=== PATIENT | male | born 1945 | race Caucasian/White ===

== ENCOUNTER → 2016-12-15 | Outpatient (CLI) | payer MEDICARE ==
[2016-12-15 07:20] LABS: Basophils # (A) 0.1 k/uL (0-0.2); Basophils % (A) 1 %; CH 31.3; CHCM 33.6; Eosinophils # (A) 0.2 k/uL (0-0.7); Eosinophils % (A) 5 %; HDW 3.05; HGB 14.1 gm/dL (13.0-17.5); Luc # (Auto) 0.13; Luc % (Auto) 3; Lymphocytes # (A) 1.5 k/uL (1.0-4.8); Lymphocytes % (A) 34 %; MCH 30.8 pg (25.0-35.0); MCHC 32.9 g/dL (31.0-37.0); MCV 93.6 fL (80.0-100.0); Mean Platelet Volume 6.9; Monocytes # (A) 0.3 k/uL (0-1.0); Monocytes % (A) 7 %; Neutrophils # (A) 2.3 k/uL (1.3-7.7); Neutrophils % (A) 50 %; RBC 4.59 m/uL (4.30-5.90); RDW 14.1 % (11.5-15.5); WBC 4.5 k/uL (3.8-10.6); WBC (Perox) 4.61
[2016-12-15 07:46] LABS: Appearance,Urine Clear (Clear); Bilirubin,Urine Negative (Negative); Glucose,Urine (UA) Negative (Negative); Ketones,Urine Negative (Negative); Leukocyte Esterase,Urine Negative (Negative); Mucus,Urine Rare /hpf; Nitrite,Urine Negative (Negative); PH, Urine 5.5 (5.0-8.0); Particle Count 1963; Protein,Urine 2+ (Negative); Specific Gravity,Urine 1.014 (1.001-1.035); UA Billing (MACRO vs. MICRO) MICRO; Urobilinogen,Urine <2.0 mg/dL (<2.0); WBC,Urine 3 /hpf (0-5)
[2016-12-15 13:16] LABS: Calcium 9.3 mg/dL (8.4-10.2); Magnesium 2.1 mg/dL (1.6-2.3); Phosphorous 3.9 mg/dL (2.5-4.5); Potassium 4.9 mmol/L (3.5-5.1); Total Bilirubin 2.2 mg/dL (0.2-1.3); Uric Acid 7.1 mg/dL (3.5-8.5)
[2016-12-15 15:36] LABS: % Iron Saturation 24.5 % (20-50)
[2016-12-15 16:01] LABS: Prostate Specific Antigen 1.76 ng/mL (0.00-4.00)
[2016-12-19 19:08] LABS: Hemoglobin A1C 6.8 % (4.2-6.1)
== END | disposition home or self-care (01) ==
LOC: LABWHC1 06:50
PROVIDERS: ATTEND Internal Medicine Nephrology
DX: Z00.00 Encounter for general adult medical examination without abnormal findings (principal); N18.3 Chronic kidney disease, stage 3 (moderate); D64.9 Anemia, unspecified; N39.0 Urinary tract infection, site not specified; E55.9 Vitamin D deficiency, unspecified; M10.9 Gout, unspecified; E21.3 Hyperparathyroidism, unspecified; Z12.5 Encounter for screening for malignant neoplasm of prostate; Z13.220 Encounter for screening for lipoid disorders; Z13.21 Encounter for screening for nutritional disorder
CPT/HCPCS: 36415; 80053; 80061; 81001; 82306; 82728; 83036; 83540; 83550; 83735; 83970; 84100; 84153; 84443; 84550; 85025

== ENCOUNTER → 2017-04-24 | Outpatient (CLI) | payer MEDICARE ==
[2017-04-24 07:53] LABS: Basophils % (A) 1 %; CH 31.8; CHCM 33.9; Eosinophils # (A) 0.2 k/uL (0-0.7); Eosinophils % (A) 4 %; HCT 43.4 % (39.0-53.0); HDW 2.99; HGB 14.2 gm/dL (13.0-17.5); Luc # (Auto) 0.14; Luc % (Auto) 3; Lymphocytes # (A) 1.5 k/uL (1.0-4.8); Lymphocytes % (A) 31 %; MCH 30.8 pg (25.0-35.0); MCHC 32.7 g/dL (31.0-37.0); MCV 94.3 fL (80.0-100.0); Mean Platelet Volume 7.3; Monocytes # (A) 0.3 k/uL (0-1.0); Monocytes % (A) 6 %; Neutrophils # (A) 2.7 k/uL (1.3-7.7); Neutrophils % (A) 55 %; RDW 14.1 % (11.5-15.5); WBC 4.8 k/uL (3.8-10.6); WBC (Perox) 5.09
[2017-04-24 09:25] LABS: Appearance,Urine Clear (Clear); Bacteria,Urine Rare /hpf; Bilirubin,Urine Negative (Negative); Glucose,Urine (UA) Negative (Negative); Ketones,Urine Negative (Negative); Leukocyte Esterase,Urine Negative (Negative); Nitrite,Urine Negative (Negative); PH, Urine 5.5 (5.0-8.0); Particle Count 641; Protein,Urine 1+ (Negative); Specific Gravity,Urine 1.015 (1.001-1.035); Squamous Epithelial Cell,Urine <1 /hpf (0-4); UA Billing (MACRO vs. MICRO) MICRO; Urobilinogen,Urine <2.0 mg/dL (<2.0); WBC,Urine 3 /hpf (0-5)
[2017-04-24 10:53] LABS: Calcium 9.8 mg/dL (8.4-10.2); Phosphorous 3.6 mg/dL (2.5-4.5); Uric Acid 7.9 mg/dL (3.5-8.5)
[2017-04-24 11:04] LABS: % Iron Saturation 30.7 % (20-50)
== END | disposition home or self-care (01) ==
LOC: LABWHC1 07:05
PROVIDERS: ATTEND Nurse Practitioner Family
DX: N18.3 Chronic kidney disease, stage 3 (moderate) (principal); D64.9 Anemia, unspecified; R80.9 Proteinuria, unspecified; E55.9 Vitamin D deficiency, unspecified; E21.3 Hyperparathyroidism, unspecified; M10.9 Gout, unspecified; N39.0 Urinary tract infection, site not specified
CPT/HCPCS: 36415; 80048; 81001; 81050; 82306; 82728; 83540; 83550; 83735; 83970; 84100; 84156; 84550; 85025

== ENCOUNTER → 2017-08-22 | Outpatient (CLI) | payer MEDICARE ==
[2017-08-22 06:56] LABS: Basophils % (A) 1 %; CH 31.7; CHCM 33.1; Eosinophils # (A) 0.2 k/uL (0-0.7); Eosinophils % (A) 4 %; HCT 41.5 % (39.0-53.0); HDW 3.08; HGB 13.8 gm/dL (13.0-17.5); Luc # (Auto) 0.18; Luc % (Auto) 3; Lymphocytes # (A) 1.5 k/uL (1.0-4.8); Lymphocytes % (A) 28 %; MCHC 33.2 g/dL (31.0-37.0); MCV 96.4 fL (80.0-100.0); Mean Platelet Volume 7.4; Monocytes # (A) 0.4 k/uL (0-1.0); Monocytes % (A) 7 %; Neutrophils % (A) 57 %; RBC 4.31 m/uL (4.30-5.90); RDW 14.1 % (11.5-15.5); WBC 5.4 k/uL (3.8-10.6); WBC (Perox) 5.29
[2017-08-22 07:06] LABS: Calcium 9.7 mg/dL (8.4-10.2); Potassium 4.8 mmol/L (3.5-5.1); Uric Acid 8.5 mg/dL (3.5-8.5)
[2017-08-22 07:12] LABS: Appearance,Urine Clear (Clear); Bilirubin,Urine Negative (Negative); Glucose,Urine (UA) Negative (Negative); Ketones,Urine Negative (Negative); Leukocyte Esterase,Urine Negative (Negative); Mucus,Urine Rare /hpf; Nitrite,Urine Negative (Negative); Particle Count 972; Protein,Urine 1+ (Negative); RBC,Urine <1 /hpf (0-5); Specific Gravity,Urine 1.014 (1.001-1.035); UA Billing (MACRO vs. MICRO) MICRO; Urobilinogen,Urine <2.0 mg/dL (<2.0); WBC,Urine 3 /hpf (0-5)
[2017-08-22 10:39] LABS: Hemoglobin A1C 6.6 % (4.2-6.1)
[2017-08-22 12:26] LABS: Iron Saturation 22.12 (15.00-50.00)
== END | disposition home or self-care (01) ==
LOC: LABWHC1 06:33
PROVIDERS: ATTEND Nurse Practitioner Family
DX: N39.0 Urinary tract infection, site not specified (principal); D64.9 Anemia, unspecified; E55.9 Vitamin D deficiency, unspecified; E21.3 Hyperparathyroidism, unspecified; M10.9 Gout, unspecified; N18.3 Chronic kidney disease, stage 3 (moderate); E11.9 Type 2 diabetes mellitus without complications
CPT/HCPCS: 36415; 80048; 81001; 82306; 82728; 83036; 83540; 83550; 83735; 83970; 84100; 84550; 85025

== ENCOUNTER → 2018-02-07 | Outpatient (CLI) | payer MEDICARE ==
[2018-02-07 08:10] LABS: Basophils # (A) 0.1 k/uL (0-0.2); Basophils % (A) 1 %; Eosinophils # (A) 0.3 k/uL (0-0.7); Eosinophils % (A) 5 %; HCT 41.8 % (39.0-53.0); HGB 14.2 gm/dL (13.0-17.5); Lymphocytes # (A) 1.3 k/uL (1.0-4.8); Lymphocytes % (A) 26 %; MCHC 33.9 g/dL (31.0-37.0); MCV 91.5 fL (80.0-100.0); Mean Platelet Volume 7.6; Monocytes # (A) 0.4 k/uL (0-1.0); Monocytes % (A) 7 %; Neutrophils % (A) 59 %; Platelet Count 201 k/uL (150-450); RBC 4.57 m/uL (4.30-5.90); WBC 5.1 k/uL (3.8-10.6)
[2018-02-07 08:14] LABS: Appearance,Urine Clear (Clear); Bilirubin,Urine Negative (Negative); Blood,Urine Negative (Negative); Color,Urine Yellow; Glucose,Urine (UA) Negative (Negative); Granular Casts,Urine 1 /lpf (0); Hyaline Casts,Urine 12 /lpf (0-2); Ketones,Urine Negative (Negative); Leukocyte Esterase,Urine Negative (Negative); Mucus,Urine Rare /hpf; Nitrite,Urine Negative (Negative); PH, Urine 5.5 (5.0-8.0); Protein,Urine 2+ (Negative); Specific Gravity,Urine 1.017 (1.001-1.035); Squamous Epithelial Cell,Urine <1 /hpf (0-4); Urobilinogen,Urine <2.0 mg/dL (<2.0); WBC,Urine 6 /hpf (0-5)
[2018-02-07 08:31] LABS: Magnesium 1.8 mg/dL (1.6-2.3); Phosphorus 3.6 mg/dL (2.5-4.5); Potassium 5.1 mmol/L (3.5-5.1); Uric Acid 6.8 mg/dL (3.5-8.5)
[2018-02-07 17:12] LABS: Iron Saturation 24.62 (15.00-50.00)
[2018-02-07 18:03] LABS: Parathyroid Hormone Intact 45.3 pg/mL (14.0-72.0)
== END | disposition home or self-care (01) ==
LOC: LABWHC1 06:41
PROVIDERS: ATTEND Nurse Practitioner Family
DX: E11.22 Type 2 diabetes mellitus with diabetic chronic kidney disease (principal); N18.3 Chronic kidney disease, stage 3 (moderate); D50.9 Iron deficiency anemia, unspecified; E55.9 Vitamin D deficiency, unspecified; N25.81 Secondary hyperparathyroidism of renal origin; M10.9 Gout, unspecified; N39.0 Urinary tract infection, site not specified
CPT/HCPCS: 36415; 80048; 81001; 82306; 82728; 83036; 83540; 83550; 83735; 83970; 84100; 84550; 85025

== ENCOUNTER → 2018-04-25 | Outpatient (CLI) | payer MEDICARE ==
--- NOTE | 2018-04-25 11:09 | XR ---
EXAMINATION TYPE: XR Hip Bilateral and AP pelvis DATE OF EXAM: 04/25/2018 COMPARISON: Prior pelvis and hips 01/02/2014 HISTORY: Groin pain, trauma 3 weeks prior TECHNIQUE: A single AP view of the pelvis is obtained. Two views of the bilateral hips are obtained. FINDINGS: There is no acute fracture/dislocation evident in the pelvis. The hip and sacroiliac join ts appear symmetric and unremarkable. The overlying soft tissue appears unremarkable. Degenerative d isc changes noted incidentally within the lumbar spine. Probable phleboliths present in the pelvis. Two views of bilateral hips show no acute fracture or dislocation. No focal lytic or sclerotic lesio n seen in the proximal bilateral femurs. The overlying soft tissue is unremarkable. Patient is stat us post bilateral hip arthroplasties, heterotopic new bone formation is present bilaterally. IMPRESSION: There is no acute fracture or dislocation in the pelvis or bilateral hips.
--- NOTE | 2018-04-25 11:11 | XR ---
Lumbar spine HISTORY: Back pain 3 views of the lumbar spine correlated to prior lumbar spine 04/17/2012 There is multilevel spondylosis, gentle spinal curvature again noted. Bone mineralization is mildly r educed. There is multilevel spondylosis. Loss of disc height is present at the intervertebral levels. Sclerosis present in the posterior elements of the lumbar spine. Vertebral body height is stable and maintained. IMPRESSION: No acute fracture or subluxation. Degenerative disc disease and facet arthropathy, osteop enia. MRI likely would be of benefit.
== END | disposition home or self-care (01) ==
LOC: RADXRMAIN 08:25
PROVIDERS: ATTEND Family Medicine
DX: M51.36 Other intervertebral disc degeneration, lumbar region (principal); M46.96 Unspecified inflammatory spondylopathy, lumbar region; R10.32 Left lower quadrant pain; Z98.890 Other specified postprocedural states
CPT/HCPCS: 72100; 73521

== ENCOUNTER → 2018-06-07 | Outpatient (CLI) | payer MEDICARE ==
--- NOTE | 2018-06-07 14:27 | BD ---
EXAMINATION TYPE: Axial Bone Density DATE OF EXAM: 06/07/2018 COMPARISON: NONE CLINICAL HISTORY: 72 YR OLD MALE....ICD-10 CODE: M85.88 OSTEOPENIA LUMBAR SPINE Height: 69.5 Weight: 231 FRAX RISK QUESTIONS: Secondary Osteoporosis: YES 1. Type 1 Diabetes: YES Current Tobacco Use: YES RISK FACTORS HISTORY OF: Surgery to BOTH HIPS REPLACED When: 2002 AND 2006 Active: [employer] Diet low in dairy products/other sources of calcium: YES A BIT Lost more than 2 inches in height since high school: YES MEDICATIONS: Additional Medications: BP MEDS, INSULIN AND ORAL DIABETIC MEDS, VIT D, LIPITOR Additional History: BILAT HIP REPLACEMENTS, OSTEOARTHRITIS, EXAM MEASUREMENTS: Bone mineral densitometry was performed using the [employer] System. Bone mineral density as measured about the Lumbar spine is: ----- L1-L4(G/cm2): 1.655 T Score Values are as follows: ----- L1: 3.9 ----- L2: 3.0 ----- L3: 4.3 ----- L4: 4.3 ----- L1-L4: 4.0 Bone mineral density FIRST BONE DENSITY.....BASELINE STUDY HIPS NOT SCANNED....BILAT HIP REPLACEMENTS Bone mineral density about the R Wrist (g/cm2): 0.696 T Score values are as follows: -----Dist. R+U: 0.5 -----Prox. R+U: -0.7 -----Radius total: -0.8 Bone mineral density BASELINE STUDY IMPRESSION: Normal (Values between +1 and -1 indicate normal bone mass). Consider repeating this study in 5 year s or sooner if there is some new clinical indication. NOTE: T-SCORE=SD OF THE YOUNG ADULT MEAN.
== END | disposition home or self-care (01) ==
LOC: RADBDWWP 13:01
PROVIDERS: ATTEND Family Medicine
DX: M85.88 Other specified disorders of bone density and structure, other site (principal)
CPT/HCPCS: 77080

== ENCOUNTER → 2018-07-16 | Outpatient (CLI) | payer MEDICARE ==
[2018-07-16 07:38] LABS: Basophils % (A) 1 %; Eosinophils # (A) 0.2 k/uL (0-0.7); Eosinophils % (A) 4 %; HGB 13.3 gm/dL (13.0-17.5); Lymphocytes # (A) 1.2 k/uL (1.0-4.8); Lymphocytes % (A) 26 %; MCH 31.1 pg (25.0-35.0); MCHC 33.4 g/dL (31.0-37.0); MCV 93.2 fL (80.0-100.0); Mean Platelet Volume 7.3; Monocytes # (A) 0.4 k/uL (0-1.0); Monocytes % (A) 9 %; Neutrophils # (A) 2.5 k/uL (1.3-7.7); Neutrophils % (A) 57 %; Platelet Count 200 k/uL (150-450); RBC 4.29 m/uL (4.30-5.90); RDW 14.1 % (11.5-15.5); WBC 4.4 k/uL (3.8-10.6)
[2018-07-16 07:55] LABS: Calcium 9.3 mg/dL (8.4-10.2); Phosphorus 2.7 mg/dL (2.5-4.5); Potassium 4.7 mmol/L (3.5-5.1); Uric Acid 8.6 mg/dL (3.5-8.5)
[2018-07-16 08:16] LABS: Appearance,Urine Clear (Clear); Bilirubin,Urine Negative (Negative); Blood,Urine Trace (Negative); Color,Urine Yellow; Glucose,Urine (UA) Negative (Negative); Ketones,Urine Negative (Negative); Leukocyte Esterase,Urine Negative (Negative); Mucus,Urine Rare /hpf; Nitrite,Urine Negative (Negative); PH, Urine 5.5 (5.0-8.0); Protein,Urine 2+ (Negative); RBC,Urine <1 /hpf (0-5); Specific Gravity,Urine 1.015 (1.001-1.035); Squamous Epithelial Cell,Urine <1 /hpf (0-4); Urobilinogen,Urine <2.0 mg/dL (<2.0); WBC,Urine 1 /hpf (0-5)
[2018-07-16 11:18] LABS: Iron Saturation 29.02 (15.00-50.00); Parathyroid Hormone Intact 52.2 pg/mL (14.0-72.0)
[2018-07-16 11:24] LABS: Vitamin D 25 Hydroxy 36.6 ng/mL (30.0-100.0)
== END | disposition home or self-care (01) ==
LOC: LABWHC1 06:50
PROVIDERS: ATTEND Internal Medicine Nephrology
DX: N18.3 Chronic kidney disease, stage 3 (moderate) (principal); D64.9 Anemia, unspecified; E55.9 Vitamin D deficiency, unspecified; E21.3 Hyperparathyroidism, unspecified; M10.9 Gout, unspecified; N39.0 Urinary tract infection, site not specified
CPT/HCPCS: 36415; 80048; 81001; 82306; 82728; 83540; 83550; 83735; 83970; 84100; 84550; 85025

== ENCOUNTER → 2018-10-14 | Outpatient (CLI) | payer MEDICARE ==
[2018-10-14 08:21] LABS: Basophils # (A) 0.1 k/uL (0-0.2); Basophils % (A) 1 %; Eosinophils # (A) 0.2 k/uL (0-0.7); Eosinophils % (A) 4 %; HCT 43.5 % (39.0-53.0); HGB 14.3 gm/dL (13.0-17.5); Lymphocytes # (A) 1.1 k/uL (1.0-4.8); Lymphocytes % (A) 21 %; MCH 31.2 pg (25.0-35.0); MCHC 32.8 g/dL (31.0-37.0); MCV 95.1 fL (80.0-100.0); Monocytes # (A) 0.3 k/uL (0-1.0); Monocytes % (A) 6 %; Neutrophils # (A) 3.3 k/uL (1.3-7.7); Neutrophils % (A) 65 %; Platelet Count 200 k/uL (150-450); RBC 4.58 m/uL (4.30-5.90); RDW 14.3 % (11.5-15.5)
[2018-10-14 08:51] LABS: Appearance,Urine Clear (Clear); Bilirubin,Urine Negative (Negative); Blood,Urine Negative (Negative); Color,Urine Yellow; Glucose,Urine (UA) Negative (Negative); Ketones,Urine Negative (Negative); Leukocyte Esterase,Urine Negative (Negative); Mucus,Urine Rare /hpf; Nitrite,Urine Negative (Negative); PH, Urine 5.5 (5.0-8.0); Protein,Urine 2+ (Negative); RBC,Urine 3 /hpf (0-5); Specific Gravity,Urine 1.017 (1.001-1.035); Urobilinogen,Urine <2.0 mg/dL (<2.0); WBC,Urine 3 /hpf (0-5)
[2018-10-14 16:22] LABS: Iron Saturation 25.86 (15.00-50.00)
[2018-10-14 16:29] LABS: Albumin 4.3 g/dL (3.80-4.90); Albumin/Globulin Ratio 2.05 (1.20-2.10); Anion Gap 6.2 mmol/L (4.00-12.00); Calcium 9.7 mg/dL (8.7-10.3); Carbon Dioxide 29.8 mmol/L (21.6-31.8); Globulin 2.1 g/dL (2.1-3.7); LDL Cholesterol,Calculated 52.4 mg/dL (0.0-131.0); Magnesium 2.1 mg/dL (1.5-2.4); Phosphorus 3.1 mg/dL (2.4-5.1); Potassium 4.8 mmol/L (3.5-5.5); Total Bilirubin 2.2 mg/dL (0.3-1.2); Total Protein 6.4 g/dL (6.2-8.2); Uric Acid 6.5 mg/dL (3.7-8.7); VLDL Calculation 46.6 mg/dL (5.00-40.00)
[2018-10-14 16:34] LABS: Vitamin D 25 Hydroxy 37.6 ng/mL (30.0-100.0)
[2018-10-14 17:17] LABS: Total Volume 24 Hour,Urine 2500 mL
== END | disposition home or self-care (01) ==
LOC: LABWHC1 06:55
PROVIDERS: ATTEND Nurse Practitioner Family
DX: E11.3292 Type 2 diabetes mellitus with mild nonproliferative diabetic retinopathy without macular edema, left eye (principal); M85.88 Other specified disorders of bone density and structure, other site; E78.5 Hyperlipidemia, unspecified; E21.3 Hyperparathyroidism, unspecified; N18.3 Chronic kidney disease, stage 3 (moderate); E79.0 Hyperuricemia without signs of inflammatory arthritis and tophaceous disease; E55.9 Vitamin D deficiency, unspecified; E11.22 Type 2 diabetes mellitus with diabetic chronic kidney disease; R80.9 Proteinuria, unspecified; D63.1 Anemia in chronic kidney disease; I12.9 Hypertensive chronic kidney disease with stage 1 through stage 4 chronic kidney disease, or unspecified chronic kidney disease
CPT/HCPCS: 36415; 80053; 80061; 81001; 81050; 82306; 82728; 83036; 83540; 83550; 83735; 83970; 84100; 84156; 84443; 84550; 85025

== ENCOUNTER → 2019-02-03 | Outpatient (CLI) | payer MEDICARE ==
[2019-02-03 06:52] LABS: Basophils # (A) 0.1 k/uL (0-0.2); Basophils % (A) 1 %; Eosinophils # (A) 0.3 k/uL (0-0.7); Eosinophils % (A) 5 %; HCT 42.9 % (39.0-53.0); Lymphocytes # (A) 1.5 k/uL (1.0-4.8); Lymphocytes % (A) 27 %; MCH 31.1 pg (25.0-35.0); MCHC 32.5 g/dL (31.0-37.0); MCV 95.7 fL (80.0-100.0); Mean Platelet Volume 6.9; Monocytes # (A) 0.4 k/uL (0-1.0); Monocytes % (A) 6 %; Neutrophils # (A) 3.4 k/uL (1.3-7.7); Neutrophils % (A) 59 %; Platelet Count 205 k/uL (150-450); RBC 4.48 m/uL (4.30-5.90); RDW 15.4 % (11.5-15.5); WBC 5.7 k/uL (3.8-10.6)
[2019-02-03 06:59] LABS: Appearance,Urine Clear (Clear); Bilirubin,Urine Negative (Negative); Blood,Urine Negative (Negative); Color,Urine Yellow; Glucose,Urine (UA) Negative (Negative); Ketones,Urine Negative (Negative); Leukocyte Esterase,Urine Negative (Negative); Mucus,Urine Rare /hpf; Nitrite,Urine Negative (Negative); PH, Urine 5.5 (5.0-8.0); Protein,Urine 1+ (Negative); Specific Gravity,Urine 1.012 (1.001-1.035); Urobilinogen,Urine <2.0 mg/dL (<2.0); WBC,Urine 1 /hpf (0-5)
[2019-02-03 16:35] LABS: Parathyroid Hormone Intact 32.2 pg/mL (14.0-72.0)
[2019-02-03 17:06] LABS: Iron Saturation 30.37 (15.00-50.00)
[2019-02-03 17:46] LABS: Anion Gap 6.1 mmol/L (4.00-12.00); Carbon Dioxide 25.9 mmol/L (21.6-31.8); Magnesium 2.1 mg/dL (1.5-2.4); Phosphorus 3.8 mg/dL (2.4-5.1); Potassium 4.9 mmol/L (3.5-5.5); Uric Acid 6.6 mg/dL (3.7-8.7)
== END | disposition home or self-care (01) ==
LOC: LABWHC1 06:35
PROVIDERS: ATTEND Nurse Practitioner Family
DX: N39.0 Urinary tract infection, site not specified (principal); D63.1 Anemia in chronic kidney disease; N18.3 Chronic kidney disease, stage 3 (moderate); E11.22 Type 2 diabetes mellitus with diabetic chronic kidney disease; E55.9 Vitamin D deficiency, unspecified; E79.0 Hyperuricemia without signs of inflammatory arthritis and tophaceous disease
CPT/HCPCS: 36415; 80048; 81001; 82306; 82728; 83036; 83540; 83550; 83735; 83970; 84100; 84550; 85025

== ENCOUNTER → 2019-04-15 | Outpatient (CLI) | payer MEDICARE ==
[2019-04-15 14:12] LABS: Hemoglobin A1C 7.4 % (4.0-6.0)
== END ==
LOC: LABWHC1 06:42
PROVIDERS: ATTEND Family Medicine
DX: E11.9 Type 2 diabetes mellitus without complications (principal)
CPT/HCPCS: 36415; 83036

== ENCOUNTER → 2019-06-02 | Outpatient (CLI) | payer MEDICARE ==
[2019-06-02 07:39] LABS: Basophils % (A) 1 %; Eosinophils # (A) 0.2 k/uL (0-0.7); Eosinophils % (A) 5 %; HCT 38.5 % (39.0-53.0); HGB 12.4 gm/dL (13.0-17.5); Lymphocytes # (A) 0.9 k/uL (1.0-4.8); Lymphocytes % (A) 23 %; MCH 30.7 pg (25.0-35.0); MCHC 32.3 g/dL (31.0-37.0); MCV 94.9 fL (80.0-100.0); Mean Platelet Volume 7.7; Monocytes # (A) 0.3 k/uL (0-1.0); Monocytes % (A) 7 %; Neutrophils # (A) 2.3 k/uL (1.3-7.7); Neutrophils % (A) 61 %; Platelet Count 173 k/uL (150-450); RBC 4.05 m/uL (4.30-5.90); RDW 15.7 % (11.5-15.5); WBC 3.8 k/uL (3.8-10.6)
[2019-06-02 10:36] LABS: Iron Saturation 24.92 (15.00-50.00)
[2019-06-02 10:40] LABS: African American GFR (CKD) 49.2 (60.0-200.0); Anion Gap 6.4 mmol/L (4.00-12.00); BUN/Creat Ratio 17.5 Ratio (12.00-20.00); Calcium 9.5 mg/dL (8.7-10.3); Carbon Dioxide 29.6 mmol/L (21.6-31.8); Magnesium 1.9 mg/dL (1.5-2.4); Phosphorus 3.2 mg/dL (2.4-5.1); Potassium 4.7 mmol/L (3.5-5.5); Uric Acid 5.9 mg/dL (3.7-8.7)
[2019-06-02 10:46] LABS: Parathyroid Hormone Intact 38.3 pg/mL (14.0-72.0)
[2019-06-02 14:03] LABS: Total Volume 24 Hour,Urine 3000 mL
[2019-06-02 14:25] LABS: Appearance,Urine Cloudy (Clear); Bilirubin,Urine Negative (Negative); Blood,Urine Negative (Negative); Color,Urine Yellow; Glucose,Urine (UA) Negative (Negative); Ketones,Urine Negative (Negative); Leukocyte Esterase,Urine Negative (Negative); Mucus,Urine Rare /hpf; Nitrite,Urine Negative (Negative); PH, Urine 5.5 (5.0-8.0); Protein,Urine 2+ (Negative); Specific Gravity,Urine 1.016 (1.001-1.035); Urobilinogen,Urine <2.0 mg/dL (<2.0); WBC,Urine 3 /hpf (0-5)
== END | disposition home or self-care (01) ==
LOC: LABWHC1 06:35
PROVIDERS: ATTEND Nurse Practitioner Family
DX: E11.22 Type 2 diabetes mellitus with diabetic chronic kidney disease (principal); N18.3 Chronic kidney disease, stage 3 (moderate); D63.1 Anemia in chronic kidney disease; E55.9 Vitamin D deficiency, unspecified; E79.0 Hyperuricemia without signs of inflammatory arthritis and tophaceous disease; R80.9 Proteinuria, unspecified; N39.0 Urinary tract infection, site not specified
CPT/HCPCS: 36415; 80048; 81001; 81050; 82728; 83540; 83550; 83735; 83970; 84100; 84156; 84550; 85025

== ENCOUNTER → 2019-10-20 | Outpatient (CLI) | payer MEDICARE ==
[2019-10-20 08:08] LABS: Basophils % (A) 1 %; Eosinophils # (A) 0.2 k/uL (0-0.7); Eosinophils % (A) 4 %; HCT 40.3 % (39.0-53.0); HGB 13.7 gm/dL (13.0-17.5); Lymphocytes # (A) 1.2 k/uL (1.0-4.8); Lymphocytes % (A) 23 %; MCH 32.4 pg (25.0-35.0); MCV 95.2 fL (80.0-100.0); Mean Platelet Volume 6.7; Monocytes # (A) 0.4 k/uL (0-1.0); Monocytes % (A) 7 %; Neutrophils # (A) 3.4 k/uL (1.3-7.7); Neutrophils % (A) 63 %; Platelet Count 193 k/uL (150-450); RBC 4.24 m/uL (4.30-5.90); WBC 5.3 k/uL (3.8-10.6)
[2019-10-20 08:15] LABS: Appearance,Urine Clear (Clear); Bilirubin,Urine Negative (Negative); Blood,Urine Negative (Negative); Color,Urine Yellow; Glucose,Urine (UA) Negative (Negative); Ketones,Urine Negative (Negative); Leukocyte Esterase,Urine Negative (Negative); Mucus,Urine Rare /hpf; Nitrite,Urine Negative (Negative); PH, Urine 5.5 (5.0-8.0); Protein,Urine 1+ (Negative); RBC,Urine 1 /hpf (0-5); Specific Gravity,Urine 1.018 (1.001-1.035); Squamous Epithelial Cell,Urine <1 /hpf (0-4); Urobilinogen,Urine <2.0 mg/dL (<2.0); WBC,Urine 5 /hpf (0-5)
[2019-10-20 08:23] LABS: Protein/Creatinine Ratio,Urine 0.6
[2019-10-20 11:54] LABS: % Iron Saturation 28.48 (15.00-50.00); African American GFR (CKD) 42.3 (60.0-200.0); Anion Gap 6.6 mmol/L (4.00-12.00); Calcium 9.8 mg/dL (8.7-10.3); Carbon Dioxide 28.4 mmol/L (21.6-31.8); Non-African American GFR(CKD) 36.5 (60.0-200.0); Phosphorus 3.9 mg/dL (2.4-5.1); Potassium 4.9 mmol/L (3.5-5.5); Uric Acid 6.8 mg/dL (3.7-8.7)
[2019-10-20 11:55] LABS: Ferritin 308.8 ng/mL (22.0-322.0)
== END | disposition home or self-care (01) ==
LOC: LABWHC1 06:55
PROVIDERS: ATTEND Internal Medicine Nephrology
DX: E55.9 Vitamin D deficiency, unspecified (principal); N25.81 Secondary hyperparathyroidism of renal origin; M10.9 Gout, unspecified; D64.9 Anemia, unspecified; N18.3 Chronic kidney disease, stage 3 (moderate); R80.9 Proteinuria, unspecified; E11.22 Type 2 diabetes mellitus with diabetic chronic kidney disease
CPT/HCPCS: 36415; 80048; 81001; 82040; 82306; 82570; 82728; 83036; 83540; 83550; 83735; 83970; 84100; 84156; 84550; 85025

== ENCOUNTER → 2020-01-30 | Outpatient (CLI) | payer MEDICARE ==
[2020-01-30 13:43] LABS: Hemoglobin A1C 7.5 % (4.0-6.0)
== END | disposition home or self-care (01) ==
LOC: LABWHC1 06:34
PROVIDERS: ATTEND Family Medicine
DX: E11.3292 Type 2 diabetes mellitus with mild nonproliferative diabetic retinopathy without macular edema, left eye (principal)
CPT/HCPCS: 36415; 83036

== ENCOUNTER → 2020-05-06 | Outpatient (CLI) | payer MEDICARE ==
[2020-05-06 10:13] LABS: Basophils % (A) 1 %; Eosinophils # (A) 0.2 k/uL (0-0.7); Eosinophils % (A) 3 %; HGB 13.9 gm/dL (13.0-17.5); Lymphocytes # (A) 1.1 k/uL (1.0-4.8); Lymphocytes % (A) 25 %; Monocytes # (A) 0.3 k/uL (0-1.0); Monocytes % (A) 6 %; Neutrophils # (A) 2.8 k/uL (1.3-7.7); Neutrophils % (A) 62 %; Platelet Count 165 k/uL (150-450); RBC 4.33 m/uL (4.30-5.90); RDW 14.4 % (11.5-15.5); WBC 4.5 k/uL (3.8-10.6)
[2020-05-06 10:51] LABS: Appearance,Urine Clear (Clear); Bilirubin,Urine Negative (Negative); Blood,Urine Negative (Negative); Color,Urine Light Yellow; Glucose,Urine (UA) 1+ (Negative); Hyaline Casts,Urine 1 /lpf (0-2); Ketones,Urine Negative (Negative); Leukocyte Esterase,Urine Negative (Negative); Mucus,Urine Rare /hpf; Nitrite,Urine Negative (Negative); PH, Urine 5.5 (5.0-8.0); Protein,Urine 1+ (Negative); RBC,Urine 1 /hpf (0-5); Specific Gravity,Urine 1.012 (1.001-1.035); Urobilinogen,Urine <2.0 mg/dL (<2.0); WBC,Urine 4 /hpf (0-5)
[2020-05-06 12:15] LABS: Protein/Creatinine Ratio,Urine 1.155
[2020-05-06 16:50] LABS: % Iron Saturation 27.94 (15.00-50.00); African American GFR (CKD) 37.3 (60.0-200.0); Albumin 4.2 g/dL (3.80-4.90); Albumin/Globulin Ratio 1.83 (1.60-3.17); Anion Gap 7.7 mmol/L (4.00-12.00); Calcium 9.6 mg/dL (8.7-10.3); Carbon Dioxide 25.3 mmol/L (21.6-31.8); Globulin 2.3 g/dL (1.6-3.3); Non-African American GFR(CKD) 32.2 (60.0-200.0); Phosphorus 3.2 mg/dL (2.4-5.1); Potassium 5.2 mmol/L (3.5-5.5); Total Bilirubin 2.6 mg/dL (0.3-1.2); Total Protein 6.5 g/dL (6.2-8.2); Uric Acid 6.3 mg/dL (3.7-8.7)
[2020-05-06 17:36] LABS: Hemoglobin A1C 7.1 % (4.0-6.0)
== END | disposition home or self-care (01) ==
LOC: LABWHC1 08:25
PROVIDERS: ATTEND Family Medicine
DX: N18.3 Chronic kidney disease, stage 3 (moderate) (principal); D63.1 Anemia in chronic kidney disease; E11.22 Type 2 diabetes mellitus with diabetic chronic kidney disease; R80.9 Proteinuria, unspecified; M10.9 Gout, unspecified; N25.81 Secondary hyperparathyroidism of renal origin; N39.0 Urinary tract infection, site not specified; E55.9 Vitamin D deficiency, unspecified; E11.3292 Type 2 diabetes mellitus with mild nonproliferative diabetic retinopathy without macular edema, left eye
CPT/HCPCS: 36415; 80053; 81001; 82306; 82570; 82728; 83036; 83540; 83550; 83735; 83970; 84100; 84156; 84550; 85025

== ENCOUNTER → 2020-08-13 | Outpatient (CLI) | payer MEDICARE ==
[2020-08-13 16:56] LABS: Hemoglobin A1C 6.5 % (4.0-6.0)
== END | disposition home or self-care (01) ==
LOC: LABWHC1 07:07
PROVIDERS: ATTEND Family Medicine
DX: E11.3292 Type 2 diabetes mellitus with mild nonproliferative diabetic retinopathy without macular edema, left eye (principal)
CPT/HCPCS: 36415; 83036

== ENCOUNTER → 2020-11-02 | Outpatient (CLI) | payer MEDICARE ==
[2020-11-02 08:05] LABS: Basophils # (A) 0.1 k/uL (0-0.2); Basophils % (A) 1 %; Eosinophils # (A) 0.2 k/uL (0-0.7); Eosinophils % (A) 4 %; HCT 41.7 % (39.0-53.0); HGB 13.6 gm/dL (13.0-17.5); Lymphocytes # (A) 1.3 k/uL (1.0-4.8); Lymphocytes % (A) 24 %; MCH 30.9 pg (25.0-35.0); MCHC 32.7 g/dL (31.0-37.0); MCV 94.6 fL (80.0-100.0); Mean Platelet Volume 7.6; Monocytes # (A) 0.4 k/uL (0-1.0); Monocytes % (A) 7 %; Neutrophils # (A) 3.3 k/uL (1.3-7.7); Neutrophils % (A) 61 %; Platelet Count 180 k/uL (150-450); RBC 4.41 m/uL (4.30-5.90); RDW 14.1 % (11.5-15.5); WBC 5.3 k/uL (3.8-10.6)
[2020-11-02 08:30] LABS: Appearance,Urine Clear (Clear); Bilirubin,Urine Negative (Negative); Blood,Urine Negative (Negative); Color,Urine Light Yellow; Glucose,Urine (UA) Negative (Negative); Ketones,Urine Negative (Negative); Leukocyte Esterase,Urine Negative (Negative); Nitrite,Urine Negative (Negative); Protein,Urine 1+ (Negative); RBC,Urine 1 /hpf (0-5); Specific Gravity,Urine 1.008 (1.001-1.035); Squamous Epithelial Cell,Urine <1 /hpf (0-4); Urobilinogen,Urine <2.0 mg/dL (<2.0); WBC,Urine 1 /hpf (0-5)
[2020-11-02 11:19] LABS: % Iron Saturation 28.38 (15.00-50.00); African American GFR (CKD) 48.5 (60.0-200.0); Albumin 3.9 g/dL (3.80-4.90); Albumin/Globulin Ratio 1.86 (1.60-3.17); Anion Gap 4.7 mmol/L (4.00-12.00); BUN/Creat Ratio 21.88 Ratio (12.00-20.00); Calcium 9.3 mg/dL (8.7-10.3); Carbon Dioxide 30.3 mmol/L (21.6-31.8); Globulin 2.1 g/dL (1.6-3.3); Non-African American GFR(CKD) 41.8 (60.0-200.0); Phosphorus 2.9 mg/dL (2.4-5.1); Total Bilirubin 2.1 mg/dL (0.2-1.2); Uric Acid 6.1 mg/dL (3.7-8.7)
[2020-11-02 11:27] LABS: Ferritin 277.1 ng/mL (22.0-322.0)
[2020-11-02 15:04] LABS: Creatinine,Urine Random 49.1 mg/dL; Protein/Creatinine Ratio,Urine 1.772
== END | disposition home or self-care (01) ==
LOC: LABWHC1 07:21
PROVIDERS: ATTEND Nurse Practitioner Family
DX: N18.30 Chronic kidney disease, stage 3 unspecified (principal); E55.9 Vitamin D deficiency, unspecified; N39.0 Urinary tract infection, site not specified; N25.81 Secondary hyperparathyroidism of renal origin; R80.9 Proteinuria, unspecified; M10.9 Gout, unspecified; D63.1 Anemia in chronic kidney disease
CPT/HCPCS: 36415; 80053; 81001; 82306; 82570; 82728; 83540; 83550; 83735; 83970; 84100; 84156; 84550; 85025

== ENCOUNTER → 2021-03-30 | Outpatient (CLI) | payer MEDICARE ==
[2021-03-30 08:07] LABS: Appearance,Urine Clear (Clear); Bilirubin,Urine Negative (Negative); Blood,Urine Trace (Negative); Color,Urine Yellow; Glucose,Urine (UA) Negative (Negative); Hyaline Casts,Urine 1 /lpf (0-2); Ketones,Urine Negative (Negative); Leukocyte Esterase,Urine Trace (Negative); Mucus,Urine Rare /hpf; Nitrite,Urine Negative (Negative); PH, Urine 5.5 (5.0-8.0); Protein,Urine 2+ (Negative); RBC,Urine <1 /hpf (0-5); Specific Gravity,Urine 1.015 (1.001-1.035); Urobilinogen,Urine <2.0 mg/dL (<2.0); WBC,Urine 5 /hpf (0-5)
[2021-03-30 09:43] LABS: Creatinine,Urine Random 125.9 mg/dL
[2021-03-30 09:58] LABS: Protein/Creatinine Ratio,Urine 1.811
[2021-03-30 15:00] LABS: Basophils # (A) 0.05 X 10*3/uL (0.00-0.10); HCT 41.3 % (39.6-50.0); HGB 13.2 g/dL (13.0-17.0); Lymphocytes # (A) 1.12 X 10*3/uL (0.90-5.00); Lymphocytes % (A) 22.5 %; MCV 96.9 fL (80.0-97.0); Mean Platelet Volume 11.1 fL (9.5-12.2); Monocytes # (A) 0.58 X 10*3/uL (0.20-1.00); Monocytes % (A) 11.7 %; Neutrophils % (A) 60.4 %; Platelet Count 187 X 10*3/uL (140-440); RBC 4.26 X 10*6/uL (4.40-5.60); RDW 14.1 % (11.5-14.5); WBC 4.97 X 10*3/uL (4.50-10.00)
[2021-03-30 19:08] LABS: Hemoglobin A1C 7.2 % (4.0-6.0)
[2021-03-31 00:37] LABS: % Iron Saturation 30.37 (15.00-50.00); African American GFR (CKD) 34.9 (60.0-200.0); Albumin 4.2 g/dL (3.80-4.90); Albumin/Globulin Ratio 1.83 (1.60-3.17); Anion Gap 11.9 mmol/L (4.00-12.00); BUN/Creat Ratio 20.48 Ratio (12.00-20.00); Calcium 9.6 mg/dL (8.7-10.3); Carbon Dioxide 24.1 mmol/L (21.6-31.8); Chol/HDL Ratio 4.13; Globulin 2.3 g/dL (1.6-3.3); LDL Cholesterol,Calculated 60.2 mg/dL (0.0-131.0); Magnesium 2.1 mg/dL (1.5-2.4); Non-African American GFR(CKD) 30.1 (60.0-200.0); Phosphorus 3.5 mg/dL (2.4-5.1); Potassium 4.9 mmol/L (3.5-5.5); Total Bilirubin 2.2 mg/dL (0.2-1.2); Total Protein 6.5 g/dL (6.2-8.2); Uric Acid 6.3 mg/dL (3.7-8.7); VLDL Calculation 36.8 mg/dL (5.00-40.00)
[2021-03-31 00:43] LABS: Prostate Specific Antigen 2.6 ng/mL (0.0-6.5)
[2021-03-31 02:04] LABS: Ferritin 392.1 ng/mL (22.0-322.0)
== END | disposition home or self-care (01) ==
LOC: LABWHC1 07:03
PROVIDERS: ATTEND Internal Medicine Nephrology
DX: Z12.5 Encounter for screening for malignant neoplasm of prostate (principal); I12.9 Hypertensive chronic kidney disease with stage 1 through stage 4 chronic kidney disease, or unspecified chronic kidney disease; E11.22 Type 2 diabetes mellitus with diabetic chronic kidney disease; E21.3 Hyperparathyroidism, unspecified; E11.3292 Type 2 diabetes mellitus with mild nonproliferative diabetic retinopathy without macular edema, left eye; E78.00 Pure hypercholesterolemia, unspecified; E55.9 Vitamin D deficiency, unspecified; N25.81 Secondary hyperparathyroidism of renal origin; M10.9 Gout, unspecified; N18.30 Chronic kidney disease, stage 3 unspecified; N39.0 Urinary tract infection, site not specified; D64.9 Anemia, unspecified
CPT/HCPCS: 36415; 80053; 80061; 81001; 82306; 82570; 82728; 83036; 83540; 83550; 83735; 83970; 84100; 84153; 84156; 84443; 84550; 85025

== ENCOUNTER → 2021-05-10 | Outpatient (CLI) | payer MEDICARE ==
[2021-05-10 09:42] LABS: Mucus,Urine Rare /hpf; RBC,Urine <1 /hpf (0-5); WBC,Urine 1 /hpf (0-5)
[2021-05-10 09:46] LABS: Appearance,Urine Clear (Clear); Color,Urine Colorless; Protein,Urine 2+ (Negative); Specific Gravity,Urine 1.025 (1.001-1.035)
[2021-05-10 09:47] LABS: Blood,Urine Small (Negative); Leukocyte Esterase,Urine Negative (Negative); Nitrite,Urine Negative (Negative); Urobilinogen,Urine <2.0 mg/dL (<2.0)
[2021-05-10 10:00] LABS: Bilirubin,Urine Negative (Negative); Glucose,Urine (UA) Negative (Negative); Ketones,Urine Negative (Negative)
[2021-05-10 11:26] LABS: Basophils # (A) 0.05 X 10*3/uL (0.00-0.10); Basophils % (A) 1.1 %; Eosinophils # (A) 0.23 X 10*3/uL (0.04-0.35); HCT 41.7 % (39.6-50.0); HGB 13.2 g/dL (13.0-17.0); Lymphocytes # (A) 1.22 X 10*3/uL (0.90-5.00); Lymphocytes % (A) 26.6 %; MCH 31.6 pg (27.0-32.0); MCHC 31.7 g/dL (32.0-37.0); MCV 99.8 fL (80.0-97.0); Mean Platelet Volume 10.9 fL (9.5-12.2); Monocytes % (A) 10.9 %; Neutrophils # (A) 2.57 X 10*3/uL (1.80-7.70); Neutrophils % (A) 56.2 %; Platelet Count 171 X 10*3/uL (140-440); RBC 4.18 X 10*6/uL (4.40-5.60); RDW 14.6 % (11.5-14.5); WBC 4.58 X 10*3/uL (4.50-10.00)
[2021-05-10 12:15] LABS: Creatinine,Urine Random 88.6 mg/dL
[2021-05-10 12:25] LABS: Protein/Creatinine Ratio,Urine 3.375
[2021-05-10 16:17] LABS: % Iron Saturation 21.38 (15.00-50.00); African American GFR (CKD) 48.5 (60.0-200.0); Albumin 4.1 g/dL (3.80-4.90); BUN/Creat Ratio 18.13 Ratio (12.00-20.00); Calcium 9.3 mg/dL (8.7-10.3); Non-African American GFR(CKD) 41.8 (60.0-200.0); Phosphorus 3.6 mg/dL (2.4-5.1); Uric Acid 5.7 mg/dL (3.7-8.7)
[2021-05-10 16:24] LABS: Ferritin 280.7 ng/mL (22.0-322.0)
== END | disposition home or self-care (01) ==
LOC: LABWHC1 07:05
PROVIDERS: ATTEND Nurse Practitioner Family
DX: N18.32 Chronic kidney disease, stage 3b (principal); E55.9 Vitamin D deficiency, unspecified; N25.81 Secondary hyperparathyroidism of renal origin; M10.9 Gout, unspecified; N39.0 Urinary tract infection, site not specified; R80.9 Proteinuria, unspecified; F64.9 Gender identity disorder, unspecified
CPT/HCPCS: 36415; 80048; 81001; 82040; 82306; 82570; 82728; 83540; 83550; 83735; 83970; 84100; 84156; 84550; 85025

== ENCOUNTER → 2021-09-02 | Outpatient (CLI) | payer MEDICARE ==
[2021-09-02 10:11] LABS: Creatinine,Urine Random 69.8 mg/dL
[2021-09-02 10:19] LABS: Protein/Creatinine Ratio,Urine 3.997
[2021-09-02 15:53] LABS: Basophils # (A) 0.05 X 10*3/uL (0.00-0.10); Eosinophils # (A) 0.18 X 10*3/uL (0.04-0.35); Eosinophils % (A) 3.7 %; HCT 40.3 % (39.6-50.0); Lymphocytes # (A) 1.06 X 10*3/uL (0.90-5.00); Lymphocytes % (A) 21.9 %; MCH 31.6 pg (27.0-32.0); MCHC 32.3 g/dL (32.0-37.0); MCV 98.1 fL (80.0-97.0); Mean Platelet Volume 11.2 fL (9.5-12.2); Monocytes # (A) 0.56 X 10*3/uL (0.20-1.00); Monocytes % (A) 11.5 %; Neutrophils # (A) 2.99 X 10*3/uL (1.80-7.70); Neutrophils % (A) 61.7 %; Platelet Count 187 X 10*3/uL (140-440); RBC 4.11 X 10*6/uL (4.40-5.60); RDW 14.2 % (11.5-14.5); WBC 4.85 X 10*3/uL (4.50-10.00)
[2021-09-02 23:29] LABS: % Iron Saturation 32.41 (15.00-50.00); African American GFR (CKD) 46.7 (60.0-200.0); Albumin 3.8 g/dL (3.8-4.9); Anion Gap 9.9 mmol/L (4.00-12.00); BUN/Creat Ratio 17.8 Ratio (12.00-20.00); Blood Urea Nitrogen 29.2 mg/dL (9.0-27.0); Calcium 9.6 mg/dL (8.7-10.3); Carbon Dioxide 25.6 mmol/L (21.6-31.8); Magnesium 2.2 mg/dL (1.5-2.4); Non-African American GFR(CKD) 40.3 (60.0-200.0); Phosphorus 3.3 mg/dL (2.4-5.1); Potassium 5.2 mmol/L (3.5-5.5); Uric Acid 5.3 mg/dL (3.7-8.7)
== END | disposition home or self-care (01) ==
LOC: LABWHC1 08:34
PROVIDERS: ATTEND Nurse Practitioner Family
DX: E55.9 Vitamin D deficiency, unspecified (principal); N25.81 Secondary hyperparathyroidism of renal origin; M10.9 Gout, unspecified; N39.0 Urinary tract infection, site not specified; D63.1 Anemia in chronic kidney disease; N18.32 Chronic kidney disease, stage 3b; R80.9 Proteinuria, unspecified
CPT/HCPCS: 36415; 80048; 81001; 82040; 82306; 82570; 82728; 83540; 83550; 83735; 83970; 84100; 84156; 84550; 85025

== ENCOUNTER → 2021-10-24 | Outpatient (CLI) | payer MEDICARE | END | disposition home or self-care (01) | LOC: LABWHC1 07:09 | PROVIDERS: ATTEND Family Medicine | DX: E11.3292 Type 2 diabetes mellitus with mild nonproliferative diabetic retinopathy without macular edema, left eye (principal) | CPT/HCPCS: 36415; 83036 ==

== ENCOUNTER → 2021-11-01 | Outpatient (CLI) | payer MEDICARE ==
--- NOTE | 2021-11-01 09:28 | MR ---
EXAMINATION TYPE: MR lumbar spine wo con DATE OF EXAM: 11/01/2021 COMPARISON: HISTORY: Left leg pain, benny leg swelling TECHNIQUE: Multiplanar, multisequence images of the lumbar spine were acquired without IV contrast. L1-L2: Posterior broad-based disc bulge causes anterior aspect of the thecal sac. No significant spin al stenosis or foraminal encroachment. L2-L3: Posterior broad-based disc bulge, endplate disc complex causes anterior aspect of the thecal s ac. There is facet arthropathy with hypertrophy of the ligamentum flavum causing posterolateral aspec t of the thecal sac. Circumferential extension and pectus complex results in foraminal encroachment g reater on the right than on the left, there is moderate to severe spinal stenosis. L3-L4: No evident disc herniation, circumferential extension) complex encroaches minimally on the inf erior aspect of the foramina. There is facet arthropathy change. Hypertrophy of the ligamentum flavum causes some posterolateral aspect of the thecal sac, no significant spinal stenosis. L4-L5: There is spinal stenosis present. Hypertrophic changes of the facets causes posterior lateral aspect of the thecal sac, there may be a synovial cyst present slightly to the left of midline, sagit incola image #9 extending into the spinal canal and causing some posterior lateral aspect of the thecal sac, axial image #7. Minimal posterior disc bulge causes anterior aspect of the thecal sac, there is moderate to severe spinal stenosis. Circumferential extension) complex causes minimal encroachment on inferior aspect of the foramina. L5-S1: There are facet arthropathy changes present. No significant spinal stenosis. No disc herniatio n or foraminal encroachment. Lumbar segments are intact. No paraspinal masses are identified. Conus medullaris has a normal appe arance. Lumbar vertebral bodies show preserved height and alignment. There is multilevel spondylosis with endplate discogenic marrow signal change. Loss of disc height signals present within the vertebr al levels especially at L1-2 lesser extent L2-3, L3-4 shows mixed disc signal consistent with calcifi cation. Redundant nerve roots are present between the L2-3 disc space and the L4-5 disc space suggest ing significant spinal stenosis. Left kidney not seen. IMPRESSION: Degenerative disc disease, facet arthropathy, spinal stenosis as described. Status post left nephrect diane.
== END | disposition home or self-care (01) ==
LOC: RADMRIMAIN 08:07
PROVIDERS: ATTEND Orthopaedic Surgery
DX: M51.36 Other intervertebral disc degeneration, lumbar region (principal); M47.816 Spondylosis without myelopathy or radiculopathy, lumbar region; M48.061 Spinal stenosis, lumbar region without neurogenic claudication
CPT/HCPCS: 72148

== ENCOUNTER → 2022-01-03 | Outpatient (CLI) | payer MEDICARE | END | disposition home or self-care (01) | LOC: LABPAT 08:43 | PROVIDERS: ATTEND Orthopaedic Surgery | DX: Z01.812 Encounter for preprocedural laboratory examination (principal); M48.061 Spinal stenosis, lumbar region without neurogenic claudication | CPT/HCPCS: 87070 ==

== ENCOUNTER → 2022-01-04 | Outpatient (CLI) | payer MEDICARE | END | disposition home or self-care (01) | LOC: LABWHC1 09:55 | PROVIDERS: ATTEND Orthopaedic Surgery | DX: Z01.812 Encounter for preprocedural laboratory examination (principal); M48.061 Spinal stenosis, lumbar region without neurogenic claudication | CPT/HCPCS: 36415; 93005 ==

== ENCOUNTER 2022-01-11 14:07 | Inpatient (IN) | payer MEDICARE ==
[2022-01-05 14:38] VITALS: BMI 33.9
--- NOTE | 2022-01-11 10:39 | P.HPOR ---
History of Present Illness H&P Date: 01/04/22 Chief Complaint: Low back pain, neurogenic claudication Date of :[birth year] Age: 76 year Height: 6' Weight: 240 lbs BP:127/78 BMI: 32.55 kg/m2 Occupation: Retired VAS: 2 CHIEF COMPLAINT: Low back pain with left lower extremity radiculopathy HISTORY: Xrays No new xrays taken in office Trauma or injury No Work-Related No Pain description aching, sharp with ambulation. Location posterior diffuse Activity Modification yes , standing and ambulating for extended periods of time bring significant discomfort. He does ambulate with a cane. Hand Dominance Right DOI: Acute on chronic degeneration, no trauma or injury DOS: None. TREATMENTS COMPLETED: 6 weeks of PT completed? Yes How many visits? 12 Did it help? No Physician directed home exercise completed? Yes, with no improvements. Medications yes List: Tylenol, Tramadol with no influence on his symptoms. Gabapentin 300mg without any improvements. Alternative interventions Chiropractic?: No Brace: No Injections No RFA: No SUBJECTIVE: Patient presents to the office for a pre-operative appointment for the planned L2-L5 Laminectomy with decompression. Since the time of the last appointment the patient reports that his symptoms have not changed. He notes continued dis ability and cannot complete most os his daily functions due to the severity of his symptoms. He has failed to improve with all conservative modalities trialed thus far and is ready to proceed with the planned procedure. HPI: Patient last presented to the office on 12/01/2021 to review the results of his lumbar spine obtained on 11/01/2021. Since the time of the last appointment the patient notes that his symptoms have not improved. Overall he notes that his symptoms are the same as they were described at the time of the last appointment. Patient notes that his symptoms have continued to impede his daily functionality and has failed to improve with all conservative treatments tried thus far. Patient otherwise denies any bladder or bowel issues, no perineal numbness/tingling, and presents with the use of a cane for ambulation. Of note, he reports that he has been using the cane since 04/2021 and has been using it regularly since this time. Patient last presented to the office on 10/12/2021 for a follow up evaluation of his low back and left lower extremity. Since the time of the last appointment the patient notes that he has completed 6 weeks of PT with no change to his symptoms. Otherwise he has continued to take Tylenol, Tramadol, and Gabapentin all without relief of the low back pain or LLE radiculopathy. Overall he notes that he has not changed notably with conservative treatments tried thus far. Patient otherwise denies any bladder or bowel issues, no perineal numbness/tingling, and presents with the use of a cane for ambulation. Mr. Perez previously presented to the office on 08/26/2021 for an evaluation of his low back and left lower extremity. He notes that this pain started three months ago with no known injury or trauma. Aside from this recent increase in pain he notes consistent "soreness" about the low back for several years now. Regarding his symptoms the patient states that it is mostly an ach that increase s to a sharp pain when ambulating or standing for extended periods of time. Due to his pain he notes that he has been unable to sleep in a bed for "years", stating that he sleeps in a recliner to avoid exacerbation of his symptoms. In addition to the low back pain the patient does report pain radiating down into the left lower extremity. This radiculopathic symptomology increases in severity with ambulation and is his primary concern at this time. He notes that due to his symptoms his daily functionality is moderately limited. Regarding treatments Mor states that he does take Tramadol and Tylenol every day but this does not help his symptoms. He is unable to take most anti-inflammatories due to his history of renal cancer, noting that he only has one functioning kidney. With t his he states that he is currently in remission. Otherwise the patient denies any bladder or bowel issues. Additionally he does present to the office with the use of a cane for ambulation. Of note, Dr. Venancio Hopper M.D did his bilateral total hip arthroplasties. The patients' past social, medical, family, surgical history, as well as review of systems, have been reviewed. Please refer to the Neurosurgery History and Physical form that has been scanned in to our electronic medical record system. 14 points review of systems completed and as stated in HPI, all other systems reviewed are negative. Review of Systems 14 points review of systems completed and as stated in HPI, all other systems reviewed are negative. All systems: negative Constitutional: Reports as per HPI Past Medical History Past Medical History: Cancer, Diabetes Mellitus, GERD/Reflux, Hyperlipidemia, Hypertension Additional Past Medical History / Comment(s): irregular heartbeat, superficial blood clot in rt leg, hx kindney and skin cancer History of Any Multi-Drug Resistant Organisms: None Reported Past Surgical History: Joint Replacement, Tonsillectomy Additional Past Surgical History / Comment(s): left nephrectomy 2009, removal of skin cancer, benny hip replacement, Past Anesthesia/Blood Transfusion Reactions: Motion Sickness Smoking Status: Former smoker - Past Family History Sister(s) Family Medical History: Cancer Additional Family Medical History / Comment(s): pancreatic cancer Medications and Allergies Home Medications Medication Instructions Recorded Confirmed Type Allopurinol [Zyloprim] 200 mg PO QAM 01/05/22 01/05/22 History Atorvastatin [Lipitor] 20 mg PO DAILY 01/05/22 01/05/22 History Cholecalciferol [Vitamin D3 (25 50 mcg PO DAILY 01/05/22 01/05/22 History Mcg = 1000 Iu)] Fish Oil/Dha/Epa [Fish Oil 1,200 1 each PO DAILY 01/05/22 01/05/22 History mg Fish Oil] Furosemide [Lasix] 20 mg PO DAILY 01/05/22 01/05/22 History HYDROcodone/APAP 5-325MG [[place] 1 tab PO TID 01/05/22 01/05/22 History 5-325] Insulin Glargine,Hum.rec.anlog 50 unit SQ HS 01/05/22 01/05/22 History [Lantus Solostar Pen] Magnesium Oxide [Mag-Ox] 250 mg PO DAILY 01/05/22 01/05/22 History Pioglitazone [Actos] 30 mg PO DAILY 01/05/22 01/05/22 History Tureric Tab 400 mg PO DAILY 01/05/22 01/05/22 History Zinc 50 mg PO DAILY 01/05/22 01/05/22 History amLODIPine [Norvasc] 2.5 mg PO DAILY 01/05/22 01/05/22 History glipiZIDE [Glucotrol] 10 mg PO AC-BRKFST 01/05/22 01/05/22 History lisinopriL [Zestril] 5 mg PO QAM 01/05/22 01/05/22 History Allergies Allergy/AdvReac Type Severity Reaction Status Date / Time No Known Allergies Allergy Verified 01/05/22 14:19 Physical Examination Osteopathic Statement: *. No significant issues noted on an osteopathic structural exam other than those noted in the History and Physical/Consult. PHYSICAL EXAMINATION: General: Awake, alert, appropriate for age, in no acute distress. HEENT: No unusual neck masses around region of lateral neck triangle, thyroid, supraclavicular groove Heart: Regular rate and rhythm, normal S1, S2 and no murmur/gallop. Lungs: Clear to auscultation bilaterally with no use of accessory muscles. Extremities: Skin warm and dry without acute lesions, coloration, temperature, skin intact, no tenderness or erythema Integument: Hairy patches: Absent Dorsal skin dimples: Absent Cafe au lait spots: Absent Surgical incisions: No Palpation: Please see Pain drawing on Intake sheet for further detail. Midline spinal tenderness: No E6 Paralumbar tenderness: mild E6 Parathoracic tenderness: No E6 Buttocks tenderness: No E6 Special findings: None POSTURAL and MUSCULO-SKELETAL EVALUATION: Coronal Balance: NEUTRAL Recumbent testing: Patient is able to lay flat on back Sagittal Balance: NEUTRAL Shoulder Profile: LEVEL Pelvic Girdle: LEVEL Neck ROM: UNRESTRICTED Lumbar ROM: RESTRICTED with pain Shoulder ROM: Symmetrical Hip ROM: Symmetrical Knee ROM: Symmetrical Hands: Normal appearance, symmetrical Feet: Normal appearance, Symmetrical VASCULAR STATUS : LEFT RIGHT Wrist Pulses INTACT INTACT Pedal Pulses (Dors. pedis & post.tibialis) INTACT INTACT Color NORMAL NORMAL Edema Absent Absent NEUROLOGIC EXAMINATION: Mental Status:Awake and alert, fully oriented, with normal attention, concentration and memory, and fluent, appropriate speech. Cranial Nerves: I: Olfactory not tested. II: Visual acuity normal, no visual field deficit noted with confrontation. III,IV: Normal pupillary reflexes & intact extraocular movements without nystagmus. V,: Intact symmetrical facial sensation. VII: Intact symmetrical facial motor movement VIII: Hearing intact. IX,X: Intact gag, swallow, & normal voice. XI: Sternocleidomastoid, trapezius function intact. XII: Tongue midline with normal movements. L'hermitte's Sign: Negative / absent Spurling'Sign: Absent bilaterally. Cubital percussion test: Absent bilaterally. Kadie-Tinel sign - Carpal region: Absent bilaterally. Straight Leg Raising: Absent bilaterally. Crossed straight leg raise: negative O8 MOTOR EXAM (0-5/5, N/T) STRENGTH RIGHT LEFT Shoulder Abd (not part of the JUAN CARLOS score) 5 5 Elbow Flexors 5 5 Elbow Extensor 5 5 Wrist Dorsiflexors 5 5 Finger Abductor 5 5 Dog Or Animal Sitter 5 5 Hip Flexor (Not part of JUAN CARLOS Motor score) 5 5 Knee Flexor 4 4 Knee Extensor 4 4 Ankle dorsiflexor 4 4+ Ankle plantarflexion 4 4+ Extensor hallucis 5 5 REFLEXES(0-4/2, NT) RIGHT LEFT Upper Extremities 2 2 Lower Extremities 2 2 Pathological Reflexes RIGHT LEFT Ldeesma's Present Absent Clonus Absent Absent Babinski Absent Absent # Indicates mechanical impairment Muscle appearance: Symmetrical, without signs of atrophy or dystrophy. Rectal Tone:Deferred Normal, strong with volition control Sensory system (0-4, N/T) Test type RU JEANCARLOS RL LL Joint-Position 2 2 2 2 Vibration 2 2 2 2 Pain & LT sense 2 2 2 2 Dermatomal Deficit: None None L4-L5 L2-3 L3-4 Gait and Functional Evaluation: Ambulatory aids: Cane Romberg's test: Intact bilaterally Toe heel walk / heel-toe walk intact while maintaining satisfactory balance? no Squatting/straightening w/o assistance to a min of 60 degree knee flexion? no Single leg stance: not-intact Trendelenburg sign negative bilaterally Hand and finger dexterity intact bilaterally? yes Disdiadochokinesis examination negative bilaterally? yes Muscle wasting in left quadriceps present Results RADIOGRAPHIC STUDIES: Xrays from 08/26/2021 of the lumbar spine and pelvis demonstrates: - is reviewed and demonstrate anterior osteophytic changes throughout the lumbar spine as well as facet arthrosis and facet hypertrophy throughout the lumbar spine. There is a very subtle grade 1 anterolisthesis L4 and L5 with flexion which reduces on extension. There is severe spondylosis L3-L4 as well as T12- L1. There is some motion at L5-S1 which is noted on flexion-extension and angulation however no listhesis. No fracture dislocations noted. Lumbar lordosis is maintained coronal balance is maintained. AP pelvis demonstrates bilateral total hip replacements which are in good position with no evidence of fracture failure or loosening MRI L spine 11/01/21: This is reviewed and demonstrates multilevel spondylosis with facet arthropathy, disc dessication and ligamental and facet hypertrophy. There is severe central stenosis noted at L2-3 and L4-5 with moderate stenosis at L3-4. There is moderate foraminal stenosis at all of these levels as well. There is overall well maintained alignment in the sagittal and coronal planes. There are no fractures or lesions noted. When compared to F/E plain films, there is questionable Grade I listhesis at L4-5 however this appears stable at this time. There is turbulent CSF flow noted at the severely stenotic levels. Assessment and Plan Assessment: 1. L3-L5 severe stenosis 2.Left lower extremity radiculopathy 3. Left lower extremity weakness with muscle wasting about the left quadriceps 4.Mechanical low back pain 5. Neurogenic claudication Plan: Based on my findings I suggest the following course of action: 1. The nature of the disorder and treatment options were discussed with the patient. Patient has had continued symptomology and failed to improve with any treatments tried thus far.I discussed treatment options with the patient, including operative and non-operative options, and they have elected to proceed with the following surgical procedure: L2-L5 Laminectomy with decompression The indications, risks, benefits, and alternatives to surgery were discussed with the patient and family at length. Specifically (but not limited to) the risks of infection, stiffness, recurrence of symptoms, need for revision surgery, local numbness, neurovascular injury, and blood clots were discussed. The patient's questions were answered. The decision to proceed was made. Consent will be obtained for the procedure. 2. Given a script for an LSO brace that he will wear post-operatively. Spine Surgery Risk Review Mor Perez is presenting for evaluation of lumbar pain with bilateral lower extremity radiculopathy. It was my pleasure to have seen and examined Mor Perez. In our visit today we have had a chance to go over subjective complaints, physical examination findings and treatments including the natural course history without intervention and various interventional options. The patients imaging demonstrates Xrays: reviewed and demonstrate anterior osteophytic changes throughout the lumbar spine as well as facet arthrosis and facet hypertrophy throughout the lumbar spine. There is a very subtle grade 1 anterolisthesis L4 and L5 with flexion which reduces on extension. There is severe spondylosis L3-L4 as well as T12-L1. There is some motion at L5-S1 which is noted on flexion-extension and angulation however no listhesis. No fracture dislocations noted. Lumbar lordosis is maintained coronal balance is maintained. AP pelvis demonstrates bilateral total hip replacements which are in good position with no evidence of fracture failure or loosening. MRI: reviewed and demonstrates multilevel spondylosis with facet arthropathy, disc dessication and ligamental and facet hypertrophy. There is severe central stenosis noted at L2-3 and L4-5 with moderate stenosis at L3-4. There is moderate foraminal stenosis at all of these levels as well. There is overall well maintained alignment in the sagittal and coronal planes. There are no fractures or lesions noted. When compared to F/E plain films, there is questionable Grade I listhesis at L4-5 however this appears stable at this time. There is turbulent CSF flow noted at the severely stenotic levels. On physical exam, Mor Perez demonstrates bilateral lower extremity weakness with significant pain upon testing. Patient does have unsteady gait and has to ambulate with the use of a cane. There is also muscle wasting present about the left quadriceps. Additionally there is dermatomal deficits present about both lower extremities. I have explained to the patient that as their condition progresses it will cause further neurological deficits and eventual paralysis. Based on the patients imaging, physical exam, and the rapid progression and disabling nature of their symptoms, at this time I recommend surgery in the form or a: L2-L5 Laminectomy with decompression . I discussed the risk and benefits of this procedure at length with Mor Perez. The patient agreed to considered pursuing the procedure abovementioned. Prior to surgery, she should follow up with her PCP (Cardio, ID, IM etc) for clearance. Questions were invited and answered, and the patient wishes to proceed as outlined below. Currently, I am recommendin.L2-L5 Laminectomy with decompression 2.Follow up with PCP for surgical clearance 3.Review of surgical risks and benefits as well as an educational packet on the proposed surgical procedure Risks: All surgical procedures come with inherent risks, including those related to positioning, anesthesia, intraoperative findings, and postoperative complications. It is important to understand that surgery does not come with any guarantee of a successful outcome as complications and adverse events are always possible. The patient was given a handout in office today discussing the surgical procedure and risks associated with the intervention, both of which were discussed with the patient. These risks include but are not limited to the following: * Experiencing same, different or even worse symptoms in back, neck, arms, or legs compared to before surgery. Requiring further surgery or other forms of treatment presently or at some time in the future at same or other levels of the intended spine surgery. On an extreme but fortunately relatively rare basis severe complication such as blindness, stroke, heart attack, temporary and/or permanent nerve injury, paralysis, coma, or may occur, sometimes without known explana tion. Surgical complications may include but are not limited to risk of infection, fluid accumulation in the surgical dissection site, including a seroma or hematoma, that requires additional surgery, wound drainage, bleeding, new numbness or weakness, vision changes/loss, spinal fluid leakage, non-healing and/or infected incision, headaches, difficulty or inability to swallow, hoarseness, hemopneumothorax, pneumothorax, impotence, retrograde ejaculation, vaginal dryness; injury to nerves, spinal cord, blood vessels, lymphatics or other vital organs (i.e., bowel injury, injury to the great vessels); heterotopic bone formation; complications related to the hardware such as screws, rods, cages including misplaced hardware, device failure, instrumentation at the wrong spine level, hardware fracture/breakage, or hardware loosening; vertebral failure of the spinal column above or below the newly placed hardware; retained surgical instrumentations or devices and the need for further surgery. * Medical risks of the planned spine surgery include but are not limited to generalized Infections to the whole body or local areas outside of the surgical site (sepsis), heart attack, bleeding, anaphylaxis, meningitis, seizure, epilepsy, hearing loss, burn garcia, laceration of the head or other areas of the body, bruising, hypersensitivity of the skin, bladder over distension; allergic reaction; shoulder injury related to positioning; fat, blood and air clots to other areas of the body like heart, lungs, brain; failure of internal organs such as lungs, kidneys, liver and excessive bleeding. If blood transfusions are necessary, note that transfusions may cause intolerance reactions such as anaphylaxis or other complex reactions. Despite best efforts, the results of spine surgery might not heal in terms of bone, soft tissues such as skin, fascia, ligaments, and joints. Additionally, in order to achieve best possible results, spine surgery may be carried out beyond the initially planned levels and involve decompression, fusion including insertion of hardware at levels other than the original intended area of surgical interest change some portions of the procedure in order to ensure the best possible outcomes. With spine surgery and spinal fusion, there are different off label uses of instrumentation (devices, implants and hardware) as well as biological substan javon (bone morphogenic proteins, demineralized bone matrix) as well as using extra bone from allograft sources (i.e. cadaver bone) or autograft (iliac crest bone, ribs, or the spine itself). The patient has been given information about these practices and their inherent risks and benefits. [facility] is an educational center that serves as a training facility for nurses and [employer] students. Physician assistants are medically trained surgical providers who function in the outpatient, inpatient, and operating room setting under the direct supervision of the attending surgeon. [facility] has multiple operating rooms with single and overlapping rooms running daily. They currently function under the required guidelines as produced by the [facility] Finance Committee with regards to the overlapping rooms and will continue to comply with changes to this policy as they occur. The requirements include and are complied with as follows: (1) the critical portions of the overlapping rooms will not occur at the same time, (2) the attending physician will be physically present during the critical portions of the procedure and immediately available during the entire case, and (3) a back-up attending is designated should the primary attending not be immediately available. The patient has had a chance to review all the listed information, has been given print outs detailing this information, and has had all his/her questions answered to their satisfaction. It was my pleasure to have seen and examined Mor Perez. In our visit today we have had a chance to go over my understanding of our patient's current condition, the natural course history without intervention and various interventional options. Questions were invited and answered, and the patient wishes to proceed as outlined above. I have seen and examined the patient for 25 minutes and we have spent more than 50% of the time in repeat and detailed counseling about the patient's condition, its natural course history with out and as much as can be predicted with surgery and re-review of various surgical treatment options. In conclusion, Mor Perez requested we proceed with the above suggested surgery and are willing to accept risks and limitations of the suggested surgery as nature of the disease process and our best attempts at treatment for the condition. Thank you again for allowing us to be part of your patient's care. Please don't hesitate to contact me if you have any further questions. Signed and authenticated by: [employer] P:\\\\ppart\\\\[id number]\\\\[id number]\\[id number].PNG \\d Yakov Simon [facility] [address] [place] [address]
[~2022-01-11 14:07] MED LIST: ACETAMINOPHEN TAB 500 MG TAB PO PRN; GABAPENTIN 300 MG CAP PO PRN; ONDANSETRON 4 MG/2 ML VIAL IVP PRN; TRANEXAMIC ACID 1,000 MG in SODIUM CHLORIDE 0.9% 100 ML IVPB PRN
[2022-01-11] MEDS ORDERED: LACTATED RINGERS 1,000 ML IV ONE ×3 (14:27→17:28)
[2022-01-11 15:15] LABS: Glucose,Whole Blood 107 mg/dL (75-99)
[2022-01-11] MEDS ORDERED: PROPOFOL 10 MG/ML 20 ML VIAL IV ONE (16:15)
[2022-01-11] MEDS ORDERED: fentaNYL (PF) 50 MCG/ML 2 ML AMP ONE (16:15)
[2022-01-11] MEDS ORDERED: NEOSTIGMINE 1 MG/ML 10 ML VIAL ONE (16:15)
[2022-01-11] MEDS ORDERED: ROCURONIUM 10 MG/ML (5 ML VIAL) IV ONE (16:15)
[2022-01-11] MEDS ORDERED: GLYCOPYRROLATE 0.2 MG/ML 2 ML VIAL ONE (16:15)
[2022-01-11] MEDS ORDERED: LIDOCAINE 1% INJ 10MG/ML (20 ML MDV) ONE (16:15)
[2022-01-11] MEDS ORDERED: ePHEDrine 50 MG/ML 1 ML VIAL ONE (16:15)
[2022-01-11] MEDS ORDERED: SUCCINYLCHOLINE CHLORIDE 100 MG/5 ML SYR IV ONE (16:15)
[2022-01-11] MEDS ORDERED: HYDROmorphone (PF) 1 MG/ML ONE (16:15)
[2022-01-11] MEDS ORDERED: SODIUM CHLORIDE 0.9% 100 ML BAG ONE (16:15)
[2022-01-11] MEDS ORDERED: MIDAZOLAM 2 MG/2 ML VIAL ONE (16:15)
[2022-01-11] MEDS ORDERED: TRANEXAMIC ACID 1,000 MG/10 ML VIAL ONE (16:15)
[2022-01-11] MEDS ORDERED: BUPIVACAINE (PF) 0.5% 30 ML VIAL SQ ONE ×2 (16:32)
[2022-01-11 17:42] LABS: Glucose,Whole Blood 88 mg/dL (75-99)
[2022-01-11] MEDS ORDERED: TRANEXAMIC ACID 1,000 MG in SODIUM CHLORIDE 0.9% 100 ML IVPB ONE (18:15)
[2022-01-11] MEDS ORDERED: GELATIN SPONGE,ABSORB (LARGE) 1 EACH SPONGE TOPICAL ONE ×2 (18:16→18:32)
[2022-01-11] MEDS ORDERED: THROMBIN (BOVINE) 5,000 UNIT VIAL TOPICAL ONE ×2 (18:16→18:32)
[2022-01-11] MEDS ORDERED: ceFAZolin 3,000 MG in SODIUM CHLORIDE 0.9% IRRIGATIO 3,000 ML IRRIGATION ONE (18:30)
[2022-01-11 18:35] LABS: Glucose,Whole Blood 94 mg/dL (75-99)
[2022-01-11] MEDS ORDERED: VANCOMYCIN 1,000 MG VIAL MISCELLANE ONE (19:43)
[2022-01-11] MEDS ORDERED: ONDANSETRON 4 MG/2 ML VIAL IVP PRN (20:19)
[2022-01-11] MEDS ORDERED: MAGNESIUM HYDROXIDE 2,400 MG/10 ML CUP PO PRN (20:19)
[2022-01-11] MEDS ORDERED: NA PHOS,M-B/NA PHOS,DI-BA 133 ML ENEMA RECTAL PRN (20:19)
[2022-01-11] MEDS ORDERED: HYDROmorphone 1 MG/ML 1 ML SYRINGE IVP PRN ×2 (20:19)
[2022-01-11] MEDS ORDERED: MAG HYDROX/AL HYDROX/SIMETH 30 ML CUP PO PRN (20:19)
[2022-01-11] MEDS ORDERED: bisacodyL 10 MG SUPP RECTAL PRN (20:19)
--- NOTE | 2022-01-11 20:28 | XR ---
EXAMINATION TYPE: XR lumbar spine 2 or 3V DATE OF EXAM: 01/11/2022 COMPARISON: NONE HISTORY: Lumbar spine surgery TECHNIQUE: 13 seconds of fluoroscopy time was recorded. There are 5 fluoroscopic images obtained in t he operating room. FINDINGS: There are probes with the tips over the posterior L5 vertebral body and also the L1 to post erior disc. IMPRESSION: Spinal surgery. No postoperative images obtained.
[2022-01-11] MEDS ORDERED: HYDROmorphone 0.5 MG/0.5 ML SYRINGE IVP ONE ×3 (20:33→21:04)
--- NOTE | 2022-01-11 20:45 | P.PN ---
Progress Note - Text Progress Note Date: 01/11/22 Brief Post Op: Surgeon: Umm Pre op dx; L2 L5 stenosis severe Post op dx: Same Procedure: L2 to L5 decompressive laminectomy Anesthesia: General EBL: 100 Fluids: 1800 UO: To 50 Dispo: Stable to PACU Post op Plan: Moving all 4 extremities appropriately and the PACU Encourage ambulation IS 10x/hr Teds/SCDs Pain control LSO for ambulation Record Drain output
[2022-01-11 21:12] LABS: Glucose,Whole Blood 106 mg/dL (75-99)
[2022-01-11] MEDS: SODIUM CHLORIDE 0.9% 1,000 ML IV SCH (23:57)
[2022-01-12 05:10] LABS: Basophils % (A) 0 %; Eosinophils # (A) 0.1 k/uL (0-0.7); Eosinophils % (A) 1 %; HCT 37.4 % (39.0-53.0); HGB 12.7 gm/dL (13.0-17.5); Lymphocytes # (A) 0.9 k/uL (1.0-4.8); Lymphocytes % (A) 12 %; MCH 33.9 pg (25.0-35.0); MCHC 33.9 g/dL (31.0-37.0); Macrocytosis Slight; Mean Platelet Volume 7.8; Monocytes # (A) 0.4 k/uL (0-1.0); Monocytes % (A) 5 %; Neutrophils # (A) 5.7 k/uL (1.3-7.7); Neutrophils % (A) 80 %; Platelet Count 166 k/uL (150-450); RBC 3.74 m/uL (4.30-5.90); RDW 14.7 % (11.5-15.5); WBC 7.1 k/uL (3.8-10.6)
[2022-01-12] MEDS: CYCLOBENZAPRINE 5 MG TAB PO PRN (05:11)
[2022-01-12] MEDS: HYDROcodone/APAP 7.5-325MG 1 EACH TAB PO PRN ×4 (05:12→17:22)
[2022-01-12 05:25] LABS: Calcium 8.4 mg/dL (8.4-10.2); Potassium 4.8 mmol/L (3.5-5.1)
[2022-01-12 06:54] LABS: Glucose,Whole Blood 186 mg/dL (75-99)
--- NOTE | 2022-01-12 07:33 | P.PN ---
Subjective Progress Note Date: 01/12/22 Principal diagnosis: Lumbar stenosis Patient seen and examined this morning is doing fairly well. He states his legs feel much better. He does have some pain in his back which is understandable. He has a fevers chills shortness of breath or chest pain overnight. He still has a Alamo in place. He did sit up at bedside last night he will likely stand today. He denies any other symptoms currently. Objective - Vital Signs Vital signs: Vital Signs Temp 98.2 F 01/12/22 07:25 Pulse 82 01/12/22 07:25 Resp 14 01/12/22 07:25 BP 130/62 01/12/22 07:25 Pulse Ox 92 L 01/12/22 07:25 Intake & Output 01/11/22 01/12/22 01/12/22 18:59 06:59 18:59 Intake Total 1851 150 Output Total 1380 Balance 1851 -1230 Weight 111.4 kg 111.4 kg Intake: IV 1851 150 Output: Drainage 130 Left Back 80 Right Back 50 Urine 950 Estimated Blood Loss 300 Other: Voiding Method Indwelling Catheter - Exam Patient is alert and oriented 3 appears well-nourished well-hydrated is in no acute distress. They do not appear septic. On exam the patient has no tenderness to palpation of her thoracic or lumbar spine. There is no edema or ballottement sign. Lower extremities with 4+/5 strength in all major muscle groups simply due to deconditioning in the surgery there is no focal deficits and he will likely regain this Upper extremities show [5]/5 strength in all major muscle groups. [] [2]/4DTR all UE and LE b/l Patient shows a negative Homans, Ledesma's, negative Babinski's negative clonus bilaterally. negative straight leg raise bilaterally. No tensioning signs. Cranial nerves II through XII are grossly intact. There is FROM that is painless of the b/l UE and LE in all major joints [w/o pain]. They are intact to light touch sensation in L2 to S1 nerve distribution. Patient has palpable dorsalis pedis was posterior tibial pulses. Compartments are soft and compressible. Dressings are clean and dry with mild spotting superiorly. Drains are in place 170 mL over the deep drain. 50 mL a superficial drain. - Labs CBC & Chem 7: 01/12/22 03:55 01/12/22 03:55 Labs: Abnormal Lab Results - Last 24 Hours (Table) 01/11/22 01/11/22 01/12/22 Range/Units 15:13 21:10 03:55 RBC 3.74 L (4.30-5.90) m/uL Hgb 12.7 L (13.0-17.5) gm/dL Hct 37.4 L (39.0-53.0) % Lymphocytes # 0.9 L (1.0-4.8) k/uL BUN (9-20) mg/dL Creatinine (0.66-1.25) mg/dL Glucose (74-99) mg/dL POC Glucose (mg/dL) 107 H 106 H (75-99) mg/dL 01/12/22 01/12/22 Range/Units 03:55 06:52 RBC (4.30-5.90) m/uL Hgb (13.0-17.5) gm/dL Hct (39.0-53.0) % Lymphocytes # (1.0-4.8) k/uL BUN 31 H (9-20) mg/dL Creatinine 1.82 H (0.66-1.25) mg/dL Glucose 137 H (74-99) mg/dL POC Glucose (mg/dL) 186 H (75-99) mg/dL Assessment and Plan Assessment: 76-year-old male postoperative day 1 L2 to 5 decompression laminectomy 1. L3-L5 severe stenosis 2.Left lower extremity radiculopathy 3. Left lower extremity weakness with muscle wasting about the left quadriceps 4.Mechanical low back pain 5. Neurogenic claudication Plan: -Appreciate human resource consultant and team management. -Activity: Ambulate QID, OOB all meals, up and about, limit lifting bending twisting to less than 5 lbs. Use walker or cane if needed for stability. -Daily PT/OT, increase ambulation strength and balance. -Brace when up and about, not needed in bed or chair -Pain control: Adequate at this time -Meds: reviewed -GI ppx: senna, Miralax -DC alamo when up and about, bedside commode if needed -DVT PPX: OK to restart Heparin tonight -Hygiene: Shower today. Maintain dressing clean and dry. Meticulous cleaning after BMs away from incision site -Drains: Maintain for now. Record output -Encourage IS 10x/hr -Dispo: Pending
--- NOTE | 2022-01-12 08:54 | FL ---
EXAMINATION TYPE: FL guidance operating room DATE OF EXAM: 01/11/2022 HISTORY: Fluoroscopy time 13 seconds of fluoroscopy provided. IMPRESSION: 1. Fluoroscopy time.
[2022-01-12 11:07] LABS: Glucose,Whole Blood 300 mg/dL (75-99)
[2022-01-12] MEDS ORDERED: amLODIPine 2.5 MG TAB PO SCH (12:15)
[2022-01-12] MEDS ORDERED: METOPROLOL SUCCINATE (ER) 25 MG TAB.ER.24H PO STA (12:39)
[2022-01-12] MEDS: glipiZIDE 10 MG TAB PO SCH (13:07)
[2022-01-12] MEDS: MAGNESIUM OXIDE 400 MG TAB PO SCH (13:07)
[2022-01-12] MEDS: INSULIN ASPART (NovoLOG) 100 UNIT/ML VIAL SQ SCH ×3 (13:07→20:51)
--- NOTE | 2022-01-12 14:05 | P.CONS ---
History of Present Illness - Reason for Consult Consult date: 01/12/22 - History of Present Illness HISTORY OF PRESENT ILLNESS This is a 76-year-old male patient of Dr. Henry with past medical history of diabetes mellitus type 2, hypertension, hyperlipidemia, chronic gout. Patient has been brought in the hospital under the care of Dr. Salomon status post L2-L5 decompressive laminectomy. Patient is postop day #1. He has no postop complications. Home medications will be resumed and these have been reviewed with his as his sales agent pest control service recently made some changes. Blood sugar is high at lunch and patient did not receiveLevemir last evening. Repeat blood work reveals WBC 7.1, hemoglobin 12.7. BUN 31 and creatinine 1.82. Baseline creatinine is about 1.6-2.0. REVIEW OF SYSTEMS Constitutional: No fever, no chills, no night sweats. No weight change. No weakness, fatigue or lethargy. No daytime sleepiness. EENT: No headache. No blurred vision or double vision, no loss of vision. No loss of Hearing, no ringing in the ears, no dizziness. No nasal drainage or congestion. No epistaxis. No sore throat. Lungs: No shortness of breath, cough, no sputum production. No wheezing. Cardiovascular: No chest pain, right lower extremity edema. No palpitations. No paroxysmal nocturnal dyspnea. No orthopnea. No lightheadedness or dizziness. No syncopal episodes. Abdominal: No abdominal pain. No nausea, vomiting. No diarrhea. No constipation. No bloody or tarry stools. No loss of appetite. Genitourinary: No dysuria, increased frequency, urgency. No urinary retention. Musculoskeletal: No myalgias. No muscle weakness, no gait dysfunction, no frequent falls. No back pain. No neck pain. Integumentary: No wounds, no lesions. No rash or pruritus. No unusual bruising. No change in hair or nails.MIGUEL drain and Hemovac in place lumbar wound. Neurologic: No aphasia. No facial droop. No change in mentation. No head injury. No headache. No paralysis. No paresthesia. Psychiatric: No depression. No anxiety. No mood swings. Endocrine: Noted abnormal blood sugars. No weight change. No excessive sweating or thirst. No cold intolerance. SOCIAL HISTORY Patient is a nonsmoker, rare alcohol use. He lives at home with his . FAMILY HISTORY mother at age 79 of unclear cause. Father at age 83 with history of Parkinson's. Patient does not have any brothers. Patient has one sister that at age 50 from pancreatic cancer. He has 2 sisters that are living and one has history of diabetes. Patient has 5 children with no major medical problems. PHYSICAL EXAMINATION Gen: This is 76-year-old male. He is resting in bed appears to be comfortable and in no acute distress. HEENT: Head is atraumatic, normocephalic. Pupils equal, round. Sclerae is anicteric. NECK: Supple. No JVD. No lymphadenopathy. No thyromegaly. LUNGS: Clear to auscultation. No wheezes or rhonchi. No intercostal retractions. HEART: Regular rate and rhythm. No murmur. ABDOMEN: Soft. Bowel sounds are present. No masses. No tenderness. EXTREMITIES: No pedal edema. No calf tenderness. NEUROLOGICAL: Patient is awake, alert and oriented x3. Cranial nerves 2 through 12 are grossly intact. ASSESSMENT AND PLAN 1. L2- L5 stenosis s/p L2 to L5 decompressive laminectomy, 01/11. Continue current pain management. Anticipate alamo removal today. Continue therapies. IS to reduce incidence of atelectasis and hosp aquired pneumonia. 2. Diabetes mellitus type 2. Continue glipizide 10 mg daily, Levemir 50 units at bedtime,, NovoLog scale before meals and at bedtime. 3. Hypertension. Continue Lasix 20 mg daily, lisinopril 10 mg daily, Toprol-XL 25 mg daily. 4. Hyperlipidemia. Continue atorvastatin 20 mg daily. 5. Chronic gout. Continue allopurinol 200 mg daily. 6. DVT prophylaxis. 7. GI prophylaxis. Protonix DISCHARGE PLAN most likely home tomorrow. Impression and plan of care have been directed as dictated by the signing physician. Vicky Coffey nurse practitioner acting as scribe for signing physician. Past Medical History Past Medical History: Cancer, Diabetes Mellitus, GERD/Reflux, Hyperlipidemia, Hypertension Additional Past Medical History / Comment(s): irregular heartbeat, superficial blood clot in rt leg, hx kindney and skin cancer History of Any Multi-Drug Resistant Organisms: None Reported Past Surgical History: Joint Replacement, Tonsillectomy Additional Past Surgical History / Comment(s): left nephrectomy 2009, removal of skin cancer, benny hip replacement, hernia repair Past Anesthesia/Blood Transfusion Reactions: Motion Sickness Past Psychological History: No Psychological Hx Reported Smoking Status: Former smoker Past Alcohol Use History: Occasional Additional Past Alcohol Use History / Comment(s): quit smoking 3 yrs ago approx, smoked since teen, < 1 PPD Past Drug Use History: None Reported - Past Family History Sister(s) Family Medical History: Cancer Additional Family Medical History / Comment(s): pancreatic cancer Medications and Allergies Home Medications Medication Instructions Recorded Confirmed Type Allopurinol [Zyloprim] 200 mg PO QAM 01/05/22 01/11/22 History Atorvastatin [Lipitor] 20 mg PO DAILY 01/05/22 01/11/22 History Cholecalciferol [Vitamin D3 (25 50 mcg PO DAILY 01/05/22 01/11/22 History Mcg = 1000 Iu)] Fish Oil/Dha/Epa [Fish Oil 1,200 1 each PO DAILY 01/05/22 01/11/22 History mg Fish Oil] Furosemide [Lasix] 20 mg PO DAILY 01/05/22 01/11/22 History HYDROcodone/APAP 5-325MG [Mccammon 1 tab PO TID 01/05/22 01/11/22 History 5-325] Insulin Glargine,Hum.rec.anlog 50 unit SQ HS 01/05/22 01/11/22 History [Lantus Solostar Pen] Magnesium Oxide [Mag-Ox] 250 mg PO DAILY 01/05/22 01/11/22 History Pioglitazone [Actos] 30 mg PO DAILY 01/05/22 01/11/22 History Tureric Tab 400 mg PO DAILY 01/05/22 01/11/22 History Zinc 50 mg PO DAILY 01/05/22 01/11/22 History amLODIPine [Norvasc] 2.5 mg PO DAILY 01/05/22 01/11/22 History glipiZIDE [Glucotrol] 10 mg PO AC-BRKFST 01/05/22 01/11/22 History lisinopriL [Zestril] 5 mg PO QAM 01/05/22 01/11/22 History Allergies Allergy/AdvReac Type Severity Reaction Status Date / Time codeine Allergy Rash/Hives Verified 01/11/22 15:09 Physical Exam Vitals: Vital Signs Temp Pulse Pulse Resp BP Pulse Ox 01/12/22 07:25 98.2 F 82 14 130/62 92 L 01/12/22 03:51 91 18 01/12/22 02:00 98.1 F 91 18 119/71 98 01/12/22 00:15 89 156/89 99 01/12/22 00:00 85 136/76 98 01/11/22 23:45 85 130/70 98 01/11/22 23:30 66 123/71 98 01/11/22 23:15 84 134/64 97 01/11/22 23:00 62 116/58 97 01/11/22 22:45 83 130/68 98 01/11/22 22:30 98.4 F 81 143/69 97 01/11/22 21:18 81 16 160/77 99 01/11/22 21:03 75 16 162/75 99 01/11/22 20:48 74 16 153/69 92 L 01/11/22 20:33 73 16 156/71 94 L 01/11/22 20:18 96.8 F L 76 16 163/73 100 01/11/22 14:44 98.0 F 62 18 193/86 97 Intake and Output 01/11/22 01/12/22 01/12/22 22:59 06:59 14:59 Intake Total 1901 Output Total 840 540 150 Balance 1061 -540 -150 Intake: IV 1901 Output: Drainage 40 90 Left Back 40 40 Right Back 50 Urine 500 450 150 Estimated Blood Loss 300 Other: Voiding Method Indwelling Catheter Indwelling Catheter Weight 111.4 kg Results CBC & Chem 7: 01/12/22 03:55 01/12/22 03:55 Labs: Abnormal Lab Results - Last 24 Hours (Table) 01/11/22 01/11/22 01/12/22 Range/Units 15:13 21:10 03:55 RBC 3.74 L (4.30-5.90) m/uL Hgb 12.7 L (13.0-17.5) gm/dL Hct 37.4 L (39.0-53.0) % Lymphocytes # 0.9 L (1.0-4.8) k/uL BUN (9-20) mg/dL Creatinine (0.66-1.25) mg/dL Glucose (74-99) mg/dL POC Glucose (mg/dL) 107 H 106 H (75-99) mg/dL 01/12/22 01/12/22 01/12/22 Range/Units 03:55 06:52 11:05 RBC (4.30-5.90) m/uL Hgb (13.0-17.5) gm/dL Hct (39.0-53.0) % Lymphocytes # (1.0-4.8) k/uL BUN 31 H (9-20) mg/dL Creatinine 1.82 H (0.66-1.25) mg/dL Glucose 137 H (74-99) mg/dL POC Glucose (mg/dL) 186 H 300 H (75-99) mg/dL
[2022-01-12 15:58] LABS: Glucose,Whole Blood 233 mg/dL (75-99)
[2022-01-12] MEDS: HYDROcodone/APAP 5-325MG 1 EACH TAB PO SCH ×2 (17:23→20:51)
[2022-01-12 20:21] LABS: Glucose,Whole Blood 196 mg/dL (75-99)
[2022-01-12] MEDS: INSULIN DETEMIR (LEVEMIR) 100 UNIT/ML SYR SQ SCH (20:52)
[2022-01-12] MEDS: SODIUM CHLORIDE 0.9% 1,000 ML IV SCH (20:53)
[2022-01-13] MEDS: SODIUM CHLORIDE 0.9% 1,000 ML IV SCH (00:35)
[2022-01-13] MEDS: HYDROcodone/APAP 7.5-325MG 1 EACH TAB PO PRN ×4 (00:38→21:47)
[2022-01-13 07:07] LABS: Glucose,Whole Blood 153 mg/dL (75-99)
[2022-01-13] MEDS: HYDROcodone/APAP 5-325MG 1 EACH TAB PO SCH ×3 (08:00→23:09)
[2022-01-13] MEDS: INSULIN ASPART (NovoLOG) 100 UNIT/ML VIAL SQ SCH ×4 (08:00→21:40)
[2022-01-13] MEDS: allopurinoL 100 MG TAB PO SCH (08:00)
[2022-01-13] MEDS: PANTOPRAZOLE 40 MG TABLET PO SCH (08:01)
[2022-01-13] MEDS: MAGNESIUM OXIDE 400 MG TAB PO SCH (08:01)
[2022-01-13] MEDS: FUROSEMIDE 20 MG TAB PO SCH (08:01)
[2022-01-13] MEDS: ATORVASTATIN 20 MG TAB PO SCH (08:01)
[2022-01-13] MEDS: METOPROLOL SUCCINATE (ER) 25 MG TAB.ER.24H PO SCH (08:01)
[2022-01-13] MEDS: glipiZIDE 10 MG TAB PO SCH (08:02)
[2022-01-13] MEDS: lisinopriL 10 MG TAB PO SCH (08:02)
--- NOTE | 2022-01-13 08:16 | P.PN ---
Subjective Progress Note Date: 01/13/22 Principal diagnosis: Lumbar stenosis Patient seen and examined this morning. He is in a little bit of pain this morning he was up and about yesterday and feels like he might have overdone it a little bit. States that his legs still continue to feel really well however his back is very sore today. He somewhat diaphoretic on exam this is likely due to the pain that he is having. He denies any fevers or chills overnight denies any shortness of breath or chest pain. Nursing is at bedside and they have his medications for him. He has had flattest but no bowel movements she still has a Alamo in place Objective - Vital Signs Vital signs: Vital Signs Temp 98.5 F 01/13/22 02:00 Pulse 92 01/13/22 02:00 Resp 17 01/12/22 15:17 BP 136/64 01/13/22 02:00 Pulse Ox 92 L 01/13/22 02:00 Intake & Output 01/12/22 01/13/22 01/13/22 18:59 06:59 18:59 Intake Total 180 Output Total 680 640 Balance -500 -640 Intake: Oral 180 Output: Drainage 130 140 Left Back 60 100 Right Back 70 40 Urine 550 500 Other: Voiding Method Indwelling Catheter Indwelling Catheter - Exam Exam is repeated today changes noted below, no significant detrimental changes Patient is alert and oriented 3 appears well-nourished well-hydrated is in no acute distress. They do not appear septic. On exam the patient has no tenderness to palpation of her thoracic or lumbar spine. There is no edema or ballottement sign. Lower extremities with 4+/5 strength in all major muscle groups simply due to deconditioning in the surgery there is no focal deficits and he will likely regain this Upper extremities show [5]/5 strength in all major muscle groups. [2]/4DTR all UE and LE b/l Patient shows a negative Homans, Ledesma's, negative Babinski's negative clonus bilaterally. negative straight leg raise bilaterally. No tensioning signs. Cranial nerves II through XII are grossly intact. There is FROM that is painless of the b/l UE and LE in all major joints [w/o pain]. They are intact to light touch sensation in L2 to S1 nerve distribution. Patient has palpable dorsalis pedis was posterior tibial pulses. Compartments are soft and compressible. Dressings are clean and dry with mild spotting superiorly around the drain sponge. Drains are in place. No hematoma no large fluid collections 150 mL over the deep drain. 25 mL a superficial drain. - Labs CBC & Chem 7: 01/12/22 03:55 01/12/22 03:55 Labs: Abnormal Lab Results - Last 24 Hours (Table) 01/12/22 01/12/22 01/12/22 Range/Units 11:05 15:56 20:20 POC Glucose (mg/dL) 300 H 233 H 196 H (75-99) mg/dL 01/13/22 Range/Units 07:05 POC Glucose (mg/dL) 153 H (75-99) mg/dL Assessment and Plan Assessment: 76-year-old male postoperative day 2 L2 to 5 decompression laminectomy 1. L3-L5 severe stenosis 2.Left lower extremity radiculopathy 3. Left lower extremity weakness with muscle wasting about the left quadriceps 4.Mechanical low back pain 5. Neurogenic claudication Plan: -Appreciate account consultant and team management. -Activity: Ambulate QID, OOB all meals, up and about, limit lifting bending twisting to less than 5 lbs. Use walker or cane if needed for stability. -Daily PT/OT, increase ambulation strength and balance. -Brace when up and about, not needed in bed or chair -Pain control: Adequate at this time -Meds: reviewed -GI ppx: senna, Miralax -DC alamo when up and about, bedside commode if needed -DVT PPX: Heparin, TEDs knee high, SCDs, Early ambulation, inbed exercises -Hygiene: Shower when able Maintain dressing clean and dry. Meticulous cleaning after BMs away from incision site -Drains: Maintain for now. Record output -Encourage IS 10x/hr goals set for 1999 TV -Dispo: Pending
[2022-01-13] MEDS ORDERED: lisinopriL 5 MG TAB PO SCH (09:00)
[2022-01-13 09:17] LABS: Basophils % (A) 0 %; Eosinophils # (A) 0.2 k/uL (0-0.7); Eosinophils % (A) 2 %; HCT 36.2 % (39.0-53.0); HGB 12.2 gm/dL (13.0-17.5); Lymphocytes # (A) 1.2 k/uL (1.0-4.8); Lymphocytes % (A) 15 %; MCH 33.8 pg (25.0-35.0); MCHC 33.8 g/dL (31.0-37.0); Macrocytosis Slight; Mean Platelet Volume 7.7; Monocytes # (A) 0.5 k/uL (0-1.0); Monocytes % (A) 6 %; Neutrophils % (A) 75 %; Platelet Count 171 k/uL (150-450); RBC 3.62 m/uL (4.30-5.90); RDW 14.7 % (11.5-15.5); WBC 8.1 k/uL (3.8-10.6)
[2022-01-13 09:33] LABS: African American GFR (CKD) 36 (>60 ml/min/1.73 sqM); Anion Gap 8 mmol/L; Blood Urea Nitrogen 38 mg/dL (9-20); Calcium 8.5 mg/dL (8.4-10.2); Carbon Dioxide 23 mmol/L (22-30); Chloride 106 mmol/L (98-107); Glucose 178 mg/dL (74-99); Non-African American GFR(CKD) 31 (>60 ml/min/1.73 sqM); Potassium 4.4 mmol/L (3.5-5.1); Sodium 137 mmol/L (137-145)
[2022-01-13] MEDS: HEPARIN SODIUM,PORCINE/PF 5,000 UNIT/0.5 ML SYRINGE SQ SCH ×2 (10:18→21:40)
[2022-01-13 11:07] LABS: Glucose,Whole Blood 187 mg/dL (75-99)
--- NOTE | 2022-01-13 12:22 | P.PN ---
Subjective Progress Note Date: 01/13/22 HISTORY OF PRESENT ILLNESS This is a 76-year-old male patient of Dr. Henry with past medical history of diabetes mellitus type 2, hypertension, hyperlipidemia, chronic gout. Patient has been brought in the hospital under the care of Dr. Salomon status post L2-L5 decompressive laminectomy. Patient is postop day #1. He has no postop complications. Home medications will be resumed and these have been reviewed with his as his commercial photographer recently made some changes. Blood sugar is high at lunch and patient did not receiveLevemir last evening. Repeat blood work reveals WBC 7.1, hemoglobin 12.7. BUN 31 and creatinine 1.82. Baseline creatinine is about 1.6-2.0. 01/13: Patient has ambulated with physical therapy and did the stairs. He has a Brace in place. Garcia cath remains in place which will be discontinued today. Patient complains of his back feeling sore today. He denies any fever or chills. No lightheadedness or dizziness. Patient has been afebrile, heart rate 56, blood pressure 158/54, pulse ox 92%. He did have one documented at 88% on room air. Repeat blood work reveals WBC 8.1, hemoglobin 12.2, platelet count 171. Electrolytes are normal. BUN 38 and creatinine 2.06. Capillary blood glucose running between [id number]. Anticipate possible discharge home tomorrow. REVIEW OF SYSTEMS Constitutional: No fever, no chills, no night sweats. No weight change. No weakness, fatigue or lethargy. No daytime sleepiness. EENT: No headache. No blurred vision or double vision, no loss of vision. No loss of Hearing, no ringing in the ears, no dizziness. No nasal drainage or congestion. No epistaxis. No sore throat. Lungs: No shortness of breath, cough, no sputum production. No wheezing. Cardiovascular: No chest pain, right lower extremity edema. No palpitations. No paroxysmal nocturnal dyspnea. No orthopnea. No lightheadedness or dizziness. No syncopal episodes. Abdominal: No abdominal pain. No nausea, vomiting. No diarrhea. No constipation. No bloody or tarry stools. No loss of appetite. Genitourinary: No dysuria, increased frequency, urgency. No urinary retention. Musculoskeletal: No myalgias. No muscle weakness, no gait dysfunction, no frequent falls. Reports mild back pain. No neck pain. Integumentary: No wounds, no lesions. No rash or pruritus. No unusual bruising. No change in hair or nails.MIGUEL drain and Hemovac in place lumbar wound. Neurologic: No aphasia. No facial droop. No change in mentation. No head injury. No headache. No paralysis. No paresthesia. Psychiatric: No depression. No anxiety. No mood swings. Endocrine: Noted abnormal blood sugars. No weight change. No excessive sweating or thirst. No cold intolerance. PHYSICAL EXAMINATION Gen: This is 76-year-old male. He is resting in bed appears to be comfortable and in no acute distress. HEENT: Head is atraumatic, normocephalic. Pupils equal, round. Sclerae is anicteric. NECK: Supple. No JVD. No lymphadenopathy. No thyromegaly. LUNGS: Clear to auscultation. No wheezes or rhonchi. No intercostal retractions. HEART: Regular rate and rhythm. No murmur. ABDOMEN: Soft. Bowel sounds are present. No masses. No tenderness. BACK: Hemovac and MIGUEL drain in place. Brace in place. EXTREMITIES: No pedal edema. No calf tenderness. NEUROLOGICAL: Patient is awake, alert and oriented x3. Cranial nerves 2 through 12 are grossly intact. ASSESSMENT AND PLAN 1. L2- L5 stenosis s/p L2 to L5 decompressive laminectomy, 01/11. Continue current pain management. Garcia will be removed today. Continue therapies. IS to reduce incidence of atelectasis and hosp aquired pneumonia. 2. Diabetes mellitus type 2. Continue glipizide 10 mg daily, Levemir 50 units at bedtime, NovoLog scale before meals and at bedtime. 3. Hypertension. Continue Lasix 20 mg daily, lisinopril 10 mg daily, Toprol-XL 25 mg daily. 4. Hyperlipidemia. Continue atorvastatin 20 mg daily. 5. Chronic gout. Continue allopurinol 200 mg daily. 6. DVT prophylaxis. RITU jose g and SCDs, early ambulation. 7. GI prophylaxis. Protonix DISCHARGE PLAN Home with [facility]. Impression and plan of care have been directed as dictated by the signing physician. Vicky Coffey nurse practitioner acting as scribe for signing physician. Objective - Vital Signs Vital signs: Vital Signs Temp 99.7 F H 01/13/22 09:33 Pulse 56 L 01/13/22 09:33 Resp 18 01/13/22 09:33 BP 158/54 01/13/22 09:33 Pulse Ox 88 L 01/13/22 09:33 Intake & Output 01/12/22 01/13/22 01/13/22 18:59 06:59 18:59 Intake Total 180 180 Output Total 680 640 800 Balance -085 -739 -233 Intake: Oral 180 180 Output: Drainage 130 140 Left Back 60 100 Right Back 70 40 Urine 550 500 800 Other: Voiding Method Indwelling Catheter Indwelling Catheter - Labs CBC & Chem 7: 01/13/22 08:56 01/13/22 08:56 Labs: Abnormal Lab Results - Last 24 Hours (Table) 01/12/22 01/12/22 01/12/22 Range/Units 11:05 15:56 20:20 RBC (4.30-5.90) m/uL Hgb (13.0-17.5) gm/dL Hct (39.0-53.0) % BUN (9-20) mg/dL Creatinine (0.66-1.25) mg/dL Glucose (74-99) mg/dL POC Glucose (mg/dL) 300 H 233 H 196 H (75-99) mg/dL 01/13/22 01/13/22 01/13/22 Range/Units 07:05 08:56 08:56 RBC 3.62 L (4.30-5.90) m/uL Hgb 12.2 L (13.0-17.5) gm/dL Hct 36.2 L (39.0-53.0) % BUN 38 H (9-20) mg/dL Creatinine 2.06 H (0.66-1.25) mg/dL Glucose 178 H (74-99) mg/dL POC Glucose (mg/dL) 153 H (75-99) mg/dL
[2022-01-13 16:39] LABS: Glucose,Whole Blood 164 mg/dL (75-99)
[2022-01-13 20:54] LABS: Glucose,Whole Blood 172 mg/dL (75-99)
[2022-01-13] MEDS: CYCLOBENZAPRINE 5 MG TAB PO PRN (21:40)
[2022-01-13] MEDS: INSULIN DETEMIR (LEVEMIR) 100 UNIT/ML SYR SQ SCH (21:40)
[2022-01-14] MEDS: HYDROcodone/APAP 7.5-325MG 1 EACH TAB PO PRN (06:48)
[2022-01-14 07:06] LABS: Glucose,Whole Blood 89 mg/dL (75-99)
[2022-01-14] MEDS: INSULIN ASPART (NovoLOG) 100 UNIT/ML VIAL SQ SCH ×4 (07:46→21:18)
[2022-01-14] MEDS: HYDROcodone/APAP 5-325MG 1 EACH TAB PO SCH ×3 (08:26→21:21)
[2022-01-14] MEDS: PANTOPRAZOLE 40 MG TABLET PO SCH (08:28)
[2022-01-14] MEDS: FUROSEMIDE 20 MG TAB PO SCH (08:28)
[2022-01-14] MEDS: HEPARIN SODIUM,PORCINE/PF 5,000 UNIT/0.5 ML SYRINGE SQ SCH ×2 (08:28→21:21)
[2022-01-14] MEDS: allopurinoL 100 MG TAB PO SCH (08:28)
[2022-01-14] MEDS: MAGNESIUM OXIDE 400 MG TAB PO SCH (08:28)
[2022-01-14] MEDS: ATORVASTATIN 20 MG TAB PO SCH (08:28)
[2022-01-14] MEDS: METOPROLOL SUCCINATE (ER) 25 MG TAB.ER.24H PO SCH (08:28)
[2022-01-14] MEDS: lisinopriL 10 MG TAB PO SCH (08:28)
[2022-01-14] MEDS: glipiZIDE 10 MG TAB PO SCH (08:28)
[2022-01-14 11:35] LABS: Glucose,Whole Blood 71 mg/dL (75-99)
--- NOTE | 2022-01-14 11:46 | P.PN ---
Subjective Progress Note Date: 01/14/22 Principal diagnosis: Status post L2-L5 laminectomy with decompression Dr. Salomon was available today also to round examine patient. Patient was sitting up at bedside, he appears comfortable. Nursing to contact us this morning with regards to discomfort surrounding the drain sites. Bandages along with drains were both removed today at bedside. Patient was able to stand up with minimal assistance. He was able to do a lot of work with therapy yesterday, this including stairs. He feels like he might a dental little bit too much yesterday. He is having no acute bowel or bladder changes. He denies any headaches, lightheadedness, chest pain or shortness of breath. Objective - Vital Signs Vital signs: Vital Signs Temp 98.8 F 01/14/22 08:00 Pulse 80 01/14/22 08:00 Resp 19 01/14/22 01:07 BP 151/53 01/14/22 08:00 Pulse Ox 97 01/14/22 08:00 Intake & Output 01/13/22 01/14/22 01/14/22 18:59 06:59 18:59 Intake Total 360 Output Total 1215 750 43 Balance -855 -750 -43 Intake: Oral 360 Output: Drainage 40 43 Left Back 40 38 Right Back 5 Urine 1175 750 Straight 500 Other: Voiding Method Indwelling Catheter - Exam Gen: AOx3, NAD VSS stable at this time Integument: Drains along with postoperative bandage was removed today at bedside. Mild serosanguineous drainage from each portal site after removal. Oswaldo are all in good position and condition. Bandages were applied Palpation: Mild tenderness with palpation about the midline paraspinal region of the lower lumbar region ROM: Full range of motion in all major muscle groups of the bilateral upper and lower extremities Sensory Exam: Senory exam to light touch is intact C5-T1 Senosry exam to light touch is intact L2-S1 Motor: 5/5 strength appreciated in the bilateral upper extremities with shoulder abd uction, forward elevation, elbow extension, elbow flexion, wrist extension, wrist flexion, service crew leader 4/5 strength appreciated in the bilateral lower extremities with hip flexion, knee extension, knee flexion, plantar flexion, dorsiflexion, EHL, FHL Reflexes: 2/4 in all UE and LE Negative Orlando's bilaterally negative Babinski bilaterally negative clonus bilaterally - Labs CBC & Chem 7: 02/18/22 08:56 01/13/22 08:56 Labs: Abnormal Lab Results - Last 24 Hours (Table) 01/13/22 01/13/22 01/14/22 Range/Units 16:38 20:53 11:33 POC Glucose (mg/dL) 164 H 172 H 71 L (75-99) mg/dL Assessment and Plan Assessment: Postoperative day #3 status post L2-L5 laminectomy decompression Plan: Pain control, continue with oral medications Dressing instructions, leave dressing in place at this time monitor and reinforce as needed GI and DVT prophylaxis, continue heparin during inpatient stay Continue work with physical therapy, recommend walker with ambulation at all times Encourage incentive spirometer Other medical practitioners and recommendations Discharge planning: Patient remains inpatient status, anticipate discharge to rehab on 01/16/2022 versus home Time with Patient: Less than 30
--- NOTE | 2022-01-14 14:08 | P.PN ---
Subjective Progress Note Date: 01/14/22 HISTORY OF PRESENT ILLNESS This is a 76-year-old male patient of Dr. Henry with past medical history of diabetes mellitus type 2, hypertension, hyperlipidemia, chronic gout. Patient has been brought in the hospital under the care of Dr. aSlomon status post L2-L5 decompressive laminectomy. Patient is postop day #1. He has no postop complications. Home medications will be resumed and these have been reviewed with his as his battery mechanic recently made some changes. Blood sugar is high at lunch and patient did not receiveLevemir last evening. Repeat blood work reveals WBC 7.1, hemoglobin 12.7. BUN 31 and creatinine 1.82. Baseline creatinine is about 1.6-2.0. 01/13: Patient has ambulated with physical therapy and did the stairs. He has a Brace in place. Garcia cath remains in place which will be discontinued today. Patient complains of his back feeling sore today. He denies any fever or chills. No lightheadedness or dizziness. Patient has been afebrile, heart rate 56, blood pressure 158/54, pulse ox 92%. He did have one documented at 88% on room air. Repeat blood work reveals WBC 8.1, hemoglobin 12.2, platelet count 171. Electrolytes are normal. BUN 38 and creatinine 2.06. Capillary blood glucose running between [id number]. Anticipate possible discharge home tomorrow. 01/14 and patient examined at bedside. He does have some visual disturbance and notices movement in stagnant objects in his room. He was also noticed to have hypoglycemia this morning with blood sugar at 72. Patient has significant pain in his back on mild touch he is participating with that therapy and requires minimum assistance and walking. Patient's creatinine is stable compared to his previous labs. We will hold glipizide today. Cutdown patient's Lantus to 30 units. Discontinue Flexeril due to side effects of mental confusion. Pain medication need to be titrated down to prevent any side effects. Labs ordered today including CBC, CMP and electrolytes. REVIEW OF SYSTEMS Constitutional: No fever, no chills, no night sweats. No weight change. No weakness, fatigue or lethargy. No daytime sleepiness. EENT: No headache. No blurred vision or double vision, no loss of vision. No loss of Hearing, no ringing in the ears, no dizziness. No nasal drainage or congestion. No epistaxis. No sore throat. Lungs: No shortness of breath, cough, no sputum production. No wheezing. Cardiovascular: No chest pain, right lower extremity edema. No palpitations. No paroxysmal nocturnal dyspnea. No orthopnea. No lightheadedness or di zziness. No syncopal episodes. Abdominal: No abdominal pain. No nausea, vomiting. No diarrhea. No constipation. No bloody or tarry stools. No loss of appetite. Genitourinary: No dysuria, increased frequency, urgency. No urinary retention. Musculoskeletal: No muscle tenderness involving lower back with gait dysfunction, no frequent falls. Reports mild back pain. No neck pain. Integumentary: No wounds, no lesions. No rash or pruritus. No unusual bruising. No change in hair or nails.MIGUEL drain and Hemovac in place lumbar wound. Neurologic: No aphasia. No facial droop. No change in mentation. No head injury. No headache. No paralysis. No paresthesia. Psychiatric: No depression. No anxiety. No mood swings. Endocrine: Noted abnormal blood sugars. No weight change. No excessive sw eating or thirst. No cold intolerance. PHYSICAL EXAMINATION Gen: This is 76-year-old male. He is resting in bed appears to be comfortable and in no acute distress. HEENT: Head is atraumatic, normocephalic. Pupils equal, round. Sclerae is anicteric. NECK: Supple. No JVD. No lymphadenopathy. No thyromegaly. LUNGS: Clear to auscultation. No wheezes or rhonchi. No intercostal retractions. HEART: Regular rate and rhythm. No murmur. ABDOMEN: Soft. Bowel sounds are present. No masses. No tenderness. BACK: Hemovac and MIGUEL drain in place. Tenderness involving the paraspinal region in the lower back EXTREMITIES: No pedal edema. No calf tenderness. NEUROLOGICAL: Patient is awake, alert and oriented x3. Cranial nerves 2 through 12 are grossly intact. ASSESSMENT AND PLAN 1. L2- L5 stenosis s/p L2 to L5 decompressive laminectomy, 01/11. Continue current pain management. Continue therapies. IS to reduce incidence of atelectasis and hosp aquired pneumonia. 2. Diabetes mellitus type 2. Hold glipizide 10 mg daily, Levemir reduced to 30 at bedtime, NovoLog scale before meals and at bedtime. 3. Hypertension. Hold Lasix 20 mg daily, continue lisinopril 10 mg daily, Toprol-XL 25 mg daily. 4. Hyperlipidemia. Continue atorvastatin 20 mg daily. 5. Chronic gout. Continue allopurinol 200 mg daily. 6. DVT prophylaxis. RITU hose and SCDs, early ambulation. 7. GI prophylaxis. Protonix 8. Acute visual disturbances ruled out hallucinations could be result of hypoglycemia. Diabetes medication adjusted Avoid side effects from Flexeril. Titrated down pain medication. Labs ordered to rule out uremia. Objective - Vital Signs Vital signs: Vital Signs Temp 98.8 F 01/14/22 08:00 Pulse 80 01/14/22 08:00 Resp 19 01/14/22 01:07 BP 151/53 01/14/22 08:00 Pulse Ox 97 01/14/22 08:00 Intake & Output 01/13/22 01/14/22 01/14/22 18:59 06:59 18:59 Intake Total 360 Output Total 1215 750 43 Balance -855 -750 -43 Intake: Oral 360 Output: Drainage 40 43 Left Back 40 38 Right Back 5 Urine 1175 750 Straight 500 Other: Voiding Method Indwelling Catheter - Labs CBC & Chem 7: 01/13/22 08:56 01/13/22 08:56 Labs: Abnormal Lab Results - Last 24 Hours (Table) 01/13/22 01/13/22 01/14/22 Range/Units 16:38 20:53 11:33 POC Glucose (mg/dL) 164 H 172 H 71 L (75-99) mg/dL
[2022-01-14 15:01] LABS: Basophils % (A) 0 %; Eosinophils # (A) 0.2 k/uL (0-0.7); Eosinophils % (A) 3 %; HCT 34.2 % (39.0-53.0); HGB 11.5 gm/dL (13.0-17.5); Lymphocytes # (A) 0.9 k/uL (1.0-4.8); Lymphocytes % (A) 14 %; MCH 33.5 pg (25.0-35.0); MCHC 33.6 g/dL (31.0-37.0); MCV 99.8 fL (80.0-100.0); Mean Platelet Volume 7.9; Monocytes # (A) 0.4 k/uL (0-1.0); Monocytes % (A) 6 %; Neutrophils % (A) 76 %; Platelet Count 154 k/uL (150-450); RBC 3.43 m/uL (4.30-5.90); WBC 6.6 k/uL (3.8-10.6)
[2022-01-14 15:14] LABS: ALT 10 U/L (4-49); AST 30 U/L (17-59); African American GFR (CKD) 36 (>60 ml/min/1.73 sqM); Albumin 2.8 g/dL (3.5-5.0); Albumin/Globulin Ratio 1.1; Alkaline Phosphatase 65 U/L (38-126); Anion Gap 6 mmol/L; Blood Urea Nitrogen 37 mg/dL (9-20); Calcium 8.2 mg/dL (8.4-10.2); Carbon Dioxide 26 mmol/L (22-30); Chloride 106 mmol/L (98-107); Globulin 2.6 g/dL; Glucose 137 mg/dL (74-99); Magnesium 2.1 mg/dL (1.6-2.3); Non-African American GFR(CKD) 31 (>60 ml/min/1.73 sqM); Potassium 4.7 mmol/L (3.5-5.1); Sodium 138 mmol/L (137-145); Total Bilirubin 2.1 mg/dL (0.2-1.3); Total Protein 5.4 g/dL (6.3-8.2)
[2022-01-14 16:39] LABS: Glucose,Whole Blood 119 mg/dL (75-99)
[2022-01-14 18:59] LABS: Glucose,Whole Blood 184 mg/dL (75-99)
[2022-01-14 20:08] LABS: Glucose,Whole Blood 152 mg/dL (75-99)
[2022-01-14] MEDS: SENNOSIDES-DOCUSATE SODIUM 1 EACH TAB PO PRN (21:21)
[2022-01-14] MEDS: INSULIN DETEMIR (LEVEMIR) 100 UNIT/ML SYR SQ SCH (21:22)
[2022-01-15 07:03] LABS: Glucose,Whole Blood 104 mg/dL (75-99)
[2022-01-15] MEDS: INSULIN ASPART (NovoLOG) 100 UNIT/ML VIAL SQ SCH ×4 (07:42→20:37)
[2022-01-15] MEDS: HEPARIN SODIUM,PORCINE/PF 5,000 UNIT/0.5 ML SYRINGE SQ SCH ×2 (07:54→20:37)
[2022-01-15] MEDS: HYDROcodone/APAP 5-325MG 1 EACH TAB PO SCH ×3 (07:54→21:25)
[2022-01-15] MEDS: allopurinoL 100 MG TAB PO SCH (07:54)
[2022-01-15] MEDS: ATORVASTATIN 20 MG TAB PO SCH (07:55)
[2022-01-15] MEDS: PANTOPRAZOLE 40 MG TABLET PO SCH (07:55)
[2022-01-15] MEDS: lisinopriL 10 MG TAB PO SCH (07:55)
[2022-01-15] MEDS: METOPROLOL SUCCINATE (ER) 25 MG TAB.ER.24H PO SCH (07:55)
[2022-01-15] MEDS: MAGNESIUM OXIDE 400 MG TAB PO SCH (07:55)
[2022-01-15] MEDS ORDERED: ACETAMINOPHEN TAB 325 MG TAB PO PRN (08:49)
--- NOTE | 2022-01-15 09:16 | P.PN ---
Subjective Progress Note Date: 01/15/22 Principal diagnosis: Lumbar stenosis Patient seen and examined is doing better this morning he was yesterday. He has somewhat overmedicated yesterday and was seeing things on the garcia. We have decrease his pain medications as well as change them so that he is doing better this morning. Still having some pain in his back however he states his legs feel great. He denies any bowel or bladder issues at this time. No perineal numbness or tingling. Objective - Vital Signs Vital signs: Vital Signs Temp 98.7 F 01/15/22 07:51 Pulse 77 01/15/22 07:56 Resp 16 01/15/22 02:00 BP 151/68 01/15/22 07:51 Pulse Ox 98 01/15/22 07:51 Intake & Output 01/14/22 01/15/22 01/15/22 18:59 06:59 18:59 Intake Total 540 Output Total 43 320 Balance 497 -320 Intake: Oral 540 Output: Drainage 43 Left Back 38 Right Back 5 Urine 320 Other: Voiding Method Urinal Urinal # Voids 2 2 - Exam Exam repeated today changes noted below. Dressing is clean dry and intact no erythema or ecchymosis or edema or incision. Patient is alert and oriented 3 appears well-nourished well-hydrated is in no acute distress. They do not appear septic. On exam the patient has no tenderness to palpation of her thoracic or lumbar spine. There is no edema or ballottement sign. Lower extremities with 4+/5 strength in all major muscle groups simply due to deconditioning in the surgery there is no focal deficits and he will likely regain this Upper extremities show [5]/5 strength in all major muscle groups. [2]/4DTR all UE and LE b/l Patient shows a negative Homans, Ledesma's, negative Babinski's negative clonus bilaterally. negative straight leg raise bilaterally. No tensioning signs. Cranial nerves II through XII are grossly intact. There is FROM that is painless of the b/l UE and LE in all major joints [w/o pain]. They are intact to light touch sensation in L2 to S1 nerve distribution. Patient has palpable dorsalis pedis was posterior tibial pulses. Compartments are soft and compressible. Dressings are clean and dry with mild spotting superiorly around the drain sponge. Drains are in place. No hematoma no large fluid collections 150 mL over the deep drain. 25 mL a superficial drain. - Labs CBC & Chem 7: 01/14/22 14:29 01/14/22 14:29 Labs: Abnormal Lab Results - Last 24 Hours (Table) 01/14/22 01/14/22 01/14/22 Range/Units 11:33 14:29 14:29 RBC 3.43 L (4.30-5.90) m/uL Hgb 11.5 L (13.0-17.5) gm/dL Hct 34.2 L (39.0-53.0) % Lymphocytes # 0.9 L (1.0-4.8) k/uL BUN 37 H (9-20) mg/dL Creatinine 2.04 H (0.66-1.25) mg/dL Glucose 137 H (74-99) mg/dL POC Glucose (mg/dL) 71 L (75-99) mg/dL Calcium 8.2 L (8.4-10.2) mg/dL Total Bilirubin 2.1 H (0.2-1.3) mg/dL Total Protein 5.4 L (6.3-8.2) g/dL Albumin 2.8 L (3.5-5.0) g/dL 01/14/22 01/14/22 01/14/22 Range/Units 16:38 18:57 20:07 RBC (4.30-5.90) m/uL Hgb (13.0-17.5) gm/dL Hct (39.0-53.0) % Lymphocytes # (1.0-4.8) k/uL BUN (9-20) mg/dL Creatinine (0.66-1.25) mg/dL Glucose (74-99) mg/dL POC Glucose (mg/dL) 119 H 184 H 152 H (75-99) mg/dL Calcium (8.4-10.2) mg/dL Total Bilirubin (0.2-1.3) mg/dL Total Protein (6.3-8.2) g/dL Albumin (3.5-5.0) g/dL 01/15/22 Range/Units 07:02 RBC (4.30-5.90) m/uL Hgb (13.0-17.5) gm/dL Hct (39.0-53.0) % Lymphocytes # (1.0-4.8) k/uL BUN (9-20) mg/dL Creatinine (0.66-1.25) mg/dL Glucose (74-99) mg/dL POC Glucose (mg/dL) 104 H (75-99) mg/dL Calcium (8.4-10.2) mg/dL Total Bilirubin (0.2-1.3) mg/dL Total Protein (6.3-8.2) g/dL Albumin (3.5-5.0) g/dL Assessment and Plan Assessment: 76-year-old male postoperative day 4 L2 to 5 decompression laminectomy 1. L3-L5 severe stenosis 2.Left lower extremity radiculopathy 3. Left lower extremity weakness with muscle wasting about the left quadriceps 4.Mechanical low back pain 5. Neurogenic claudication Plan: -Appreciate end user consultant and team management. AMBULATE! -Activity: Ambulate QID, OOB all meals, up and about, limit lifting bending twisting to less than 5 lbs. Use walker or cane if needed for stability. -Daily PT/OT, increase ambulation strength and balance. -Brace when up and about, not needed in bed or chair -Pain control: Adequate at this time -Meds: reviewed -GI ppx: senna, Miralax -DC [place]amo when up and about, bedside commode if needed -DVT PPX: Heparin, TEDs knee high, SCDs, Early ambulation, inbed exercises -Hygiene: Shower when able Maintain dressing clean and dry. Meticulous cleaning after BMs away from incision site -Encourage IS 10x/hr goals set for 1999 TV -Dispo: Rehab tomorrow
[2022-01-15] MEDS: methocarbamoL 750 MG TAB PO SCH ×3 (09:42→16:55)
[2022-01-15 11:49] LABS: Glucose,Whole Blood 141 mg/dL (75-99)
[2022-01-15] MEDS: ACETAMINOPHEN TAB 325 MG TAB PO SCH ×2 (11:53→16:55)
--- NOTE | 2022-01-15 12:36 | P.OP ---
Date of Procedure: 01/11/22 Preoperative Diagnosis: 1. L2-5 severe stenosis 2. LE radiculopathy 3. LE weakness 4. Neurogenic claudication Postoperative Diagnosis: 1. L2-5 severe stenosis 2. LE radiculopathy 3. LE weakness 4. Neurogenic claudication Procedure(s) Performed: 1. L2-5 bilateral laminectomy, partial medial facetectomy and foraminotomy 2. interpretation of intraoperative flouroscopy <1 hr Implants: none Anesthesia: GETA Surgeon: Yakov Salomon Car Usher #1: Rosalinda Agarwal (Was present as a scurubbed observer) Estimated Blood Loss (ml): 250 IV fluids (ml): 1,500 Urine output (ml): 310 Pathology: none sent Condition: stable Disposition: PACU Indications for Procedure: 76-year-old male followed by the [facility] spine [facility] for sometime has presented with bilateral lower extremity weakness bilateral lower extremity radiculopathy and neurogenic claudication U [place] to L5 severe stenosis. He underwent appropriate conservative management including medications prescription and [id number] home exercises as well as formal physical therapy and injections area and is alleviated his symptoms at this time he is elected for surgical intervention. We discussed different surgical and nonsurgical options and he has opted for laminectomy and decompression of L2 through L5. We discussed risks and benefits of the procedure which are outlined in the risk review. His willing to assume these. And when his agree and they are willing to proceed with procedure. Description of Procedure: The patient was seen and examined in the preoperative area. All preoperative protocols were followed. Informed consent was obtained risks and benefits of the procedure were discussed at length. Risks including bleeding infection damage to the surrounding tissue and risk of reoperation were discussed with the patient. Risk of anesthesia up to and including was a discussed with the patient. These are outlined in the risk review. They were willing to accept these risks and all of the risks of surgery. The patient was given a weight- based dose of antibiotics in the form of 2 g Ancef. The patient was seen and evaluated by the anesthesia team who deemed them fit for surgery. The site was marked, the patient was willing to proceed with the procedure. The patient was transferred to the operative suite by the [facility] They were then drifted off to sleep by the department anesthesia and GETA was performed. The patient tolerated this well. Garcia catheter was placed by nursing staff, atraumatically. Once confirmation of lines and ventilation the patient was transferred to a prone Julian table very carefully. All bony prominences including wrists, elbows, axilla, chest, hips, and thighs, and feet were padded very well. Special attention was paid to the genitalia and these were padded accordingly. SCDs were placed on bilateral lower extremities and were connected. Arms were well padded and placed on arm boards up and out in the 90/90 position. Once in position, again we confirmed good ventilation capabilities and that lines were running appropriately. The patient's lumbar spine was then exposed. 1010s were placed outlining the incision site. Standard alcohol was used to clean the incision site and allowed to dry. C-arm was used to biomark the patient and confirm level for incision which was marked with a skin marker. Operative briefing was performed with all teams and everyone in agreement to proceed. The patient was then prepped and draped in a normal sterile fashion. Timeout was then performed and all parties were in agreement with the procedure to be performed. Midline skin incision was made over the previous supine marked area dissection taken down to the subcu tissue into the lumbar fascia which was identified and cleaned with a Frazier. Midline fasciotomy was made in bipolar electrocautery subperiosteal dissection was taken down over the facet joints of L2 through L5 which were identified. We confirmed levels with a lateral fluoroscopic imaging plate and a [place] placed at the interspace of L2-L3. We then performed bilateral laminectomy and medial facetectomy partial and foraminotomy of L2 through L5 using high-speed bur Kerrison rongeurs and Leksell rongure. We confirmed and removed the ligamentum and the posterior lateral recess we confirmed that the foramen were clear using a Chun ball probe. We confirmed decompressed levels with fluoroscopic imaging. The dura was without injury and no CSF was noted. We copiously irrigated the wound with normal sterile saline 6 L. Surgicel was placed over the dura for meticulous hemostasis as well. Vancomycin was placed deep within the wound and a deep drain was placed and sewn into position. Then performed layered closure with #1 Vicryl in the fascial layer followed by a running dystrophic suture. Deep subcu tissues closed with 0 Vicryl superficial subcu tissue closed with 2-0 Vicryl and skin closed with skin nina the wound edges approximated very well. The wound was then cleaned and dressed sterilely with an operative foam dressing drain sponge and Tegaderm. The patient was transferred back to their hospital bed atraumatically. Drain continued to hold suction and were in good position. Patient was then awakened and extubated by the department of anesthesia having tolerated the procedure very well with no complications. They were transferred to the postoperative care unit in stable condition.
--- NOTE | 2022-01-15 13:31 | P.PN ---
Subjective Progress Note Date: 01/15/22 HISTORY OF PRESENT ILLNESS This is a 76-year-old male patient of Dr. Henry with past medical history of diabetes mellitus type 2, hypertension, hyperlipidemia, chronic gout. Patient has been brought in the hospital under the care of Dr. Salomon status post L2-L5 decompressive laminectomy. Patient is postop day #1. He has no postop complications. Home medications will be resumed and these have been reviewed with his as his chili powder mixer recently made some changes. Blood sugar is high at lunch and patient did not receiveLevemir last evening. Repeat blood work reveals WBC 7.1, hemoglobin 12.7. BUN 31 and creatinine 1.82. Baseline creatinine is about 1.6-2.0. 01/13: Patient has ambulated with physical therapy and did the stairs. He has a Brace in place. Garcia cath remains in place which will be discontinued today. Patient complains of his back feeling sore today. He denies any fever or chills. No lightheadedness or dizziness. Patient has been afebrile, heart rate 56, blood pressure 158/54, pulse ox 92%. He did have one documented at 88% on room air. Repeat blood work reveals WBC 8.1, hemoglobin 12.2, platelet count 171. Electrolytes are normal. BUN 38 and creatinine 2.06. Capillary blood glucose running between [id number]. Anticipate possible discharge home tomorrow. 01/14 and patient examined at bedside. He does have some visual disturbance and notices movement in stagnant objects in his room. He was also noticed to have hypoglycemia this morning with blood sugar at 72. Patient has significant pain in his back on mild touch he is participating with that therapy and requires minimum assistance and walking. Patient's creatinine is stable compared to his previous labs. We will hold glipizide today. Cutdown patient's Lantus to 30 units. Discontinue Flexeril due to side effects of mental confusion. Pain medication need to be titrated down to prevent any side effects. Labs ordered today including CBC, CMP and electrolytes. 01/15 patient examined at bedside and is to have low back pain. Visual disturbance has improved since yesterday. Blood sugar are well controlled I in the 100 with the current change in Lantus dose. Flexeril discontinued patient denies any muscle spasm. He does endorses insomnia not able to sleep for the past few days. The start patient on melatonin 5 mg daily. Vitals reviewed as stable REVIEW OF SYSTEMS Constitutional: No fever, no chills, no night sweats. No weight change. No weakness, fatigue or lethargy. No daytime sleepiness. EENT: No headache. No blurred vision or double vision, no loss of vision. No loss of Hearing, no ringing in the ears, no dizziness. No nasal drainage or congestion. No epistaxis. No sore throat. Lungs: No shortness of breath, cough, no sputum production. No wheezing. Cardiovascular: No chest pain, right lower extremity edema. No palpitations. No paroxysmal nocturnal dyspnea. No orthopnea. No lightheadedness or dizzi ness. No syncopal episodes. Abdominal: No abdominal pain. No nausea, vomiting. No diarrhea. No c onstipation. No bloody or tarry stools. No loss of appetite. Genitourinary: No dysuria, increased frequency, urgency. No urinary retention. Musculoskeletal: No muscle tenderness involving lower back with gait dysfunction, no frequent falls. Reports mild back pain. No neck pain. Integumentary: No wounds, no lesions. No rash or pruritus. No unusual bruising. No change in hair or nails.MIGUEL drain and Hemovac in place lumbar wound. Neurologic: No aphasia. No facial droop. No change in mentation. No head injury. No headache. No paralysis. No paresthesia. Psychiatric: No depression. No anxiety. No mood swings. Endocrine: Noted abnormal blood sugars. No weight change. No excessive sweat ing or thirst. No cold intolerance. PHYSICAL EXAMINATION Gen: This is 76-year-old male. He is resting in bed appears to be comfortable and in no acute distress. HEENT: Head is atraumatic, normocephalic. Pupils equal, round. Sclerae is anicteric. NECK: Supple. No JVD. No lymphadenopathy. No thyromegaly. LUNGS: Clear to auscultation. No wheezes or rhonchi. No intercostal retractions. HEART: Regular rate and rhythm. No murmur. ABDOMEN: Soft. Bowel sounds are present. No masses. No tenderness. BACK: Hemovac and MIGUEL drain in place. Tenderness involving the paraspinal region in the lower back EXTREMITIES: No pedal edema. No calf tenderness. NEUROLOGICAL: Patient is awake, alert and oriented x3. Cranial nerves 2 through 12 are grossly intact. ASSESSMENT AND PLAN 1. L2- L5 stenosis s/p L2 to L5 decompressive laminectomy, 01/11. Continue current pain management. Continue therapies. IS to reduce incidence of atelectasis and hosp aquired pneumonia. 2. Diabetes mellitus type 2. Hold glipizide 10 mg daily, Levemir reduced to 30 at bedtime, NovoLog scale before meals and at bedtime. 3. Hypertension. Hold Lasix 20 mg daily, continue lisinopril 10 mg daily, Toprol-XL 25 mg daily. 4. Hyperlipidemia. Continue atorvastatin 20 mg daily. 5. Chronic gout. Continue allopurinol 200 mg daily. 6. DVT prophylaxis. RITU hose and SCDs, early ambulation. 7. GI prophylaxis. Protonix 8. Acute visual disturbances ruled out hallucinations could be result of hypoglycemia. Diabetes medication adjusted Avoid side effects from Flexeril. Titrated down pain medication. Labs ordered to rule out uremia. 9 insomnia melatonin added at 5 mg daily Disposition plan to discharge to rehab tomorrow Objective - Vital Signs Vital signs: Vital Signs Temp 98.7 F 01/15/22 07:51 Pulse 77 01/15/22 07:56 Resp 16 01/15/22 02:00 BP 151/68 01/15/22 07:51 Pulse Ox 98 01/15/22 07:51 Intake & Output 01/14/22 01/15/22 01/15/22 18:59 06:59 18:59 Intake Total 540 Output Total 43 320 Balance 497 -320 Intake: Oral 540 Output: Drainage 43 Left Back 38 Right Back 5 Urine 320 Other: Voiding Method Urinal Urinal # Voids 2 2 - Labs CBC & Chem 7: 01/14/22 14:29 01/14/22 14:29 Labs: Abnormal Lab Results - Last 24 Hours (Table) 01/14/22 01/14/22 01/14/22 Range/Units 14:29 14:29 16:38 RBC 3.43 L (4.30-5.90) m/uL Hgb 11.5 L (13.0-17.5) gm/dL Hct 34.2 L (39.0-53.0) % Lymphocytes # 0.9 L (1.0-4.8) k/uL BUN 37 H (9-20) mg/dL Creatinine 2.04 H (0.66-1.25) mg/dL Glucose 137 H (74-99) mg/dL POC Glucose (mg/dL) 119 H (75-99) mg/dL Calcium 8.2 L (8.4-10.2) mg/dL Total Bilirubin 2.1 H (0.2-1.3) mg/dL Total Protein 5.4 L (6.3-8.2) g/dL Albumin 2.8 L (3.5-5.0) g/dL 01/14/22 01/14/22 01/15/22 Range/Units 18:57 20:07 07:02 RBC (4.30-5.90) m/uL Hgb (13.0-17.5) gm/dL Hct (39.0-53.0) % Lymphocytes # (1.0-4.8) k/uL BUN (9-20) mg/dL Creatinine (0.66-1.25) mg/dL Glucose (74-99) mg/dL POC Glucose (mg/dL) 184 H 152 H 104 H (75-99) mg/dL Calcium (8.4-10.2) mg/dL Total Bilirubin (0.2-1.3) mg/dL Total Protein (6.3-8.2) g/dL Albumin (3.5-5.0) g/dL 01/15/22 Range/Units 11:42 RBC (4.30-5.90) m/uL Hgb (13.0-17.5) gm/dL Hct (39.0-53.0) % Lymphocytes # (1.0-4.8) k/uL BUN (9-20) mg/dL Creatinine (0.66-1.25) mg/dL Glucose (74-99) mg/dL POC Glucose (mg/dL) 141 H (75-99) mg/dL Calcium (8.4-10.2) mg/dL Total Bilirubin (0.2-1.3) mg/dL Total Protein (6.3-8.2) g/dL Albumin (3.5-5.0) g/dL
[2022-01-15 16:41] LABS: Glucose,Whole Blood 224 mg/dL (75-99)
[2022-01-15 20:31] LABS: Glucose,Whole Blood 206 mg/dL (75-99)
[2022-01-15] MEDS: INSULIN DETEMIR (LEVEMIR) 100 UNIT/ML SYR SQ SCH (20:36)
[2022-01-15] MEDS: MELATONIN 5 MG TABLET PO SCH (20:38)
[2022-01-15] MEDS: SENNOSIDES-DOCUSATE SODIUM 1 EACH TAB PO PRN (21:28)
[2022-01-16] MEDS: methocarbamoL 750 MG TAB PO SCH ×5 (00:07→23:39)
[2022-01-16] MEDS: ACETAMINOPHEN TAB 325 MG TAB PO SCH ×5 (00:07→23:38)
[2022-01-16 07:41] LABS: Glucose,Whole Blood 151 mg/dL (75-99)
[2022-01-16 08:16] LABS: Basophils % (A) 0 %; Eosinophils # (A) 0.2 k/uL (0-0.7); Eosinophils % (A) 3 %; HCT 33.9 % (39.0-53.0); Lymphocytes # (A) 0.8 k/uL (1.0-4.8); Lymphocytes % (A) 13 %; MCH 32.5 pg (25.0-35.0); MCHC 32.5 g/dL (31.0-37.0); MCV 99.8 fL (80.0-100.0); Macrocytosis Slight; Mean Platelet Volume 7.6; Monocytes # (A) 0.4 k/uL (0-1.0); Monocytes % (A) 7 %; Neutrophils # (A) 4.3 k/uL (1.3-7.7); Neutrophils % (A) 75 %; Platelet Count 200 k/uL (150-450); RBC 3.39 m/uL (4.30-5.90); RDW 14.5 % (11.5-15.5); WBC 5.7 k/uL (3.8-10.6)
[2022-01-16 08:28] LABS: African American GFR (CKD) 48 (>60 ml/min/1.73 sqM); Anion Gap 4 mmol/L; Blood Urea Nitrogen 33 mg/dL (9-20); Calcium 8.6 mg/dL (8.4-10.2); Carbon Dioxide 26 mmol/L (22-30); Chloride 106 mmol/L (98-107); Glucose 152 mg/dL (74-99); Non-African American GFR(CKD) 42 (>60 ml/min/1.73 sqM); Potassium 4.2 mmol/L (3.5-5.1); Sodium 136 mmol/L (137-145)
--- NOTE | 2022-01-16 08:28 | P.PN ---
Subjective Progress Note Date: 01/16/22 Principal diagnosis: Lumbar stenosis Patient seen and examined is doing okay this morning. He states he feels somewhat [place] having a sore throat however he continued to get up hill stuck in his throat yesterday his pills are now being crushed and split. He states his back is sore but he is doing better. His legs are still doing well. He denies any other fevers chills shortness breath or chest pain. Patient has yet to have a bowel movement but he is passing gas. He is voiding appropriately. Objective - Vital Signs Vital signs: Vital Signs Temp 98.2 F 01/16/22 02:00 Pulse 65 01/16/22 02:00 Resp 17 01/16/22 02:00 BP 133/64 01/16/22 02:00 Pulse Ox 98 01/16/22 02:00 Intake & Output 01/15/22 01/16/22 01/16/22 18:59 06:59 18:59 Other: Voiding Method Urinal Toilet Urinal # Voids 3 - Exam Exam today shows no significant changes from below. He does have an appearance of a somewhat distended bowel however for him he states this is normal he has no bowel plate pain he has no tenderness to palpation of his abdomen O rebound tenderness Patient is alert and oriented 3 appears well-nourished well-hydrated is in no acute distress. They do not appear septic. On exam the patient has no tenderness to palpation of her thoracic or lumbar spine. There is no edema or ballottement sign. Lower extremities with 4+/5 strength in all major muscle groups simply due to deconditioning in the surgery there is no focal deficits and he will likely regain this Upper extremities show [5]/5 strength in all major muscle groups. [2]/4DTR all UE and LE b/l Patient shows a negative Homans, Ledesma's, negative Babinski's negative clonus bilaterally. negative straight leg raise bilaterally. No tensioning signs. Cranial nerves II through XII are grossly intact. There is FROM that is painless of the b/l UE and LE in all major joints [w/o pain]. They are intact to light touch sensation in L2 to S1 nerve distribution. Patient has palpable dorsalis pedis was posterior tibial pulses. Compartments are soft and compressible. Dressings are clean and dry with mild spotting superiorly around the drain sponge. Drains are in place. No hematoma no large fluid collections 150 mL over the deep drain. 25 mL a superficial drain. - Labs CBC & Chem 7: 01/16/22 07:43 01/14/22 14:29 Labs: Abnormal Lab Results - Last 24 Hours (Table) 01/15/22 01/15/22 01/15/22 Range/Units 11:42 16:39 20:29 RBC (4.30-5.90) m/uL Hgb (13.0-17.5) gm/dL Hct (39.0-53.0) % Lymphocytes # (1.0-4.8) k/uL POC Glucose (mg/dL) 141 H 224 H 206 H (75-99) mg/dL 01/16/22 01/16/22 Range/Units 07:40 07:43 RBC 3.39 L (4.30-5.90) m/uL Hgb 11.0 L (13.0-17.5) gm/dL Hct 33.9 L (39.0-53.0) % Lymphocytes # 0.8 L (1.0-4.8) k/uL POC Glucose (mg/dL) 151 H (75-99) mg/dL Assessment and Plan Assessment: 76-year-old male postoperative day 5 L2 to 5 decompression laminectomy 1. L3-L5 severe stenosis 2.Left lower extremity radiculopathy 3. Left lower extremity weakness with muscle wasting about the left quadriceps 4.Mechanical low back pain 5. Neurogenic claudication Plan: -Appreciate economics consultant and team management. AMBULATE! -Activity: Ambulate QID, OOB all meals, up and about, limit lifting bending twisting to less than 5 lbs. Use walker or cane if needed for stability. -Daily PT/OT, increase ambulation strength and balance. -Brace when up and about, not needed in bed or chair -Pain control: Adequate at this time -Meds: reviewed -GI ppx: senna, Miralax -DC alamo when up and about, bedside commode if needed -DVT PPX: Heparin, TEDs knee high, SCDs, Early ambulation, inbed exercises -Hygiene: Shower when able Maintain dressing clean and dry. Meticulous cleaning after BMs away from incision site -Encourage IS 10x/hr goals set for 2000 TV -Add to bowel regiment -Dispo: Rehab today vs tomorrow
[2022-01-16] MEDS: METOPROLOL SUCCINATE (ER) 25 MG TAB.ER.24H PO SCH (08:50)
[2022-01-16] MEDS: ATORVASTATIN 20 MG TAB PO SCH (08:50)
[2022-01-16] MEDS: MAGNESIUM OXIDE 400 MG TAB PO SCH (08:50)
[2022-01-16] MEDS: HYDROcodone/APAP 5-325MG 1 EACH TAB PO SCH ×3 (08:50→22:21)
[2022-01-16] MEDS: HEPARIN SODIUM,PORCINE/PF 5,000 UNIT/0.5 ML SYRINGE SQ SCH ×2 (08:50→22:19)
[2022-01-16] MEDS: lisinopriL 10 MG TAB PO SCH (08:50)
[2022-01-16] MEDS: allopurinoL 100 MG TAB PO SCH (08:50)
[2022-01-16] MEDS: PANTOPRAZOLE 40 MG TABLET PO SCH (08:51)
[2022-01-16] MEDS: INSULIN ASPART (NovoLOG) 100 UNIT/ML VIAL SQ SCH ×4 (08:51→22:19)
[2022-01-16] MEDS ORDERED: ERGOCALCIFEROL 1,250 MCG (50,000 IU) CAPSULE PO SCH (10:00)
--- NOTE | 2022-01-16 10:37 | P.PN ---
Subjective Progress Note Date: 01/16/22 HISTORY OF PRESENT ILLNESS This is a 76-year-old male patient of Dr. Henry with past medical history of diabetes mellitus type 2, hypertension, hyperlipidemia, chronic gout. Patient has been brought in the hospital under the care of Dr. Salomon status post L2-L5 decompressive laminectomy. Patient is postop day #1. He has no postop complications. Home medications will be resumed and these have been reviewed with his as his digital marketing analyst recently made some changes. Blood sugar is high at lunch and patient did not receiveLevemir last evening. Repeat blood work reveals WBC 7.1, hemoglobin 12.7. BUN 31 and creatinine 1.82. Baseline creatinine is about 1.6-2.0. 01/13: Patient has ambulated with physical therapy and did the stairs. He has a Brace in place. Garcia cath remains in place which will be discontinued today. Patient complains of his back feeling sore today. He denies any fever or chills. No lightheadedness or dizziness. Patient has been afebrile, heart rate 56, blood pressure 158/54, pulse ox 92%. He did have one documented at 88% on room air. Repeat blood work reveals WBC 8.1, hemoglobin 12.2, platelet count 171. Electrolytes are normal. BUN 38 and creatinine 2.06. Capillary blood glucose running between [id number]. Anticipate possible discharge home tomorrow. 01/14 and patient examined at bedside. He does have some visual disturbance and notices movement in stagnant objects in his room. He was also noticed to have hypoglycemia this morning with blood sugar at 72. Patient has significant pain in his back on mild touch he is participating with that therapy and requires minimum assistance and walking. Patient's creatinine is stable compared to his previous labs. We will hold glipizide today. Cutdown patient's Lantus to 30 units. Discontinue Flexeril due to side effects of mental confusion. Pain medication need to be titrated down to prevent any side effects. Labs ordered today including CBC, CMP and electrolytes. 01/15 patient examined at bedside and is to have low back pain. Visual disturbance has improved since yesterday. Blood sugar are well controlled I in the 100 with the current change in Lantus dose. Flexeril discontinued patient denies any muscle spasm. He does endorses insomnia not able to sleep for the past few days. The start patient on melatonin 5 mg daily. Vitals reviewed as stable 01/16: Patient is doing well with physical therapy. He denies having any lightheadedness or dizziness, no urinary pain or retention. No nausea. She denies having any fever or chills. There was concern that a pill stuck in his throat yesterday but has had no further episodes. We will recommend Dr. Henry evaluate need for outpatient esophagram. Vitamin D added. Patient has been afebrile, heart rate 52, blood pressure 162/70, pulse ox 96% on room air. Medication reconciliation has been reviewed. Discharge plan is to return home with homecare. REVIEW OF SYSTEMS Constitutional: No fever, no chills, no night sweats. No weight change. No weakness, fatigue or lethargy. No daytime sleepiness. EENT: No headache. No blurred vision or double vision, no loss of vision. No loss of Hearing, no ringing in the ears, no dizziness. No nasal drainage or congestion. No epistaxis. No sore throat. Lungs: No shortness of breath, cough, no sputum production. No wheezing. Cardiovascular: No chest pain, right lower extremity edema. No palpitations. No paroxysmal nocturnal dyspnea. No orthopnea. No lightheadedness or dizziness. No syncopal episodes. Abdominal: No abdominal pain. No nausea, vomiting. No diarrhea. No constipation. No bloody or tarry stools. No loss of appetite. Genitourinary: No dysuria, increased frequency, urgency. No urinary retention. Musculoskeletal: No muscle tenderness involving lower back with gait dysfunction, no frequent falls. Reports mild back pain. No neck pain. Integumentary: No wounds, no lesions. No rash or pruritus. No unusual bruising. No change in hair or nails.MIGUEL drain and Hemovac in place lumbar wound. Neurologic: No aphasia. No facial droop. No change in mentation. No head injury. No headache. No paralysis. No paresthesia. Psychiatric: No depression. No anxiety. No mood swings. Endocrine: Noted abnormal blood sugars. No weight change. No excessive sweating or thirst. No cold intolerance. PHYSICAL EXAMINATION Gen: This is 76-year-old male. He is resting in bed appears to be comfortable and in no acute distress. HEENT: Head is atraumatic, normocephalic. Pupils equal, round. Sclerae is anicteric. NECK: Supple. No JVD. No lymphadenopathy. No thyromegaly. LUNGS: Clear to auscultation. No wheezes or rhonchi. No intercostal retractions. HEART: Regular rate and rhythm. No murmur. ABDOMEN: Soft. Bowel sounds are present. No masses. No tenderness. EXTREMITIES: No pedal edema. No calf tenderness. NEUROLOGICAL: Patient is awake, alert and oriented x3. Cranial nerves 2 through 12 are grossly intact. ASSESSMENT AND PLAN 1. L2- L5 stenosis s/p L2 to L5 decompressive laminectomy, 01/11. Continue current pain management. Continue therapies. IS to reduce incidence of atelectasis and hosp aquired pneumonia. 2. Diabetes mellitus type 2. Resume at home glipizide 10 mg daily, Levemir reduced to 30 at bedtime, NovoLog scale before meals and at bedtime. 3. Hypertension. Resume at home Norvasc and Lasix 20 mg daily, continue lisinopril 10 mg daily, Toprol-XL 25 mg daily. 4. Hyperlipidemia. Continue atorvastatin 20 mg daily. 5. Chronic gout. Continue allopurinol 200 mg daily. 6. DVT prophylaxis. RITU hose and SCDs, early ambulation. 7. GI prophylaxis. Protonix 8. Acute visual disturbances ruled out hallucinations could be result of hypoglycemia. Diabetes medication adjusted Avoid side effects from Flexeril. Titrated down pain medication. Labs ordered to rule out uremia. 9 insomnia melatonin added at 5 mg daily DISCHARGE PLAN Home with homecare Impression and plan of care have been directed as dictated by the signing physician. Vicky Coffey nurse practitioner acting as scribe for signing physician. Objective - Vital Signs Vital signs: Vital Signs Temp 98.1 F 01/16/22 08:00 Pulse 52 L 01/16/22 08:00 Resp 16 01/16/22 08:00 BP 162/70 01/16/22 08:00 Pulse Ox 96 01/16/22 08:00 Intake & Output 01/15/22 01/16/22 01/16/22 18:59 06:59 18:59 Output Total 400 Balance -400 Output: Urine 400 Other: Voiding Method Urinal Toilet Urinal # Voids 3 - Labs CBC & Chem 7: 01/16/22 07:43 01/16/22 07:43 Labs: Abnormal Lab Results - Last 24 Hours (Table) 01/15/22 01/15/22 01/15/22 Range/Units 11:42 16:39 20:29 RBC (4.30-5.90) m/uL Hgb (13.0-17.5) gm/dL Hct (39.0-53.0) % Lymphocytes # (1.0-4.8) k/uL Sodium (137-145) mmol/L BUN (9-20) mg/dL Creatinine (0.66-1.25) mg/dL Glucose (74-99) mg/dL POC Glucose (mg/dL) 141 H 224 H 206 H (75-99) mg/dL 01/16/22 01/16/22 01/16/22 Range/Units 07:40 07:43 07:43 RBC 3.39 L (4.30-5.90) m/uL Hgb 11.0 L (13.0-17.5) gm/dL Hct 33.9 L (39.0-53.0) % Lymphocytes # 0.8 L (1.0-4.8) k/uL Sodium 136 L (137-145) mmol/L BUN 33 H (9-20) mg/dL Creatinine 1.60 H (0.66-1.25) mg/dL Glucose 152 H (74-99) mg/dL POC Glucose (mg/dL) 151 H (75-99) mg/dL
[2022-01-16 11:42] LABS: Glucose,Whole Blood 161 mg/dL (75-99)
[2022-01-16 17:02] LABS: Glucose,Whole Blood 266 mg/dL (75-99)
[2022-01-16 20:28] LABS: Glucose,Whole Blood 255 mg/dL (75-99)
[2022-01-16] MEDS ORDERED: SENNOSIDES-DOCUSATE SODIUM 1 EACH TAB PO SCH (21:00)
[2022-01-16] MEDS: MELATONIN 5 MG TABLET PO SCH (22:20)
[2022-01-16] MEDS: INSULIN DETEMIR (LEVEMIR) 100 UNIT/ML SYR SQ SCH (22:20)
[2022-01-17] MEDS: ACETAMINOPHEN TAB 325 MG TAB PO SCH ×2 (05:48→13:27)
[2022-01-17] MEDS: methocarbamoL 750 MG TAB PO SCH ×2 (05:49→13:27)
[2022-01-17 07:11] LABS: Glucose,Whole Blood 123 mg/dL (75-99)
[2022-01-17] MEDS: INSULIN ASPART (NovoLOG) 100 UNIT/ML VIAL SQ SCH ×2 (07:13→13:27)
[2022-01-17] MEDS: PANTOPRAZOLE 40 MG TABLET PO SCH (07:17)
[2022-01-17 08:24] VITALS: RESP 16
[2022-01-17] MEDS ORDERED: polyethylene glycoL 3350 17 GM POWD.PACK PO STA (08:51)
[2022-01-17] MEDS ORDERED: SENNOSIDES-DOCUSATE SODIUM 1 EACH TAB PO SCH (09:00)
[2022-01-17] MEDS: allopurinoL 100 MG TAB PO SCH (09:45)
[2022-01-17] MEDS: HEPARIN SODIUM,PORCINE/PF 5,000 UNIT/0.5 ML SYRINGE SQ SCH (09:46)
[2022-01-17] MEDS: HYDROcodone/APAP 5-325MG 1 EACH TAB PO SCH ×2 (09:46→15:36)
[2022-01-17] MEDS: ATORVASTATIN 20 MG TAB PO SCH (09:46)
[2022-01-17] MEDS: MAGNESIUM OXIDE 400 MG TAB PO SCH (09:47)
[2022-01-17] MEDS: lisinopriL 10 MG TAB PO SCH (09:47)
[2022-01-17] MEDS: METOPROLOL SUCCINATE (ER) 25 MG TAB.ER.24H PO SCH (09:48)
--- NOTE | 2022-01-17 11:29 | P.PN ---
Subjective Progress Note Date: 01/17/22 HISTORY OF PRESENT ILLNESS This is a 76-year-old male patient of Dr. Henry with past medical history of diabetes mellitus type 2, hypertension, hyperlipidemia, chronic gout. Patient has been brought in the hospital under the care of Dr. Salomon status post L2-L5 decompressive laminectomy. Patient is postop day #1. He has no postop complications. Home medications will be resumed and these have been reviewed with his as his bushler recently made some changes. Blood sugar is high at lunch and patient did not receiveLevemir last evening. Repeat blood work reveals WBC 7.1, hemoglobin 12.7. BUN 31 and creatinine 1.82. Baseline creatinine is about 1.6-2.0. 01/13: Patient has ambulated with physical therapy and did the stairs. He has a Brace in place. Garcia cath remains in place which will be discontinued today. Patient complains of his back feeling sore today. He denies any fever or chills. No lightheadedness or dizziness. Patient has been afebrile, heart rate 56, blood pressure 158/54, pulse ox 92%. He did have one documented at 88% on room air. Repeat blood work reveals WBC 8.1, hemoglobin 12.2, platelet count 171. Electrolytes are normal. BUN 38 and creatinine 2.06. Capillary blood glucose running between [id number]. Anticipate possible discharge home tomorrow. 01/14 and patient examined at bedside. He does have some visual disturbance and notices movement in stagnant objects in his room. He was also noticed to have hypoglycemia this morning with blood sugar at 72. Patient has significant pain in his back on mild touch he is participating with that therapy and requires minimum assistance and walking. Patient's creatinine is stable compared to his previous labs. We will hold glipizide today. Cutdown patient's Lantus to 30 units. Discontinue Flexeril due to side effects of mental confusion. Pain medication need to be titrated down to prevent any side effects. Labs ordered today including CBC, CMP and electrolytes. 01/15 patient examined at bedside and is to have low back pain. Visual disturbance has improved since yesterday. Blood sugar are well controlled I in the 100 with the current change in Lantus dose. Flexeril discontinued patient denies any muscle spasm. He does endorses insomnia not able to sleep for the past few days. The start patient on melatonin 5 mg daily. Vitals reviewed as stable 01/16: Patient is doing well with physical therapy. He denies having any lightheadedness or dizziness, no urinary pain or retention. No nausea. She denies having any fever or chills. There was concern that a pill stuck in his throat yesterday but has had no further episodes. We will recommend Dr. Henry evaluate need for outpatient esophagram. Vitamin D added. Patient has been afebrile, heart rate 52, blood pressure 162/70, pulse ox 96% on room air. Medication reconciliation has been reviewed. Discharge plan is to return home with homecare. 01/17: Vital signs have been stable, blood pressure 161/74. Blood sugars are running between 123 and 266. Patient was not discharged yesterday due to constipation, he receives Senokot 2 tablets last evening. We'll bump up his medications and hopefully have a bowel movement this afternoon once he gets home. Patient is agreeable to go home and work on a bowel movement issue at home. Discharge plan remains to return home with homecare. REVIEW OF SYSTEMS Constitutional: No fever, no chills, no night sweats. No weight change. No weakness, fatigue or lethargy. No daytime sleepiness. EENT: No headache. No blurred vision or double vision, no loss of vision. No loss of Hearing, no ringing in the ears, no dizziness. No nasal drainage or congestion. No epistaxis. No sore throat. Lungs: No shortness of breath, cough, no sputum production. No wheezing. Cardiovascular: No chest pain, right lower extremity edema. No palpitations. No paroxysmal nocturnal dyspnea. No orthopnea. No lightheadedness or dizziness. No syncopal episodes. Abdominal: No abdominal pain. No nausea, vomiting. No diarrhea. Reports c onstipation. No bloody or tarry stools. No loss of appetite. Genitourinary: No dysuria, increased frequency, urgency. No urinary retention. Musculoskeletal: No muscle tenderness involving lower back with gait dysfunction, no frequent falls. Reports mild back pain. No neck pain. Integumentary: No wounds, no lesions. No rash or pruritus. No unusual bruising. No change in hair or nails.MIGUEL drain and Hemovac in place lumbar wound. Neurologic: No aphasia. No facial droop. No change in mentation. No head injury. No headache. No paralysis. No paresthesia. Psychiatric: No depression. No anxiety. No mood swings. Endocrine: Noted abnormal blood sugars. No weight change. No excessive sweat ing or thirst. No cold intolerance. PHYSICAL EXAMINATION Gen: This is 76-year-old male. He is resting in bed appears to be comfortable and in no acute distress. HEENT: Head is atraumatic, normocephalic. Pupils equal, round. Sclerae is anicteric. NECK: Supple. No JVD. No lymphadenopathy. No thyromegaly. LUNGS: Clear to auscultation. No wheezes or rhonchi. No intercostal retractions. HEART: Regular rate and rhythm. No murmur. ABDOMEN: Soft. Bowel sounds are present. No masses. No tenderness. EXTREMITIES: No pedal edema. No calf tenderness. NEUROLOGICAL: Patient is awake, alert and oriented x3. Cranial nerves 2 through 12 are grossly intact. ASSESSMENT AND PLAN 1. L2- L5 stenosis s/p L2 to L5 decompressive laminectomy, 01/11. Continue current pain management. Continue therapies. IS to reduce incidence of atelectasis and hosp aquired pneumonia. 2. Diabetes mellitus type 2. Resume at home glipizide 10 mg daily, Levemir reduced to 30 at bedtime, NovoLog scale before meals and at bedtime. 3. Hypertension. Resume at home Norvasc and Lasix 20 mg daily, continue lisinopril 10 mg daily, Toprol-XL 25 mg daily. 4. Hyperlipidemia. Continue atorvastatin 20 mg daily. 5. Chronic gout. Continue allopurinol 200 mg daily. 6. DVT prophylaxis. RITU [place] and SCDs, early ambulation. 7. GI prophylaxis. Protonix 8. Acute visual disturbances ruled out hallucinations could be result of hypoglycemia. Diabetes medication adjusted Avoid side effects from Flexeril. Titrated down pain medication. Labs ordered to rule out uremia. 9 insomnia melatonin added at 5 mg daily 10. Constipation. Patient instructed to continue stool softener at home, add MiraLAX and Dulcolax suppository if needed DISCHARGE PLAN Home with homecare Impression and plan of care have been directed as dictated by the signing physician. Vicky Coffey nurse practitioner acting as scribe for signing physician. Objective - Vital Signs Vital signs: Vital Signs Temp 98 F 01/17/22 08:00 Pulse 72 01/17/22 08:00 Resp 16 01/17/22 08:00 BP 161/74 01/17/22 08:00 Pulse Ox 98 01/17/22 08:00 Intake & Output 01/16/22 01/17/22 01/17/22 18:59 06:59 18:59 Output Total 800 Balance -800 Output: Urine 800 Other: # Voids 2 # Bowel Movements 0 - Labs CBC & Chem 7: 01/16/22 07:43 01/16/22 07:43 Labs: Abnormal Lab Results - Last 24 Hours (Table) 01/16/22 01/16/22 01/16/22 Range/Units 11:41 17:00 20:25 POC Glucose (mg/dL) 161 H 266 H 255 H (75-99) mg/dL 01/17/22 Range/Units 07:09 POC Glucose (mg/dL) 123 H (75-99) mg/dL
[2022-01-17 11:54] LABS: Glucose,Whole Blood 184 mg/dL (75-99)
--- NOTE | 2022-01-17 13:52 | P.PN ---
Subjective Progress Note Date: 01/17/22 Principal diagnosis: Lumbar stenosis Patient seen and examined he is doing better today standing up in the room currently and walking around. He has just received a suppository as well as medications and help him with his bowel movements. He states he thinks he is almost ready to go. He denies any fever chills or breath or chest pain denies any other issues. He states he is ready to go home. I discussed with him that we will wait until he has a bowel movement due to his recent issues. Objective - Vital Signs Vital signs: Vital Signs Temp 98 F 01/17/22 08:00 Pulse 72 01/17/22 08:00 Resp 16 01/17/22 08:00 BP 161/74 01/17/22 08:00 Pulse Ox 98 01/17/22 08:00 Intake & Output 01/16/22 01/17/22 01/17/22 18:59 06:59 18:59 Output Total 800 Balance -800 Output: Urine 800 Other: # Voids 2 # Bowel Movements 0 - Exam No changes on exam today dressing is clean dry and intact good strength in lower extremities of tension signs and radiculopathy doing well Patient is alert and oriented 3 appears well-nourished well-hydrated is in no acute distress. They do not appear septic. On exam the patient has no tenderness to palpation of her thoracic or lumbar spine. There is no edema or ballottement sign. Lower extremities with 4+/5 strength in all major muscle groups simply due to deconditioning in the surgery there is no focal deficits and he will likely regain this Upper extremities show [5]/5 strength in all major muscle groups. [2]/4DTR all UE and LE b/l Patient shows a negative Homans, Ledesma's, negative Babinski's negative clonus bilaterally. negative straight leg raise bilaterally. No tensioning signs. Cranial nerves II through XII are grossly intact. There is FROM that is painless of the b/l UE and LE in all major joints [w/o pain]. They are intact to light touch sensation in L2 to S1 nerve distribution. Patient has palpable dorsalis pedis was posterior tibial pulses. Compartments are soft and compressible. Dressings are clean and dry with mild spotting superiorly around the drain sponge. Drains are in place. No hematoma no large fluid collections 150 mL over the deep drain. 25 mL a superficial drain. - Labs CBC & Chem 7: 01/16/22 07:43 01/16/22 07:43 Labs: Abnormal Lab Results - Last 24 Hours (Table) 01/16/22 01/16/22 01/17/22 Range/Units 17:00 20:25 07:09 POC Glucose (mg/dL) 266 H 255 H 123 H (75-99) mg/dL 01/17/22 Range/Units 11:52 POC Glucose (mg/dL) 184 H (75-99) mg/dL Assessment and Plan Assessment: 76-year-old male postoperative day 6 L2 to 5 decompression laminectomy 1. L3-L5 severe stenosis 2.Left lower extremity radiculopathy 3. Left lower extremity weakness with muscle wasting about the left quadriceps 4.Mechanical low back pain 5. Neurogenic claudication Plan: -Appreciate senior compensation consultant and team management. AMBULATE! -Activity: Ambulate QID, OOB all meals, up and about, limit lifting bending twisting to less than 5 lbs. Use walker or cane if needed for stability. -Daily PT/OT, increase ambulation strength and balance. -Brace when up and about, not needed in bed or chair -Pain control: Adequate at this time -Meds: reviewed -GI ppx: senna, Miralax, milk of magnesia, Mag citrate, suppository -DC alamo when up and about, bedside commode if needed -DVT PPX: Heparin, TEDs knee high, SCDs, Early ambulation, inbed exercises -Hygiene: Shower when able Maintain dressing clean and dry. Meticulous cleaning after BMs away from incision site -Encourage IS 10x/hr goals set for 2000 TV -Add to bowel regiment -Dispo: Home once a bowel movement obtained
--- NOTE | 2022-01-17 14:54 | P.DS ---
Providers Date of admission: 01/13/22 16:01 Expected date of discharge: 01/17/22 Attending physician: Yakov Salomon DO Consults: 01/11/22 23:15 Consult Physician Routine Consulting Provider: Brain Price Consult Reason/Comments: Medical Do you want consulting provider notified?: Already Contacted Primary care physician: Ruben [facility] Course: Date of admission: 01/11/2022 Date of discharge: 01/17/2022 Admission diagnosis: Status post L2-L5 laminectomy decompression, bilateral lower extremity weakness with radiculopathy, severe stenosis L2-L5 Discharge diagnosis: Status post L2-L5 laminectomy with decompression Attending physician: Dr. Salomon Surgical procedures: L2L5 laminectomy with decompression Brief history: Patient is a 76-year-old male who had been evaluated in the outpatient setting by Dr. Salomon with regards to low back pain and chronic lower extremity weakness. Patient had failed conservative treatments, he was scheduled for a elective L2-L5 laminectomy with decompression. Hospital course: Details of patient's surgery can be found in operative report. Patient tolerated the procedure well and was subsequently transported to orthopedic floor. Patient's orthopeidc and medical care was provided daily. Patient had daily laboratory tests performed for evaluation of overall blood counts. Patient had daily physical therapy to include strengthening range of motion as well as education with walker ambulation. Patient was treated with heparin for their postoperative DVT prophylaxis during their inpatient stay. Patient was noted to have a relatively uneventful postoperative course. Patient dealt with some constipation throughout his postoperative recovery in hospital, this did hold at discharge. Patient reported satisfactory pain control with oral pain medications by postoperative day 0. Patient showed satisfactory progress with physical therapy. Patient moved steadily through the program and had no difficulty meeting the goals by postoperative day 6. Given patient's otherwise satisfactory course and having met physical therapy goals, plan is to discharge patient home on postoperative day 6. Discharge condition/disposition: Patient will be discharged home in stable condition. Discharge medications: Instructions are given on resumption of patient's normal daily medications per primary care recommendation, in addition patient will be prescribed Wrightwood 5 mg/325 mg, Duricef 500 mg, MiraLAX 17 g, Senokot-S, metoprolol 25 mg, melatonin 5 mg, vitamin D, Zestril 10 mg. Spine Discharge and Recovery Instructions Medications: See medication list All medication refills should be obtained through your primary care doctor or your clinic spine surgeon. Please discuss prescription refills at your follow up appointment. Do not call the hospital for medication refills. Dressing: Leave your dressing in place for a total of 5 days post operatively. Then you may remove your dressing and leave open to air. Keep the area clean and if not able to keep area clean, then cover with sterile gauze and tape. Showering: You may shower 3 days after your procedure allowing soap and water to run over incision. Do not scrub. Do not soak. Blot dry. Follow up: Please confirm a follow up appointment with your surgeon 3 weeks post operatively. Please make an appointment to follow up with your PCP in 1-2 weeks after surgery for evaluation 3 phase, 3-week plan POST OP WEEKS 1-3 1. Lifting/carrying/pushing/pulling limited to less than 5 pounds. 2. Do not sit for longer than 15 minutes at one time. Get up and walk around. Prolonged sitting is NOT advised. If you lay down, see if you can tolerate laying down on you front (belly side) 3. Walk for periods of 15 minutes = 1 mile but no longer; do it multiple times times each day. 4. Ice your low back after activity. POST OP WEEKS 3-6 1. Lifting limited to less than 20 pounds. 2. Do not sit for longer than 30 minutes at a time. Frequently change positions. Use a sit-to stand workstation or take frequent breaks from sitting i f you have returned to work. 3. Walk for 30 minutes each day. If possible, do these three or more times a day POST OP WEEKS 6+ At your 6-week appointment we will give you a physical therapy referral to focus on a core stabilization and strengthening program. You should also work on leg & buttock strengthening, hamstring & quadriceps stretching, and continue a low impact aerobic activity program such as swimming, walking, or riding a stationary bicycle. During the initial 6 weeks after your surgery, you are at the highest risk of re-injuring your spine. You should generally avoid BLTs (bending, lifting and twisting combination motions) and follow the above guidelines to reduce the chance of reinjury. You can anticipate post op appointments in our office at approximately 3 weeks and 6 weeks after your surgery. INCISION CARE: If your incision is not draining you do NOT need to cover it with a dressing. Keep your incision clean, dry and intact. In most cases, we apply skin glue, nina or sutures to the incision at the time of surgery. This will be like a crust or have the appearance of a scab and will fall off in time on its own. The stitches or nina need to be removed at 3 weeks post op appointment. You may begin to shower 3 days after surgery (this allows the glue to doran well). However, please avoid scrubbing the incision site or peeling off any of the skin glue. This will ensure optimal healing of your incision. Also, during this time avoid soaking the incision area in water - this includes swimming pools, hot tubs or baths. No ointments, lotions or oils on the incision until your surgeon allows. Leave nina, sutures or glue in place. Neurological dysfunction that comes on suddenly can also be a sign of a stroke. Below some common symptoms of a stroke are listed: B - balance difficulty such as sudden onset walking or leaning to one side - NEW E - eye problem such as sudden double vision or trouble seeing on one side - NEW F - Facial weakness or numbness on one side - NEW A - Arm or leg weakness or numbness on one side - NEW S - Slurred speech or difficulty with word finding - NEW T - Time is BRAIN! Call 911 as soon as you recognize these symptoms Diet: Consume a regular diet rich in vegetables and lean protein such as chicken or fish. You should consume in a ratio of approximately 20% fats|40% carbohydrates|40%protein. Vegetables, sweet potatoes, brown rice or quinoa are examples of good carbohydrates. Chips, white bread, cookies and sweets/sugar are examples of bad carbohydrates. Limit your bad carbs, go wild with good carbs. "Life's Simple 7" Guidelines as per [place] [employer] These will help you reclaim your life after surgery and candy spreader helper in your recovery, keeping in mind your restrictions. (1) Get Active. Physical activity can help people lose weight, control high blood pressure and cholesterol, feel emotionally better, and sleep better. (2) Control Cholesterol. Avoid a diet high in saturated fat, trans fat, & cholesterol. Limit whole milk & cream, ice cream, butter, egg yolks, processed meats (like sausage and hot dogs), and fatty meats. Choose healthy foods that are low in saturated fat, trans fat and cholesterol which include: Fruits and vegetables, fiber rich grain products (like whole grain pasta and brown rice), lean meat such as chicken, fish, nuts, seeds, and legumes. (3) Eat Better. Eat small portions. Shop at the grocery with a list and do not stray from it. Tips for a healthy diet include: Limit sodium intake to less than 1500mg daily, avoid prepackaged, processed, and fast foods, choose a diet rich in fruits, vegetables, and whole grain, high fiber foods, and limit saturated & cholesterol in your diet. (4) Manage Blood Pressure. If you have high blood pressure, you should have a cuff at home so that you can check your blood pressure regularly. Be sure you have a good cuff. An arm one is generally better than a wrist one. Bring the cuff to a doctor's appointment to validate that the measurements that your cuff are taking are accurate. Take your blood pressure twice daily when you are sitting down and relaxing. Record the numbers in a log and bring this log with you to your doctors' appointments. (5) Lose Weight if your BMI is above 25. A healthy BMI is between 19-25. To calculate Your BMI, you may use a Standard BMI Calculator on the NIH BMI website: <www.nhlbi.nih.gov/guidelines/obesity/BMI/bmicalc.htm>. Weigh oneself daily. If you are overweight, set a goal to lose weight. A pound a week loss if needed is a good target. (6) Reduce Blood Sugar. Limit foods and liquids with "added sugars." (Added sugars include sucrose, fructose, glucose, maltose, dextrose, high fructose corn syrup, corn syrup, concentrated fruit juice and honey). (7) Stop Smoking. If you smoke, quitting smoking is one of the best things that you can do for your health. Smoking increases your risk of heart attack, stroke, and peripheral vascular disease, which is a build-up of plaque in your arteries. Please discard all the cigarettes and lighters in your house. Have a plan for what you will do when you have the urge to smoke. Direct and second- hand smoke shortens your life as well as the lives of your family, friends and others around you. For your health and the health of those around you, please consider quitting! Proper Bending Body Mechanics: Maintain a wide stance with one foot slightly in front of the other. Keep your back straight. Bend utilizing the strength in your hips and knees. Do not bend at the waist. Maintain the lifted object at your waist-level close to your body. Avoid lifting weight that causes immediately pain or pain anywhere in the body afterwards. Smoking/Nicotine If there was ever one thing that you could do to increase your overall health, decrease your risk of cardiovascular problems by about 39% the second you make the choice, it is to STOP SMOKING. Your body's most instant gratification is the second you stop smoking. We have all heard the studies, read the articles but it is true, smoking is extremely bad for your overall health, and moreover it is detrimental to your bone health. Nicotine, IN ANY FORM, kills bone cells, prevents your body from healing fractures, and significantly prolongs healing after surgery. In spine surgery specifically, it increases your risk of not healing your bones to create a fusion and increases your risk of having a revision surgery due to this up to 60%. I know it is hard. I know it feels impossible. But there are ways. Take control of your life. We are here to help you through it. And when you are ready, ask us and we can direct you to help if you desire. Use the START Plan to Quit Smoking (please visit the Helpguide.org website li hansel below for more information): S = Set a quit date. Choose a date within the next 2 weeks, so you have enough time to prepare without losing your motivation to quit. If you mainly smoke at work, quit on the weekend, so you have a few days to adjust to the change. T = Tell family, friends, and co-workers that you plan to quit. Let your friends and family in on your plan to quit smoking and tell them you need their support and encouragement to stop. Look for a quit evens who wants to stop smoking as well. You can help each other get through the rough times. A = Anticipate and plan for the challenges you'll face while quitting. Most people who begin smoking again do so within the first 3 months. You can help yourself make it through by preparing ahead for common challenges, such as nicotine withdrawal and cigarette cravings. R = Remove cigarettes and other tobacco products from your home, car, and work. Throw away all your cigarettes (no emergency pack!), lighters, ashtrays, and matches. Wash your clothes and freshen up anything that smells like smoke. Shampoo your car, clean your drapes and carpet, and steam your furniture. T = Talk to your doctor about getting help to quit. Your doctor can prescribe medication to help with withdrawal and suggest other alternatives. If you can't see a doctor, you can get many products over the counter at your local pharmacy or grocery store, including the nicotine patch, nicotine lozenges, and nicotine gum. Resources for Quitting Smoking: <https://www.[place].gov/documents/[facility]/Quit_Tobacco_Resourc es_for_patients_313480_7.pdf> Supplementation: Take recommended dosages of Vitamin D and Calcium to help fortify your bones and help them to heal. See your health maintenance packet for dosages and recommended levels. DVT/VTE prophylaxis: You will be given compression stockings from the hospital. Wear these daily for the first two weeks after surgery. You may take them off at night. You may be prescribed a medication to help thin your blood. Take this as directed. If you are not prescribed this medication, early and frequent ambulation has been shown to be the best prophylaxis to deep vein thrombosis and sequelae related to this event. Procedures: L2-L5 laminectomy decompression Patient Condition at Discharge: Good Plan - Discharge Summary Discharge Rx Participant: No New Discharge Prescriptions: New Sennosides-Docusate Sodium [Senokot-S] 2 each PO DAILY PRN tab PRN Reason: Constipation Ergocalciferol [Vitamin D2 (1250 Mcg = 15146 Iu)] 1,250 mcg PO Q7D #12 capsule Melatonin 5 mg PO HS tablet Metoprolol Succinate (ER) [Toprol XL] 25 mg PO DAILY lisinopriL [Zestril] 10 mg PO QAM #30 tab polyethylene glycoL 3350 [Miralax] 17 gm PO DAILY #30 packet HYDROcodone/APAP 5-325MG [Wrightwood 5-325] 1 tab PO Q6HR PRN #28 tab PRN Reason: Pain Continue Furosemide [Lasix] 20 mg PO DAILY Allopurinol [Zyloprim] 200 mg PO QAM glipiZIDE [Glucotrol] 10 mg PO AC-BRKFST Pioglitazone [Actos] 30 mg PO DAILY Magnesium Oxide [Mag-Ox] 250 mg PO DAILY Tureric Tab 400 mg PO DAILY HYDROcodone/APAP 5-325MG [Wrightwood 5-325] 1 tab PO TID amLODIPine [Norvasc] 2.5 mg PO DAILY Atorvastatin [Lipitor] 20 mg PO DAILY Zinc 50 mg PO DAILY Cholecalciferol [Vitamin D3 (25 Mcg = 1000 Iu)] 50 mcg PO DAILY Fish Oil/Dha/Epa [Fish Oil 1,200 mg Fish Oil] 1 each PO DAILY Changed Insulin Glargine,Hum.rec.anlog [Lantus Solostar Pen] 30 unit SQ HS #0 Discontinued lisinopriL [Zestril] 5 mg PO QAM Discharge Medication List Allopurinol [Zyloprim] 200 mg PO QAM 01/05/22 [History] Atorvastatin [Lipitor] 20 mg PO DAILY 01/05/22 [History] Cholecalciferol [Vitamin D3 (25 Mcg = 1000 Iu)] 50 mcg PO DAILY 01/05/22 [History] Fish Oil/Dha/Epa [Fish Oil 1,200 mg Fish Oil] 1 each PO DAILY 01/05/22 [History] Furosemide [Lasix] 20 mg PO DAILY 01/05/22 [History] HYDROcodone/APAP 5-325MG [Wrightwood 5-325] 1 tab PO TID 01/05/22 [History] Magnesium Oxide [Mag-Ox] 250 mg PO DAILY 01/05/22 [History] Pioglitazone [Actos] 30 mg PO DAILY 01/05/22 [History] Tureric Tab 400 mg PO DAILY 01/05/22 [History] Zinc 50 mg PO DAILY 01/05/22 [History] amLODIPine [Norvasc] 2.5 mg PO DAILY 01/05/22 [History] glipiZIDE [Glucotrol] 10 mg PO -BRKFST 01/05/22 [History] Ergocalciferol [Vitamin D2 (1250 Mcg = 75732 Iu)] 1,250 mcg PO Q7D #12 capsule 01/16/22 [Rx] Insulin Glargine,Hum.rec.anlog [Lantus Solostar Pen] 30 unit SQ HS #0 01/16/22 [Rx] Melatonin 5 mg PO HS tablet 01/16/22 [Rx] Metoprolol Succinate (ER) [Toprol XL] 25 mg PO DAILY 01/16/22 [Rx] Sennosides-Docusate Sodium [Senokot-S] 2 each PO DAILY PRN tab 01/16/22 [Rx] lisinopriL [Zestril] 10 mg PO QAM #30 tab 01/16/22 [Rx] HYDROcodone/APAP 5-325MG [Wrightwood 5-325] 1 tab PO Q6HR PRN #28 tab 01/17/22 [Rx] polyethylene glycoL 3350 [Miralax] 17 gm PO DAILY #30 packet 01/17/22 [Rx] Follow up Appointment(s)/Referral(s): [facility], [NON-STAFF] - ([facility] will call you to schedule your in home physical therapy and nursing visits. ) Ruben Henry MD [Primary Care Provider] - 1 Week Yakov Salomon DO [Doctor of Osteopathic Medicine] - 10 Days Activity/Diet/Wound Care/Special Instructions: Spine Discharge and Recovery Instructions All medication refills should be obtained through your primary care doctor or your clinic spine surgeon. Please discuss prescription refills at your follow up appointment. Do not call the hospital for medication refills. Dressing: Leave your dressing in place for a total of 5 days post operatively. Then you may remove your dressing and leave open to air. Keep the area clean and if not able to keep area clean, then cover with sterile gauze and tape. Showering: You may shower 3 days after your procedure allowing soap and water to run over incision. Do not scrub. Do not soak. Blot dry. Follow up: Please confirm a follow up appointment with your surgeon 3 weeks post operatively. Please make an appointment to follow up with your PCP in 1-2 weeks after surgery for evaluation 3 phase, 3-week plan POST OP WEEKS 1-3 1. Lifting/carrying/pushing/pulling limited to less than 5 pounds. 2. Do not sit for longer than 15 minutes at one time. Get up and walk around. Prolonged sitting is NOT advised. If you lay down, see if you can tolerate laying down on you front (belly side) 3. Walk for periods of 15 minutes = 1 mile but no longer; do it multiple times times each day. 4. Ice your low back after activity. POST OP WEEKS 3-6 1. Lifting limited to less than 20 pounds. 2. Do not sit for longer than 30 minutes at a time. Frequently change positions. Use a sit-to stand workstation or take frequent breaks from sitting if you have returned to work. 3. Walk for 30 minutes each day. If possible, do these three or more times a day POST OP WEEKS 6+ At your 6-week appointment we will give you a physical therapy referral to focus on a core stabilization and strengthening program. You should also work on leg & buttock strengthening, hamstring & quadriceps stretching, and continue a low impact aerobic activity program such as swimming, walking, or riding a stationary bicycle. During the initial 6 weeks after your surgery, you are at the highest risk of re-injuring your spine. You should generally avoid BLTs (bending, lifting and twisting combination motions) and follow the above guidelines to reduce the chance of reinjury. You can anticipate post op appointments in our office at approximately 3 weeks and 6 weeks after your surgery. INCISION CARE: If your incision is not draining you do NOT need to cover it with a dressing. Keep your incision clean, dry and intact. In most cases, we apply skin glue, nina or sutures to the incision at the time of surgery. This will be like a crust or have the appearance of a scab and will fall off in time on its own. The stitches or nina need to be removed at 3 weeks post op appointment. You may begin to shower 3 days after surgery (this allows the glue to doran well). However, please avoid scrubbing the incision site or peeling off any of the skin glue. This will ensure optimal healing of your incision. Also, during this time avoid soaking the incision area in water - this includes swimming pools, hot tubs or baths. No ointments, lotions or oils on the incision until your surgeon allows. Leave nina, sutures or glue in place. Neurological dysfunction that comes on suddenly can also be a sign of a stroke. Below some common symptoms of a stroke are listed: B - balance difficulty such as sudden onset walking or leaning to one side - NEW E - eye problem such as sudden double vision or trouble seeing on one side - NEW F - Facial weakness or numbness on one side - NEW A - Arm or leg weakness or numbness on one side - NEW S - Slurred speech or difficulty with word finding - NEW T - Time is BRAIN! Call 911 as soon as you recognize these symptoms Diet: Consume a regular diet rich in vegetables and lean protein such as chicken or fish. You should consume in a ratio of approximately 20% fats|40% carbohydrates|40%protein. Vegetables, sweet potatoes, brown rice or quinoa are examples of good carbohydrates. Chips, white bread, cookies and sweets/sugar are examples of bad carbohydrates. Limit your bad carbs, go wild with good carbs. "Life's Simple 7" Guidelines as per [place] [employer] These will help you reclaim your life after surgery and candy spreader helper in your recovery, keeping in mind your restrictions. (1) Get Active. Physical activity can help people lose weight, control high blood pressure and cholesterol, feel emotionally better, and sleep better. (2) Control Cholesterol. Avoid a diet high in saturated fat, trans fat, & cholesterol. Limit whole milk & cream, ice cream, butter, egg yolks, processed meats (like sausage and hot dogs), and fatty meats. Choose healthy foods that are low in saturated fat, trans fat and cholesterol which include: Fruits and vegetables, fiber rich grain products (like whole grain pasta and brown rice), lean meat such as chicken, fish, nuts, seeds, and legumes. (3) Eat Better. Eat small portions. Shop at the grocery with a list and do not stray from it. Tips for a healthy diet include: Limit sodium intake to less than 1500mg daily, avoid prepackaged, processed, and fast foods, choose a diet rich in fruits, vegetables, and whole grain, high fiber foods, and limit saturated & cholesterol in your diet. (4) Manage Blood Pressure. If you have high blood pressure, you should have a cuff at home so that you can check your blood pressure regularly. Be sure you have a good cuff. An arm one is generally better than a wrist one. Bring the cuff to a doctor's appointment to validate that the measurements that your cuff are taking are accurate. Take your blood pressure twice daily when you are sitting down and relaxing. Record the numbers in a log and bring this log with you to your doctors' appointments. (5) Lose Weight if your BMI is above 25. A healthy BMI is between 19-25. To calculate Your BMI, you may use a Standard BMI Calculator on the NIH BMI websit e: <www.nhlbi.nih.gov/guidelines/obesity/BMI/bmicalc.htm>. Weigh oneself daily. If you are overweight, set a goal to lose weight. A pound a week loss if needed is a good target. (6) Reduce Blood Sugar. Limit foods and liquids with "added sugars." (Added sugars include sucrose, fructose, glucose, maltose, dextrose, high fructose corn syrup, corn syrup, concentrated fruit juice and honey). (7) Stop Smoking. If you smoke, quitting smoking is one of the best things that you can do for your health. Smoking increases your risk of heart attack, stroke, and peripheral vascular disease, which is a build-up of plaque in your arteries. Please discard all the cigarettes and lighters in your house. Have a plan for what you will do when you have the urge to smoke. Direct and second-hand smoke shortens your life as well as the lives of your family, friends and others around you. For your health and the health of those around you, please consider quitting! Proper Bending Body Mechanics: Maintain a wide stance with one foot slightly in front of the other. Keep your back straight. Bend utilizing the strength in your hips and knees. Do not bend at the waist. Maintain the lifted object at your waist-level close to your body. Avoid lifting weight that causes immediately pain or pain anywhere in the body afterwards. Smoking/Nicotine If there was ever one thing that you could do to increase your overall health, decrease your risk of cardiovascular problems by about 39% the second you make the choice, it is to STOP SMOKING. Your body's most instant gratification is the second you stop smoking. We have all heard the studies, read the articles but it is true, smoking is extremely bad for your overall health, and moreover it is detrimental to your bone health. Nicotine, IN ANY FORM, kills bone cells, prevents your body from healing fractures, and significantly prolongs healing after surgery. In spine surgery specifically, it increases your risk of not healing your bones to create a fusion and increases your risk of having a revision surgery due to this up to 60%. I know it is hard. I know it feels impossible. But there are ways. Take control of your life. We are here to help you through it. And when you are ready, ask us and we can direct you to help if you desire. Use the START Plan to Quit Smoking (please visit the Helpguide.org website listed below for more information): S = Set a quit date. Choose a date within the next 2 weeks, so you have enough time to prepare without losing your motivation to quit. If you mainly smoke at work, quit on the weekend, so you have a few days to adjust to the change. T = Tell family, friends, and co-workers that you plan to quit. Let your friends and family in on your plan to quit smoking and tell them you need their support and encouragement to stop. Look for a quit evens who wants to stop smoking as well. You can help each other get through the rough times. A = Anticipate and plan for the challenges you'll face while quitting. Most people who begin smoking again do so within the first 3 months. You can help yourself make it through by preparing ahead for common challenges, such as nicotine withdrawal and cigarette cravings. R = Remove cigarettes and other tobacco products from your home, car, and work. Throw away all your cigarettes (no emergency pack!), lighters, ashtrays, and matches. Wash your clothes and freshen up anything that smells like smoke. Shampoo your car, clean your drapes and carpet, and steam your furniture. T = Talk to your doctor about getting help to quit. Your doctor can prescribe medication to help with withdrawal and suggest other alternatives. If you can't see a doctor, you can get many products over the counter at your local pharmacy or grocery store, including the nicotine patch, nicotine lozenges, and nicotine gum. Resources for Quitting Smoking: <https://www.[place].gov/documents/[facility]/Quit_Tobacco_Resources_for_patients_313 480_7.pdf> Supplementation: Take recommended dosages of Vitamin D and Calcium to help fortify your bones and help them to heal. See your health maintenance packet for dosages and recommended levels. DVT/VTE prophylaxis: You will be given compression stockings from the hospital. Wear these daily for the first two weeks after surgery. You may take them off at night. You may be prescribed a medication to help thin your blood. Take this as directed. If you are not prescribed this medication, early and frequent ambulation has been shown to be the best prophylaxis to deep vein thrombosis and sequelae related to this event. Discharge Disposition: HOME WITH HOME HEALTH SERVICES
[2022-01-17 15:28] VITALS: BP 178/98; PULSE 77; TEMP 98.4
== END 2022-01-17 16:10 | disposition home health service (06) | DRG 517 ==
LOC: OR 14:07 → 4SSUR 20:18 → OR 01-12 13:48 → 4SSUR 01-12 13:48 → OBSVTOIN 01-13 16:01
PROVIDERS: ADMIT Orthopaedic Surgery; ATTEND Orthopaedic Surgery
PROC: 0QB00ZZ Excision of Lumbar Vertebra, Open Approach (ICD-10-PCS; principal; 2022-01-13)
PROC: 01NB0ZZ Release Lumbar Nerve, Open Approach (ICD-10-PCS; 2022-01-13)
PROC: 8E0WXBG Computer Assisted Procedure of Trunk Region, With Computerized Tomography (ICD-10-PCS; 2022-01-13)
DX: M48.062 Spinal stenosis, lumbar region with neurogenic claudication (principal); M43.16 Spondylolisthesis, lumbar region; M47.26 Other spondylosis with radiculopathy, lumbar region; Z20.822 Contact with and (suspected) exposure to COVID-19; E11.649 Type 2 diabetes mellitus with hypoglycemia without coma; E78.5 Hyperlipidemia, unspecified; G47.00 Insomnia, unspecified; H53.9 Unspecified visual disturbance; I10 Essential (primary) hypertension; K21.9 Gastro-esophageal reflux disease without esophagitis; K59.00 Constipation, unspecified; M1A.9XX0 Chronic gout, unspecified, without tophus (tophi); Z68.32 Body mass index [BMI] 32.0-32.9, adult; Z79.4 Long term (current) use of insulin; Z79.899 Other long term (current) drug therapy; Z80.0 Family history of malignant neoplasm of digestive organs; Z82.0 Family history of epilepsy and other diseases of the nervous system; Z83.3 Family history of diabetes mellitus; Z85.528 Personal history of other malignant neoplasm of kidney; Z85.828 Personal history of other malignant neoplasm of skin; Z86.718 Personal history of other venous thrombosis and embolism; Z87.891 Personal history of nicotine dependence; Z90.5 Acquired absence of kidney; Z96.643 Presence of artificial hip joint, bilateral; Z98.1 Arthrodesis status; Z88.5 Allergy status to narcotic agent
CPT/HCPCS: 72100; 80048; 80053; 82607; 82746; 83735; 85025; 86850; 86900; 86901; 87635; 94760

== ENCOUNTER → 2022-04-26 | Outpatient (CLI) | payer MEDICARE ==
[2022-04-26 09:25] LABS: Creatinine,Urine Random 90.8 mg/dL
[2022-04-26 09:34] LABS: Protein/Creatinine Ratio,Urine 3.711
[2022-04-26 14:41] LABS: Basophils # (A) 0.04 X 10*3/uL (0.00-0.10); Basophils % (A) 0.7 %; Eosinophils # (A) 0.16 X 10*3/uL (0.04-0.35); Eosinophils % (A) 2.9 %; HCT 38.6 % (39.6-50.0); HGB 12.2 g/dL (13.0-17.0); Immature Grans, Automated 0.2 %; Lymphocytes # (A) 1.25 X 10*3/uL (0.90-5.00); Lymphocytes % (A) 22.9 %; MCH 30.6 pg (27.0-32.0); MCHC 31.6 g/dL (32.0-37.0); MCV 96.7 fL (80.0-97.0); Mean Platelet Volume 11.1 fL (9.5-12.2); Monocytes # (A) 0.59 X 10*3/uL (0.20-1.00); Monocytes % (A) 10.8 %; NRBC Per 100 WBC 0 /100 WBCS (0.0-0.0); Neutrophils # (A) 3.41 X 10*3/uL (1.80-7.70); Neutrophils % (A) 62.5 %; Platelet Count 191 X 10*3/uL (140-440); RBC 3.99 X 10*6/uL (4.40-5.60); RDW 13.7 % (11.5-14.5); WBC 5.46 X 10*3/uL (4.50-10.00)
[2022-04-26 14:46] LABS: % Iron Saturation 19.85 (15.00-50.00); Anion Gap 11.7 mmol/L (10.00-18.00); BUN/Creat Ratio 20.2 Ratio (12.00-20.00); Blood Urea Nitrogen 40.2 mg/dL (9.0-27.0); Calcium 9.4 mg/dL (8.7-10.3); Carbon Dioxide 22.5 mmol/L (20.0-27.5); Non-African American GFR(CKD) 31.9 (60.0-200.0); Potassium 4.6 mmol/L (3.5-5.5); Uric Acid 5.7 mg/dL (3.7-8.7)
[2022-04-26 15:08] LABS: Albumin 3.8 g/dL (3.8-4.9)
[2022-04-26 16:00] LABS: Magnesium 2.4 mg/dL (1.5-2.4); Phosphorus 3.2 mg/dL (2.4-5.1)
[2022-04-26 16:43] LABS: Appearance,Urine Cloudy (Clear); Bilirubin,Urine Negative (Negative); Blood,Urine Negative (Negative); Color,Urine Yellow (Yellow); Ketones,Urine Negative (Negative); Nitrite,Urine Negative (Negative); Specific Gravity,Urine 1.014 (1.001-1.030); Urobilinogen,Urine 0.2 (0.2,1.0)
[2022-04-26 17:22] LABS: Bacteria,Urine None Seen /HPF (None Seen); UA Starch Present /LPF (None Seen)
== END | disposition home or self-care (01) ==
LOC: LABWHC1 07:01
PROVIDERS: ATTEND Nurse Practitioner Family
DX: E55.9 Vitamin D deficiency, unspecified (principal); N25.81 Secondary hyperparathyroidism of renal origin; M10.9 Gout, unspecified; N39.0 Urinary tract infection, site not specified; D64.9 Anemia, unspecified; R80.9 Proteinuria, unspecified
CPT/HCPCS: 36415; 80048; 81001; 82040; 82306; 82570; 82728; 83540; 83550; 83735; 83970; 84100; 84156; 84550; 85025

== ENCOUNTER → 2022-05-23 | Outpatient (CLI) | payer MEDICARE ==
--- NOTE | 2022-05-24 04:59 | US ---
EXAMINATION TYPE: US kidneys/renal and bladder DATE OF EXAM: 05/23/2022 COMPARISON: 05/05/2016 CLINICAL HISTORY: 36-year-old male N18.32 CKD STAGE 3. History of left nephrectomy about 12 years ago . EXAM MEASUREMENTS: Right Kidney: 13.1 x 5.8 x 6.9 cm Left Kidney: Surgically absent. Right Kidney: Slightly enlarged. Exophytic cortical cyst at the lower pole measuring 2.2 x 2.0 x 1.8 cm. (Versus 1.8 cm, previously) . No hydronephrosis. Left Kidney: Surgically absent. Bladder: Appears anechoic. Bilateral Jets seen: Right jet seen, hx left nephrectomy. IMPRESSION: Some compensatory hypertrophy of the right kidney. Status post left nephrectomy. No hydronephrosis.
== END | disposition home or self-care (01) ==
LOC: RADUSWWP 13:27
PROVIDERS: ATTEND Internal Medicine Nephrology
DX: N18.32 Chronic kidney disease, stage 3b (principal)
CPT/HCPCS: 76770

== ENCOUNTER → 2022-08-02 | Outpatient (CLI) | payer MEDICARE ==
[2022-08-02 23:27] LABS: Basophils # (A) 0.04 X 10*3/uL (0.00-0.10); Basophils % (A) 0.8 %; Eosinophils # (A) 0.14 X 10*3/uL (0.04-0.35); Eosinophils % (A) 2.8 %; HCT 39.7 % (39.6-50.0); HGB 12.7 g/dL (13.0-17.0); Immature Grans, Automated 0.2 %; Lymphocytes # (A) 1.38 X 10*3/uL (0.90-5.00); Lymphocytes % (A) 27.9 %; MCH 31.8 pg (27.0-32.0); MCV 99.3 fL (80.0-97.0); Mean Platelet Volume 10.8 fL (9.5-12.2); Monocytes # (A) 0.55 X 10*3/uL (0.20-1.00); Monocytes % (A) 11.1 %; NRBC Per 100 WBC 0 /100 WBCS (0.0-0.0); Neutrophils # (A) 2.82 X 10*3/uL (1.80-7.70); Neutrophils % (A) 57.2 %; Platelet Count 187 X 10*3/uL (140-440); RDW 14.1 % (11.5-14.5); WBC 4.94 X 10*3/uL (4.50-10.00)
[2022-08-02 23:58] LABS: Albumin 4.1 g/dL (3.8-4.9)
[2022-08-03 00:08] LABS: Appearance,Urine Clear (Clear); Bilirubin,Urine Negative (Negative); Blood,Urine Negative (Negative); Color,Urine Yellow (Yellow); Ketones,Urine Negative (Negative); Nitrite,Urine Negative (Negative); PH, Urine 5.5 (5.0-8.0); Specific Gravity,Urine 1.013 (1.001-1.030); Urobilinogen,Urine 0.2 (0.2,1.0)
[2022-08-03 00:18] LABS: Bacteria,Urine None Seen /HPF (None Seen)
[2022-08-03 00:44] LABS: % Iron Saturation 30.57 (15.00-50.00); Anion Gap 11.1 mmol/L (10.00-18.00); BUN/Creat Ratio 22.21 Ratio (12.00-20.00); Blood Urea Nitrogen 44.2 mg/dL (9.0-27.0); Calcium 9.6 mg/dL (8.7-10.3); Carbon Dioxide 25.7 mmol/L (20.0-27.5); Magnesium 2.7 mg/dL (1.5-2.4); Non-African American GFR(CKD) 31.9 (60.0-200.0); Phosphorus 3.3 mg/dL (2.4-5.1)
== END | disposition home or self-care (01) ==
LOC: LABWHC1 14:36
PROVIDERS: ATTEND Nurse Practitioner Family
DX: E21.3 Hyperparathyroidism, unspecified (principal); E55.9 Vitamin D deficiency, unspecified; M10.9 Gout, unspecified; N39.0 Urinary tract infection, site not specified; D64.9 Anemia, unspecified; N18.32 Chronic kidney disease, stage 3b
CPT/HCPCS: 36415; 80048; 81001; 82040; 82043; 82306; 82570; 82728; 83540; 83550; 83735; 83970; 84100; 84550; 85025

== ENCOUNTER → 2022-09-29 | Outpatient (CLI) | payer MEDICARE ==
[2022-09-29 11:19] LABS: Chol/HDL Ratio 3.71 Ratio; LDL Cholesterol,Calculated 56.4 mg/dL (0.0-131.0)
== END | disposition home or self-care (01) ==
LOC: LABWHC1 07:02
PROVIDERS: ATTEND Family Medicine
DX: Z12.5 Encounter for screening for malignant neoplasm of prostate (principal); E11.9 Type 2 diabetes mellitus without complications; I10 Essential (primary) hypertension; E78.00 Pure hypercholesterolemia, unspecified
CPT/HCPCS: 36415; 80061; 83036; 84153; 84443

== ENCOUNTER 2022-11-26 06:13 | Inpatient (IN) | payer MEDICARE ==
[2022-11-26] MEDS ORDERED: ACETAMINOPHEN TAB 500 MG TAB PO STA (06:34)
--- NOTE | 2022-11-26 06:40 | ED ---
General Adult HPI - General Chief complaint: Upper Respiratory Infection Stated complaint: ERAN Time Seen by Provider: 11/26/22 06:21 Source: patient, RN notes reviewed Mode of arrival: ambulatory Limitations: no limitations - History of Present Illness Initial comments: This a 77-year-old male presents emergency Department chief complaint of weakness, shortness of breath. Patient states that he's been sick since with cough congestion fever or chills body aches. Patient states that his tested positive for COVID-19 earlier in the week. Patient states that he seems to be getting worse states that he has extreme shortness breath with exertion. Patient states he has some chest tightness. Patient is known diabetic has no history of asthma or COPD. Denies any current chest pain or some chest tightness. Patient denies she has symptoms including nausea vomiting diarrhea constipation. - Related Data Home Medications Medication Instructions Recorded Confirmed Atorvastatin [Lipitor] 20 mg PO DAILY 01/05/22 01/11/22 Cholecalciferol [Vitamin D3 (25 50 mcg PO DAILY 01/05/22 01/11/22 Mcg = 1000 Iu)] Fish Oil/Dha/Epa [Fish Oil 1,200 1 each PO DAILY 01/05/22 01/11/22 mg Fish Oil] Furosemide [Lasix] 20 mg PO DAILY 01/05/22 01/11/22 HYDROcodone/APAP 5-325MG [[place] 1 tab PO TID 01/05/22 01/11/22 5-325] Magnesium Oxide [Mag-Ox] 250 mg PO DAILY 01/05/22 01/11/22 Pioglitazone [Actos] 30 mg PO DAILY 01/05/22 01/11/22 Tureric Tab 400 mg PO DAILY 01/05/22 01/11/22 Zinc 50 mg PO DAILY 01/05/22 01/11/22 allopurinoL [Zyloprim] 200 mg PO QAM 01/05/22 01/11/22 amLODIPine [Norvasc] 2.5 mg PO DAILY 01/05/22 01/11/22 glipiZIDE [Glucotrol] 10 mg PO AC-BRKFST 01/05/22 01/11/22 Previous Rx's Medication Instructions Recorded Ergocalciferol [Vitamin D2 (1250 1,250 mcg PO Q7D #12 capsule 01/16/22 Mcg = 43352 Iu)] Insulin Glargine,Hum.rec.anlog 30 unit SQ HS #0 01/16/22 [Lantus Solostar Pen] Melatonin 5 mg PO HS tablet 01/16/22 Metoprolol Succinate (ER) [Toprol 25 mg PO DAILY 01/16/22 XL] Sennosides-Docusate Sodium 2 each PO DAILY PRN tab 01/16/22 [Senokot-S] lisinopriL [Zestril] 10 mg PO QAM #30 tab 01/16/22 HYDROcodone/APAP 5-325MG [[place] 1 tab PO Q6HR PRN #28 tab 01/17/22 5-325] polyethylene glycoL 3350 [Miralax] 17 gm PO DAILY #30 packet 01/17/22 Allergies Allergy/AdvReac Type Severity Reaction Status Date / Time codeine Allergy Rash/Hives Verified 11/26/22 06:21 Review of Systems ROS Statement: Those systems with pertinent positive or pertinent negative responses have been documented in the HPI. ROS Other: All systems not noted in ROS Statement are negative. Past Medical History Past Medical History: Cancer, Diabetes Mellitus, GERD/Reflux, Hyperlipidemia, Hypertension Additional Past Medical History / Comment(s): irregular heartbeat, superficial blood clot in rt leg, hx kindney and skin cancer History of Any Multi-Drug Resistant Organisms: None Reported Past Surgical History: Joint Replacement, Tonsillectomy Additional Past Surgical History / Comment(s): left nephrectomy 2009, removal of skin cancer, benny hip replacement, hernia repair Past Anesthesia/Blood Transfusion Reactions: Motion Sickness Past Psychological History: No Psychological Hx Reported Smoking Status: Former smoker Past Alcohol Use History: Occasional Past Drug Use History: None Reported - Past Family History Sister(s) Family Medical History: Cancer Additional Family Medical History / Comment(s): pancreatic cancer General Exam Limitations: no limitations General appearance: alert, in no apparent distress Head exam: Present: atraumatic, normocephalic, normal inspection Eye exam: Present: normal appearance, PERRL, EOMI. Absent: scleral icterus, conjunctival injection, periorbital swelling ENT exam: Present: normal exam, normal oropharynx, mucous membranes moist Neck exam: Present: normal inspection, full ROM. Absent: tenderness, meningismus, lymphadenopathy Respiratory exam: Present: wheezes, rhonchi, decreased breath sounds. Absent: normal lung sounds bilaterally, respiratory distress, rales, stridor Cardiovascular Exam: Present: regular rate, normal rhythm, normal heart sounds. Absent: systolic murmur, diastolic murmur, rubs, gallop, clicks GI/Abdominal exam: Present: soft, normal bowel sounds. Absent: distended, tenderness, guarding, rebound, rigid Extremities exam: Present: normal capillary refill. Absent: pedal edema, calf tenderness Neurological exam: Present: alert Skin exam: Present: warm, dry, intact, normal color. Absent: rash Course Vital Signs 11/26/22 11/26/22 11/26/22 06:18 06:38 07:03 Temperature 100.1 F H Pulse Rate 81 Respiratory 18 24 Rate Blood Pressure 135/66 O2 Sat by Pulse 88 L 96 Oximetry 11/26/22 07:46 Temperature Pulse Rate 75 Respiratory 18 Rate Blood Pressure 112/54 O2 Sat by Pulse 94 L Oximetry Medical Decision Making - Medical Decision Making Was pt. sent in by a medical professional or institution? @ -no Did you speak to anyone other than the patient for history? @ -no Did you review nursing and triage notes? @ -Reviewed and agreed Were old charts reviewed? @ -No Differential Diagnosis? @ -Pneumonia, COVID-19, influenza, RSV, CHF, this is not meant to be an all- inclusive list. EKG interpreted by me (3pts min.)? @ -EKG performed at 6:49 normal sinus rhythm rate of 78 [place] 166 QRS 114 QT/QTC 384/437 X-rays interpreted by me (1pt min.)? @ -Chest x-ray multi- focal pneumonia CT interpreted by me (1pt min.)? @ -No U/S interpreted by me (1pt. min.)? @ -no What testing was considered but not performed? (CT, X-rays, U/S, labs)? Why? @ no What meds were considered but not given? Why? @ -no Did you discuss the management of the patient with other professionals? @ - hospitalist Did you reconcile home meds? @ -yes Was smoking cessation discussed for >3mins.? @ -no Was critical care preformed (if so, how long)? @ -no Were there social determinants of health that impacted care today? How? (Homelessness, low income, unemployed, alcoholism, drug addiction, transportation, low edu. Level, literacy, decrease access to med. care, residential, rehab)? @ -no Was there de-escalation of care discussed even if they declined? (Discuss DNR or withdrawal of care, Hospice)? @ -no What co-morbidities impacted this encounter? (DM, HTN, Smoking, COPD, CAD, Cancer, CVA, Hep., AIDS, mental health diagnosis, sleep apnea, morbid obesity)? @ -DM,HTN Was patient admitted / discharged? @ -admit Undiagnosed new problem with uncertain prognosis? @ -no Drug Therapy requiring intensive monitoring for toxicity (Heparin, Nitro, Insulin, Cardizem)? @ -no Were any procedures done? @ -no Diagnosis/symptom? @ -COVID 19 pneumonia Acute, or Chronic, or Acute on Chronic? @ -acute Uncomplicated (without systemic symptoms) or Complicated (systemic symptoms)? @ -Complicated Side effects of treatment? @ -[none] Exacerbation, Progression, or Severe Exacerbation] @ -no Poses a threat to life or bodily function? @ -yes Diagnosis/symptom? @ -Hypoxia Acute, or Chronic, or Acute on Chronic? @ -Acute Uncomplicated (without systemic symptoms) or Complicated (systemic symptoms)? @ -Complicated] Side effects of treatment? @ -None Exacerbation, Progression, or Severe Exacerbation] @ -no Poses a threat to life or bodily function? @ -no - Lab Data Result diagrams: 11/26/22 06:45 11/26/22 06:45 Lab Results 11/26/22 11/26/22 11/26/22 Range/Units 06:45 06:45 06:45 WBC 6.2 (3.8-10.6) k/uL RBC 3.62 L (4.30-5.90) m/uL Hgb 12.1 L (13.0-17.5) gm/dL Hct 34.4 L (39.0-53.0) % MCV 95.2 (80.0-100.0) fL MCH 33.5 (25.0-35.0) pg MCHC 35.2 (31.0-37.0) g/dL RDW 14.4 (11.5-15.5) % Plt Count 129 L (150-450) k/uL MPV 8.4 Neutrophils % 81 % Lymphocytes % 12 % Monocytes % 5 % Eosinophils % 0 % Basophils % 1 % Neutrophils # 5.0 (1.3-7.7) k/uL Lymphocytes # 0.7 L (1.0-4.8) k/uL Monocytes # 0.3 (0-1.0) k/uL Eosinophils # 0.0 (0-0.7) k/uL Basophils # 0.0 (0-0.2) k/uL PT 9.8 (9.0-12.0) sec INR 0.9 (<1.2) APTT 26.7 (22.0-30.0) sec Sodium 141 (137-145) mmol/L Potassium 4.3 (3.5-5.1) mmol/L Chloride 105 (98-107) mmol/L Carbon Dioxide 31 H (22-30) mmol/L Anion Gap 5 mmol/L BUN 58 H (9-20) mg/dL Creatinine 2.75 H (0.66-1.25) mg/dL Est GFR (CKD-EPI)AfAm 25 (>60 ml/min/1.73 sqM) Est GFR (CKD-EPI)NonAf 21 (>60 ml/min/1.73 sqM) Glucose 81 (74-99) mg/dL Plasma Lactic Acid Carlos (0.7-2.0) mmol/L Calcium 8.3 L (8.4-10.2) mg/dL Magnesium 2.4 H (1.6-2.3) mg/dL Total Bilirubin 2.9 H (0.2-1.3) mg/dL AST 38 (17-59) U/L ALT 29 (4-49) U/L Alkaline Phosphatase 66 (38-126) U/L Troponin I (0.000-0.034) ng/mL NT-Pro-B Natriuret Pep pg/mL Total Protein 6.3 (6.3-8.2) g/dL Albumin 3.6 (3.5-5.0) g/dL Influenza Type A (PCR) (Not Detectd) Influenza Type B (PCR) (Not Detectd) RSV (PCR) (Not Detectd) SARS-CoV-2 (PCR) (Not Detectd) 11/26/22 11/26/22 11/26/22 Range/Units 06:45 06:45 06:45 WBC (3.8-10.6) k/uL RBC (4.30-5.90) m/uL Hgb (13.0-17.5) gm/dL Hct (39.0-53.0) % MCV (80.0-100.0) fL MCH (25.0-35.0) pg MCHC (31.0-37.0) g/dL RDW (11.5-15.5) % Plt Count (150-450) k/uL MPV Neutrophils % % Lymphocytes % % Monocytes % % Eosinophils % % Basophils % % Neutrophils # (1.3-7.7) k/uL Lymphocytes # (1.0-4.8) k/uL Monocytes # (0-1.0) k/uL Eosinophils # (0-0.7) k/uL Basophils # (0-0.2) k/uL PT (9.0-12.0) sec INR (<1.2) APTT (22.0-30.0) sec Sodium (137-145) mmol/L Potassium (3.5-5.1) mmol/L Chloride (98-107) mmol/L Carbon Dioxide (22-30) mmol/L Anion Gap mmol/L BUN (9-20) mg/dL Creatinine (0.66-1.25) mg/dL Est GFR (CKD-EPI)AfAm (>60 ml/min/1.73 sqM) Est GFR (CKD-EPI)NonAf (>60 ml/min/1.73 sqM) Glucose (74-99) mg/dL Plasma Lactic Acid Carlos 1.4 (0.7-2.0) mmol/L Calcium (8.4-10.2) mg/dL Magnesium (1.6-2.3) mg/dL Total Bilirubin (0.2-1.3) mg/dL AST (17-59) U/L ALT (4-49) U/L Alkaline Phosphatase (38-126) U/L Troponin I 0.039 H* (0.000-0.034) ng/mL NT-Pro-B Natriuret Pep 654 pg/mL Total Protein (6.3-8.2) g/dL Albumin (3.5-5.0) g/dL Influenza Type A (PCR) (Not Detectd) Influenza Type B (PCR) (Not Detectd) RSV (PCR) (Not Detectd) SARS-CoV-2 (PCR) (Not Detectd) 11/26/22 Range/Units 06:45 WBC (3.8-10.6) k/uL RBC (4.30-5.90) m/uL Hgb (13.0-17.5) gm/dL Hct (39.0-53.0) % MCV (80.0-100.0) fL MCH (25.0-35.0) pg MCHC (31.0-37.0) g/dL RDW (11.5-15.5) % Plt Count (150-450) k/uL MPV Neutrophils % % Lymphocytes % % Monocytes % % Eosinophils % % Basophils % % Neutrophils # (1.3-7.7) k/uL Lymphocytes # (1.0-4.8) k/uL Monocytes # (0-1.0) k/uL Eosinophils # (0-0.7) k/uL Basophils # (0-0.2) k/uL PT (9.0-12.0) sec INR (<1.2) APTT (22.0-30.0) sec Sodium (137-145) mmol/L Potassium (3.5-5.1) mmol/L Chloride (98-107) mmol/L Carbon Dioxide (22-30) mmol/L Anion Gap mmol/L BUN (9-20) mg/dL Creatinine (0.66-1.25) mg/dL Est GFR (CKD-EPI)AfAm (>60 ml/min/1.73 sqM) Est GFR (CKD-EPI)NonAf (>60 ml/min/1.73 sqM) Glucose (74-99) mg/dL Plasma Lactic Acid Carlos (0.7-2.0) mmol/L Calcium (8.4-10.2) mg/dL Magnesium (1.6-2.3) mg/dL Total Bilirubin (0.2-1.3) mg/dL AST (17-59) U/L ALT (4-49) U/L Alkaline Phosphatase (38-126) U/L Troponin I (0.000-0.034) ng/mL NT-Pro-B Natriuret Pep pg/mL Total Protein (6.3-8.2) g/dL Albumin (3.5-5.0) g/dL Influenza Type A (PCR) Not Detected (Not Detectd) Influenza Type B (PCR) Not Detected (Not Detectd) RSV (PCR) Not Detected (Not Detectd) SARS-CoV-2 (PCR) Detected A (Not Detectd) Disposition Clinical Impression: COVID-19, Pneumonia, Hypoxia Disposition: ADMITTED IP TO THIS HOSP Condition: Fair Referrals: Ruben Henry MD [Primary Care Provider] - 1-2 days Time of Disposition: 08:08
[2022-11-26 07:08] LABS: Basophils % (A) 1 %; Eosinophils % (A) 0 %; HCT 34.4 % (39.0-53.0); HGB 12.1 gm/dL (13.0-17.5); Lymphocytes # (A) 0.7 k/uL (1.0-4.8); Lymphocytes % (A) 12 %; MCH 33.5 pg (25.0-35.0); MCHC 35.2 g/dL (31.0-37.0); MCV 95.2 fL (80.0-100.0); Mean Platelet Volume 8.4; Monocytes # (A) 0.3 k/uL (0-1.0); Monocytes % (A) 5 %; Neutrophils % (A) 81 %; Platelet Count 129 k/uL (150-450); RBC 3.62 m/uL (4.30-5.90); RDW 14.4 % (11.5-15.5); WBC 6.2 k/uL (3.8-10.6)
[2022-11-26 07:21] LABS: Albumin 3.6 g/dL (3.5-5.0); Calcium 8.3 mg/dL (8.4-10.2); INR 0.9 (<1.2); Magnesium 2.4 mg/dL (1.6-2.3); Partial Thromboplastin Time 26.7 sec (22.0-30.0); Potassium 4.3 mmol/L (3.5-5.1); Prothrombin Time 9.8 sec (9.0-12.0); Total Bilirubin 2.9 mg/dL (0.2-1.3); Total Protein 6.3 g/dL (6.3-8.2)
--- NOTE | 2022-11-26 07:26 | XR ---
EXAMINATION TYPE: XR chest 2V DATE OF EXAM: 11/26/2022 6:41 AM COMPARISON: Chest radiographs from 03/17/2014 TECHNIQUE: XR chest 2V Frontal and lateral views of the chest. CLINICAL INDICATION:Male, 77 years old with history of difficulty breathing; FINDINGS: Lungs/Pleura: Airspace opacities most pronounced in the right base but also affecting the left base a nd right midlung. No pneumothorax pleural effusion. Pulmonary vascularity: Unremarkable. Heart/mediastinum: Cardiomediastinal silhouette is unremarkable. Musculoskeletal: No acute osseous pathology. IMPRESSION: Multifocal airspace opacities concerning for pneumonia.
[2022-11-26] MEDS ORDERED: ACETAMINOPHEN TAB 325 MG TAB PO PRN (08:08)
[2022-11-26] MEDS ORDERED: ONDANSETRON 4 MG/2 ML VIAL IVP PRN (08:08)
[2022-11-26] MEDS ORDERED: NALOXONE 0.4 MG/ML 1 ML VIAL IV PRN (08:08)
[2022-11-26] MEDS: SODIUM CHLORIDE 0.9% 1,000 ML IV SCH ×2 (09:53→20:54)
[2022-11-26] MEDS ORDERED: DEXTROSE 50% SYRINGE 50 ML IVP PRN ×2 (11:44)
[2022-11-26] MEDS: INSULIN ASPART (NovoLOG) 100 UNIT/ML VIAL SQ SCH ×3 (11:53→20:27)
[2022-11-26 12:12] LABS: Glucose,Whole Blood 91 mg/dL (70-110)
[2022-11-26] MEDS ORDERED: REMDESIVIR 200 MG in SODIUM CHLORIDE 0.9% 250 ML IVPB ONE (12:30)
[2022-11-26] MEDS: ENOXAPARIN 30 MG/0.3 ML SYRINGE SQ SCH (12:35)
[2022-11-26] MEDS: ASCORBIC ACID 500 MG TAB PO SCH (12:35)
[2022-11-26] MEDS: ZINC SULFATE 220 MG CAP PO SCH (12:35)
--- NOTE | 2022-11-26 13:12 | P.CNPUL ---
History of Present Illness Consult date: 11/26/22 Requesting physician: Ruben Henry Reason for consult: dyspnea, cough, pneumonia, abnormal CXR/CT Chief complaint: Pneumonia, shortness of breath, cough. History of present illness: Pulmonary consult dated 11/26/2022. 77-year-old male with a history of hyperlipidemia, diabetes, kidney cancer, status post nephrectomy, and hypertension. The patient states that for the last 3 days, he's been complaining of chest congestion, cough, phlegm production, and shortness of breath. The patient apparently did test positive for coronavirus on this admission, and a chest x-ray revealed a right lower lobe infiltrate. His primary care physician is Dr. Ruben Henry. The patient did smoke on and off for 30 years. He has been vaccinated against coronavirus. He's currently been seen in the emergency room, room 21. He is on 3 L of oxygen. He does not wear oxygen at home. White count 6.2, hemoglobin 12.1, hematocrit 34.4, and platelet count 129,000. Coagulation studies were normal. Sodium 141, potassium 4.3, chlorides 105, CO2 31, BUN 58, and creatinine 2.75. The patient's troponin was 0.039. N-terminal proBNP was 654. The patient tested positive for coronavirus. Chest x-ray showed bilateral airspace abnormalities, primarily in the right lower lobe. Review of Systems REVIEW OF SYSTEMS: CONSTITUTIONAL: Weakness and fatigue. NEUROLOGIC: [ Negative.] HEENT: [ Negative.] CARDIAC: [Negative.] PULMONARY: Shortness of breath, cough, phlegm production. GI: [Negative.] : [Negative.] RHEUMATOLOGIC: [ Negative.] IMMUNOLOGIC: [ Negative.] ENDOCRINE: [Negative. ] DERMATOLOGIC: [Negative.] Past Medical History Past Medical History: Cancer, Diabetes Mellitus, GERD/Reflux, Hyperlipidemia, Hypertension Additional Past Medical History / Comment(s): irregular heartbeat, superficial blood clot in rt leg, hx kindney and skin cancer History of Any Multi-Drug Resistant Organisms: None Reported Past Surgical History: Joint Replacement, Tonsillectomy Additional Past Surgical History / Comment(s): left nephrectomy 2009, removal of skin cancer, benny hip replacement, hernia repair Past Anesthesia/Blood Transfusion Reactions: Motion Sickness Past Psychological History: No Psychological Hx Reported Smoking Status: Former smoker Past Alcohol Use History: Occasional Past Drug Use History: None Reported - Past Family History Sister(s) Family Medical History: Cancer Additional Family Medical History / Comment(s): pancreatic cancer Medications and Allergies Home Medications Medication Instructions Recorded Confirmed Type Atorvastatin [Lipitor] 20 mg PO DAILY 01/05/22 11/26/22 History Cholecalciferol [Vitamin D3 (25 50 mcg PO DAILY 01/05/22 11/26/22 History Mcg = 1000 Iu)] Fish Oil/Dha/Epa [Fish Oil 1,200 1 cap PO DAILY 01/05/22 11/26/22 History mg Fish Oil] HYDROcodone/APAP 5-325MG [[place] 1 tab PO BID PRN 01/05/22 11/26/22 History 5-325] Magnesium Oxide [Mag-Ox] 250 mg PO DAILY 01/05/22 11/26/22 History Pioglitazone [Actos] 30 mg PO DAILY 01/05/22 11/26/22 History Zinc 50 mg PO DAILY 01/05/22 11/26/22 History allopurinoL [Zyloprim] 100 mg PO BID 01/05/22 11/26/22 History Metoprolol Succinate (ER) [Toprol 25 mg PO DAILY 01/16/22 11/26/22 Rx XL] Furosemide [Lasix] 40 mg PO BID 11/26/22 11/26/22 History Insulin Aspart [NovoLOG Flexpen] See Protocol SQ AC-TID 11/26/22 11/26/22 History Insulin Glargine,Hum.rec.anlog 50 unit SQ HS 11/26/22 11/26/22 History [Lantus Solostar Pen] Turmeric Root Extract [Turmeric] 500 mg PO DAILY 11/26/22 11/26/22 History amLODIPine [Norvasc] 5 mg PO DAILY 11/26/22 11/26/22 History glipiZIDE XL [Glucotrol Xl] 10 mg PO DAILY 11/26/22 11/26/22 History hydrALAZINE HCL [Apresoline] 25 mg PO BID 11/26/22 11/26/22 History lisinopriL [Zestril] 10 mg PO DAILY 11/26/22 11/26/22 History Allergies Allergy/AdvReac Type Severity Reaction Status Date / Time codeine Allergy Rash/Hives Verified 11/26/22 11:16 Physical Exam Osteopathic Statement: *. No significant issues noted on an osteopathic structural exam other than those noted in the History and Physical/Consult. Vitals: Vital Signs Temp Pulse Pulse Resp BP BP BP 11/26/22 11:30 97.1 F L 67 20 108/64 97/53 11/26/22 09:50 98.5 F 75 18 113/61 11/26/22 07:46 75 18 112/54 11/26/22 07:03 11/26/22 06:38 24 11/26/22 06:18 100.1 F H 81 18 135/66 Pulse Ox 11/26/22 11:30 95 11/26/22 09:50 94 L 11/26/22 07:46 94 L 11/26/22 07:03 96 11/26/22 06:38 11/26/22 06:18 88 L Intake and Output 11/25/22 11/26/22 11/26/22 22:59 06:59 14:59 Intake Total 225 Balance 225 Intake: IV 225 Remdesivir 200 mg In 0 Sodium Chloride 0.9% 250 ml @ 250 mls/hr IVPB ONCE ONE Rx#:[id number] Sodium Chloride 0.9% 1, 225 000 ml @ 75 mls/hr IV . [id number] [facility] Rx#:[id number] Other: Weight 108.862 kg No acute distress, oriented 3. Currently on 3 L of oxygen. No conversational dyspnea or use of accessory muscles. Cough is a bit congested. HEENT examination is grossly unremarkable. Neck supple. Full range of motion. No adenopathy thyromegaly or neck vein distention. Cardiovascular examination reveals regular rhythm rate. S1-S2 normal. No S3 or S4. No discernible murmur noted. Heart rate 67 bpm. Lungs reveal scattered bilateral rhonchi. No wheezes. No crackles. Breath sounds equal bilaterally. Saturations are 95%. Abdomen soft bowel sounds are heard. No masses or tenderness. Extremities are intact. No cyanosis clubbing or edema. Skin is without rash or lesion. Neurologic examination is brief but nonfocal. Results - Laboratory Findings CBC and BMP: 11/26/22 06:45 11/26/22 06:45 PT/INR, D-dimer PT 9.8 sec (9.0-12.0) 11/26/22 06:45 INR 0.9 (<1.2) 11/26/22 06:45 Abnormal lab findings: Abnormal Labs 11/26/22 11/26/22 11/26/22 06:45 06:45 06:45 RBC 3.62 L Hgb 12.1 L Hct 34.4 L Plt Count 129 L Lymphocytes # 0.7 L Carbon Dioxide 31 H BUN 58 H Creatinine 2.75 H Calcium 8.3 L Magnesium 2.4 H Total Bilirubin 2.9 H Troponin I 0.039 H* SARS-CoV-2 (PCR) 11/26/22 06:45 RBC Hgb Hct Plt Count Lymphocytes # Carbon Dioxide BUN Creatinine Calcium Magnesium Total Bilirubin Troponin I SARS-CoV-2 (PCR) Detected A - Diagnostic Findings Chest x-ray: image reviewed Assessment and Plan Assessment: Acute hypoxemic respiratory failure, secondary to pneumonia, which may be community-acquired and/or coronavirus associated. The patient has been previously been fully vaccinated. History of hypernephroma, status post nephrectomy. Chronic kidney disease. History of hyperlipidemia. History of diabetes mellitus. Hypertension. S/P L2 through L5 bilateral laminectomy, partial medial facetectomy, and foraminotomy. Plan: Plan dated 11/26/2022. We ordered a pro-calcitonin level. The patient was placed on Decadron and REM by the infectious disease doctor. The patient is also on vitamin C, vitamin D3, and zinc. Additional recommendations and suggestions are forthcoming. The patient is not particularly short of breath, and his oxygen requirements are relatively low. This could be community-acquired pneumonia, with incidental finding of coronavirus infection but not coronavirus associated pneumonia. We'll await the pro-calcitonin level. Additional recommendations and suggestions are forthcoming. Time with Patient: Greater than 30
[2022-11-26] MEDS ORDERED: HYDROcodone/APAP 5-325MG 1 EACH TAB PO PRN (15:37)
--- NOTE | 2022-11-26 15:50 | P.HPIM ---
History of Present Illness H&P Date: 11/26/22 This is a 77 year old male with medical history significant for Diabetes Mellitus, hypertension, hyperlipidemia, acid reflux, kidney cancer with left nephrectomy. Former smoker for around 30 years. Patient presents to the hospital with complaints of shortness of breath, productive cough and congestion, weakness that has been progressive since last . He reports fever/chills, worsening shortness of breath with chest tightness. Denies nausea, vomiting, or diarrhea. No abdominal pain. was positive for covid earler in the week. Patients covid testing has come back positive. He has been vaccinated against Covid. Chest xray showing evidence for multifocal opacities in the right midlung/base and left base. Influenza A/B and RSV are negative. White count is within normal limits at 6.2, hemoglobin 12.1. Creatinine is elevated at 2.75, and troponin is elevated at 0.039, 0.034, 0.034. Patient is requiring supplemental oxygen and does not wear any oxygen at home. He has been [facility] t [facility] the [facility] and pulmonary and infectious disease have been placed on consultation. He will be started on remdesivir. REVIEW OF SYSTEMS: CONSTITUTIONAL: Reports fever,chills, fatigue HEENT: No recent visual problems or hearing problems. Denied any sore throat. CARDIOVASCULAR: No chest pain, orthopnea, PND, no palpitations, no syncope. PULMONARY: Reports shortness of breath, cough. no hemoptysis. GASTROINTESTINAL: No diarrhea, no nausea, no vomiting, no abdominal pain. NEUROLOGICAL: No headaches, no weakness, no numbness. HEMATOLOGICAL: Denies any bleeding or petechiae. GENITOURINARY: Denies any burning micturition, frequency, or urgency. MUSCULOSKELETAL/RHEUMATOLOGICAL: Denies any joint pain, swelling, or any muscle pain. ENDOCRINE: Denies any polyuria or polydipsia. The rest of the 14-point review of systems is negative. PHYSICAL EXAMINATION: GENERAL: The patient is alert and oriented x3, not in any acute distress. Well developed, well nourished. HEENT: Pupils are round and equally reacting to light. EOMI. No scleral icterus. No conjunctival pallor. Normocephalic, atraumatic. No pharyngeal erythema. No thyromegaly. CARDIOVASCULAR: S1 and S2 present. No murmurs, rubs, or gallops. PULMONARY: Chest is clear to auscultation, no wheezing or crackles. ABDOMEN: Soft, nontender, nondistended, normoactive bowel sounds. No palpable organomegaly. MUSCULOSKELETAL: No joint swelling or deformity. EXTREMITIES: No cyanosis, clubbing, or pedal edema. NEUROLOGICAL: Gross neurological examination did not reveal any focal deficits. Generalized weakness. SKIN: No rashes. Assessment and Plan Assessment Acute hypoxemic respiratory failure secondary to acute covid infection with covid pneumonia vs. underlying community acquired. Acute on chronic kidney disease likely prerenal with poor oral intake Troponin leak secondary to infection EKG showing normal sinus rhythm with no ST or T wave changes Hypertension currently low/normotensive Diabetes Mellitus type 2 History of kidney cancer status post left nephrectomy Chronic kidney disease stage 3B Hyperlipidemia Recent L2-L5 laminectomy decompression Chronic gout Former nicotine dependence GI prophylaxis DVT prophylaxis Full Code Plan Continue IV fluids overnight IV decadron, vitamin support in place Infectious disease following recommending IV remdesivir Pulmonary following Continue IV fluids overnight and repeat BMP tomorrow Hold glipizide at this time continue on s/s insulin Recommend to hold lisinopril/hydralazine at this time and resume beta jorge alberto at lower dose Hold lasix for now and monitor renal function. Resume when creatinine returns to baseline. Continue all other supportive care The impression and plan of care has been dictated by Jihan Alejandro Nurse Practitioner as directed. Dr. Chica MD I have performed a history and physical examination and medical decision making of this patient, discussed the same with the dictator, and agree with the dic tators assessment and plan as written, documented as a scribe. Based on total visit time, I have performed more than 50% of this visit. Past Medical History Past Medical History: Cancer, Diabetes Mellitus, GERD/Reflux, Hyperlipidemia, Hypertension Additional Past Medical History / Comment(s): irregular heartbeat, superficial blood clot in rt leg, hx kindney and skin cancer History of Any Multi-Drug Resistant Organisms: None Reported Past Surgical History: Joint Replacement, Tonsillectomy Additional Past Surgical History / Comment(s): left nephrectomy 2009, removal of skin cancer, benny hip replacement, hernia repair Past Anesthesia/Blood Transfusion Reactions: Motion Sickness Past Psychological History: No Psychological Hx Reported Smoking Status: Former smoker Past Alcohol Use History: Occasional Past Drug Use History: None Reported - Past Family History Sister(s) Family Medical History: Cancer Additional Family Medical History / Comment(s): pancreatic cancer Medications and Allergies Home Medications Medication Instructions Recorded Confirmed Type Atorvastatin [Lipitor] 20 mg PO DAILY 01/05/22 11/26/22 History Cholecalciferol [Vitamin D3 (25 50 mcg PO DAILY 01/05/22 11/26/22 History Mcg = 1000 Iu)] Fish Oil/Dha/Epa [Fish Oil 1,200 1 cap PO DAILY 01/05/22 11/26/22 History mg Fish Oil] HYDROcodone/APAP 5-325MG [[place] 1 tab PO BID PRN 01/05/22 11/26/22 History 5-325] Magnesium Oxide [Mag-Ox] 250 mg PO DAILY 01/05/22 11/26/22 History Pioglitazone [Actos] 30 mg PO DAILY 01/05/22 11/26/22 History Zinc 50 mg PO DAILY 01/05/22 11/26/22 History allopurinoL [Zyloprim] 100 mg PO BID 01/05/22 11/26/22 History Metoprolol Succinate (ER) [Toprol 25 mg PO DAILY 01/16/22 11/26/22 Rx XL] Furosemide [Lasix] 40 mg PO BID 11/26/22 11/26/22 History Insulin Aspart [NovoLOG Flexpen] See Protocol SQ AC-TID 11/26/22 11/26/22 History Insulin Glargine,Hum.rec.anlog 50 unit SQ HS 11/26/22 11/26/22 History [Lantus Solostar Pen] Turmeric Root Extract [Turmeric] 500 mg PO DAILY 11/26/22 11/26/22 History amLODIPine [Norvasc] 5 mg PO DAILY 11/26/22 11/26/22 History glipiZIDE XL [Glucotrol Xl] 10 mg PO DAILY 11/26/22 11/26/22 History hydrALAZINE HCL [Apresoline] 25 mg PO BID 11/26/22 11/26/22 History lisinopriL [Zestril] 10 mg PO DAILY 11/26/22 11/26/22 History Allergies Allergy/AdvReac Type Severity Reaction Status Date / Time codeine Allergy Rash/Hives Verified 11/26/22 11:16 Physical Exam Vitals: Vital Signs Temp Pulse Pulse Resp BP BP BP 11/26/22 11:30 97.1 F L 67 20 108/64 97/53 11/26/22 09:50 98.5 F 75 18 113/61 11/26/22 07:46 75 18 112/54 11/26/22 07:03 11/26/22 06:38 24 11/26/22 06:18 100.1 F H 81 18 135/66 Pulse Ox 11/26/22 11:30 95 11/26/22 09:50 94 L 11/26/22 07:46 94 L 11/26/22 07:03 96 11/26/22 06:38 11/26/22 06:18 88 L Intake and Output 11/26/22 11/26/22 11/26/22 06:59 14:59 22:59 Intake Total 225 Balance 225 Intake: IV 225 Remdesivir 200 mg In 0 Sodium Chloride 0.9% 250 ml @ 250 mls/hr IVPB ONCE ONE Rx#:[id number] Sodium Chloride 0.9% 1, 225 000 ml @ 75 mls/hr IV . [id number] [facility] Rx#:[id number] Other: Weight 108.862 kg Results CBC & Chem 7: 11/26/22 06:45 11/26/22 06:45 Labs: Abnormal Lab Results - Last 24 Hours (Table) 11/26/22 11/26/22 11/26/22 Range/Units 06:45 06:45 06:45 RBC 3.62 L (4.30-5.90) m/uL Hgb 12.1 L (13.0-17.5) gm/dL Hct 34.4 L (39.0-53.0) % Plt Count 129 L (150-450) k/uL Lymphocytes # 0.7 L (1.0-4.8) k/uL Carbon Dioxide 31 H (22-30) mmol/L BUN 58 H (9-20) mg/dL Creatinine 2.75 H (0.66-1.25) mg/dL Calcium 8.3 L (8.4-10.2) mg/dL Magnesium 2.4 H (1.6-2.3) mg/dL Total Bilirubin 2.9 H (0.2-1.3) mg/dL Troponin I 0.039 H* (0.000-0.034) ng/mL SARS-CoV-2 (PCR) (Not Detectd) 11/26/22 Range/Units 06:45 RBC (4.30-5.90) m/uL Hgb (13.0-17.5) gm/dL Hct (39.0-53.0) % Plt Count (150-450) k/uL Lymphocytes # (1.0-4.8) k/uL Carbon Dioxide (22-30) mmol/L BUN (9-20) mg/dL Creatinine (0.66-1.25) mg/dL Calcium (8.4-10.2) mg/dL Magnesium (1.6-2.3) mg/dL Total Bilirubin (0.2-1.3) mg/dL Troponin I (0.000-0.034) ng/mL SARS-CoV-2 (PCR) Detected A (Not Detectd) Assessment and Plan Time with Patient: Less than 30
[2022-11-26 17:35] LABS: Glucose,Whole Blood 117 mg/dL (70-110)
[2022-11-26 20:27] LABS: Glucose,Whole Blood 94 mg/dL (70-110)
[2022-11-26] MEDS: allopurinoL 100 MG TAB PO SCH (20:53)
[2022-11-27 07:29] LABS: Calcium 7.8 mg/dL (8.4-10.2); Potassium 4.4 mmol/L (3.5-5.1)
[2022-11-27] MEDS: INSULIN ASPART (NovoLOG) 100 UNIT/ML VIAL SQ SCH ×4 (08:00→21:11)
[2022-11-27 08:03] LABS: Glucose,Whole Blood 102 mg/dL (70-110)
[2022-11-27] MEDS: allopurinoL 100 MG TAB PO SCH ×2 (08:08→21:11)
[2022-11-27] MEDS: DEXAMETHASONE SOD PHOSPHATE 10 MG/ML 1 ML VIAL IV SCH (08:08)
[2022-11-27] MEDS: CHOLECALCIFEROL 25 MCG (1000 IU) TABLET PO SCH (08:08)
[2022-11-27] MEDS: ZINC SULFATE 220 MG CAP PO SCH (08:08)
[2022-11-27] MEDS: ASCORBIC ACID 500 MG TAB PO SCH (08:08)
[2022-11-27] MEDS: ATORVASTATIN 20 MG TAB PO SCH (08:08)
[2022-11-27] MEDS: FAMOTIDINE 20 MG TAB PO SCH (08:08)
[2022-11-27] MEDS: ENOXAPARIN 30 MG/0.3 ML SYRINGE SQ SCH (08:09)
[2022-11-27] MEDS ORDERED: REMDESIVIR 100 MG in SODIUM CHLORIDE 0.9% 250 ML IVPB SCH (09:00)
--- NOTE | 2022-11-27 09:49 | P.CONS ---
History of Present Illness - Reason for Consult Consult date: 11/26/22 covid 19 Requesting physician: Mike Rivas - Chief Complaint Chest congestion and cough x 3 days - History of Present Illness Patient is a 77-year-old male with a past medical history significant for diabetes mellitus hypertension history of kidney cancer status post nephrectomy patient is fully vaccinated for COVID-19 patient tested positive for COVID-19 last week and the patient started having symptoms on Sunday that is 3 days before presentation to the hospital patient has been complaining of chest congestion cough which has been moderate in intensity however mostly dry to clear sputum no hemoptysis or pleuritic chest pain patient denies having any nausea no vomiting no abdominal pain or any diarrhea, patient on presentation to the hospital did have low-grade fever 100.1 F patient was hypoxic with O2 sats of 88% on room air he is currently on 2 L nasal cannula and satting around 96%, patient did have a chest x-ray with evidence of multifocal airspace disease patient did have a normal white count patient did have elevated BUN and creatinine patient has been admitted to hospital infectious disease was consulted for further management of his underlying COVID-19 infection Review of Systems Positive point has been mentioned in the HPI rest of the systems are negative Past Medical History Past Medical History: Cancer, Diabetes Mellitus, GERD/Reflux, Hyperlipidemia, Hypertension Additional Past Medical History / Comment(s): irregular heartbeat, superficial blood clot in rt leg, hx kindney and skin cancer History of Any Multi-Drug Resistant Organisms: None Reported Past Surgical History: Joint Replacement, Tonsillectomy Additional Past Surgical History / Comment(s): left nephrectomy 2009, removal of skin cancer, benny hip replacement, hernia repair Past Anesthesia/Blood Transfusion Reactions: Motion Sickness Past Psychological History: No Psychological Hx Reported Smoking Status: Former smoker Past Alcohol Use History: Occasional Past Drug Use History: None Reported - Past Family History Sister(s) Family Medical History: Cancer Additional Family Medical History / Comment(s): pancreatic cancer Medications and Allergies Home Medications Medication Instructions Recorded Confirmed Type Atorvastatin [Lipitor] 20 mg PO DAILY 01/05/22 11/26/22 History Cholecalciferol [Vitamin D3 (25 50 mcg PO DAILY 01/05/22 11/26/22 History Mcg = 1000 Iu)] Fish Oil/Dha/Epa [Fish Oil 1,200 1 cap PO DAILY 01/05/22 11/26/22 History mg Fish Oil] HYDROcodone/APAP 5-325MG [[place] 1 tab PO BID PRN 01/05/22 11/26/22 History 5-325] Magnesium Oxide [Mag-Ox] 250 mg PO DAILY 01/05/22 11/26/22 History Pioglitazone [Actos] 30 mg PO DAILY 01/05/22 11/26/22 History Zinc 50 mg PO DAILY 01/05/22 11/26/22 History allopurinoL [Zyloprim] 100 mg PO BID 01/05/22 11/26/22 History Metoprolol Succinate (ER) [Toprol 25 mg PO DAILY 01/16/22 11/26/22 Rx XL] Insulin Aspart [NovoLOG Flexpen] See Protocol SQ AC-TID 11/26/22 11/26/22 History Insulin Glargine,Hum.rec.anlog 50 unit SQ HS 11/26/22 11/26/22 History [Lantus Solostar Pen] Turmeric Root Extract [Turmeric] 500 mg PO DAILY 11/26/22 11/26/22 History amLODIPine [Norvasc] 5 mg PO DAILY 11/26/22 11/26/22 History glipiZIDE XL [Glucotrol XL] 10 mg PO DAILY 11/26/22 11/26/22 History hydrALAZINE HCL [Apresoline] 25 mg PO BID 11/26/22 11/26/22 History Acetaminophen Tab [Tylenol] 650 mg PO Q6HR PRN tab 11/30/22 Rx Ascorbic Acid [Vitamin C] 1,000 mg PO DAILY #60 tab 11/30/22 Rx cefUROXime axetiL [Ceftin] 500 mg PO BID 3 Days #6 tab 11/30/22 Rx dexAMETHasone [Decadron] 6 mg PO DAILY 5 Days #5 tablet 11/30/22 Rx Allergies Allergy/AdvReac Type Severity Reaction Status Date / Time codeine Allergy Rash/Hives Verified 11/26/22 11:16 Physical Exam Vitals: Vital Signs Temp Pulse Resp BP Pulse Ox 11/26/22 09:50 98.5 F 75 18 113/61 94 L 11/26/22 07:46 75 18 112/54 94 L 11/26/22 07:03 96 11/26/22 06:38 24 11/26/22 06:18 100.1 F H 81 18 135/66 88 L Intake and Output 11/25/22 11/26/22 11/26/22 22:59 06:59 14:59 Other: Weight 108.862 kg GENERAL DESCRIPTION: Elderly male lying in bed, no distress. No tachypnea or accessory muscle of respiration use. HEENT: Shows Pallor , no scleral icterus. Oral mucous membrane is dry. No pharyngeal erythema or thrush NECK: Trachea central, no thyromegaly. LUNGS: Unlabored breathing. Coarse breath sounds bilaterally. HEART: S1, S2, regular rate and rhythm. No loud murmur ABDOMEN: Soft, no tenderness , guarding or rigidity, no organomegaly EXTREMITIES: No edema of feet. SKIN: No rash, no masses palpable. NEUROLOGICAL: The patient is awake, alert, oriented x3, mood and affect normal. Results CBC & Chem 7: 11/30/22 05:24 11/30/22 05:24 Labs: Abnormal Lab Results - Last 24 Hours (Table) 11/26/22 11/26/22 11/26/22 Range/Units 06:45 06:45 06:45 RBC 3.62 L (4.30-5.90) m/uL Hgb 12.1 L (13.0-17.5) gm/dL Hct 34.4 L (39.0-53.0) % Plt Count 129 L (150-450) k/uL Lymphocytes # 0.7 L (1.0-4.8) k/uL Carbon Dioxide 31 H (22-30) mmol/L BUN 58 H (9-20) mg/dL Creatinine 2.75 H (0.66-1.25) mg/dL Calcium 8.3 L (8.4-10.2) mg/dL Magnesium 2.4 H (1.6-2.3) mg/dL Total Bilirubin 2.9 H (0.2-1.3) mg/dL Troponin I 0.039 H* (0.000-0.034) ng/mL SARS-CoV-2 (PCR) (Not Detectd) 11/26/22 Range/Units 06:45 RBC (4.30-5.90) m/uL Hgb (13.0-17.5) gm/dL Hct (39.0-53.0) % Plt Count (150-450) k/uL Lymphocytes # (1.0-4.8) k/uL Carbon Dioxide (22-30) mmol/L BUN (9-20) mg/dL Creatinine (0.66-1.25) mg/dL Calcium (8.4-10.2) mg/dL Magnesium (1.6-2.3) mg/dL Total Bilirubin (0.2-1.3) mg/dL Troponin I (0.000-0.034) ng/mL SARS-CoV-2 (PCR) Detected A (Not Detectd) Assessment and Plan (1) COVID-19 Status: Acute Code(s): U07.1 - COVID-19 SNOMED Code(s): 193031059 Plan: 1patient presented to hospital with increasing shortness of breath and cough symptom has been going on for 3 days patient did have evidence of multifocal infiltrate on chest x-ray patient did have a normal white count with lymphopenia pointing towards COVID-19 pneumonia, secondary bacterial pneumonia not entirely excluded. 2patient with started on Lovenox dexamethasone zinc and ascorbic acid. 3patient would have been an ideal candidate for remdesivir however his creati nine clearance is less than 30 and pharmacy is recommending against it hence will discontinue it 4droplet isolation and respiratory support We will follow on clinical condition and cultures to further adjust medication if needed Thank you for this consultation we will follow the patient along with you Time with Patient: Greater than 30
[2022-11-27] MEDS: AZITHROMYCIN 500 MG in SODIUM CHLORIDE 0.9% 250 ML IVPB SCH (10:44)
--- NOTE | 2022-11-27 13:18 | P.PN ---
Subjective Progress Note Date: 11/27/22 Principal diagnosis: Pneumonia. Pulmonary consult dated 11/26/2022. 77-year-old male with a history of hyperlipidemia, diabetes, kidney cancer, status post nephrectomy, and hypertension. The patient states that for the last 3 days, he's been complaining of chest congestion, cough, phlegm production, and shortness of breath. The patient apparently did test positive for coronavirus on this admission, and a chest x-ray revealed a right lower lobe infiltrate. His primary care physician is Dr. Ruben Henry. The patient did smoke on and off for 30 years. He has been vaccinated against coronavirus. He's currently been seen in the emergency room, room 21. He is on 3 L of oxygen. He does not wear oxygen at home. White count 6.2, hemoglobin 12.1, hematocrit 34.4, and platelet count 129,000. Coagulation studies were normal. Sodium 141, potassium 4.3, chlorides 105, CO2 31, BUN 58, and creatinine 2.75. The patient's troponin was 0.039. N-terminal proBNP was 654. The patient tested positive for coronavirus. Chest x-ray showed bilateral airspace abnormalities, primarily in the right lower lobe. Progress note dated 11/27/2022. 77-year-old male seen yesterday in consultation. The patient is still in the emergency department. He is in room 21. The patient is on Rocephin and azithromycin orally. Pro-calcitonin level was elevated. The patient is receiving 3 L of oxygen. Is getting saline at 75 mL an hour, to be changed to KVO. Clinically he is doing better today than yesterday. He does have a history of diabetes, hyperlipidemia, kidney cancer, and hypertension. Currently labs include a sodium 141, potassium 4.4, chlorides 108, CO2 28, BUN 56, and creatinine 2.28. Calcium is 7.8. Objective - Vital Signs Vital signs: Vital Signs Temp 98.2 F 11/27/22 08:00 Pulse 81 11/27/22 08:00 Resp 16 11/27/22 08:00 BP 131/91 11/27/22 08:00 Pulse Ox 97 11/27/22 08:00 FiO2 Intake & Output 11/26/22 11/27/22 11/27/22 18:59 06:59 18:59 Intake Total 225 Balance 225 Weight 108.862 kg Intake: IV 225 Remdesivir 200 mg In 0 Sodium Chloride 0.9% 250 ml @ 250 mls/hr IVPB ONCE ONE Rx#:[id number] Sodium Chloride 0.9% 1, 225 000 ml @ 75 mls/hr IV . [id number] [facility] Rx#:[id number] - Exam No acute distress, oriented 3. Currently on 3 L of oxygen. No conversational dyspnea or use of accessory muscles. Cough is a bit congested. HEENT examination is grossly unremarkable. Neck supple. Full range of motion. No adenopathy thyromegaly or neck vein distention. Cardiovascular examination reveals regular rhythm rate. S1-S2 normal. No S3 or S4. No discernible murmur noted. Heart rate 81 bpm. Lungs reveal scattered bilateral rhonchi. No wheezes. No crackles. Breath sounds equal bilaterally. Saturations are 97 %. Abdomen soft bowel sounds are heard. No masses or tenderness. Extremities are intact. No cyanosis clubbing or edema. Skin is without rash or lesion. Neurologic examination is brief but nonfocal. - Labs CBC & Chem 7: 11/26/22 06:45 11/27/22 06:42 Labs: Abnormal Lab Results - Last 24 Hours (Table) 11/26/22 11/26/22 11/26/22 Range/Units 12:22 13:09 17:31 Chloride (98-107) mmol/L BUN (9-20) mg/dL Creatinine (0.66-1.25) mg/dL Glucose (74-99) mg/dL POC Glucose (mg/dL) 117 H (70-110) mg/dL Hemoglobin A1c 7.1 H (0.0-6.0) % Calcium (8.4-10.2) mg/dL Procalcitonin 1.04 H (0.02-0.09) ng/mL 11/27/22 Range/Units 06:42 Chloride 108 H (98-107) mmol/L BUN 56 H (9-20) mg/dL Creatinine 2.28 H (0.66-1.25) mg/dL Glucose 103 H (74-99) mg/dL POC Glucose (mg/dL) (70-110) mg/dL Hemoglobin A1c (0.0-6.0) % Calcium 7.8 L (8.4-10.2) mg/dL Procalcitonin (0.02-0.09) ng/mL Microbiology - Last 24 Hours (Table) 11/26/22 07:00 Blood Culture - Preliminary Blood No Growth after 24 hours 11/26/22 06:45 Blood Culture - Preliminary Blood No Growth after 24 hours Assessment and Plan Assessment: Acute hypoxemic respiratory failure, secondary to pneumonia, which may be community-acquired and/or coronavirus associated. The patient has been previously been fully vaccinated. History of hypernephroma, status post nephrectomy. Chronic kidney disease. History of hyperlipidemia. History of diabetes mellitus. Hypertension. S/P L2 through L5 bilateral laminectomy, partial medial facetectomy, and foraminotomy. Plan: Plan dated 11/26/2022. We ordered a pro-calcitonin level. The patient was placed on Decadron and REM by the infectious disease doctor. The patient is also on vitamin C, vitamin D3, and zinc. Additional recommendations and suggestions are forthcoming. The patient is not particularly short of breath, and his oxygen requirements are relatively low. This could be community-acquired pneumonia, with incidental finding of coronavirus infection but not coronavirus associated pneumonia. We'll await the pro-calcitonin level. Additional recommendations and suggestions are forthcoming. Plan dated 11/27/2022. Patient is feeling better. The patient remains on Decadron, and REM, as ordered by infectious diseases. The patient is also on vitamin C, vitamin D3, and zinc. The patient is getting azithromycin and Rocephin. We will continue to follow make recommendations along the way. Prognosis is guarded. The patient is waiting for bed on the fourth floor. Time with Patient: Less than 30
[2022-11-27 13:34] LABS: Glucose,Whole Blood 275 mg/dL (70-110)
[2022-11-27 17:01] LABS: Glucose,Whole Blood 373 mg/dL (70-110)
--- NOTE | 2022-11-27 17:09 | PN ---
PROGRESS NOTE DATE OF SERVICE: 11/27/2022 SUBJECTIVE: This is a 77-year-old gentleman, who was admitted with acute hypoxic respiratory failure secondary to COVID-19 infection, who also had COVID-19 pneumonia. The patient has multiple medical issues. The patient is being closely monitored at this time. Infectious Disease and Pulmonary are following the patient closely. PAST MEDICAL HISTORY: Reviewed. REVIEW OF SYSTEMS: Fourteen-point review is negative except as mentioned earlier. CURRENT MEDICATIONS: Reviewed include azithromycin. Doses and rest of the medications are reviewed. OBJECTIVE: VITAL SIGNS: Pulse is 81, blood pressure 126/69, respirations 16. CHEST: Bilateral scattered rhonchi and crackles. ABDOMEN: Soft. NERVOUS SYSTEM: Nonfocal. LABORATORY DATA: Creatinine 2.28. ASSESSMENT: 1. Acute hypoxic respiratory failure secondary to COVID-19 infection and COVID-19 pneumonia. 2. [id number] kidney disease. 3. Troponin leak secondary to infection. 4. Diabetes mellitus, type 2. 5. History of kidney cancer, status post left nephrectomy. 6. Chronic kidney disease, stage 3b. 7. Recent L2 to L5 laminectomy and decompression. 8. Chronic gout. 9. Multiple medical issues. RECOMMENDATIONS: Recommend to continue current medications and symptomatic treatment. Continue empiric antibiotics. Monitor creatinine closely. Otherwise, closely follow with Pulmonary and Infectious Disease. The patient is on remdesivir as well. The patient had received 1 dose of remdesivir also. Further recommendations to follow. MMODL / IJN: [id number] /
[2022-11-27 20:59] LABS: Glucose,Whole Blood 359 mg/dL (70-110)
[2022-11-27] MEDS: INSULIN DETEMIR (LEVEMIR) 100 UNIT/ML SYR SQ SCH (21:11)
[2022-11-27] MEDS: hydrALAZINE HCL 25 MG TAB PO SCH (21:11)
--- NOTE | 2022-11-27 21:57 | P.PN ---
Subjective Progress Note Date: 11/27/22 Principal diagnosis: Covid 19 Pneumonia Patient is a 77-year old male with multiple comorbidities presenting to the hospital for evaluation of chest congestion cough and shortness of breath patient was noticed to be hypoxic and did have evidence of pneumonia tested posi tive for COVID-19 patient did have elevated creatinine with a creatinine clearance of less than 30, pharmacy recommended against the use of remdesivir. On today's evaluation that is 11/27/2022 patient denies having any fever or any chills patient is breathing more comfortably remains to be on 3 L nasal cannula the patient denies having any chest pain no worsening cough no abdominal pain did have some diarrhea earlier but the nursing staff Objective - Vital Signs Vital signs: Vital Signs Temp 98.2 F 11/27/22 08:00 Pulse 81 11/27/22 08:00 Resp 16 11/27/22 08:00 BP 131/91 11/27/22 08:00 Pulse Ox 97 11/27/22 08:00 FiO2 Intake & Output 11/26/22 11/27/22 11/27/22 18:59 06:59 18:59 Intake Total 225 Balance 225 Weight 108.862 kg Intake: IV 225 Remdesivir 200 mg In 0 Sodium Chloride 0.9% 250 ml @ 250 mls/hr IVPB ONCE ONE Rx#:[id number] Sodium Chloride 0.9% 1, 225 000 ml @ 75 mls/hr IV . [id number] [facility] Rx#:[id number] - Labs CBC & Chem 7: 11/26/22 06:45 11/27/22 06:42 Labs: Abnormal Lab Results - Last 24 Hours (Table) 11/26/22 11/26/22 11/26/22 Range/Units 12:22 13:09 17:31 Chloride (98-107) mmol/L BUN (9-20) mg/dL Creatinine (0.66-1.25) mg/dL Glucose (74-99) mg/dL POC Glucose (mg/dL) 117 H (70-110) mg/dL Hemoglobin A1c 7.1 H (0.0-6.0) % Calcium (8.4-10.2) mg/dL Procalcitonin 1.04 H (0.02-0.09) ng/mL 11/27/22 Range/Units 06:42 Chloride 108 H (98-107) mmol/L BUN 56 H (9-20) mg/dL Creatinine 2.28 H (0.66-1.25) mg/dL Glucose 103 H (74-99) mg/dL POC Glucose (mg/dL) (70-110) mg/dL Hemoglobin A1c (0.0-6.0) % Calcium 7.8 L (8.4-10.2) mg/dL Procalcitonin (0.02-0.09) ng/mL Microbiology - Last 24 Hours (Table) 11/26/22 07:00 Blood Culture - Preliminary Blood No Growth after 24 hours 11/26/22 06:45 Blood Culture - Preliminary Blood No Growth after 24 hours Assessment and Plan (1) COVID-19 Current Visit: Yes Status: Acute Code(s): U07.1 - COVID-19 SNOMED Code(s): 421059729 (2) Pneumonia Current Visit: Yes Status: Acute Code(s): J18.9 - PNEUMONIA, UNSPECIFIED ORGANISM SNOMED Code(s): 911623469 Plan: 1patient presented to hospital with increasing shortness of breath and cough symptom has been going on for 3 days patient did have evidence of multifocal infiltrate on chest x-ray patient did have a normal white count with lymphopenia pointing towards COVID-19 pneumonia, secondary bacterial pneumonia not entirely excluded as the pt did have elevated procalcitonin. 2patient to continue with Lovenox dexamethasone zinc and ascorbic acid. 3 droplet isolation and respiratory support 4- Try to obatin sputum and continue with rocephin and zithromax Time with Patient: Less than 30
[2022-11-28 06:12] LABS: Glucose,Whole Blood 203 mg/dL (70-110)
[2022-11-28] MEDS: INSULIN ASPART (NovoLOG) 100 UNIT/ML VIAL SQ SCH ×4 (06:29→21:46)
[2022-11-28 08:34] LABS: Basophils # (A) 0.01 X 10*3/uL (0.00-0.10); Basophils % (A) 0.2 %; Eosinophils # (A) 0 X 10*3/uL (0.04-0.35); Eosinophils % (A) 0 %; HCT 31.9 % (39.6-50.0); HGB 10.5 g/dL (13.0-17.0); Immature Grans, Automated 0.2 %; Lymphocytes # (A) 0.64 X 10*3/uL (0.90-5.00); Lymphocytes % (A) 15.8 %; MCH 31.6 pg (27.0-32.0); MCHC 32.9 g/dL (32.0-37.0); MCV 96.1 fL (80.0-97.0); Mean Platelet Volume 10.7 fL (9.5-12.2); Monocytes % (A) 12.4 %; NRBC Per 100 WBC 0 /100 WBCS (0.0-0.0); Neutrophils # (A) 2.88 X 10*3/uL (1.80-7.70); Neutrophils % (A) 71.4 %; Platelet Count 144 X 10*3/uL (140-440); RBC 3.32 X 10*6/uL (4.40-5.60); RDW 14.3 % (11.5-14.5); WBC 4.04 X 10*3/uL (4.50-10.00)
[2022-11-28 08:46] LABS: African American GFR (CKD) 32.5 (60.0-200.0); Albumin 3.6 g/dL (3.8-4.9); Albumin/Globulin Ratio 1.64 (1.60-3.17); Anion Gap 10.2 mmol/L (10.00-18.00); BUN/Creat Ratio 23.91 Ratio (12.00-20.00); Blood Urea Nitrogen 52.6 mg/dL (9.0-27.0); Calcium 8.9 mg/dL (8.7-10.3); Carbon Dioxide 24.8 mmol/L (20.0-27.5); Globulin 2.2 g/dL (1.6-3.3); Non-African American GFR(CKD) 28.1 (60.0-200.0); Total Bilirubin 1.4 mg/dL (0.30-1.20); Total Protein 5.8 g/dL (6.2-8.2)
[2022-11-28] MEDS: ENOXAPARIN 30 MG/0.3 ML SYRINGE SQ SCH (08:51)
[2022-11-28] MEDS: METOPROLOL SUCCINATE (ER) 25 MG TAB.ER.24H PO SCH (08:52)
[2022-11-28] MEDS: CHOLECALCIFEROL 25 MCG (1000 IU) TABLET PO SCH (08:52)
[2022-11-28] MEDS: ASCORBIC ACID 500 MG TAB PO SCH (08:52)
[2022-11-28] MEDS: allopurinoL 100 MG TAB PO SCH ×2 (08:52→21:45)
[2022-11-28] MEDS: hydrALAZINE HCL 25 MG TAB PO SCH ×2 (08:52→21:45)
[2022-11-28] MEDS: ATORVASTATIN 20 MG TAB PO SCH (08:52)
[2022-11-28] MEDS: amLODIPine 5 MG TAB PO SCH (08:52)
[2022-11-28] MEDS: FAMOTIDINE 20 MG TAB PO SCH (08:52)
[2022-11-28] MEDS: ZINC SULFATE 220 MG CAP PO SCH (08:52)
[2022-11-28] MEDS: AZITHROMYCIN 500 MG in SODIUM CHLORIDE 0.9% 250 ML IVPB SCH (09:53)
[2022-11-28] MEDS: DEXAMETHASONE SOD PHOSPHATE 10 MG/ML 1 ML VIAL IV SCH (09:58)
--- NOTE | 2022-11-28 10:19 | P.NPCON ---
History of Present Illness - Reason for Consult acute renal failure - History of Present Illness Patient is a 77-year-old male with history of type 2 diabetes, hypertension, hyperlipidemia, gastroesophageal reflux disease and history of renal cell cancer status post left nephrectomy. Patient has underlying CK D NKF stage IIIB to 4 with baseline creatinine about 1.6-2 mg/dL. Patient was admitted with complaints of shortness of breath productive cough and congestion along with increased weakness. He did test positive for COVID-19 Patient has received remdesivir Patient states he is feeling much better. Serum creatinine was 2.7 on admission and has improved to 2.2. Patient received IV fluids. He states he is voiding well. Blood pressure was low initially with systolic in the 90s and has improved now. Diuretics and NATAN inhibitor's currently on hold. Review of Systems As per HPI Past Medical History Past Medical History: Cancer, Diabetes Mellitus, GERD/Reflux, Hyperlipidemia, Hypertension Additional Past Medical History / Comment(s): irregular heartbeat, superficial blood clot in rt leg, hx kindney and skin cancer History of Any Multi-Drug Resistant Organisms: None Reported Past Surgical History: Joint Replacement, Tonsillectomy Additional Past Surgical History / Comment(s): left nephrectomy 2009, removal of skin cancer, benny hip replacement, hernia repair Past Anesthesia/Blood Transfusion Reactions: Motion Sickness Past Psychological History: No Psychological Hx Reported Smoking Status: Former smoker Past Alcohol Use History: Occasional Past Drug Use History: None Reported - Past Family History Sister(s) Family Medical History: Cancer Additional Family Medical History / Comment(s): pancreatic cancer Medications and Allergies Home Medications Medication Instructions Recorded Confirmed Type Atorvastatin [Lipitor] 20 mg PO DAILY 01/05/22 11/26/22 History Cholecalciferol [Vitamin D3 (25 50 mcg PO DAILY 01/05/22 11/26/22 History Mcg = 1000 Iu)] Fish Oil/Dha/Epa [Fish Oil 1,200 1 cap PO DAILY 01/05/22 11/26/22 History mg Fish Oil] HYDROcodone/APAP 5-325MG [[place] 1 tab PO BID PRN 01/05/22 11/26/22 History 5-325] Magnesium Oxide [Mag-Ox] 250 mg PO DAILY 01/05/22 11/26/22 History Pioglitazone [Actos] 30 mg PO DAILY 01/05/22 11/26/22 History Zinc 50 mg PO DAILY 01/05/22 11/26/22 History allopurinoL [Zyloprim] 100 mg PO BID 01/05/22 11/26/22 History Metoprolol Succinate (ER) [Toprol 25 mg PO DAILY 01/16/22 11/26/22 Rx XL] Furosemide [Lasix] 40 mg PO BID 11/26/22 11/26/22 History Insulin Aspart [NovoLOG Flexpen] See Protocol SQ AC-TID 11/26/22 11/26/22 History Insulin Glargine,Hum.rec.anlog 50 unit SQ HS 11/26/22 11/26/22 History [Lantus Solostar Pen] Turmeric Root Extract [Turmeric] 500 mg PO DAILY 11/26/22 11/26/22 History amLODIPine [Norvasc] 5 mg PO DAILY 11/26/22 11/26/22 History glipiZIDE XL [Glucotrol Xl] 10 mg PO DAILY 11/26/22 11/26/22 History hydrALAZINE HCL [Apresoline] 25 mg PO BID 11/26/22 11/26/22 History lisinopriL [Zestril] 10 mg PO DAILY 11/26/22 11/26/22 History Allergies Allergy/AdvReac Type Severity Reaction Status Date / Time codeine Allergy Rash/Hives Verified 11/26/22 11:16 Physical Exam Vitals: Vital Signs Temp Pulse Resp BP Pulse Ox 11/28/22 07:43 97.8 F 60 15 130/75 98 11/28/22 02:06 98.7 F 62 17 116/60 91 L 11/27/22 21:18 15 11/27/22 18:35 97.9 F 82 15 121/58 91 L 11/27/22 17:12 16 11/27/22 17:10 98.2 F 73 16 141/64 92 L Intake and Output 11/27/22 11/28/22 11/28/22 22:59 06:59 14:59 Other: # Voids 2 3 Weight 107 kg Patient is awake, comfortable, in no acute distress Examination of the heart S1 and S2 Examination of the lungs bilateral breath sounds are heard Abdomen is soft nontender Examination of the lower extremities shows no significant edema [employer] exam grossly intact Results - Lab Results Most recent lab results Calcium 8.9 mg/dL (8.7-10.3) 11/28/22 06:09 Magnesium 2.4 mg/dL (1.6-2.3) H 11/26/22 06:45 11/28/22 06:09 11/28/22 06:09 Assessment and Plan Assessment: 1. Acute kidney injury, prerenal currently improved with IV hydration. UA not available. NATAN inhibitor as an diuretics currently on hold 2. Chronic kidney disease NKF stage IIIB with baseline creatinine about 1.6-2 mg/dL secondary to solitary kidney and nephrosclerosis 3. History of renal cell cancer status post left nephrectomy 4. COVID-19 pneumonia status post remdesivir and maintained on IV steroids, significantly improved. O2 sats 98% on room air. Chest x-ray had showed multifocal airspace opacities bilaterally Plan: Continue to encourage increased oral intake Continue to hold NATAN inhibitor as an diuretics for now Repeat labs in a.m. Avoid nephrotoxic agents Follow-up as outpatient for CKD. Thank you for the consultation. We will continue to follow the patient with you during his hospitalization
[2022-11-28 11:18] LABS: Glucose,Whole Blood 213 mg/dL (70-110)
--- NOTE | 2022-11-28 11:39 | XR ---
EXAMINATION TYPE: XR chest 1V portable DATE OF EXAM: 11/28/2022 10:57 AM COMPARISON: Chest radiographs from 11/26/2022 TECHNIQUE: XR chest 1V portable Portable AP radiograph of the chest. CLINICAL INDICATION:Male, 77 years old with history of shortness of breath; FINDINGS: Lungs/Pleura: Improved aeration of right lung with persistent airspace opacities remaining present. N o evidence of pneumothorax or large pleural effusion. Pulmonary vascularity: Unremarkable. Heart/mediastinum: Cardiomediastinal silhouette is prominent in size. Musculoskeletal: No acute osseous pathology. IMPRESSION: Improved aeration of the right lung with persistent airspace opacities.
--- NOTE | 2022-11-28 14:46 | P.PN ---
Subjective Progress Note Date: 11/28/22 Principal diagnosis: COVID-19, pneumonia, hypoxia Pulmonary consult dated 11/26/2022. 77-year-old male with a history of hyperlipidemia, diabetes, kidney cancer, status post nephrectomy, and hypertension. The patient states that for the last 3 days, he's been complaining of chest congestion, cough, phlegm production, and shortness of breath. The patient apparently did test positive for coronavirus on this admission, and a chest x-ray revealed a right lower lobe infiltrate. His primary care physician is Dr. Ruben Henry. The patient did smoke on and off for 30 years. He has been vaccinated against coronavirus. He's currently been seen in the emergency room, room 21. He is on 3 L of oxygen. He does not wear oxygen at home. White count 6.2, hemoglobin 12.1, hematocrit 34.4, and platelet count 129,000. Coagulation studies were normal. Sodium 141, potassium 4.3, chlorides 105, CO2 31, BUN 58, and creatinine 2.75. The patient's troponin was 0.039. N-terminal proBNP was 654. The patient tested positive for coronavirus. Chest x-ray showed bilateral airspace abnormalities, primarily in the right lower lobe. Progress note dated 11/27/2022. 77-year-old male seen yesterday in consultation. The patient is still in the emergency department. He is in room 21. The patient is on Rocephin and azithromycin orally. Pro-calcitonin level was elevated. The patient is receiving 3 L of oxygen. Is getting saline at 75 mL an hour, to be changed to KVO. Clinically he is doing better today than yesterday. He does have a history of diabetes, hyperlipidemia, kidney cancer, and hypertension. Currently labs include a sodium 141, potassium 4.4, chlorides 108, CO2 28, BUN 56, and creatinine 2.28. Calcium is 7.8. I'm evaluating this patient today on 11/28/2022 in follow-up on a general medical floor. Sitting up in bed, in no acute distress, on room air. Patient's chest x-ray from today shows improved aeration of the right lung with persistent air space bases. Blood cultures at 48 hours continued to show no growth. Patient CBC from today shows a WBC count of 4, hemoglobin 10.5, hematocrit 31.9, platelets 144,000. Patient's BMP from today shows a sodium 142, potassium 5, chloride 107, serum CO2 25, BUN of 52.6, creatinine of 2.2, glucose of 203. Patient has history of left nephrectomy and chronic kidney disease. Patient continues to receive azithromycin and Rocephin for empiric antibiotic therapy. Patient is also receiving Decadron. Patient receiving Lovenox for DVT prophylaxis and Pepcid for GI prophylaxis. Vital signs remain stable. Objective - Vital Signs Vital signs: Vital Signs Temp 97.9 F 11/28/22 14:07 Pulse 56 L 11/28/22 14:07 Resp 16 11/28/22 14:07 BP 136/63 11/28/22 14:07 Pulse Ox 96 11/28/22 14:07 FiO2 Intake & Output 11/27/22 11/28/22 11/28/22 18:59 06:59 18:59 Weight 108.862 kg 107 kg Other: # Voids 3 1 - Exam Alert, no acute distress, oriented 3. Currently on room air. HEENT examination is grossly unremarkable. Neck supple. Full range of motion. No adenopathy thyromegaly or neck vein distention. Cardiovascular examination reveals regular rhythm rate. S1-S2 normal. No S3 or S4. No discernible murmur noted. Heart rate 81 bpm. Lungs reveal scattered bilateral rhonchi. No wheezes. No crackles. Breath sounds equal bilaterally. No conversational dyspnea or use of accessory muscles. Saturations are 96 % on room air Abdomen soft bowel sounds are heard. No masses or tenderness. Extremities are intact. No cyanosis clubbing or edema. Skin is without rash or lesion. Neurologic examination is brief but nonfocal. - Labs CBC & Chem 7: 11/28/22 06:09 11/28/22 06:09 Labs: Abnormal Lab Results - Last 24 Hours (Table) 11/27/22 11/27/22 11/28/22 Range/Units 17:00 20:57 06:09 WBC 4.04 L (4.50-10.00) X 10*3/uL RBC 3.32 L (4.40-5.60) X 10*6/uL Hgb 10.5 L (13.0-17.0) g/dL Hct 31.9 L (39.6-50.0) % Lymphocytes # 0.64 L (0.90-5.00) X 10*3/uL Eosinophils # 0 L (0.04-0.35) X 10*3/uL BUN (9.0-27.0) mg/dL Creatinine (0.6-1.5) mg/dL Est GFR (CKD-EPI)AfAm (60.0-200.0) Est GFR (CKD-EPI)NonAf (60.0-200.0) BUN/Creatinine Ratio (12.00-20.00) Ratio Glucose (70-110) mg/dL POC Glucose (mg/dL) 373 H 359 H (70-110) mg/dL Total Bilirubin (0.30-1.20) mg/dL Total Protein (6.2-8.2) g/dL Albumin (3.8-4.9) g/dL 11/28/22 11/28/22 11/28/22 Range/Units 06:09 06:10 11:16 WBC (4.50-10.00) X 10*3/uL RBC (4.40-5.60) X 10*6/uL Hgb (13.0-17.0) g/dL Hct (39.6-50.0) % Lymphocytes # (0.90-5.00) X 10*3/uL Eosinophils # (0.04-0.35) X 10*3/uL BUN 52.6 H (9.0-27.0) mg/dL Creatinine 2.2 H (0.6-1.5) mg/dL Est GFR (CKD-EPI)AfAm 32.5 L (60.0-200.0) Est GFR (CKD-EPI)NonAf 28.1 L (60.0-200.0) BUN/Creatinine Ratio 23.91 H (12.00-20.00) Ratio Glucose 189 H (70-110) mg/dL POC Glucose (mg/dL) 203 H 213 H (70-110) mg/dL Total Bilirubin 1.40 H (0.30-1.20) mg/dL Total Protein 5.8 L (6.2-8.2) g/dL Albumin 3.6 L (3.8-4.9) g/dL Microbiology - Last 24 Hours (Table) 11/26/22 07:00 Blood Culture - Preliminary Blood No Growth after 48 hours 11/26/22 06:45 Blood Culture - Preliminary Blood No Growth after 48 hours Assessment and Plan Assessment: Acute hypoxemic respiratory failure, secondary to pneumonia, which may be community-acquired and/or coronavirus associated. The patient has been previously been fully vaccinated. History of hypernephroma, status post nephrectomy. Chronic kidney disease. History of hyperlipidemia. History of diabetes mellitus. Hypertension. S/P L2 through L5 bilateral laminectomy, partial medial facetectomy, and foraminotomy. Plan: Patient's medications, labs, chest x-ray were reviewed. Continue empiric antibiotic therapy in the form of Zithromax and Rocephin Continue Decadron Continue Lovenox for DVT prophylaxis Pepcid for GI prophylaxis We will continue to follow I have personally seen and examined the patient, performed the documentation and the assessment and plan as written. Number of minutes spent on the visit: 10.
[2022-11-28 16:20] LABS: Glucose,Whole Blood 346 mg/dL (70-110)
[2022-11-28 20:42] LABS: Glucose,Whole Blood 350 mg/dL (70-110)
--- NOTE | 2022-11-28 21:42 | PN ---
PROGRESS NOTE DATE OF SERVICE: 11/28/2022 SUBJECTIVE: This is a 77-year-old gentleman, who was admitted with acute hypoxic respiratory failure secondary to COVID-19 infection and possible COVID-19 pneumonia. He is being closely monitored. The most recent chest x-ray which was reviewed personally by me showed some interval aeration. OBJECTIVE: VITAL SIGNS: Pulse is 53, blood pressure 130/66, respirations 16. CHEST: A few scattered rhonchi. ABDOMEN: Soft. NERVOUS SYSTEM: Nonfocal. LABORATORY DATA: Reviewed. ASSESSMENT: 1. Acute hypoxic respiratory failure secondary to acute COVID-19 infection and COVID- 19 pneumonia. 2. Eouvl-om-bsmnkzs kidney disease. 3. Troponin leak secondary to infection. 4. Diabetes mellitus, type 2. 5. History of kidney cancer, status post left nephrectomy. 6. Chronic kidney disease, stage 3b. 7. Recent L2 to L5 laminectomy and decompression. 8. Chronic gout. 9. Multiple medical problems. RECOMMENDATIONS: Recommend to continue current medications and symptomatic treatment. Repeat labs in the morning. Otherwise, closely follow with Pulmonary and Nephrology. Guarded prognosis. Further recommendations to follow. See orders for the details. MMODL / IJN: [id number] /
[2022-11-28] MEDS: INSULIN DETEMIR (LEVEMIR) 100 UNIT/ML SYR SQ SCH (21:46)
[2022-11-29 05:58] LABS: Glucose,Whole Blood 193 mg/dL (70-110)
[2022-11-29] MEDS: INSULIN ASPART (NovoLOG) 100 UNIT/ML VIAL SQ SCH ×4 (07:51→20:12)
[2022-11-29] MEDS: ENOXAPARIN 40 MG/0.4 ML SYRINGE SQ SCH (08:28)
[2022-11-29] MEDS: amLODIPine 5 MG TAB PO SCH (08:28)
[2022-11-29] MEDS: CHOLECALCIFEROL 25 MCG (1000 IU) TABLET PO SCH (08:28)
[2022-11-29] MEDS: FAMOTIDINE 20 MG TAB PO SCH (08:28)
[2022-11-29] MEDS: ATORVASTATIN 20 MG TAB PO SCH (08:28)
[2022-11-29] MEDS: DEXAMETHASONE SOD PHOSPHATE 10 MG/ML 1 ML VIAL IV SCH (08:28)
[2022-11-29] MEDS: allopurinoL 100 MG TAB PO SCH ×2 (08:28→20:12)
[2022-11-29] MEDS: hydrALAZINE HCL 25 MG TAB PO SCH ×2 (08:28→20:12)
[2022-11-29] MEDS: METOPROLOL SUCCINATE (ER) 25 MG TAB.ER.24H PO SCH (08:29)
[2022-11-29] MEDS: ZINC SULFATE 220 MG CAP PO SCH (08:29)
[2022-11-29] MEDS: ASCORBIC ACID 500 MG TAB PO SCH (08:29)
[2022-11-29 08:37] LABS: Basophils # (A) 0.01 X 10*3/uL (0.00-0.10); Basophils % (A) 0.2 %; Eosinophils # (A) 0 X 10*3/uL (0.04-0.35); Eosinophils % (A) 0 %; HCT 32.2 % (39.6-50.0); HGB 10.7 g/dL (13.0-17.0); Immature Grans, Automated 0.9 %; Lymphocytes # (A) 0.78 X 10*3/uL (0.90-5.00); Lymphocytes % (A) 14.5 %; MCH 31.7 pg (27.0-32.0); MCHC 33.2 g/dL (32.0-37.0); MCV 95.3 fL (80.0-97.0); Mean Platelet Volume 10.6 fL (9.5-12.2); Monocytes # (A) 0.56 X 10*3/uL (0.20-1.00); Monocytes % (A) 10.4 %; NRBC Per 100 WBC 0 /100 WBCS (0.0-0.0); Neutrophils # (A) 3.99 X 10*3/uL (1.80-7.70); Platelet Count 158 X 10*3/uL (140-440); RBC 3.38 X 10*6/uL (4.40-5.60); RDW 13.7 % (11.5-14.5); WBC 5.39 X 10*3/uL (4.50-10.00)
[2022-11-29 08:54] LABS: African American GFR (CKD) 32.5 (60.0-200.0); Albumin 3.7 g/dL (3.8-4.9); Albumin/Globulin Ratio 1.76 (1.60-3.17); Anion Gap 10.4 mmol/L (10.00-18.00); BUN/Creat Ratio 24.59 Ratio (12.00-20.00); Blood Urea Nitrogen 54.1 mg/dL (9.0-27.0); Carbon Dioxide 23.6 mmol/L (20.0-27.5); Globulin 2.1 g/dL (1.6-3.3); Non-African American GFR(CKD) 28.1 (60.0-200.0); Potassium 5.7 mmol/L (3.5-5.5); Total Protein 5.8 g/dL (6.2-8.2)
[2022-11-29] MEDS ORDERED: SODIUM ZIRCONIUM CYCLOSILICATE 10 GM PACKET PO ONE (09:51)
[2022-11-29] MEDS: AZITHROMYCIN 500 MG in SODIUM CHLORIDE 0.9% 250 ML IVPB SCH (10:10)
[2022-11-29 11:11] LABS: Glucose,Whole Blood 290 mg/dL (70-110)
--- NOTE | 2022-11-29 11:58 | P.PN ---
Subjective Progress Note Date: 11/28/22 Principal diagnosis: Covid 19 Pneumonia Patient is a 77-year old male with multiple comorbidities presenting to the hospital for evaluation of chest congestion cough and shortness of breath patient was noticed to be hypoxic and did have evidence of pneumonia tested posi tive for COVID-19 patient did have elevated creatinine with a creatinine clearance of less than 30, pharmacy recommended against the use of remdesivir. On today's evaluation that is 11/28/2022 patient remains to be afebrile, patient is breathing comfortably on room air, the patient denies having any chest pain no worsening cough no abdominal pain, no nausea no vomiting or diarrhea Objective - Vital Signs Vital signs: Vital Signs Temp 97.8 F 11/28/22 07:43 Pulse 60 11/28/22 07:43 Resp 15 11/28/22 07:43 BP 130/75 11/28/22 07:43 Pulse Ox 98 11/28/22 07:43 FiO2 Intake & Output 11/27/22 11/28/22 11/28/22 18:59 06:59 18:59 Weight 108.862 kg 107 kg Other: # Voids 3 - Exam GENERAL DESCRIPTION: An elderly male up in the chair in no distress RESPIRATORY SYSTEM: Unlabored breathing , decreased breath sounds at bases HEART: S1 S2 regular rate and rhythm , ABDOMEN: Soft , no tenderness EXTREMITIES: No edema feet - Labs CBC & Chem 7: 11/29/22 04:37 11/29/22 04:37 Labs: Abnormal Lab Results - Last 24 Hours (Table) 11/27/22 11/27/22 11/27/22 Range/Units 13:33 17:00 20:57 WBC (4.50-10.00) X 10*3/uL RBC (4.40-5.60) X 10*6/uL Hgb (13.0-17.0) g/dL Hct (39.6-50.0) % Lymphocytes # (0.90-5.00) X 10*3/uL Eosinophils # (0.04-0.35) X 10*3/uL BUN (9.0-27.0) mg/dL Creatinine (0.6-1.5) mg/dL Est GFR (CKD-EPI)AfAm (60.0-200.0) Est GFR (CKD-EPI)NonAf (60.0-200.0) BUN/Creatinine Ratio (12.00-20.00) Ratio Glucose (70-110) mg/dL POC Glucose (mg/dL) 275 H 373 H 359 H (70-110) mg/dL Total Bilirubin (0.30-1.20) mg/dL Total Protein (6.2-8.2) g/dL Albumin (3.8-4.9) g/dL 11/28/22 11/28/22 11/28/22 Range/Units 06:09 06:09 06:10 WBC 4.04 L (4.50-10.00) X 10*3/uL RBC 3.32 L (4.40-5.60) X 10*6/uL Hgb 10.5 L (13.0-17.0) g/dL Hct 31.9 L (39.6-50.0) % Lymphocytes # 0.64 L (0.90-5.00) X 10*3/uL Eosinophils # 0 L (0.04-0.35) X 10*3/uL BUN 52.6 H (9.0-27.0) mg/dL Creatinine 2.2 H (0.6-1.5) mg/dL Est GFR (CKD-EPI)AfAm 32.5 L (60.0-200.0) Est GFR (CKD-EPI)NonAf 28.1 L (60.0-200.0) BUN/Creatinine Ratio 23.91 H (12.00-20.00) Ratio Glucose 189 H (70-110) mg/dL POC Glucose (mg/dL) 203 H (70-110) mg/dL Total Bilirubin 1.40 H (0.30-1.20) mg/dL Total Protein 5.8 L (6.2-8.2) g/dL Albumin 3.6 L (3.8-4.9) g/dL Microbiology - Last 24 Hours (Table) 11/26/22 07:00 Blood Culture - Preliminary Blood No Growth after 48 hours 11/26/22 06:45 Blood Culture - Preliminary Blood No Growth after 48 hours Assessment and Plan (1) COVID-19 Current Visit: Yes Status: Acute Code(s): U07.1 - COVID-19 SNOMED Code(s): 944412332 (2) Pneumonia Current Visit: Yes Status: Acute Code(s): J18.9 - PNEUMONIA, UNSPECIFIED ORGANISM SNOMED Code(s): 277243826 Plan: 1patient presented to hospital with increasing shortness of breath and cough symptom has been going on for 3 days patient did have evidence of multifocal infiltrate on chest x-ray patient did have a normal white count with lymphopenia pointing towards COVID-19 pneumonia, secondary bacterial pneumonia not entirely excluded as the pt did have elevated procalcitonin. 2patient seemed to have shown Clinical improvement and will continue with Lovenox dexamethasone zinc and ascorbic acid. 3 patient to continue with rocephin , Zithromax has been discontinued Time with Patient: Less than 30
--- NOTE | 2022-11-29 11:59 | P.PN ---
Subjective Progress Note Date: 11/29/22 Principal diagnosis: Covid 19 Pneumonia Patient is a 77-year old male with multiple comorbidities presenting to the hospital for evaluation of chest congestion cough and shortness of breath patient was noticed to be hypoxic and did have evidence of pneumonia tested posi tive for COVID-19 patient did have elevated creatinine with a creatinine clearance of less than 30, pharmacy recommended against the use of remdesivir. On today's evaluation that is 11/29/2022 patient denies any fever or chills, patient is breathing comfortably on room air, the patient denies having any chest pain , the patient cough is decreased intensity is mostly dry in nature, no nausea no vomiting no abdominal pain or diarrhea Objective - Vital Signs Vital signs: Vital Signs Temp 97.3 F L 11/29/22 07:39 Pulse 43 L 11/29/22 07:39 Resp 16 11/29/22 07:39 BP 150/65 11/29/22 07:39 Pulse Ox 95 11/29/22 07:39 FiO2 Intake & Output 11/28/22 11/29/22 11/29/22 18:59 06:59 18:59 Weight 107.9 kg Other: # Voids 1 2 - Exam GENERAL DESCRIPTION: An elderly male up in the chair in no distress RESPIRATORY SYSTEM: Unlabored breathing , decreased breath sounds at bases HEART: S1 S2 regular rate and rhythm , ABDOMEN: Soft , no tenderness EXTREMITIES: No edema feet - Labs CBC & Chem 7: 11/29/22 04:37 11/29/22 04:37 Labs: Abnormal Lab Results - Last 24 Hours (Table) 11/28/22 11/28/22 11/29/22 Range/Units 16:19 20:33 04:37 RBC 3.38 L (4.40-5.60) X 10*6/uL Hgb 10.7 L (13.0-17.0) g/dL Hct 32.2 L (39.6-50.0) % Immature Gran # 0.05 H (0.00-0.04) X 10*3/uL Lymphocytes # 0.78 L (0.90-5.00) X 10*3/uL Eosinophils # 0 L (0.04-0.35) X 10*3/uL Potassium (3.5-5.5) mmol/L BUN (9.0-27.0) mg/dL Creatinine (0.6-1.5) mg/dL Est GFR (CKD-EPI)AfAm (60.0-200.0) Est GFR (CKD-EPI)NonAf (60.0-200.0) BUN/Creatinine Ratio (12.00-20.00) Ratio Glucose (70-110) mg/dL POC Glucose (mg/dL) 346 H 350 H (70-110) mg/dL Total Protein (6.2-8.2) g/dL Albumin (3.8-4.9) g/dL 11/29/22 11/29/22 11/29/22 Range/Units 04:37 05:53 11:10 RBC (4.40-5.60) X 10*6/uL Hgb (13.0-17.0) g/dL Hct (39.6-50.0) % Immature Gran # (0.00-0.04) X 10*3/uL Lymphocytes # (0.90-5.00) X 10*3/uL Eosinophils # (0.04-0.35) X 10*3/uL Potassium 5.7 H (3.5-5.5) mmol/L BUN 54.1 H (9.0-27.0) mg/dL Creatinine 2.2 H (0.6-1.5) mg/dL Est GFR (CKD-EPI)AfAm 32.5 L (60.0-200.0) Est GFR (CKD-EPI)NonAf 28.1 L (60.0-200.0) BUN/Creatinine Ratio 24.59 H (12.00-20.00) Ratio Glucose 225 H (70-110) mg/dL POC Glucose (mg/dL) 193 H 290 H (70-110) mg/dL Total Protein 5.8 L (6.2-8.2) g/dL Albumin 3.7 L (3.8-4.9) g/dL Microbiology - Last 24 Hours (Table) 11/26/22 07:00 Blood Culture - Preliminary Blood No Growth after 72 hours 11/26/22 06:45 Blood Culture - Preliminary Blood No Growth after 72 hours Assessment and Plan (1) COVID-19 Current Visit: Yes Status: Acute Code(s): U07.1 - COVID-19 SNOMED Code(s): 628956545 (2) Pneumonia Current Visit: Yes Status: Acute Code(s): J18.9 - PNEUMONIA, UNSPECIFIED ORGANISM SNOMED Code(s): 126106149 Plan: 1patient presented to hospital with increasing shortness of breath and cough symptom has been going on for 3 days patient did have evidence of multifocal infiltrate on chest x-ray patient did have a normal white count with lymphopenia pointing towards COVID-19 pneumonia, secondary bacterial pneumonia not entirely excluded as the pt did have elevated procalcitonin. 2patient slowly clinically improving and will continue with Lovenox dexamethasone zinc and ascorbic acid along with Rocephin however will be able to finish therapy with oral Ceftin. Time with Patient: Less than 30
--- NOTE | 2022-11-29 12:07 | P.PN ---
Subjective Progress Note Date: 11/29/22 77-year-old male with a history of hyperlipidemia, diabetes, kidney cancer, status post nephrectomy, and hypertension. The patient states that for the last 3 days, he's been complaining of chest congestion, cough, phlegm production, and shortness of breath. The patient apparently did test positive for coronavirus on this admission, and a chest x-ray revealed a right lower lobe infiltrate. His primary care physician is Dr. Ruben Henry. The patient did smoke on and off for 30 years. He has been vaccinated against coronavirus. He's currently been seen in the emergency room, room 21. He is on 3 L of oxygen. He does not wear oxygen at home. White count 6.2, hemoglobin 12.1, hematocrit 34.4, and platelet count 129,000. Coagulation studies were normal. Sodium 141, potassium 4.3, chlorides 105, CO2 31, BUN 58, and creatinine 2.75. The patient's troponin was 0.039. N-terminal proBNP was 654. The patient tested positive for coronavirus. Chest x-ray showed bilateral airspace abnormalities, primarily in the right lower lobe. Progress note dated 11/27/2022. 77-year-old male seen yesterday in consultation. The patient is still in the emergency department. He is in room 21. The patient is on Rocephin and azithromycin orally. Pro-calcitonin level was elevated. The patient is rec eiving 3 L of oxygen. Is getting saline at 75 mL an hour, to be changed to KVO. Clinically he is doing better today than yesterday. He does have a history of diabetes, hyperlipidemia, kidney cancer, and hypertension. Currently labs include a sodium 141, potassium 4.4, chlorides 108, CO2 28, BUN 56, and creatinine 2.28. Calcium is 7.8. I'm evaluating this patient today on 11/28/2022 in follow-up on a general medical floor. Sitting up in bed, in no acute distress, on room air. Patient's chest x-ray from today shows improved aeration of the right lung with persistent air space bases. Blood cultures at 48 hours continued to show no growth. Patient CBC from today shows a WBC count of 4, hemoglobin 10.5, hematocrit 31.9, platelets 144,000. Patient's BMP from today shows a sodium 142, potassium 5, chloride 107, serum CO2 25, BUN of 52.6, creatinine of 2.2, glucose of 203. Patient has history of left nephrectomy and chronic kidney disease. Patient continues to receive azithromycin and Rocephin for empiric antibiotic therapy. Patient is also receiving Decadron. Patient receiving Lovenox for DVT prophylaxis and Pepcid for GI prophylaxis. Vital signs remain stable. 11/29/2022, the patient is doing well on room air oxygen. His chest x-ray from yesterday showed limited infiltration bibasilar and the patient is Covid 19 infection. Noted the patient has been vaccinated for Covid 19 and he has received original vaccination series. He is doing well. He is on Lovenox 40 mg subcu and the patient is also on Decadron 6 mg IV every 24 hours. Is empiric antibiotic coverage is with combination of Rocephin and Zithromax. His pro calcitonin level was at 1.04. Blood sugars are elevated due to systemic steroid use. Creatinine today is at 2.2 with a BUN of 54 and the patient has a component of chronic kidney disease potassium level is at 5.7 with a sodium level of 142. The white cell count is currently isn't 5.3 with a hemoglobin of 10.7. Objective - Vital Signs Vital signs: Vital Signs Temp 97.3 F L 11/29/22 07:39 Pulse 43 L 11/29/22 07:39 Resp 16 11/29/22 07:39 BP 150/65 11/29/22 07:39 Pulse Ox 95 11/29/22 07:39 FiO2 Intake & Output 11/28/22 11/29/22 11/29/22 18:59 06:59 18:59 Weight 107.9 kg Other: # Voids 1 2 - Exam Alert, no acute distress, oriented 3. Currently on room air. HEENT examination is grossly unremarkable. Neck supple. Full range of motion. No adenopathy thyromegaly or neck vein distention. Cardiovascular examination reveals regular rhythm rate. S1-S2 normal. No S3 or S4. No discernible murmur noted. Heart rate 81 bpm. Lungs reveal scattered bilateral rhonchi. No wheezes. No crackles. Breath sounds equal bilaterally. No conversational dyspnea or use of accessory muscles. Saturations are 96 % on room air Abdomen soft bowel sounds are heard. No masses or tenderness. Extremities are intact. No cyanosis clubbing or edema. Skin is without rash or lesion. Neurologic examination is brief but nonfocal. - Labs CBC & Chem 7: 11/29/22 04:37 11/29/22 04:37 Labs: Abnormal Lab Results - Last 24 Hours (Table) 11/28/22 11/28/22 11/29/22 Range/Units 16:19 20:33 04:37 RBC 3.38 L (4.40-5.60) X 10*6/uL Hgb 10.7 L (13.0-17.0) g/dL Hct 32.2 L (39.6-50.0) % Immature Gran # 0.05 H (0.00-0.04) X 10*3/uL Lymphocytes # 0.78 L (0.90-5.00) X 10*3/uL Eosinophils # 0 L (0.04-0.35) X 10*3/uL Potassium (3.5-5.5) mmol/L BUN (9.0-27.0) mg/dL Creatinine (0.6-1.5) mg/dL Est GFR (CKD-EPI)AfAm (60.0-200.0) Est GFR (CKD-EPI)NonAf (60.0-200.0) BUN/Creatinine Ratio (12.00-20.00) Ratio Glucose (70-110) mg/dL POC Glucose (mg/dL) 346 H 350 H (70-110) mg/dL Total Protein (6.2-8.2) g/dL Albumin (3.8-4.9) g/dL 11/29/22 11/29/22 11/29/22 Range/Units 04:37 05:53 11:10 RBC (4.40-5.60) X 10*6/uL Hgb (13.0-17.0) g/dL Hct (39.6-50.0) % Immature Gran # (0.00-0.04) X 10*3/uL Lymphocytes # (0.90-5.00) X 10*3/uL Eosinophils # (0.04-0.35) X 10*3/uL Potassium 5.7 H (3.5-5.5) mmol/L BUN 54.1 H (9.0-27.0) mg/dL Creatinine 2.2 H (0.6-1.5) mg/dL Est GFR (CKD-EPI)AfAm 32.5 L (60.0-200.0) Est GFR (CKD-EPI)NonAf 28.1 L (60.0-200.0) BUN/Creatinine Ratio 24.59 H (12.00-20.00) Ratio Glucose 225 H (70-110) mg/dL POC Glucose (mg/dL) 193 H 290 H (70-110) mg/dL Total Protein 5.8 L (6.2-8.2) g/dL Albumin 3.7 L (3.8-4.9) g/dL Microbiology - Last 24 Hours (Table) 11/26/22 07:00 Blood Culture - Preliminary Blood No Growth after 72 hours 11/26/22 06:45 Blood Culture - Preliminary Blood No Growth after 72 hours Assessment and Plan Plan: Acute hypoxemic respiratory failure, secondary to pneumonia, which may be community-acquired and/or coronavirus associated. The patient has been previously been fully vaccinated. History of hypernephroma, status post nephrectomy. Chronic kidney disease. History of hyperlipidemia. History of diabetes mellitus. Hypertension. S/P L2 through L5 bilateral laminectomy, partial medial facetectomy, and foraminotomy. Plan: clinically improving repeat x-ray for tomorrow and also repeat a pro-calcitonin level knowing that it was elevated Should be able to discharge this patient home tomorrow on a course of Decadron and Zithromax as the patient is currently stable. Also, repeat set of electrolytes to monitor the potassium level and creatinine
--- NOTE | 2022-11-29 12:29 | P.PN ---
Subjective Patient is seen for follow-up for acute kidney injury on top of chronic kidney disease. He was admitted with respiratory symptoms and tested positive for COVID-19. Patient is status post remdesivir Diuretics and NATAN inhibitor's currently on hold. Potassium was elevated at 5.7 today. Blood sugar was also elevated at 350. Patient states he has been voiding well. Objective - Vital Signs Vital signs: Vital Signs Temp 97.3 F L 11/29/22 07:39 Pulse 43 L 11/29/22 07:39 Resp 16 11/29/22 07:39 BP 150/65 11/29/22 07:39 Pulse Ox 95 11/29/22 07:39 FiO2 Intake & Output 11/28/22 11/29/22 11/29/22 18:59 06:59 18:59 Weight 107.9 kg Other: # Voids 1 2 - Exam Patient is awake, comfortable, not in any acute distress Alert oriented 3 Examination of the heart S1 and S2 Examination of the lungs bilateral breath sounds are heard Abdomen is soft nontender Examination of the lower extremities shows trace edema bilaterally [employer] exam grossly intact - Labs CBC & Chem 7: 11/29/22 04:37 11/29/22 04:37 Labs: Abnormal Lab Results - Last 24 Hours (Table) 11/28/22 11/28/22 11/29/22 Range/Units 16:19 20:33 04:37 RBC 3.38 L (4.40-5.60) X 10*6/uL Hgb 10.7 L (13.0-17.0) g/dL Hct 32.2 L (39.6-50.0) % Immature Gran # 0.05 H (0.00-0.04) X 10*3/uL Lymphocytes # 0.78 L (0.90-5.00) X 10*3/uL Eosinophils # 0 L (0.04-0.35) X 10*3/uL Potassium (3.5-5.5) mmol/L BUN (9.0-27.0) mg/dL Creatinine (0.6-1.5) mg/dL Est GFR (CKD-EPI)AfAm (60.0-200.0) Est GFR (CKD-EPI)NonAf (60.0-200.0) BUN/Creatinine Ratio (12.00-20.00) Ratio Glucose (70-110) mg/dL POC Glucose (mg/dL) 346 H 350 H (70-110) mg/dL Total Protein (6.2-8.2) g/dL Albumin (3.8-4.9) g/dL 11/29/22 11/29/22 11/29/22 Range/Units 04:37 05:53 11:10 RBC (4.40-5.60) X 10*6/uL Hgb (13.0-17.0) g/dL Hct (39.6-50.0) % Immature Gran # (0.00-0.04) X 10*3/uL Lymphocytes # (0.90-5.00) X 10*3/uL Eosinophils # (0.04-0.35) X 10*3/uL Potassium 5.7 H (3.5-5.5) mmol/L BUN 54.1 H (9.0-27.0) mg/dL Creatinine 2.2 H (0.6-1.5) mg/dL Est GFR (CKD-EPI)AfAm 32.5 L (60.0-200.0) Est GFR (CKD-EPI)NonAf 28.1 L (60.0-200.0) BUN/Creatinine Ratio 24.59 H (12.00-20.00) Ratio Glucose 225 H (70-110) mg/dL POC Glucose (mg/dL) 193 H 290 H (70-110) mg/dL Total Protein 5.8 L (6.2-8.2) g/dL Albumin 3.7 L (3.8-4.9) g/dL Microbiology - Last 24 Hours (Table) 11/26/22 07:00 Blood Culture - Preliminary Blood No Growth after 72 hours 11/26/22 06:45 Blood Culture - Preliminary Blood No Growth after 72 hours Assessment and Plan Assessment: 1. Acute kidney injury, prerenal currently improved with IV hydration. UA not available. NATAN inhibitor as an diuretics currently on hold 2. Chronic kidney disease NKF stage IIIB with baseline creatinine about 1.6-2 mg/dL secondary to solitary kidney and nephrosclerosis 3. History of renal cell cancer status post left nephrectomy 4. COVID-19 pneumonia status post remdesivir and maintained on IV steroids, significantly improved. O2 sats 98% on room air. Chest x-ray had showed multifocal airspace opacities bilaterally 5. Hyperkalemia associated with acute kidney injury and significant hyperglycemia. Rule out urine retention. Plan: Continue to encourage increased oral intake Continue to hold NATAN inhibitor Check bladder scan and rule out urine retention Resume loop diuretics upon discharge Eduar Saenz Follow-up as outpatient in 1-2 weeks' for CK D
[2022-11-29 17:05] LABS: Glucose,Whole Blood 279 mg/dL (70-110)
[2022-11-29 19:30] LABS: Glucose,Whole Blood 364 mg/dL (70-110)
[2022-11-29] MEDS: INSULIN DETEMIR (LEVEMIR) 100 UNIT/ML SYR SQ SCH (20:13)
--- NOTE | 2022-11-30 03:16 | P.PN ---
Subjective Progress Note Date: 11/29/22 This is a pleasant 77-year-old male who was recently admitted with acute hypoxic respiratory failure secondary to COVID-19 infection and possible COVID-19 pneumonia with pulmonary following closely. Nephrology following as well is patient has acute kidney injury with chronic kidney disease. Creatinine today is 2.2 and potassium elevated at 5.7. A dose of lokelma is being given and recommend repeat labs. Patient is afebrile denies worsening shortness of breath and is currently sitting up on room air. Patient reports to feeling well and most recent chest x-ray shows some improvement in aeration. Recommend repeat labs to monitor kidney functions and electrolytes with possible discharge planning in the next 24 hours. Encouraged increased activity as tolerated Review of systems: Constitutional: No reports of fatigue, fever, or chills Cardiovascular: No reports of chest pain or palpitations Respiratory: No reports of shortness of breath or cough GI: reports of nausea, no reports of of vomiting, : No reports of dysuria or retention Neurovascular: reports of generalized weakness, All medications have been reviewed Active Medications Acetaminophen (Acetaminophen Tab 325 Mg Tab) 650 mg PO Q6HR PRN PRN Reason: Mild Pain or Fever > 100.5 Last Admin: 11/26/22 17:34 Dose: 650 mg Hydrocodone Bitart/Acetaminophen (Hydrocodone/Apap 5-325mg 1 Each Tab) 1 each PO BID PRN PRN Reason: Pain Allopurinol (Allopurinol 100 Mg Tab) 100 mg PO BID [facility] Last Admin: 11/29/22 20:12 Dose: 100 mg Amlodipine Besylate (Amlodipine 5 Mg Tab) 5 mg PO DAILY [facility] Last Admin: 11/29/22 08:28 Dose: 5 mg Ascorbic Acid (Ascorbic Acid 500 Mg Tab) 1,000 mg PO DAILY [facility] Last Admin: 11/29/22 08:29 Dose: 1,000 mg Atorvastatin Calcium (Atorvastatin 20 Mg Tab) 20 mg PO DAILY [facility] Last Admin: 11/29/22 08:28 Dose: 20 mg Cholecalciferol (Cholecalciferol 25 Mcg (1000 Iu) Tablet) 50 mcg PO DAILY [facility] Last Admin: 11/29/22 08:28 Dose: 50 mcg Dexamethasone Sodium Phosphate (Dexamethasone Sod Phosphate 10 Mg/Ml 1 Ml Vial) 6 mg IV DAILY [facility] Last Admin: 11/29/22 08:28 Dose: 6 mg Dextrose/Water (Dextrose 50% Syringe 50 Ml) 25 ml IVP PER PROTOCOL PRN; Protoc ol PRN Reason: Hypoglycemia Dextrose/Water (Dextrose 50% Syringe 50 Ml) 50 ml IVP PER PROTOCOL PRN; Protocol PRN Reason: Hypoglycemia Enoxaparin Sodium (Enoxaparin 40 Mg/0.4 Ml Syringe) 40 mg SQ DAILY [facility] Last Admin: 11/29/22 08:28 Dose: 40 mg Famotidine (Famotidine 20 Mg Tab) 20 mg PO DAILY [facility] Last Admin: 11/29/22 08:28 Dose: 20 mg Hydralazine HCl (Hydralazine Hcl 25 Mg Tab) 25 mg PO BID [facility] Last Admin: 11/29/22 20:12 Dose: 25 mg Ceftriaxone Sodium 1 gm/ (Sodium Chloride) 50 mls @ 100 mls/hr IVPB Q24HR [facility]; Protocol Last Admin: 11/29/22 08:29 Dose: 100 mls/hr Insulin Aspart (Insulin Aspart (Novolog) 100 Unit/Ml Vial) 0 unit SQ ACHS [facility]; Protocol Last Admin: 11/29/22 20:12 Dose: 10 unit Insulin Detemir (Insulin Detemir (Levemir) 100 Unit/Ml Syr) 50 unit SQ HS [facility] Last Admin: 11/29/22 20:13 Dose: 50 unit Metoprolol Succinate (Metoprolol Succinate (Er) 25 Mg Tab.Er.24h) 25 mg PO DAILY [facility] Last Admin: 11/29/22 08:29 Dose: Not Given Naloxone HCl (Naloxone 0.4 Mg/Ml 1 Ml Vial) 0.2 mg IV Q2M PRN PRN Reason: Opioid Reversal Ondansetron HCl (Ondansetron 4 Mg/2 Ml Vial) 4 mg IVP Q8HR PRN PRN Reason: Nausea And Vomiting Zinc Sulfate (Zinc Sulfate 220 Mg Cap) 220 mg PO DAILY [facility] Last Admin: 11/29/22 08:29 Dose: 220 mg PHYSICAL EXAMINATION: GENERAL: The patient is alert and oriented x4, Well developed, well nourished. Obese HEENT: Pupils are round and equally reacting to light. EOMI. no scleral icterus. No conjunctival pallor. Normocephalic, atraumatic. No pharyngeal erythema. No thyromegaly. CARDIOVASCULAR: S1 and S2 muffled PULMONARY: diminished breath sounds bilaterally with no wheezing or rhonchi noted. ABDOMEN: soft. Nontender on exam. obese. non-distended, normoactive bowel sounds. No palpable organomegaly. MUSCULOSKELETAL: No joint swelling or deformity. EXTREMITIES: No cyanosis, clubbing, or pedal edema. NEUROLOGICAL: Gross neurological examination did not reveal any focal deficits. SKIN: No rashes. Assessment: Acute hypoxic respiratory failure secondary to acute COVID-19 infection and COVID-19 pneumonia Acute on chronic kidney disease, stage IIIB Troponin leak secondary to infection Diabetes mellitus, type II History of kidney cancer, status post left nephrectomy Recent L2 to L5 laminectomy and decompression Chronic gout Former smoker GI prophylaxis DVT prophylaxis Full code Plan: Recommend to continue with current medications and management with pulmonary nephrology following. Potassium was found to be elevated at 5.7 and being given a dose of Lokelma and recommended follow-up labs his creatinine was 2.2 Recommend monitoring Accu-Cheks before meals and at bedtime and will continue current regimen Encouraged increased activity as tolerated Recommend follow-up labs in the a.m. with possible discharge in 24 hours Due to multiple complex medical issues, prognosis is guarded The impression and plan of care has been dictated by Acacia Rushing, nurse practitioner as directed. Dr. Darrin NGUYỄN I have performed a history and examination and MDM of this patient, discussed the same with the dictator, and agree with the dictator's assessment and plan as written ,documented as a scribe. Based on total visit time, I have performed more than 50% of the visit. Any additional findings or plans will be noted. Objective - Vital Signs Vital signs: Vital Signs Temp 97.3 F L 11/29/22 07:39 Pulse 43 L 11/29/22 07:39 Resp 16 11/29/22 07:39 BP 150/65 11/29/22 07:39 Pulse Ox 95 11/29/22 07:39 FiO2 Intake & Output 11/28/22 11/29/22 11/29/22 18:59 06:59 18:59 Weight 107.9 kg Other: # Voids 1 2 - Labs CBC & Chem 7: 11/29/22 04:37 11/29/22 04:37 Labs: Abnormal Lab Results - Last 24 Hours (Table) 11/28/22 11/28/22 11/29/22 Range/Units 16:19 20:33 04:37 RBC 3.38 L (4.40-5.60) X 10*6/uL Hgb 10.7 L (13.0-17.0) g/dL Hct 32.2 L (39.6-50.0) % Immature Gran # 0.05 H (0.00-0.04) X 10*3/uL Lymphocytes # 0.78 L (0.90-5.00) X 10*3/uL Eosinophils # 0 L (0.04-0.35) X 10*3/uL Potassium (3.5-5.5) mmol/L BUN (9.0-27.0) mg/dL Creatinine (0.6-1.5) mg/dL Est GFR (CKD-EPI)AfAm (60.0-200.0) Est GFR (CKD-EPI)NonAf (60.0-200.0) BUN/Creatinine Ratio (12.00-20.00) Ratio Glucose (70-110) mg/dL POC Glucose (mg/dL) 346 H 350 H (70-110) mg/dL Total Protein (6.2-8.2) g/dL Albumin (3.8-4.9) g/dL 11/29/22 11/29/22 11/29/22 Range/Units 04:37 05:53 11:10 RBC (4.40-5.60) X 10*6/uL Hgb (13.0-17.0) g/dL Hct (39.6-50.0) % Immature Gran # (0.00-0.04) X 10*3/uL Lymphocytes # (0.90-5.00) X 10*3/uL Eosinophils # (0.04-0.35) X 10*3/uL Potassium 5.7 H (3.5-5.5) mmol/L BUN 54.1 H (9.0-27.0) mg/dL Creatinine 2.2 H (0.6-1.5) mg/dL Est GFR (CKD-EPI)AfAm 32.5 L (60.0-200.0) Est GFR (CKD-EPI)NonAf 28.1 L (60.0-200.0) BUN/Creatinine Ratio 24.59 H (12.00-20.00) Ratio Glucose 225 H (70-110) mg/dL POC Glucose (mg/dL) 193 H 290 H (70-110) mg/dL Total Protein 5.8 L (6.2-8.2) g/dL Albumin 3.7 L (3.8-4.9) g/dL Microbiology - Last 24 Hours (Table) 11/26/22 07:00 Blood Culture - Preliminary Blood No Growth after 72 hours 11/26/22 06:45 Blood Culture - Preliminary Blood No Growth after 72 hours
[2022-11-30 06:06] LABS: Glucose,Whole Blood 123 mg/dL (70-110)
[2022-11-30] MEDS: INSULIN ASPART (NovoLOG) 100 UNIT/ML VIAL SQ SCH ×2 (06:24→12:10)
[2022-11-30] MEDS: ENOXAPARIN 40 MG/0.4 ML SYRINGE SQ SCH (08:22)
[2022-11-30] MEDS: allopurinoL 100 MG TAB PO SCH (08:22)
[2022-11-30] MEDS: FAMOTIDINE 20 MG TAB PO SCH (08:22)
[2022-11-30] MEDS: amLODIPine 5 MG TAB PO SCH (08:23)
[2022-11-30] MEDS: ATORVASTATIN 20 MG TAB PO SCH (08:23)
[2022-11-30] MEDS: hydrALAZINE HCL 25 MG TAB PO SCH (08:23)
[2022-11-30] MEDS: METOPROLOL SUCCINATE (ER) 25 MG TAB.ER.24H PO SCH (08:23)
[2022-11-30] MEDS: ASCORBIC ACID 500 MG TAB PO SCH (08:23)
[2022-11-30] MEDS: CHOLECALCIFEROL 25 MCG (1000 IU) TABLET PO SCH (08:23)
[2022-11-30] MEDS: DEXAMETHASONE SOD PHOSPHATE 10 MG/ML 1 ML VIAL IV SCH (08:23)
[2022-11-30] MEDS: ZINC SULFATE 220 MG CAP PO SCH (08:23)
[2022-11-30 09:51] LABS: Basophils # (A) 0.01 X 10*3/uL (0.00-0.10); Basophils % (A) 0.1 %; Eosinophils # (A) 0 X 10*3/uL (0.04-0.35); Eosinophils % (A) 0 %; HCT 32.2 % (39.6-50.0); HGB 10.9 g/dL (13.0-17.0); Immature Grans, Automated 1.9 %; Lymphocytes # (A) 0.89 X 10*3/uL (0.90-5.00); Lymphocytes % (A) 11.1 %; MCH 32.1 pg (27.0-32.0); MCHC 33.9 g/dL (32.0-37.0); MCV 94.7 fL (80.0-97.0); Mean Platelet Volume 10.7 fL (9.5-12.2); Monocytes # (A) 0.81 X 10*3/uL (0.20-1.00); Monocytes % (A) 10.1 %; NRBC Per 100 WBC 0.3 /100 WBCS (0.0-0.0); Neutrophils # (A) 6.13 X 10*3/uL (1.80-7.70); Neutrophils % (A) 76.8 %; Platelet Count 170 X 10*3/uL (140-440); RDW 13.7 % (11.5-14.5); WBC 7.99 X 10*3/uL (4.50-10.00)
[2022-11-30 10:04] LABS: African American GFR (CKD) 41.4 (60.0-200.0); Anion Gap 12.7 mmol/L (10.00-18.00); BUN/Creat Ratio 28.5 Ratio (12.00-20.00); Blood Urea Nitrogen 51.3 mg/dL (9.0-27.0); Carbon Dioxide 21.3 mmol/L (20.0-27.5); Non-African American GFR(CKD) 35.8 (60.0-200.0); Potassium 4.8 mmol/L (3.5-5.5)
--- NOTE | 2022-11-30 10:37 | P.PN ---
Subjective Progress Note Date: 11/30/22 77-year-old male with a history of hyperlipidemia, diabetes, kidney cancer, status post nephrectomy, and hypertension. The patient states that for the last 3 days, he's been complaining of chest congestion, cough, phlegm production, and shortness of breath. The patient apparently did test positive for coronavirus on this admission, and a chest x-ray revealed a right lower lobe infiltrate. His primary care physician is Dr. Ruben Henry. The patient did smoke on and off for 30 years. He has been vaccinated against coronavirus. He's currently been seen in the emergency room, room 21. He is on 3 L of oxygen. He does not wear oxygen at home. White count 6.2, hemoglobin 12.1, hematocrit 34.4, and platelet count 129,000. Coagulation studies were normal. Sodium 141, potassium 4.3, chlorides 105, CO2 31, BUN 58, and creatinine 2.75. The patient's troponin was 0.039. N-terminal proBNP was 654. The patient tested positive for coronavirus. Chest x-ray showed bilateral airspace abnormalities, primarily in the right lower lobe. Progress note dated 11/27/2022. 77-year-old male seen yesterday in consultation. The patient is still in the emergency department. He is in room 21. The patient is on Rocephin and azithromycin orally. Pro-calcitonin level was elevated. The patient is rec eiving 3 L of oxygen. Is getting saline at 75 mL an hour, to be changed to KVO. Clinically he is doing better today than yesterday. He does have a history of diabetes, hyperlipidemia, kidney cancer, and hypertension. Currently labs include a sodium 141, potassium 4.4, chlorides 108, CO2 28, BUN 56, and creatinine 2.28. Calcium is 7.8. I'm evaluating this patient today on 11/28/2022 in follow-up on a general medical floor. Sitting up in bed, in no acute distress, on room air. Patient's chest x-ray from today shows improved aeration of the right lung with persistent air space bases. Blood cultures at 48 hours continued to show no growth. Patient CBC from today shows a WBC count of 4, hemoglobin 10.5, hematocrit 31.9, platelets 144,000. Patient's BMP from today shows a sodium 142, potassium 5, chloride 107, serum CO2 25, BUN of 52.6, creatinine of 2.2, glucose of 203. Patient has history of left nephrectomy and chronic kidney disease. Patient continues to receive azithromycin and Rocephin for empiric antibiotic therapy. Patient is also receiving Decadron. Patient receiving Lovenox for DVT prophylaxis and Pepcid for GI prophylaxis. Vital signs remain stable. 11/29/2022, the patient is doing well on room air oxygen. His chest x-ray from yesterday showed limited infiltration bibasilar and the patient is Covid 19 infection. Noted the patient has been vaccinated for Covid 19 and he has received original vaccination series. He is doing well. He is on Lovenox 40 mg subcu and the patient is also on Decadron 6 mg IV every 24 hours. Is empiric antibiotic coverage is with combination of Rocephin and Zithromax. His pro calcitonin level was at 1.04. Blood sugars are elevated due to systemic steroid use. Creatinine today is at 2.2 with a BUN of 54 and the patient has a component of chronic kidney disease potassium level is at 5.7 with a sodium level of 142. The white cell count is currently isn't 5.3 with a hemoglobin of 10.7. On 11/30/2022, the patient has no new complaints. He is on room air oxygen. His potassium level is improved and currently is down to 4.8. BUN is 51 with a creatinine of 1.8 and the patient has a WBC count of 7.9 with a hemoglobin of 10.9. No new complaints otherwise for now. The patient is on Decadron 6 mg IV every 24 hours. Is on Levemir insulin 15 units at bedtime and NovoLog sliding scale coverage. No other issues for now. His most recent chest x-ray showed some bibasilar atelectatic changes and the patient is post Covid 19 infection, treated with steroids. Objective - Vital Signs Vital signs: Vital Signs Temp 98.1 F 11/30/22 07:41 Pulse 51 L 11/30/22 07:41 Resp 17 11/30/22 07:41 BP 171/76 11/30/22 07:41 Pulse Ox 98 11/30/22 07:41 FiO2 Intake & Output 11/29/22 11/30/22 11/30/22 18:59 06:59 18:59 Intake Total 180 Balance 180 Intake: Oral 180 Other: Voiding Method Toilet # Voids 3 4 - Exam Alert, no acute distress, oriented 3. Currently on room air. HEENT examination is grossly unremarkable. Neck supple. Full range of motion. No adenopathy thyromegaly or neck vein distention. Cardiovascular examination reveals regular rhythm rate. S1-S2 normal. No S3 or S4. No discernible murmur noted. Heart rate 81 bpm. Lungs reveal scattered bilateral rhonchi. No wheezes. No crackles. Breath sounds equal bilaterally. No conversational dyspnea or use of accessory muscles. Saturations are 96 % on room air Abdomen soft bowel sounds are heard. No masses or tenderness. Extremities are intact. No cyanosis clubbing or edema. Skin is without rash or lesion. Neurologic examination is brief but nonfocal. - Labs CBC & Chem 7: 11/30/22 05:24 11/30/22 05:24 Labs: Abnormal Lab Results - Last 24 Hours (Table) 11/29/22 11/29/22 11/29/22 Range/Units 11:10 17:04 19:28 RBC (4.40-5.60) X 10*6/uL Hgb (13.0-17.0) g/dL Hct (39.6-50.0) % MCH (27.0-32.0) pg Absolute Nucleated RBC (0.00-0.00) X 10*3/uL Immature Gran # (0.00-0.04) X 10*3/uL Lymphocytes # (0.90-5.00) X 10*3/uL Eosinophils # (0.04-0.35) X 10*3/uL NRBC/100 WBC Diff (0.0-0.0) /100 WBCS BUN (9.0-27.0) mg/dL Creatinine (0.6-1.5) mg/dL Est GFR (CKD-EPI)AfAm (60.0-200.0) Est GFR (CKD-EPI)NonAf (60.0-200.0) BUN/Creatinine Ratio (12.00-20.00) Ratio Glucose (70-110) mg/dL POC Glucose (mg/dL) 290 H 279 H 364 H (70-110) mg/dL Procalcitonin (0.02-0.09) ng/mL 11/30/22 11/30/22 11/30/22 Range/Units 05:24 05:24 05:24 RBC 3.40 L (4.40-5.60) X 10*6/uL Hgb 10.9 L (13.0-17.0) g/dL Hct 32.2 L (39.6-50.0) % MCH 32.1 H (27.0-32.0) pg Absolute Nucleated RBC 0.02 H (0.00-0.00) X 10*3/uL Immature Gran # 0.15 H (0.00-0.04) X 10*3/uL Lymphocytes # 0.89 L (0.90-5.00) X 10*3/uL Eosinophils # 0 L (0.04-0.35) X 10*3/uL NRBC/100 WBC Diff 0.3 H (0.0-0.0) /100 WBCS BUN 51.3 H (9.0-27.0) mg/dL Creatinine 1.8 H (0.6-1.5) mg/dL Est GFR (CKD-EPI)AfAm 41.4 L (60.0-200.0) Est GFR (CKD-EPI)NonAf 35.8 L (60.0-200.0) BUN/Creatinine Ratio 28.50 H (12.00-20.00) Ratio Glucose 112 H (70-110) mg/dL POC Glucose (mg/dL) (70-110) mg/dL Procalcitonin 0.16 H (0.02-0.09) ng/mL 11/30/22 Range/Units 06:04 RBC (4.40-5.60) X 10*6/uL Hgb (13.0-17.0) g/dL Hct (39.6-50.0) % MCH (27.0-32.0) pg Absolute Nucleated RBC (0.00-0.00) X 10*3/uL Immature Gran # (0.00-0.04) X 10*3/uL Lymphocytes # (0.90-5.00) X 10*3/uL Eosinophils # (0.04-0.35) X 10*3/uL NRBC/100 WBC Diff (0.0-0.0) /100 WBCS BUN (9.0-27.0) mg/dL Creatinine (0.6-1.5) mg/dL Est GFR (CKD-EPI)AfAm (60.0-200.0) Est GFR (CKD-EPI)NonAf (60.0-200.0) BUN/Creatinine Ratio (12.00-20.00) Ratio Glucose (70-110) mg/dL POC Glucose (mg/dL) 123 H (70-110) mg/dL Procalcitonin (0.02-0.09) ng/mL Microbiology - Last 24 Hours (Table) 11/26/22 07:00 Blood Culture - Preliminary Blood No Growth after 96 hours 11/26/22 06:45 Blood Culture - Preliminary Blood No Growth after 96 hours Assessment and Plan Plan: Acute hypoxemic respiratory failure, secondary to pneumonia, which may be community-acquired and/or coronavirus associated. The patient has been previously been fully vaccinated. Curently on History of hypernephroma, status post nephrectomy. Chronic kidney disease. History of hyperlipidemia. History of diabetes mellitus. Hypertension. S/P L2 through L5 bilateral laminectomy, partial medial facetectomy, and foraminotomy. Plan: clinically improving, no complaints, currently on room air oxygen Potassium level improved and the renal function is stable for now and the creatinine is at 1.8, improved compared to yesterday Repeat pro-calcitonin level was done and the level is down to 0.16 Should be able to discharge this patient home tomorrow on a course of Decadron and Zithromax as the patient is currently stable.
[2022-11-30 11:45] LABS: Glucose,Whole Blood 173 mg/dL (70-110)
[2022-11-30] MEDS ORDERED: FUROSEMIDE 10 MG/ML 4 ML VIAL IV STA (12:09)
--- NOTE | 2022-11-30 14:13 | P.PN ---
Subjective Patient is seen for follow-up for acute kidney injury on top of chronic kidney disease. He was admitted with respiratory symptoms and tested positive for COVID-19. Patient is status post remdesivir Diuretics and NATAN inhibitor's currently on hold. Serum creatinine decreased to 1.8 from peak of 2.75 on initial admission. Serum potassium was elevated and patient is status post [facility] yesterday. Objective - Vital Signs Vital signs: Vital Signs Temp 98.1 F 11/30/22 07:41 Pulse 51 L 11/30/22 07:41 Resp 17 11/30/22 07:41 BP 171/76 11/30/22 07:41 Pulse Ox 98 11/30/22 07:41 FiO2 Intake & Output 11/29/22 11/30/22 11/30/22 18:59 06:59 18:59 Intake Total 180 Balance 180 Intake: Oral 180 Other: Voiding Method Toilet # Voids 3 4 - Exam Patient is awake, comfortable, not in any acute distress Alert oriented 3 Examination of the heart S1 and S2 Examination of the lungs bilateral breath sounds are heard Abdomen is soft nontender Examination of the lower extremities shows trace edema bilaterally [employer] exam grossly intact - Labs CBC & Chem 7: 11/30/22 05:24 11/30/22 05:24 Labs: Abnormal Lab Results - Last 24 Hours (Table) 11/29/22 11/29/22 11/30/22 Range/Units 17:04 19:28 05:24 RBC (4.40-5.60) X 10*6/uL Hgb (13.0-17.0) g/dL Hct (39.6-50.0) % MCH (27.0-32.0) pg Absolute Nucleated RBC (0.00-0.00) X 10*3/uL Immature Gran # (0.00-0.04) X 10*3/uL Lymphocytes # (0.90-5.00) X 10*3/uL Eosinophils # (0.04-0.35) X 10*3/uL NRBC/100 WBC Diff (0.0-0.0) /100 WBCS BUN (9.0-27.0) mg/dL Creatinine (0.6-1.5) mg/dL Est GFR (CKD-EPI)AfAm (60.0-200.0) Est GFR (CKD-EPI)NonAf (60.0-200.0) BUN/Creatinine Ratio (12.00-20.00) Ratio Glucose (70-110) mg/dL POC Glucose (mg/dL) 279 H 364 H (70-110) mg/dL Procalcitonin 0.16 H (0.02-0.09) ng/mL 11/30/22 11/30/22 11/30/22 Range/Units 05:24 05:24 06:04 RBC 3.40 L (4.40-5.60) X 10*6/uL Hgb 10.9 L (13.0-17.0) g/dL Hct 32.2 L (39.6-50.0) % MCH 32.1 H (27.0-32.0) pg Absolute Nucleated RBC 0.02 H (0.00-0.00) X 10*3/uL Immature Gran # 0.15 H (0.00-0.04) X 10*3/uL Lymphocytes # 0.89 L (0.90-5.00) X 10*3/uL Eosinophils # 0 L (0.04-0.35) X 10*3/uL NRBC/100 WBC Diff 0.3 H (0.0-0.0) /100 WBCS BUN 51.3 H (9.0-27.0) mg/dL Creatinine 1.8 H (0.6-1.5) mg/dL Est GFR (CKD-EPI)AfAm 41.4 L (60.0-200.0) Est GFR (CKD-EPI)NonAf 35.8 L (60.0-200.0) BUN/Creatinine Ratio 28.50 H (12.00-20.00) Ratio Glucose 112 H (70-110) mg/dL POC Glucose (mg/dL) 123 H (70-110) mg/dL Procalcitonin (0.02-0.09) ng/mL 11/30/22 Range/Units 11:43 RBC (4.40-5.60) X 10*6/uL Hgb (13.0-17.0) g/dL Hct (39.6-50.0) % MCH (27.0-32.0) pg Absolute Nucleated RBC (0.00-0.00) X 10*3/uL Immature Gran # (0.00-0.04) X 10*3/uL Lymphocytes # (0.90-5.00) X 10*3/uL Eosinophils # (0.04-0.35) X 10*3/uL NRBC/100 WBC Diff (0.0-0.0) /100 WBCS BUN (9.0-27.0) mg/dL Creatinine (0.6-1.5) mg/dL Est GFR (CKD-EPI)AfAm (60.0-200.0) Est GFR (CKD-EPI)NonAf (60.0-200.0) BUN/Creatinine Ratio (12.00-20.00) Ratio Glucose (70-110) mg/dL POC Glucose (mg/dL) 173 H (70-110) mg/dL Procalcitonin (0.02-0.09) ng/mL Microbiology - Last 24 Hours (Table) 11/26/22 07:00 Blood Culture - Preliminary Blood No Growth after 96 hours 11/26/22 06:45 Blood Culture - Preliminary Blood No Growth after 96 hours Assessment and Plan Assessment: 1. Acute kidney injury, prerenal currently improved with IV hydration. UA not available. NATAN inhibitor as an diuretics currently on hold 2. Chronic kidney disease NKF stage IIIB with baseline creatinine about 1.6-2 mg/dL secondary to solitary kidney and nephrosclerosis 3. History of renal cell cancer status post left nephrectomy 4. COVID-19 pneumonia status post remdesivir and maintained on IV steroids, significantly improved. O2 sats 98% on room air. Chest x-ray had showed multifocal airspace opacities bilaterally 5. Hyperkalemia associated with acute kidney injury and significant hyperglycemia. Improved 6. Mild volume overload Plan: Continue to encourage increased oral intake Continue to hold NATAN inhibitor IV Lasix 1 Resume home dose of diuretics Follow-up as outpatient in 1-2 weeks' for CK D
--- NOTE | 2022-11-30 14:15 | P.PN ---
Subjective Progress Note Date: 11/30/22 Principal diagnosis: Covid 19 Pneumonia Patient is a 77-year old male with multiple comorbidities presenting to the hospital for evaluation of chest congestion cough and shortness of breath patient was noticed to be hypoxic and did have evidence of pneumonia tested posi tive for COVID-19 patient did have elevated creatinine with a creatinine clearance of less than 30, pharmacy recommended against the use of remdesivir. On today's evaluation that is 11/30/2022 patient remains to be afebrile, patient is breathing comfortably without the need for supplemental oxygen, the patient denies having any chest pain no worsening cough no abdominal pain and no further diarrhea Objective - Vital Signs Vital signs: Vital Signs Temp 98.1 F 11/30/22 07:41 Pulse 51 L 11/30/22 07:41 Resp 17 11/30/22 07:41 BP 171/76 11/30/22 07:41 Pulse Ox 98 11/30/22 07:41 FiO2 Intake & Output 11/29/22 11/30/22 11/30/22 18:59 06:59 18:59 Intake Total 180 Balance 180 Intake: Oral 180 Other: Voiding Method Toilet # Voids 3 4 - Exam GENERAL DESCRIPTION: An elderly male up in the chair in no distress RESPIRATORY SYSTEM: Unlabored breathing , decreased breath sounds at bases HEART: S1 S2 regular rate and rhythm , ABDOMEN: Soft , no tenderness EXTREMITIES: No edema feet - Labs CBC & Chem 7: 11/30/22 05:24 11/30/22 05:24 Labs: Abnormal Lab Results - Last 24 Hours (Table) 11/29/22 11/29/22 11/30/22 Range/Units 17:04 19:28 05:24 RBC (4.40-5.60) X 10*6/uL Hgb (13.0-17.0) g/dL Hct (39.6-50.0) % MCH (27.0-32.0) pg Absolute Nucleated RBC (0.00-0.00) X 10*3/uL Immature Gran # (0.00-0.04) X 10*3/uL Lymphocytes # (0.90-5.00) X 10*3/uL Eosinophils # (0.04-0.35) X 10*3/uL NRBC/100 WBC Diff (0.0-0.0) /100 WBCS BUN (9.0-27.0) mg/dL Creatinine (0.6-1.5) mg/dL Est GFR (CKD-EPI)AfAm (60.0-200.0) Est GFR (CKD-EPI)NonAf (60.0-200.0) BUN/Creatinine Ratio (12.00-20.00) Ratio Glucose (70-110) mg/dL POC Glucose (mg/dL) 279 H 364 H (70-110) mg/dL Procalcitonin 0.16 H (0.02-0.09) ng/mL 11/30/22 11/30/22 11/30/22 Range/Units 05:24 05:24 06:04 RBC 3.40 L (4.40-5.60) X 10*6/uL Hgb 10.9 L (13.0-17.0) g/dL Hct 32.2 L (39.6-50.0) % MCH 32.1 H (27.0-32.0) pg Absolute Nucleated RBC 0.02 H (0.00-0.00) X 10*3/uL Immature Gran # 0.15 H (0.00-0.04) X 10*3/uL Lymphocytes # 0.89 L (0.90-5.00) X 10*3/uL Eosinophils # 0 L (0.04-0.35) X 10*3/uL NRBC/100 WBC Diff 0.3 H (0.0-0.0) /100 WBCS BUN 51.3 H (9.0-27.0) mg/dL Creatinine 1.8 H (0.6-1.5) mg/dL Est GFR (CKD-EPI)AfAm 41.4 L (60.0-200.0) Est GFR (CKD-EPI)NonAf 35.8 L (60.0-200.0) BUN/Creatinine Ratio 28.50 H (12.00-20.00) Ratio Glucose 112 H (70-110) mg/dL POC Glucose (mg/dL) 123 H (70-110) mg/dL Procalcitonin (0.02-0.09) ng/mL 11/30/22 Range/Units 11:43 RBC (4.40-5.60) X 10*6/uL Hgb (13.0-17.0) g/dL Hct (39.6-50.0) % MCH (27.0-32.0) pg Absolute Nucleated RBC (0.00-0.00) X 10*3/uL Immature Gran # (0.00-0.04) X 10*3/uL Lymphocytes # (0.90-5.00) X 10*3/uL Eosinophils # (0.04-0.35) X 10*3/uL NRBC/100 WBC Diff (0.0-0.0) /100 WBCS BUN (9.0-27.0) mg/dL Creatinine (0.6-1.5) mg/dL Est GFR (CKD-EPI)AfAm (60.0-200.0) Est GFR (CKD-EPI)NonAf (60.0-200.0) BUN/Creatinine Ratio (12.00-20.00) Ratio Glucose (70-110) mg/dL POC Glucose (mg/dL) 173 H (70-110) mg/dL Procalcitonin (0.02-0.09) ng/mL Microbiology - Last 24 Hours (Table) 11/26/22 07:00 Blood Culture - Preliminary Blood No Growth after 96 hours 11/26/22 06:45 Blood Culture - Preliminary Blood No Growth after 96 hours Assessment and Plan (1) COVID-19 Current Visit: Yes Status: Acute Code(s): U07.1 - COVID-19 SNOMED Code(s): 828329313 (2) Pneumonia Current Visit: Yes Status: Acute Code(s): J18.9 - PNEUMONIA, UNSPECIFIED ORGANISM SNOMED Code(s): 472159620 Plan: 1patient presented to hospital with increasing shortness of breath and cough symptom has been going on for 3 days patient did have evidence of multifocal infiltrate on chest x-ray patient did have a normal white count with lymphopenia pointing towards COVID-19 pneumonia, secondary bacterial pneumonia not entirely excluded as the pt did have elevated procalcitonin. 2patient female from clinical improvement and will continue with the current treatment of Lovenox dexamethasone zinc and ascorbic acid along with Rocephin for possible bacterial pneumonia, patient will be able to finish therapy with oral Ceftin. Time with Patient: Less than 30
[2022-11-30 14:16] VITALS: BP 142/67; PULSE 54; RESP 16; TEMP 97.8
[2022-12-01] MEDS ORDERED: FUROSEMIDE 40 MG TAB PO SCH (09:00)
--- NOTE | 2022-12-02 11:12 | P.DS ---
Providers Date of admission: 11/26/22 08:26 Expected date of discharge: 11/30/22 Attending physician: Kami Clifford Consults: 11/26/22 08:08 Consult Physician Urgent Consulting Provider: Frank Nye Consult Reason/Comments: COVID, hypoxia Do you want consulting provider notified?: Yes Consult Physician Urgent Consulting Provider: Helga Knox Consult Reason/Comments: COVID 19 Do you want consulting provider notified?: Yes 11/27/22 11:34 Consult Physician Routine Consulting Provider: Grace Rodríguez Consult Reason/Comments: arf Do you want consulting provider notified?: Yes Primary care physician: Ruben Henry Hospital Course: Final diagnosis Acute hypoxic respiratory failure secondary to acute COVID-19 infection and COVID-19 pneumonia Acute on chronic kidney disease, stage IIIB Troponin leak secondary to infection Diabetes mellitus, type II History of kidney cancer, status post left nephrectomy Recent L2 to L5 laminectomy and decompression Chronic gout Former smoker GI prophylaxis DVT prophylaxis Full code Discharge disposition Patient is being discharged in a stable condition with guarded prognosis to home. Patient will follow-up with Dr. Henry in the outpatient setting upon discharge. Patient is to also follow-up with nephrology outpatient as scheduled . Recommend repeat labs and prescription provided. Total time taken is greater than 35 minutes. Hospital course This is a 77-year-old male who was recently admitted shortness of breath and chronic kidney disease and being closely monitored by pulmonary along with nephrology. Patient with chronic elevated kidney functions follows with nephrology in the outpatient setting showing some improvement with a creatinine of 1.8 today. Patient did have some elevated potassiums and was given a dose of lokelma with improvement recommend low potassium diet and close outpatient follow-up with labs in the next few days. Patient also found to be covid Positive and is currently maintaining oxygen saturations on room air above 92%. Patient has been cleared by consultations for discharge with close outpatient follow-up. Currently no reports of chest pain, shortness of breath, or palpitations. Patient is afebrile. No reports of nausea or vomiting and patient is tolerating diet. Patient will be discharged home today. Physical exam: Gen: This is a 77-year-old male who is awake, alert and oriented 3, well- developed, well-nourished, obese HEENT: Head is atraumatic, normocephalic. Pupils equal, round. Sclerae is anicteric. NECK: Supple. No JVD. No lymphadenopathy. No thyromegaly. LUNGS: Clear to auscultation. No wheezes or rhonchi. No intercostal retractions. HEART: Regular rate and rhythm. No murmur. ABDOMEN: Soft. Bowel sounds are present. No masses. No tenderness. EXTREMITIES: No pedal edema. No calf tenderness. NEUROLOGICAL: Patient is awake, alert and oriented x3. Cranial nerves 2 through 12 are grossly intact. Please refer to medication reconciliation sheet for a list of medications. The impression and plan of care has been dictated by Acacia Rushing, Nurse Practitioner as directed. MD Kerri I have performed a history and examination and MDM of this patient, discussed the same with the dictator, and agree with the dictator's assessment and plan as written ,documented as a scribe. Based on total visit time, I have performed more than 50% of the visit. Patient Condition at Discharge: Fair Plan - Discharge Summary Discharge Rx Participant: No New Discharge Prescriptions: New cefUROXime axetiL [Ceftin] 500 mg PO BID 3 Days #6 tab dexAMETHasone [Decadron] 6 mg PO DAILY 5 Days #5 tablet Ascorbic Acid [Vitamin C] 1,000 mg PO DAILY #60 tab Acetaminophen Tab [Tylenol] 650 mg PO Q6HR PRN tab PRN Reason: Mild Pain Or Fever > 100.5 Continue allopurinoL [Zyloprim] 100 mg PO BID Pioglitazone [Actos] 30 mg PO DAILY Magnesium Oxide [Mag-Ox] 250 mg PO DAILY glipiZIDE XL [Glucotrol XL] 10 mg PO DAILY Turmeric Root Extract [Turmeric] 500 mg PO DAILY amLODIPine [Norvasc] 5 mg PO DAILY Insulin Aspart [NovoLOG Flexpen] See Protocol SQ AC-TID Insulin Glargine,Hum.rec.anlog [Lantus Solostar Pen] 50 unit SQ HS HYDROcodone/APAP 5-325MG [[place] 5-325] 1 tab PO BID PRN PRN Reason: Pain Atorvastatin [Lipitor] 20 mg PO DAILY Zinc 50 mg PO DAILY Cholecalciferol [Vitamin D3 (25 Mcg = 1000 Iu)] 50 mcg PO DAILY Fish Oil/Dha/Epa [Fish Oil 1,200 mg Fish Oil] 1 cap PO DAILY Metoprolol Succinate (ER) [Toprol XL] 25 mg PO DAILY hydrALAZINE HCL [Apresoline] 25 mg PO BID Discontinued Furosemide [Lasix] 40 mg PO BID lisinopriL [Zestril] 10 mg PO DAILY Discharge Medication List Atorvastatin [Lipitor] 20 mg PO DAILY 01/05/22 [History] Cholecalciferol [Vitamin D3 (25 Mcg = 1000 Iu)] 50 mcg PO DAILY 01/05/22 [History] Fish Oil/Dha/Epa [Fish Oil 1,200 mg Fish Oil] 1 cap PO DAILY 01/05/22 [History] HYDROcodone/APAP 5-325MG [[place] 5-325] 1 tab PO BID PRN 01/05/22 [History] Magnesium Oxide [Mag-Ox] 250 mg PO DAILY 01/05/22 [History] Pioglitazone [Actos] 30 mg PO DAILY 01/05/22 [History] Zinc 50 mg PO DAILY 01/05/22 [History] allopurinoL [Zyloprim] 100 mg PO BID 01/05/22 [History] Metoprolol Succinate (ER) [Toprol XL] 25 mg PO DAILY 01/16/22 [Rx] Insulin Aspart [NovoLOG Flexpen] See Protocol SQ AC-TID 11/26/22 [History] Insulin Glargine,Hum.rec.anlog [Lantus Solostar Pen] 50 unit SQ HS 11/26/22 [H istory] Turmeric Root Extract [Turmeric] 500 mg PO DAILY 11/26/22 [History] amLODIPine [Norvasc] 5 mg PO DAILY 11/26/22 [History] glipiZIDE XL [Glucotrol XL] 10 mg PO DAILY 11/26/22 [History] hydrALAZINE HCL [Apresoline] 25 mg PO BID 11/26/22 [History] Acetaminophen Tab [Tylenol] 650 mg PO Q6HR PRN tab 11/30/22 [Rx] Ascorbic Acid [Vitamin C] 1,000 mg PO DAILY #60 tab 11/30/22 [Rx] cefUROXime axetiL [Ceftin] 500 mg PO BID 3 Days #6 tab 11/30/22 [Rx] dexAMETHasone [Decadron] 6 mg PO DAILY 5 Days #5 tablet 11/30/22 [Rx] Follow up Appointment(s)/Referral(s): Grace Rodríguez MD [STAFF PHYSICIAN] - 12/06/22 (keep prior scheduled appt) Ruben Henry MD [Primary Care Provider] - 12/12/22 (keep scheduled appt) Ambulatory/Diagnostic Orders: Basic Metabolic Panel [LAB.AMB] Time Frame: 3 Days, Location: None Selected Patient Instructions/Handouts: Potassium Content of Foods List (DC), Chronic Kidney Disease Diet (DC), Hyperkalemia (DC), Community Acquired Pneumonia (DC), COVID-19 (Coronavirus Disease 2019) (DC) Activity/Diet/Wound Care/Special Instructions: Activity is limited until follow-up Follow-up primary care provider on discharge Follow-up nephrology outpatient Continue taking medications as prescribed Continue holding Lasix for the next few days and follow-up with repeat labs in 2-3 days to monitor kidney functions Follow low potassium, renal diet Discharge Disposition: HOME SELF-CARE
== END 2022-11-30 15:08 | disposition home or self-care (01) | DRG 177 ==
LOC: EC 06:13 → 3SCARD 08:26 → 4SSUR 11-27 10:39
PROVIDERS: ADMIT Hospitalist; ATTEND Hospitalist
DX: U07.1 COVID-19 (principal); J12.82 Pneumonia due to coronavirus disease 2019; J96.01 Acute respiratory failure with hypoxia; N17.9 Acute kidney failure, unspecified; I13.0 Hypertensive heart and chronic kidney disease with heart failure and stage 1 through stage 4 chronic kidney disease, or unspecified chronic kidney disease; E11.22 Type 2 diabetes mellitus with diabetic chronic kidney disease; I50.9 Heart failure, unspecified; D72.810 Lymphocytopenia; N18.32 Chronic kidney disease, stage 3b; E11.65 Type 2 diabetes mellitus with hyperglycemia; T38.0X5A Adverse effect of glucocorticoids and synthetic analogues, initial encounter; E87.5 Hyperkalemia; E78.5 Hyperlipidemia, unspecified; M1A.9XX0 Chronic gout, unspecified, without tophus (tophi); K21.9 Gastro-esophageal reflux disease without esophagitis; R77.8 Other specified abnormalities of plasma proteins; Z79.84 Long term (current) use of oral hypoglycemic drugs; Z79.899 Other long term (current) drug therapy; Z87.891 Personal history of nicotine dependence; Z85.528 Personal history of other malignant neoplasm of kidney; Z85.828 Personal history of other malignant neoplasm of skin; Z90.5 Acquired absence of kidney; Z86.718 Personal history of other venous thrombosis and embolism; Z96.643 Presence of artificial hip joint, bilateral; Z88.5 Allergy status to narcotic agent
CPT/HCPCS: 36415; 71045; 71046; 80048; 80053; 83036; 83605; 83735; 83880; 84145; 84484; 85025; 85610; 85730; 87040; 87636; 93005; 96361; 96365; 96366; 96367; 96372; 96375; 99285

== ENCOUNTER → 2023-04-04 | Outpatient (CLI) | payer MEDICARE ==
[2023-04-04 15:15] LABS: Basophils # (A) 0.04 X 10*3/uL (0.00-0.10); Basophils % (A) 0.7 %; Eosinophils # (A) 0.18 X 10*3/uL (0.04-0.35); Eosinophils % (A) 3.4 %; HCT 37.5 % (39.6-50.0); HGB 12.3 g/dL (13.0-17.0); Immature Grans, Automated 0.7 %; Lymphocytes # (A) 1.26 X 10*3/uL (0.90-5.00); Lymphocytes % (A) 23.6 %; MCH 32.2 pg (27.0-32.0); MCHC 32.8 g/dL (32.0-37.0); MCV 98.2 fL (80.0-97.0); Mean Platelet Volume 10.2 fL (9.5-12.2); Monocytes # (A) 0.66 X 10*3/uL (0.20-1.00); Monocytes % (A) 12.3 %; NRBC Per 100 WBC 0 /100 WBCS (0.0-0.0); Neutrophils # (A) 3.17 X 10*3/uL (1.80-7.70); Neutrophils % (A) 59.3 %; Platelet Count 162 X 10*3/uL (140-440); RBC 3.82 X 10*6/uL (4.40-5.60); WBC 5.35 X 10*3/uL (4.50-10.00)
[2023-04-04 15:58] LABS: % Iron Saturation 32.63 (15.00-50.00); African American GFR (CKD) 36.1 (60.0-200.0); Anion Gap 10.6 mmol/L (10.00-18.00); BUN/Creat Ratio 21.09 Ratio (12.00-20.00); Blood Urea Nitrogen 42.6 mg/dL (9.0-27.0); Calcium 9.6 mg/dL (8.7-10.3); Carbon Dioxide 26.5 mmol/L (20.0-27.5); Magnesium 2.3 mg/dL (1.5-2.4); Non-African American GFR(CKD) 31.1 (60.0-200.0); Phosphorus 3.2 mg/dL (2.4-5.1); Potassium 4.9 mmol/L (3.5-5.5); Uric Acid 5.7 mg/dL (3.7-8.7)
[2023-04-04 16:03] LABS: Appearance,Urine Clear (Clear); Bilirubin,Urine Negative (Negative); Blood,Urine Negative (Negative); Color,Urine Yellow (Yellow); Ketones,Urine Negative (Negative); Nitrite,Urine Negative (Negative); PH, Urine 5.5 (5.0-8.0); Specific Gravity,Urine 1.016 (1.001-1.030); Urobilinogen,Urine 0.2 (0.2,1.0)
[2023-04-04 16:58] LABS: Bacteria,Urine None Seen /HPF (None Seen)
== END | disposition home or self-care (01) ==
LOC: LABWHC1 08:39
PROVIDERS: ATTEND Family Medicine
DX: E11.3292 Type 2 diabetes mellitus with mild nonproliferative diabetic retinopathy without macular edema, left eye (principal); E55.9 Vitamin D deficiency, unspecified; N25.81 Secondary hyperparathyroidism of renal origin; M10.9 Gout, unspecified; N39.0 Urinary tract infection, site not specified; D63.1 Anemia in chronic kidney disease; E11.22 Type 2 diabetes mellitus with diabetic chronic kidney disease; N18.32 Chronic kidney disease, stage 3b; R80.9 Proteinuria, unspecified
CPT/HCPCS: 36415; 80048; 81001; 82040; 82043; 82306; 82570; 82728; 83036; 83540; 83550; 83735; 83970; 84100; 84550; 85025

== ENCOUNTER → 2023-08-06 | Outpatient (CLI) | payer MEDICARE ==
[2023-08-06 16:05] LABS: Appearance,Urine Clear (Clear); Bilirubin,Urine Negative (Negative); Blood,Urine Negative (Negative); Color,Urine Yellow (Yellow); Ketones,Urine Negative (Negative); Nitrite,Urine Negative (Negative); PH, Urine 5.5; Specific Gravity,Urine 1.011 (1.001-1.030); Urobilinogen,Urine 0.2 E.U./DL
[2023-08-06 16:44] LABS: Bacteria,Urine None Seen (None Seen); UA Starch Present (None Seen)
[2023-08-06 16:56] LABS: % Iron Saturation 38.44 (15.00-50.00); ALT 33 U/L (10-49); AST 27 U/L (14-35); Albumin 4.3 d/dL (3.8-4.9); Albumin/Globulin Ratio 2.05 Ratio (1.60-3.17); Alkaline Phosphatase 83 U/L (41-126); BUN/Creat Ratio 20.42 Ratio (12.00-20.00); Calcium 9.8 mg/dL (8.7-10.3); Chloride 106 mmol/L (96-109); Globulin 2.1 d/dL (1.6-3.3); Glucose 137 mg/dL (70-110); Iron 128 UG/DL (65-175); Magnesium 2.1 mg/dL (1.5-2.4); Potassium 5.8 mmol/L (3.5-5.5); Sodium 142 mmol/L (135-145); Total Bilirubin 1.9 mg/dL (0.3-1.2); Total Iron Binding Capacity 333 UG/DL (228-460); Total Protein 6.4 d/dL (6.2-8.2)
[2023-08-06 18:56] LABS: Basophils # (A) 0.04 X 10*3/uL (0.00-0.10); Basophils % (A) 0.7 %; Eosinophils # (A) 0.19 X 10*3/uL (0.04-0.35); Eosinophils % (A) 3.2 %; HCT 38.7 % (39.6-50.0); HGB 12.6 d/dL (13.0-17.0); Lymphocytes # (A) 1.34 X 10*3/uL (0.90-5.00); Lymphocytes % (A) 22.8 %; MCH 32.6 pg (27.0-32.0); MCHC 32.6 d/dL (32.0-37.0); Mean Platelet Volume 11.9 FL (9.5-12.2); Monocytes % (A) 10.2 %; NRBC Per 100 WBC 0 X 10*3/uL (0.00-0.01); Neutrophils # (A) 3.69 X 10*3/uL (1.80-7.70); Neutrophils % (A) 62.9 %; Platelet Count 144 X 10*3/uL (140-440); RBC 3.87 X 10*6/uL (4.40-5.60); RBC Morphology Normal (Normal); RDW 14.1 % (11.5-14.5); WBC 5.87 X 10*3/uL (4.50-10.00)
[2023-08-06 20:12] LABS: Urine Creatinine 58.1 mg/dL (39.0-259.0)
== END | disposition home or self-care (01) ==
LOC: LABWHC1 10:02
PROVIDERS: ATTEND Family Medicine
DX: I12.9 Hypertensive chronic kidney disease with stage 1 through stage 4 chronic kidney disease, or unspecified chronic kidney disease (principal); E11.22 Type 2 diabetes mellitus with diabetic chronic kidney disease; N18.32 Chronic kidney disease, stage 3b; D63.1 Anemia in chronic kidney disease; Z79.4 Long term (current) use of insulin; E11.3292 Type 2 diabetes mellitus with mild nonproliferative diabetic retinopathy without macular edema, left eye; E55.9 Vitamin D deficiency, unspecified; N25.81 Secondary hyperparathyroidism of renal origin; M10.9 Gout, unspecified; N39.0 Urinary tract infection, site not specified; R80.9 Proteinuria, unspecified
CPT/HCPCS: 36415; 80053; 81001; 82043; 82306; 82570; 82728; 83036; 83540; 83550; 83735; 83970; 84100; 84443; 84550; 85025

== ENCOUNTER → 2023-08-10 | Outpatient (CLI) | payer MEDICARE ==
[2023-08-10 11:07] LABS: ALT 33 U/L (10-49); AST 26 U/L (14-35); Albumin 4.1 d/dL (3.8-4.9); Albumin/Globulin Ratio 2.05 Ratio (1.60-3.17); Alkaline Phosphatase 79 U/L (41-126); BUN/Creat Ratio 19.83 Ratio (12.00-20.00); Blood Urea Nitrogen 45.6 mg/dL (9.0-27.0); Calcium 9.6 mg/dL (8.7-10.3); Carbon Dioxide 25.7 mmol/L (21.6-31.8); Chloride 105 mmol/L (96-109); Glucose 262 mg/dL (70-110); Potassium 5.8 mmol/L (3.5-5.5); Sodium 140 mmol/L (135-145); Total Bilirubin 1.4 mg/dL (0.3-1.2); Total Protein 6.1 d/dL (6.2-8.2)
== END | disposition home or self-care (01) ==
LOC: LABWHC1 07:12
PROVIDERS: ATTEND Internal Medicine Nephrology
DX: N18.32 Chronic kidney disease, stage 3b (principal)
CPT/HCPCS: 36415; 80053

== ENCOUNTER → 2023-10-24 | Outpatient (CLI) | payer MEDICARE ==
[2023-10-24 16:29] LABS: Basophils # (A) 0.04 X 10*3/uL (0.00-0.10); Basophils % (A) 0.8 %; Eosinophils # (A) 0.22 X 10*3/uL (0.04-0.35); Eosinophils % (A) 4.2 %; HCT 39.8 % (39.6-50.0); HGB 12.7 g/dL (13.0-17.0); Lymphocytes # (A) 1.26 X 10*3/uL (0.90-5.00); Lymphocytes % (A) 23.8 %; MCH 32.4 pg (27.0-32.0); MCHC 31.9 g/dL (32.0-37.0); MCV 101.5 FL (80.0-97.0); Mean Platelet Volume 10.8 FL (9.5-12.2); Monocytes # (A) 0.61 X 10*3/uL (0.20-1.00); Monocytes % (A) 11.5 %; NRBC Per 100 WBC 0 X 10*3/uL (0.00-0.01); Neutrophils # (A) 3.16 X 10*3/uL (1.80-7.70); Neutrophils % (A) 59.5 %; Platelet Count 188 X 10*3/uL (140-440); RBC 3.92 X 10*6/uL (4.40-5.60); RDW 14.6 % (11.5-14.5)
[2023-10-24 16:49] LABS: ALT 28 U/L (10-49); AST 23 U/L (14-35); Albumin/Globulin Ratio 1.82 Ratio (1.60-3.17); Alkaline Phosphatase 106 U/L (41-126); BUN/Creat Ratio 19.64 Ratio (12.00-20.00); Blood Urea Nitrogen 43.2 mg/dL (9.0-27.0); Calcium 9.7 mg/dL (8.7-10.3); Chloride 105 mmol/L (96-109); Chol/HDL Ratio 3.75 Ratio; Globulin 2.2 g/dL (1.6-3.3); Glucose 104 mg/dL (70-110); LDL Cholesterol,Calculated 67.6 mg/dL (0.0-131.0); Potassium 5.5 mmol/L (3.5-5.5); Sodium 143 mmol/L (135-145); Total Bilirubin 1.5 mg/dL (0.3-1.2); Total Protein 6.2 g/dL (6.2-8.2)
== END | disposition home or self-care (01) ==
LOC: LABWHC1 07:36
PROVIDERS: ATTEND Family Medicine
DX: I10 Essential (primary) hypertension (principal); E21.3 Hyperparathyroidism, unspecified; E55.9 Vitamin D deficiency, unspecified
CPT/HCPCS: 36415; 80053; 80061; 82306; 84443; 85025

== ENCOUNTER → 2023-10-24 | Outpatient (CLI) | payer MEDICARE ==
--- NOTE | 2023-10-25 12:21 | MR ---
EXAMINATION TYPE: MR lumbar spine wo con DATE OF EXAM: 10/24/2023 6:58 PM CLINICAL INDICATION:Male, 78 years old with history of M54.50 LOW BACK PAIN; PHH, Low back pain into buttocks, x3 months, Hx of back surgery COMPARISON: None TECHNIQUE: Multi planar, multi sequence imaging was performed utilizing: T1-weighted, T2-weighted, a nd turbo inversion recovery imaging of the lumbar spine. IV Contrast: cc . (None if empty) FINDINGS: Alignment: The lumbar vertebral bodies have preserved heights and alignment. Cord: The conus medullaris and the distal spinal cord appear unremarkable with regards to their signa l intensity and morphology. Bones/Discs: Mild degeneration changes throughout the spine with osteophyte formation and facet joint arthropathy. Intervertebral disc signal is maintained. Postsurgical edema on the lower spine. T12-L1: No evidence of significant spinal canal stenosis or neural foraminal stenosis. L1-L2: No evidence of significant spinal canal stenosis or neural foraminal stenosis. L2-L3: Disc extrusion with inferior migration of disc material up to 10 mm. Facet joint arthropathy r esult in moderate spinal canal and moderate to severe right and moderate left bilateral neural forami nal stenosis. L3-L4: Disc bulge and facet joint arthropathy result in mild to moderate spinal canal and moderate to severe bilateral neural foraminal stenosis. L4-L5: Disc bulge and facet joint arthropathy result in mild spinal canal and severe bilateral neural foraminal stenosis. L5-S1: The disc is rounded posterior morphology without significant spinal canal stenosis. Facet join t arthropathy with mild bilateral neural foraminal stenosis. No significant spinal canal or neural foraminal stenosis in the remainder of the visualized levels. Other findings: None. IMPRESSION: 1. L2-L3 disc extrusion with inferior migration of disc material. 2. Moderate to severe disc degeneration with associated osteoarthritic changes with neural foraminal stenosis worse at L4-L5 with severe bilateral, moderate to severe right L2-L3 and moderate to severe bilateral L3-L4 neural foraminal stenosis.
== END | disposition home or self-care (01) ==
LOC: RADMRIMAIN 17:44
PROVIDERS: ATTEND Orthopaedic Surgery
DX: M51.26 Other intervertebral disc displacement, lumbar region (principal); M51.36 Other intervertebral disc degeneration, lumbar region; M47.816 Spondylosis without myelopathy or radiculopathy, lumbar region; M99.73 Connective tissue and disc stenosis of intervertebral foramina of lumbar region; Z98.890 Other specified postprocedural states
CPT/HCPCS: 72148

== ENCOUNTER → 2024-03-03 | Outpatient (CLI) | payer MEDICARE ==
--- NOTE | 2024-03-03 13:48 | MR ---
EXAMINATION TYPE: MR lumbar spine wo con DATE OF EXAM: 03/03/2024 COMPARISON: 10/24/2023, 11/01/2021 HISTORY: Lower back pain, radiates into buttocks. Hx surgery. TECHNIQUE: T1 and T2 axial and sagittal images of the lumbar spine are submitted. FINDINGS: There is no abnormal signal seen within the visualized spinal cord. There is extensive post surgical changes suggestive of multilevel laminectomy spanning from the level of L1-S1. Abnormal sign al is seen posteriorly most likely related to scar or granulation tissue. No postcontrast images subm itted. Tiny benign-appearing fatty adenoma the left adrenal gland. Left kidney not visualized. Correl ate clinically. At L1-2 there is mild degenerative disc disease with broad-based disc bulging and mild effacement of the thecal sac. Neural foramina patent. Facet arthropathy. At L2-3 there is slight retrolisthesis with facet arthropathy and posterior disc osteophyte complex. Moderate canal stenosis with bilateral foraminal encroachment. Similar to prior exam. Additionally, t here is abnormal signal extending posteriorly to the the upper margin of the L3 segment suspicious fo r an extruded disc fragment. Measures approximately 8 mm. At L3-4 there is abnormal signal within the disc space is stable from prior exam. If concern for disc itis correlate with postcontrast images. No adjacent marrow edema. Degenerative disc disease is seen with postoperative changes. No obvious canal stenosis. Mild bilateral foraminal encroachment with fac et arthropathy. At L4-5 there is mild degenerative disc disease with grade 1 anterolisthesis and facet arthropathy. M ild bilateral foraminal encroachment. No canal stenosis. At L5-S1 there is no significant foraminal encroachment. Central disc minimal bulging but no focal he rniation or canal stenosis. Facet arthropathy. IMPRESSION: 1. Persistent suspected disc herniation with extruded fragment posterior to the L3 vertebral segment measuring 8 mm recommend follow-up MRI with contrast. 2. Extensive postsurgical changes compatible with multilevel laminectomy. Abnormal signal within the L3-L4 disc space stable dating back to multiple prior exams. No adjacent bone marrow edema. Given sta bility since 2020 of this likely is either postsurgical or on a benign basis. If clinical concern for discitis correlate with postcontrast imaging. 3. Multilevel moderate hypertrophic and degenerative changes. Multilevel mild foraminal encroachment as discussed above. 4. Stable grade 1 anterolisthesis L4-L5 which appears degenerative. 5. Stable broad-based disc bulging greater paracentrally to the left L1-L2.
== END | disposition home or self-care (01) ==
LOC: RADMRIMAIN 10:45
PROVIDERS: ATTEND Orthopaedic Surgery
DX: M47.816 Spondylosis without myelopathy or radiculopathy, lumbar region (principal); M51.36 Other intervertebral disc degeneration, lumbar region; M43.16 Spondylolisthesis, lumbar region; M96.1 Postlaminectomy syndrome, not elsewhere classified
CPT/HCPCS: 72148

== ENCOUNTER → 2024-05-09 | Outpatient (CLI) | payer MEDICARE | END | disposition home or self-care (01) | LOC: LABPAT 08:57 | PROVIDERS: ATTEND Orthopaedic Surgery | DX: Z01.818 Encounter for other preprocedural examination (principal) | CPT/HCPCS: 86850; 86900; 86901 ==

== ENCOUNTER 2024-05-15 05:34 | Inpatient (IN) | payer MEDICARE ==
[2024-05-12 13:03] VITALS: BMI 34.5
[~2024-05-15 05:34] MED LIST changes: -ACETAMINOPHEN TAB 500 MG TAB PO PRN; -GABAPENTIN 300 MG CAP PO PRN; -ONDANSETRON 4 MG/2 ML VIAL IVP PRN; +TRANEXAMIC 1,000 MG/100ML-NACL 1,000 MG in SALINE 1 100ML.BAG IVPB PRN; -TRANEXAMIC ACID 1,000 MG in SODIUM CHLORIDE 0.9% 100 ML IVPB PRN
[2024-05-15] MEDS ORDERED: LIDOCAINE 1% (10MG/ML) FOR IV START INTRADERMA PRN (05:48)
--- NOTE | 2024-05-15 06:16 | P.HPOR ---
History of Present Illness H&P Date: 05/09/24 .D:Date: 05/09/24 : 08:45am .T:Title: TIFFANY GAVIN [facility] HISTORY AND PHYSICAL Age: 78 year Height: 6' Weight: 250 lbs BP:127/78 BMI: 33.91 kg/m2 Occupation: Retired VAS: 7 IMPRESSION: It was my pleasure to have seen and examined Mor. I reviewed the patient's clinical syndrome, physical findings, and imaging studies during the appointment today. It is my impression that the patient has a diagnosis of. 1. 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 L2-3 facet cyst 3. L2-3 instability 4. Diffuse idiopathic skeletal hyperostosis Spine Surgery Risk Review Mr. Perez is presenting for evaluation of low back and bilateral lower extremity pain, bilateral lower extremity numbness and tingling. It was my pleasure to have seen and examined Mr. Perez. In our visit today we have had a chance to go over subjective complaints, physical examination findings and treatments including the natural course history without intervention and various interventional options. The patients imaging demonstrates: L2-3 HNP with severe stenosis, L2-3 facet cyst with boggy facets, pars elongation, grade I spondylolisthesis unstable and disc degeneration. On physical exam, Mr. Perez demonstrates: A continued, worsening lumbar pain with an ache-like, throbbing quality. The patient states his low back pain rad iates down into the bilateral lower extremities with a sharp, shooting quality. His lower extremity pain is associated with numbness and tingling bilaterally. He notes inability to walk long distances without the use of a cane. He states he can only walk down one grocery aisle before having to sit and take a break due to worsening pain. He states his current symptoms worsen after all activity. He reports experiencing severe sleep disturbances related to his ongoing pain and associated symptoms. I have explained to the patient that as their condition progresses it will cause further neurological deficits and eventual paralysis. Based on the patients imaging, physical exam, and the rapid progression and disabling nature of their symptoms, at this time I recommend surgery in the form of a: Stage I: L2-3 lateral fusion and Stage II: L2-3 posterolateral stabilization and fusion. I discussed the risk and benefits of this procedure at length with Mr. Perez. The patient agreed to considered pursuing the procedure abovementioned. Prior to surgery, she should follow up with her PCP (Cardio, ID, IM etc) for clearance. Questions were invited and answered, and the patient wishes to proceed as outlined below. Currently, I am recommendin.Stage I: L2-3 lateral fusion and Stage II: L2-3 posterolateral stabilization and fusion 2.Review of surgical risks and benefits as well as an educational packet on the proposed surgical procedure. Risks: All surgical procedures come with inherent risks, including those related to positioning, anesthesia, intraoperative findings, and postoperative complications. It is important to understand that surgery does not come with any guarantee of a successful outcome as complications and adverse events are always possible. The patient was given a handout in office today discussing the surgical procedure and risks associated with the intervention, both of which were discussed with the patient. These risks include but are not limited to the following: * Experiencing same, different or even worse symptoms in back, neck, arms, or legs compared to before surgery. Requiring further surgery or other forms of treatment presently or at some time in the future at same or other levels of the intended spine surgery. On an extreme but fortunately relatively rare basis severe complication such as blindness, stroke, heart attack, temporary and/or permanent nerve injury, paralysis, coma, or may occur, sometimes without known explanation. Surgical complications may include but are not limited to risk of infection, fluid accumulation in the surgical dissection site, including a seroma or hematoma, that requires additional surgery, wound drainage, bleeding, new numbness or weakness, vision changes/loss, spinal fluid leakage, non-healing and/or infected incision, headaches, difficulty or inability to swallow, hoarseness, hemopneumothorax, pneumothorax, impotence, retrograde ejaculation, vaginal dryness; injury to nerves, spinal cord, blood vessels, lymphatics or other vital organs (i.e., bowel injury, injury to the great vessels); heterotopic bone formation; complications related to the hardware such as screws, rods, cages including misplaced hardware, device failure, ins trumentation at the wrong spine level, hardware fracture/breakage, or hardware loosening; vertebral failure of the spinal column above or below the newly placed hardware; retained surgical instrumentations or devices and the need for further surgery. * Medical risks of the planned spine surgery include but are not limited to generalized Infections to the whole body or local areas outside of the surgical site (sepsis), heart attack, bleeding, anaphylaxis, meningitis, seizure, epilepsy, hearing loss, burn garcia, laceration of the head or other areas of the body, bruising, hypersensitivity of the skin, bladder over distension; allergic reaction; shoulder injury related to positioning; fat, blood and air clots to other areas of the body like heart, lungs, brain; failure of internal organs such as lungs, kidneys, liver and excessive bleeding. If blood transfusions are necessary, note that transfusions may cause intolerance reactions such as anaphylaxis or other complex reactions. Despite best efforts, the results of spine surgery might not heal in terms of bone, soft tissues such as skin, fascia, ligaments, and joints. Additionally, in order to achieve best possible results, spine surgery may be carried out beyond the initially planned levels and involve decompression, fusion including insertion of hardware at levels other than the original intended area of surgical interest change some portions of the procedure in order to ensure the best possible outcomes. With spine surgery and spinal fusion, there are different off label uses of instrumentation (devices, implants and hardware) as well as biological substances (bone morphogenic proteins, demineralized bone matrix) as well as using extra bone from allograft sources (i.e. cadaver bone) or autograft (iliac crest bone, ribs, or the spine itself). The patient has been given information about these practices and their inherent risks and benefits. [facility] is an educational center that serves as a training facility for neurosurgical and orthopedic REFRA[employer]NA[employer] DESIGNER and Nursing students. Physician assistants are medically trained surgical providers who function in the outpatient, inpatient, and operating room setting under the direct supervision of the attending surgeon. [facility] has multiple operating rooms with single and overlapping rooms running daily. They currently function under the required guidelines as produced by the [facility] Finance Committee with regards to the overlapping rooms and will continue to comply with changes to this policy as they occur. The requirements include and are complied with as follows: (1) the critical portions of the overlapping rooms will not occur at the same time, (2) the attending physician will be physically present during the critical portions of the procedure and immediately available during the entire case, and (3) a back-up attending is designated should the primary attending not be immediately available. The patient has had a chance to review all the listed information, has been given print outs detailing this information, and has had all his/her questions answered to their satisfaction. It was my pleasure to have seen and examined Mr. Perez. In our visit today we have had a chance to go over my understanding of our patient's current condition, the natural course history without intervention and various interventional options. Questions were invited and answered, and the patient wishes to proceed as outlined above. I have seen and examined the patient for 25 minutes and we have spent more than 50% of the time in repeat and detailed counseling about the patient's condition, its natural course history with out and as much as can be predicted with surgery and re-review of various surgical treatment options. In conclusion, Mr. Perez requested we proceed with the above suggested surgery and are willing to accept risks and limitations of the suggested surgery as nature of the disease process and our best attempts at treatment for the condition. Thank you again for allowing us to be part of your patient's care. Please don't hesitate to contact me if you have any further questions. FOLLOW UP: Post Procedure PATIENT EDUCATION: Medications Reviewed: YES In our visit today Mr. Perez and I have had a chance to go over my understanding of the patient's current condition, the natural course history wi thout intervention and various interventional options. Questions were invited and answered, and the patient wishes to proceed as outlined above. I will be sure to keep you updated after Mr. Perez returns here for further follow-up. Thank you again for your referral. Please do not hesitate to contact me if you have any further questions. Signed and authenticated by: Yakov Bustos [facility] [address] [address] This message is confidential, intended only for the named recipient(s) and may contain information that is privileged or exempt from disclosure under applicable law. If you are not the intended recipient(s), you are notified that the dissemination, distribution or copying of this information is strictly prohibited. If you received this message in error, please notify the sender then delete this message. # SIGNED BY Yakov Salomon (YESSIO)05/09/2024 11:43AM Past Medical History Past Medical History: Cancer, Diabetes Mellitus, Hyperlipidemia, Hypertension, Osteoarthritis (OA) Additional Past Medical History / Comment(s): irregular heartbeat, superficial blood clot in rt leg, hx lt [place] and skin (melanoma)cancer-no chemo or radiation. History of Any Multi-Drug Resistant Organisms: None Reported Past Surgical History: Joint Replacement, Tonsillectomy Additional Past Surgical History / Comment(s): left nephrectomy 2009, removal of skin cancer, benny hip replacement, hernia repair, back surgery 2 years ago "upper back" Past Anesthesia/Blood Transfusion Reactions: No Reported Reaction, Motion Sickness Additional Past Anesthesia/Blood Transfusion Reaction / Comment(s): No hx of blood transfusion. Smoking Status: Former smoker - Past Family History Sister(s) Family Medical History: Cancer Additional Family Medical History / Comment(s): pancreatic cancer, another sister had breast cancer Medications and Allergies Home Medications Medication Instructions Recorded Confirmed Type Atorvastatin [Lipitor] 20 mg PO QAM 01/05/22 05/13/24 History Cholecalciferol [Vitamin D3 (25 50 mcg PO QAM 01/05/22 05/13/24 History Mcg = 1000 Iu)] Fish Oil/Dha/Epa [Fish Oil 1,200 1 cap PO QAM 01/05/22 05/13/24 History mg Fish Oil] HYDROcodone/APAP 5-325MG [Wilson 1 tab PO BID PRN 01/05/22 05/13/24 History 5-325] Magnesium Oxide [Mag-Ox] 500 mg PO QAM 01/05/22 05/13/24 History Pioglitazone [Actos] 30 mg PO QAM 01/05/22 05/13/24 History Zinc 50 mg PO QAM 01/05/22 05/13/24 History allopurinoL [Zyloprim] 100 mg PO BID 01/05/22 05/13/24 History Insulin Glargine,Hum.rec.anlog 50 unit SQ HS 11/26/22 05/13/24 History [Lantus Solostar Pen] Turmeric Root Extract [Turmeric] 1,000 mg PO QAM 11/26/22 05/13/24 History glipiZIDE XL [Glucotrol XL] 5 mg PO QAM 11/26/22 05/13/24 History hydrALAZINE HCL [Apresoline] 100 mg PO BID 11/26/22 05/13/24 History Acetaminophen Tab [Tylenol] 650 mg PO Q6HR PRN tab 11/30/22 05/13/24 Rx Ascorbic Acid [Vitamin C] 1,000 mg PO QAM 05/13/24 05/13/24 History Folic Acid(Unknown Dose) 400 mg PO QAM 05/13/24 History Metoprolol Succinate (ER) [Toprol 50 mg PO QAM 05/13/24 05/13/24 History XL] Allergies Allergy/AdvReac Type Severity Reaction Status Date / Time codeine Allergy Rash/Hives Verified 05/15/24 05:53 Physical Examination Osteopathic Statement: *. No significant issues noted on an osteopathic structural exam other than those noted in the History and Physical/Consult. Assessment and Plan (1) Cyst of lumbar facet joint Current Visit: Yes Status: Acute Priority: High Code(s): M71.38 - OTHER BURSAL CYST, OTHER SITE SNOMED Code(s): 060295382 (2) Lumbar disc herniation with radiculopathy Current Visit: Yes Status: Acute Priority: High Code(s): M51.16 - INTERVERTEBRAL DISC DISORDERS W RADICULOPATHY, LUMBAR REGION SNOMED Code(s): 832030615 (3) Spondylolisthesis at L2-L3 level Current Visit: Yes Status: Acute Priority: High Code(s): M43.16 - SPONDYLOLISTHESIS, LUMBAR REGION SNOMED Code(s): 340158560902619
[2024-05-15] MEDS: GABAPENTIN 300 MG CAP PO PRN (06:17)
[2024-05-15] MEDS: ACETAMINOPHEN TAB 500 MG TAB PO PRN (06:17)
[2024-05-15] MEDS: ONDANSETRON 4 MG/2 ML VIAL IVP PRN (06:45)
[2024-05-15 06:48] LABS: Glucose,Whole Blood 104 mg/dL (70-110)
[2024-05-15] MEDS: LACTATED RINGERS 1,000 ML IV SCH (06:48)
[2024-05-15] MEDS: IV FLUID CONTINUATION 1,000 ML IV ONE ×2 (07:13)
[2024-05-15] MEDS: MIDAZOLAM 2 MG/2 ML VIAL IV ONE (07:15)
[2024-05-15] MEDS: fentaNYL (PF) 50 MCG/ML 2 ML AMP IV PRN (07:15)
[2024-05-15] MEDS ORDERED: TRANEXAMIC 1,000 MG/100ML-NACL PREMIX BAG ONE (07:20)
[2024-05-15] MEDS ORDERED: PHENYLEPHRINE 10 MG/ML VIAL ONE (07:20)
[2024-05-15] MEDS ORDERED: SUCCINYLCHOLINE CHLORIDE 200 MG/10 ML VIAL IV ONE (07:20)
[2024-05-15] MEDS ORDERED: LIDOCAINE 1% INJ 10MG/ML (20 ML MDV) ONE (07:20)
[2024-05-15] MEDS ORDERED: fentaNYL (PF) 50 MCG/ML 2 ML AMP ONE (07:20)
[2024-05-15] MEDS ORDERED: KETAMINE HCL IN 0.9 % NACL 50 MG/5 ML SYRINGE ONE (07:20)
[2024-05-15] MEDS ORDERED: PROPOFOL 10 MG/ML 20 ML VIAL IV ONE (07:20)
[2024-05-15] MEDS: THROMBIN (BOVINE) 5,000 UNIT VIAL MISCELLANE ONE (08:56)
[2024-05-15] MEDS: BUPIVACAINE (PF) 0.5% 30 ML VIAL SQ ONE ×2 (08:56)
[2024-05-15] MEDS: LIDOCAINE 2%-EPI 1:100,000 20 ML VIAL SQ ONE ×2 (08:56)
[2024-05-15] MEDS: LACTATED RINGERS 1,000 ML IV ONE ×2 (09:52→11:03)
[2024-05-15 10:03] LABS: Glucose,Whole Blood 132 mg/dL (70-110)
--- NOTE | 2024-05-15 11:15 | XR ---
EXAMINATION TYPE: XR lumbar spine 2 or 3V, FL guidance operating room Intraoperative/procedural fluor oscopic services were provided. Total fluoroscopy time is 1 minute 40 seconds with a total of 11 subm itted images to PACS. Please see the operative/procedural note for further details. DAP: 39.221 Gycm2
[2024-05-15] MEDS ORDERED: SENNOSIDES-DOCUSATE SODIUM 1 EACH TAB PO PRN (11:17)
[2024-05-15] MEDS: HYDROmorphone 0.5 MG/0.5 ML SYRINGE IVP PRN ×2 (11:44→11:51)
[2024-05-15] MEDS: HYDROmorphone 1 MG/ML 1 ML SYRINGE IVP PRN (12:28)
[2024-05-15] MEDS: DEXAMETHASONE SOD PHOSPHATE 4 MG/ML 1 ML VIAL IV ONE (13:22)
[2024-05-15] MEDS: ACETAMINOPHEN TAB 325 MG TAB PO SCH (14:37)
[2024-05-15] MEDS ORDERED: DEXTROSE 50% SYRINGE 50 ML IVP PRN ×2 (15:10)
--- NOTE | 2024-05-15 15:58 | CT ---
EXAMINATION TYPE: CT lumbar spine wo con DATE OF EXAM: 05/15/2024 COMPARISON: None HISTORY: lumbar spine CT DLP: 1230.4 mGycm CONTRAST: None TECHNIQUE: CT of the lumbar spine is performed on a spiral scan at 3 mm thick sections. Reconstructed images are performed in the coronal and sagittal planes. FINDINGS: T12-L1: No focal disc herniation or significant disc bulge is evident. No spinal canal stenosis or neural foraminal stenosis is present. L1-L2: Minimal residual disc bulge is present with anterior thecal sac contact. No AP spinal canal st enosis is present. Mild neural foraminal stenosis present. L2-L3: Disc spacer has been placed. Pedicle screws are present L2 and L3. Laminectomy has been perfor med. Moderate to severe bilateral foraminal stenosis is present. L3-L4: Disc bulge is mild to moderate anterior thecal sac compression. No AP spinal canal stenosis is present. Laminectomy has been performed. Severe bilateral foraminal stenosis is present. L4-L5: Broad-based disc bulge is mild anterior thecal sac compression. No spinal canal stenosis is pr esent. Laminectomy has been performed. Bilateral foraminal stenosis is present. L5-S1: No focal disc herniation or significant disc bulge is evident. No spinal canal stenosis or n eural foraminal stenosis is present Vertebral alignment appears normal. IMPRESSION: 1. Placement of pedicle screws and rods L2-3 with a disc spacer at L2-3. 2. Multilevel foraminal severe stenosis discussed above.
[2024-05-15 16:17] LABS: Glucose,Whole Blood 190 mg/dL (70-110)
[2024-05-15] MEDS: GABAPENTIN 300 MG CAP PO SCH (16:45)
[2024-05-15] MEDS: INSULIN ASPART (NovoLOG) 100 UNIT/ML VIAL SQ SCH (16:46)
--- NOTE | 2024-05-15 17:08 | P.OP ---
Date of Procedure: 05/15/24 Preoperative Diagnosis: Current Active Problems Cyst of lumbar facet joint (Acute) Lumbar disc herniation with radiculopathy (Acute) Spondylolisthesis at L2-L3 level (Acute) Postoperative Diagnosis: Current Active Problems Cyst of lumbar facet joint (Acute) Lumbar disc herniation with radiculopathy (Acute) Spondylolisthesis at L2-L3 level (Acute) Procedure(s) Performed: STAGE I: 1. L2-3 LATERAL INTERBODY FUSION 2. INSERTION OF BIOMECHANICAL DEVICE, CAGE, L2-3 STAGE II: 1. L2-3 POSTEROLATERAL STABILIZED FUSION 2. INSTRUMENTATION L2-3 3. USE OF [employer] NAVIGATION FOR SCREW PLACEMENT USE OF IONM FOR BOTH STAGES ALL SCREWS TESTING > 20 mA Implants: -XPAC LATERAL CAGE [id number] MM LARGE -MAGNATOS, ARTHROCELL -GLOBUS CREO SCEWS AND RODS -CONTOUR PL GUTTERS Anesthesia: CESAR Surgeon: Yakov Salomon Network Design Architect #1: Ricardo Rincon (STEPHON Perera Was present and assisted with all aspects of the case from positioning to dressing placement) Estimated Blood Loss (ml): 100 IV fluids (ml): 1,200 Urine output (ml): 250 Pathology: none sent Condition: stable Disposition: PACU Indications for Procedure: Mr. Perez is presenting for evaluation of low back and bilateral lower extremity pain, bilateral lower extremity numbness and tingling. It was my pleasure to have seen and examined Mr. Perez. In our visit today we have had a chance to go over subjective complaints, physical examination findings and treatments including the natural course history without intervention and various interventional options. The patients imaging demonstrates: L2-3 HNP with severe stenosis, L2-3 facet cyst with boggy facets, pars elongation, grade I spondylolisthesis unstable and disc degeneration. On physical exam, Mr. Perez demonstrates: A continued, worsening lumbar pain with an ache-like, throbbing quality. The patient states his low back pain radiates down into the bilateral lower extremities with a sharp, shooting quality. His lower extremity pain is associated with numbness and tingling bilaterally. He notes inability to walk long distances without the use of a cane. He states he can only walk down one grocery aisle before having to sit and take a break due to worsening pain. He states his current symptoms worsen after all activity. He reports experiencing severe sleep disturbances related to his ongoing pain and associated symptoms. I have explained to the patient that as their condition progresses it will cause further neurological deficits and eventual paralysis. Based on the patients imaging, physical exam, and the rapid progression and disabling nature of their symptoms, at this time I recommend surgery in the form of a: Stage I: L2-3 la teral fusion and Stage II: L2-3 posterolateral stabilization and fusion. I discussed the risk and benefits of this procedure at length with Mr. Perez. The patient agreed to considered pursuing the procedure abovementioned. Prior to surgery, she should follow up with her PCP (Cardio, ID, IM etc) for clearance. Questions were invited and answered, and the patient wishes to proceed as outlined below. Currently, I am recommendin.Stage I: L2-3 lateral fusion and Stage II: L2-3 posterolateral stabilization and fusion Description of Procedure: L2-3 lateral interbody fusion with posterolateral instrumented fusion (DEYANIRA) The patient was seen and examined in the preoperative area. All preoperative protocols were followed. Informed consent was obtained, risks and benefits of the procedure were discussed at length. Risks including bleeding infection damage to the surrounding tissue and risk of reoperation were discussed with the patient. Risk of anesthesia up to and including was discussed with the patient. These are outlined in the risk review. They were willing to accept these risks and all of the risks of surgery. The patient was given a weight- based dose of antibiotics in the form of 2 g Ancef. The patient was seen and evaluated by the anesthesia team who deemed them fit for surgery. The site was marked, the patient was willing to proceed with the procedure. The patient was transferred to the operative suite by the Department of anesthes ia. They were then drifted off to sleep by the department anesthesia and GETA was performed. The patient tolerated this well. Garcia catheter was placed by nursing staff, atraumatically. Once confirmation of lines and ventilation the patient was transferred to a flat Julian table and placed in the right lateral decubitus position. Axillary roll was placed. Hip Bump was placed. All bony prominences including wrists, elbows, axilla, chest, hips, and thighs, and feet were padded very well. Special attention was paid to the genitalia and these were padded accordingly. SCDs were placed on bilateral lower extremities and were connected. Arms were well padded and placed on armboard pillows. The patient was taped to the table and secured. Once in position, again we confirmed good ventilation capabilities and that lines were running appropriately. The patient's left lateral lumbar and flank was then exposed. 1010s were placed outlining the incision site. Standard alcohol was used to clean the incision site and allowed to dry. C-arm was used to biomark the patient and confirm level for incision which was marked with a skin marker. Operative briefing was performed with all teams and everyone in agreement to proceed. The patient was then prepped and draped in a normal sterile fashion. Timeout was then performed and all parties were in agreement with the procedure to be performed. STAGE I: Transverse skin incision was then made over the previously biomarker area and dissection taken down with EC to the external oblique fascia. This was then identified and two large margarita clamps then used for blunt dissection through the external, internal and transverse abdominis inline with the level to be exposed. Once the transversalis fascia was identified the retroperitoneal space was entered bluntly and blunt dissection was used to sweep abdominal contents anteriorly. Retroperitoneal fat was identified and the psoas as well as TVP was palpated. Once this was identified a blunt probe was placed with the help of biplanar fluoroscopy at the L2-3 level. Once it was in good position in the posterior ? of the body and at the disc space, a wire was passed. IONM was used to stimulate the probes before at 2 and 5 mA with no responses in all 4 quadrants. Dilator was then placed over the probe and stimulated and there was no response again. Retractor blades were then chosen and retractor placed and secured in position and to the table. The blades were carefully then opened slightly and the IONM probe sent down all 4 quadrants again without any responses at 2, 5 and 10 mA. The retractor was then opened further for visualization and the dilators and wire removed. Disc space was visible and a combination of bipolar and EC were used to clean margins and identify disc. Once it was identified, rongeur was used to remove outer osteophytes. A osteotome was then used to pass through the disc space under fluoroscopic guidance once this was passed a Frazier was then passed in a similar fashion through to the opposite side to release the osteophytes on this side as well. Once these were released sequential box osteotomes were passed in a similar fashion until the disc had been completely removed. Good bleeding endplates were noted. Pituitary was used to remove any floating or excess fragments. The trial was then placed and sized. The disc space was irrigated. A [55 mm x 22 mm 8-16 mm] expandable lateral leg spine cage was then selected and placed under fluoroscopic guidance. The cages then expanded to its desired height, reducing a and restoring disc space height and lordosis and alignment. The cage was backfilled with MagnetOs. The slot tag inserter was then removed and the area inspected. No injury was evident, minimal bleeding was cauterized and AP and Lateral images confirmed good placement of cage. The retractor was then removed under direct visualization at 20 min in the psoas. The wound was copiously irrigated with NSS. The deep fascia was then closed with 0 Vicryl superficial closed with 2-0 Vicryl and the skin was closed with a 3-0 running strata fix Monocryl. Skin glue was then placed after it was cleaned it was then dressed sterilely with an operative foam dressing. The patient was transferred back to their hospital bed atraumatically and the beds were flipped for the second stage posteriorly. STAGE II: Pt was then positioned prone on a [employer] spine top table. All bony prominences including wrists, elbows, axilla, chest, hips, and thighs, and feet were padded very well. Special attention was paid to the genitalia and these were padded accordingly. SCDs were placed on bilateral lower extremities and were connected. Arms were well padded and placed on armboard pillows. The patient was taped to the table and secured. Once in position, again we confirmed good ventilation capabilities and that lines were running appropriately. The patient's left lateral lumbar and flank was then exposed. 1010s were placed outlining the incision site. Standard alcohol was used to clean the incision site and allowed to dry. C-arm was used to biomark the patient and confirm level for incision which was marked with a skin marker. Operative briefing was performed with all teams and everyone in agreement to proceed. The patient was then prepped and draped in a normal sterile fashion. Timeout was then performed and all parties were in agreement with the procedure to be performed. Skin nicks were then made over the PSIS on the Right side and pins placed for the [employer] Navigation tracker system. This was then secured. A 3D Ziehm spin was then obtained and registered. Once it was confirmed to be accurate, pedicles were targeted through bilateral skin incisions over L2 and L3. Navigated Jamshidi was used to plan screws followed by a navigated drill bit. Once drilled a wire was placed in the pedicle and they were all confirmed to be in good position on AP and Lateral imaging. Screws were then placed over the wires using lateral imaging. Once in position screws were tested and all tested above 20 mA. Rods were then selected and bent appropriately. Posterolateral gutters were decorticated with a high speed jamari and Ventris bio placed in the PL gutters for fusion. Rods were then placed through tulip heads, subfascial and secured with set screws. Set screws were then finally tightened. Tabs were broken off. AP and Lateral imaging confirmed good placement of screws with reduction of height, lordosis and alignment. Wounds were copiously irrigated with NSS. Local anesthetic is placed remote to the incision for the block. The deep fascia was closed with 0 vicryl. Superficial closed with 2-0 Vicryl and skin closed with nina. Wound edges approximated very well. Wounds were then cleaned and dressed sterilly with optifoam dressing. The patient was then transferred to their hospital bed atraumatically. Patient was then awakened and extubated by the department of anesthesia having tolerated the procedure very well with no complications. They were transferred to the postoperative care unit in stable condition.
[2024-05-15 20:52] LABS: Glucose,Whole Blood 203 mg/dL (70-110)
[2024-05-15] MEDS: INSULIN DETEMIR (LEVEMIR) 100 UNIT/ML SYR SQ SCH (21:57)
[2024-05-15] MEDS: allopurinoL 100 MG TAB PO SCH (21:57)
[2024-05-16] MEDS: HYDROcodone/APAP 10-325MG 1 EACH TAB PO PRN (00:09)
--- NOTE | 2024-05-16 00:58 | P.CONS ---
History of Present Illness - Reason for Consult Consult date: 05/15/24 Medical management - Chief Complaint Status post spinal surgery - History of Present Illness Patient is a 78-year-old male with a known history of hypertension, diabetes type 2 insulin-dependent, hyperlipidemia, osteoarthritis, history of melanoma s/p surgical removal, history of back surgery 2 years ago and prior history of smoking was admitted to the hospital for elective surgery due to lumbar disc herniation with radiculopathy and spondylolisthesis at L2-L3 level. Patient is status post L2-L3 lateral interbody fusion, insertion of biomechanical device and posterior lateral stabilization fusion. Use of [employer] navigation for screw placement. Postoperatively blood pressure went up to 171/63 pulse is 84 respiration 16 pulse ox 99% on 2 L oxygen via nasal cannula. Currently patient is drowsy due to anesthesia and pain medications. Denies any complaints of chest pain or shortness of breath. No nausea vomiting or abdominal pain. Blood sugar 190 Review of Systems Constitutional: Patient denies any fever or chills . No generalized weakness or weight loss. Abdomen: Patient denied nausea vomiting and diarrhea and abdominal pain. Cardiovascular: Patient denies any chest pain or short of breath no palpitations. Respiratory: patient denied any cough or sputum production. No shortness of breath Complete review of systems could not be obtained except as per HPI Past Medical History Past Medical History: Cancer, Diabetes Mellitus, Hyperlipidemia, Hypertension, Osteoarthritis (OA) Additional Past Medical History / Comment(s): irregular heartbeat, superficial blood clot in rt leg, hx lt [place] and skin (melanoma)cancer-no chemo or radiation. History of Any Multi-Drug Resistant Organisms: None Reported Past Surgical History: Joint Replacement, Tonsillectomy Additional Past Surgical History / Comment(s): left nephrectomy 2009, removal of skin cancer, benny hip replacement, hernia repair, back surgery 2 years ago "upper back" Past Anesthesia/Blood Transfusion Reactions: No Reported Reaction, Motion Sickness Additional Past Anesthesia/Blood Transfusion Reaction / Comm: No hx of blood transfusion. Past Psychological History: No Psychological Hx Reported Smoking Status: Former smoker Past Alcohol Use History: Rare Additional Past Alcohol Use History / Comment(s): quit smoking 8 yrs ago approx, smoked since teen, < 1 PPD Past Drug Use History: None Reported - Past Family History Sister(s) Family Medical History: Cancer Additional Family Medical History / Comment(s): pancreatic cancer, another sister had breast cancer Medications and Allergies Home Medications Medication Instructions Recorded Confirmed Type Atorvastatin [Lipitor] 20 mg PO QAM 01/05/22 05/15/24 History Cholecalciferol [Vitamin D3 (25 50 mcg PO QAM 01/05/22 05/15/24 History Mcg = 1000 Iu)] Fish Oil/Dha/Epa [Fish Oil 1,200 1 cap PO QAM 01/05/22 05/15/24 History mg Fish Oil] HYDROcodone/APAP 5-325MG [[place] 1 tab PO BID PRN 01/05/22 05/15/24 History 5-325] Magnesium Oxide [Mag-Ox] 500 mg PO QAM 01/05/22 05/15/24 History Pioglitazone [Actos] 30 mg PO QAM 01/05/22 05/15/24 History Zinc 50 mg PO QAM 01/05/22 05/15/24 History allopurinoL [Zyloprim] 100 mg PO BID 01/05/22 05/15/24 History Insulin Glargine,Hum.rec.anlog 50 unit SQ HS 11/26/22 05/15/24 History [Lantus Solostar Pen] Turmeric Root Extract [Turmeric] 1,000 mg PO QAM 11/26/22 05/15/24 History glipiZIDE XL [Glucotrol XL] 5 mg PO QAM 11/26/22 05/15/24 History hydrALAZINE HCL [Apresoline] 100 mg PO BID 11/26/22 05/15/24 History Acetaminophen Tab [Tylenol] 650 mg PO Q6HR PRN tab 11/30/22 05/15/24 Rx Ascorbic Acid [Vitamin C] 1,000 mg PO QAM 05/13/24 05/15/24 History Folic Acid(Unknown Dose) 400 mg PO QAM 05/13/24 05/15/24 History Metoprolol Succinate (ER) [Toprol 50 mg PO QAM 05/13/24 05/15/24 History XL] Allergies Allergy/AdvReac Type Severity Reaction Status Date / Time codeine Allergy Rash/Hives Verified 05/15/24 05:53 Physical Exam Vitals: Vital Signs Temp Pulse Resp BP Pulse Ox 05/15/24 14:00 94.1 F L 84 19 163/68 99 05/15/24 12:45 76 19 135/54 98 06/20/24 12:25 75 17 127/62 97 05/15/24 12:10 78 15 125/61 96 05/15/24 11:55 77 14 176/74 99 05/15/24 11:48 79 15 170/65 92 L 05/15/24 11:33 79 17 173/85 91 L 05/15/24 11:18 80 15 167/75 99 05/15/24 11:03 96.8 F L 84 16 171/63 100 05/15/24 07:26 77 18 161/73 97 05/15/24 06:09 97.7 F 70 18 169/76 97 Intake and Output 05/15/24 05/15/24 05/15/24 06:59 14:59 22:59 Intake Total 2250 Output Total 350 Balance 1900 Intake: IV 2250 Output: Urine 250 Estimated Blood Loss 100 Other: Weight 115.666 kg 115.666 kg PHYSICAL EXAMINATION: Patient is lying in the bed comfortably, no acute distress, awake alert but drowsy.. HEENT: Normocephalic. Neck is supple. Pupils reactive. Nostrils clear. Oral cavity is moist. Neck reveals no JVD, carotid bruits, or thyromegaly. CHEST EXAMINATION: Trachea is central. Symmetrical expansion. Bibasilar diminished sounds otherwise lung lucero clear to auscultation and percussion. CARDIAC: Normal S1, S2 with no gallops. No murmurs ABDOMEN: Soft. Bowel sounds normal. No organomegaly. No abdominal bruits. Extremities: reveal no edema. No clubbing or cyanosis Neurologically awake, alert, oriented x 2-3 patient is drowsy. Able to move all extremities.. Gross no focal deficits noted Skin: No rash or skin lesions. Psychiatric: Coperative. Nonsuicidal Musculoskeletal: No joint swelling or deformity. Results Labs: Abnormal Lab Results - Last 24 Hours (Table) 05/15/24 Range/Units 10:01 POC Glucose (mg/dL) 132 H (70-110) mg/dL Assessment and Plan Assessment: Status post status post L2-L3 lateral interbody fusion, insertion of biomechanical device and posterior lateral stabilization fusion.. Postoperative day 0 Uncontrolled hypertension Diabetes type 2 insulin-dependent Osteoarthritis Prior history of upper back surgery Hyperlipidemia History of smoking History of skin cancer removal/melanoma Prior history of left nephrectomy in 2010 GI and DVT prophylaxis as per primary team Plan: Patient will be continued on pain management and bowel regimen. Limit narcotic pain medication use. Encourage incentive spirometry. Patient will be started back on home medications including metoprolol XL and titrate blood pressure medications as needed. Continue with insulin sliding scale along Lantus/glargine. Titrate dose as needed. Oral hypoglycemics on hold. Follow-up CBC and BMP tomorrow Will continue to follow closely and further recommendations based on the clinical course. Thank you kindly for your consult. Time with Patient: Greater than 30
[2024-05-16 05:44] LABS: Glucose,Whole Blood 186 mg/dL (70-110)
[2024-05-16] MEDS: METOPROLOL SUCCINATE (ER) 50 MG TAB.ER.24H PO SCH (08:55)
[2024-05-16] MEDS: ATORVASTATIN 20 MG TAB PO SCH (08:55)
[2024-05-16] MEDS: CYCLOBENZAPRINE 5 MG TAB PO PRN (08:55)
[2024-05-16 10:41] LABS: Basophils # (A) 0.03 X 10*3/uL (0.00-0.10); Basophils % (A) 0.4 %; Eosinophils # (A) 0.07 X 10*3/uL (0.04-0.35); HCT 34.4 % (39.6-50.0); HGB 10.7 g/dL (13.0-17.0); Lymphocytes # (A) 0.72 X 10*3/uL (0.90-5.00); MCH 31.5 pg (27.0-32.0); MCHC 31.1 g/dL (32.0-37.0); MCV 101.2 FL (80.0-97.0); Mean Platelet Volume 10.9 FL (9.5-12.2); Monocytes # (A) 0.74 X 10*3/uL (0.20-1.00); Monocytes % (A) 10.3 %; NRBC Per 100 WBC 0 X 10*3/uL (0.00-0.01); Neutrophils # (A) 5.59 X 10*3/uL (1.80-7.70); Platelet Count 160 X 10*3/uL (140-440); RDW 14.3 % (11.5-14.5); WBC 7.17 X 10*3/uL (4.50-10.00)
[2024-05-16 11:02] LABS: BUN/Creat Ratio 17.59 Ratio (12.00-20.00); Blood Urea Nitrogen 38.7 mg/dL (9.0-27.0); Calcium 8.3 mg/dL (8.7-10.3); Carbon Dioxide 24.3 mmol/L (21.6-31.8); Chloride 112 mmol/L (96-109); Glucose 151 mg/dL (70-110); Potassium 4.9 mmol/L (3.5-5.5); Sodium 144 mmol/L (135-145)
--- NOTE | 2024-05-16 11:27 | P.PN ---
Subjective Progress Note Date: 05/16/24 Principal diagnosis: Cyst of lumbar facet joint Lumbar disc herniation with radiculopathy Spondylolisthesis at L2-L3 level Patient was seen at bedside this morning sitting up in chair with Garcia currently in place. Patient just finished getting up walking the bathroom with nurse Patient says he is eager to work with therapy this morning. Patient says he is having pain mostly in the low back with minimal radiation to his buttocks. Patient denies any other locations of pain. Patient says the oral medication does help quite is resting. Patient says the pain does increase when changing positions. Patient denies any other issues at this time. Patient denies chest pain, fever, shortness of breath, nausea, vomiting, change in vision, loss of bowel/bladder control. Objective - Vital Signs Vital signs: Vital Signs Temp 97.9 F 05/16/24 07:18 Pulse 74 05/16/24 07:18 Resp 17 05/16/24 07:18 BP 133/64 05/16/24 07:18 Pulse Ox 97 05/16/24 07:18 FiO2 Intake & Output 05/15/24 05/16/24 05/16/24 18:59 06:59 18:59 Intake Total 2250 Output Total 350 1000 Balance 1900 -1000 Weight 115.666 kg Intake: IV 2250 Output: Urine 250 1000 Estimated Blood Loss 100 Other: Voiding Method Indwelling Catheter - Exam Dressing is present of her lumbar spine. Dressing appears to be clean, dry, int act. Surgical dressing present over right flank. Negative for any active change. Sensation is equal, symmetric, bilaterally intact throughout the upper and lower extremities. Patient has some generalized tenderness palpation directly over incisions. Nontender to palpation throughout rest of exam. Patient has full range of motion throughout bilateral upper extremities on exam. There is limited range of motion of bilateral hips and flexion/extension secondary to referred pain and stiffness in the low back. Patient has full range motion throughout bilateral knees and ankles on exam. 5/5 in all major motor groups in bilateral upper extremities. 4+/5 in all major motor groups in bilateral lower extremities. Radial pulses intact, 2+. Cap refill under 3 seconds in digits of upper extremities. Negative Homans. Negative Orlando 's bilaterally. No clonus bilaterally - Labs CBC & Chem 7: 05/16/24 07:38 05/16/24 07:38 Labs: Abnormal Lab Results - Last 24 Hours (Table) 05/15/24 05/15/24 05/15/24 Range/Units 10:01 16:16 20:49 POC Glucose (mg/dL) 132 H 190 H 203 H (70-110) mg/dL 05/16/24 Range/Units 05:43 POC Glucose (mg/dL) 186 H (70-110) mg/dL Assessment and Plan Assessment: 1. Cyst of lumbar facet joint; Lumbar disc herniation with radiculopathy; Spondylolisthesis at L2-L3 level Plan: 1. Cyst of lumbar facet joint; Lumbar disc herniation with radiculopathy; Spondylolisthesis at L2-L3 level - surgery performed yesterday, , 05/15/2024L2-L3 posterolateral interbody fusion. Patient stable bedside this morning. Plan to work with PT/OT daily. Pain medication as needed. Weightbearing as tolerated with walker and assistance as needed. It is okay to remove Garcia today at bedside. We will continue to follow patient during stay in hospital. Plan to assess dressing daily. Plan for discharge within the next couple days. 2. Appreciate medical management 3. Pain management - Henley; Tylenol; Flexeril; gabapentin 4. GI prophylaxis - Senna 5. DVT prophylaxis - mechanical 6. PT/OT - weightbearing as toelrated w/walker and assistance as needed 7. Encourage incentive spirometer use 8. Discharge planning - Plan for discharge within the next couple days. Time with Patient: Less than 30
[2024-05-16 12:06] LABS: Glucose,Whole Blood 212 mg/dL (70-110)
--- NOTE | 2024-05-16 13:01 | P.PN ---
Subjective Progress Note Date: 05/16/24 Patient is a 78-year-old male with a known history of hypertension, diabetes type 2 insulin-dependent, hyperlipidemia, osteoarthritis, history of melanoma s/p surgical removal, history of back surgery 2 years ago and prior history of smoking was admitted to the hospital for elective surgery due to lumbar disc herniation with radiculopathy and spondylolisthesis at L2-L3 level. Patient is status post L2-L3 lateral interbody fusion, insertion of biomechanical device and posterior lateral stabilization fusion. Use of [employer] navigation for screw placement. Postoperatively blood pressure went up to 171/63 pulse is 84 respiration 16 pulse ox 99% on 2 L oxygen via nasal cannula. Currently patient is drowsy due to anesthesia and pain medications. Denies any complaints of chest pain or shortness of breath. No nausea vomiting or abdominal pain. Blood sugar 190 05/16. Patient seen and examined. Still having a lot of back pain. REVIEW OF SYSTEMS: CONSTITUTIONAL: No fever, no malaise,. CARDIOVASCULAR: No chest pain, no palpitations, no syncope. PULMONARY: No shortness of breath, no cough, GASTROINTESTINAL: No diarrhea, no nausea, no vomiting, no abdominal pain. NEUROLOGICAL: No headaches, no weakness, PHYSICAL EXAMINATION: GENERAL: The patient is alert and oriented x3, not in any acute distress. Well developed, well nourished. HEENT: Pupils are round and equally reacting to light. EOMI. No scleral icterus. No conjunctival pallor. Normocephalic, atraumatic. No pharyngeal erythema. No thyromegaly. CARDIOVASCULAR: S1 and S2 present. No murmurs, rubs, or gallops. PULMONARY: Chest is clear to auscultation, no wheezing or crackles. ABDOMEN: Soft, nontender, nondistended, normoactive bowel sounds. No palpable organomegaly. MUSCULOSKELETAL: No joint swelling or deformity. EXTREMITIES: No cyanosis, clubbing, or pedal edema. NEUROLOGICAL: Gross neurological examination did not reveal any focal deficits. SKIN: No rashes. Lumbar area surgical incision seen Assessment and plan Status post status post L2-L3 lateral interbody fusion, insertion of biomechanical device and posterior lateral stabilization fusion. Uncontrolled hypertension Diabetes type 2 insulin-dependent Osteoarthritis Prior history of upper back surgery Hyperlipidemia History of smoking History of skin cancer removal/melanoma Prior history of left nephrectomy in 2009 Monitor vital signs Monitor CBC Monitor CMP Monitor blood sugar levels, continue current regimen Continue Toprol and Lipitor Continue pain management per orthopedics Continue DVT prophylaxis per orthopedics Resume home meds PT and OT consulted Orthopedic following Labs and medication were reviewed.. Continue same treatment. Continue with symptomatic treatment. Resume home medication. Monitor labs and vitals. DVT and GI prophylaxis. Further recommendations as per clinical course of the patient Dictation was produced using [employer] dictation software. please excuse any grammatical, word or spelling errors. Objective - Vital Signs Vital signs: Vital Signs Temp 97.9 F 05/16/24 07:18 Pulse 74 05/16/24 07:18 Resp 17 05/16/24 07:18 BP 133/64 05/16/24 07:18 Pulse Ox 97 05/16/24 07:18 FiO2 Intake & Output 05/15/24 05/16/24 05/16/24 18:59 06:59 18:59 Intake Total 2250 Output Total 350 1000 Balance 1900 -1000 Weight 115.666 kg Intake: IV 2250 Output: Urine 250 1000 Estimated Blood Loss 100 Other: Voiding Method Indwelling Catheter Indwelling Catheter - Labs CBC & Chem 7: 05/16/24 07:38 05/16/24 07:38 Labs: Abnormal Lab Results - Last 24 Hours (Table) 05/15/24 05/15/24 05/16/24 Range/Units 16:16 20:49 05:43 POC Glucose (mg/dL) 190 H 203 H 186 H (70-110) mg/dL
[2024-05-16] MEDS: ACETAMINOPHEN IV (For NPO) 1,000 MG in EMPTY BAG 1 BAG IVPB SCH (13:29)
[2024-05-16] MEDS: KETOROLAC 15 MG/ML 1 ML VIAL IVP SCH (13:30)
[2024-05-16 15:13] LABS: Glucose,Whole Blood 265 mg/dL (70-110)
[2024-05-16 16:44] LABS: Glucose,Whole Blood 229 mg/dL (70-110)
[2024-05-16 21:18] LABS: Glucose,Whole Blood 220 mg/dL (70-110)
[2024-05-17 05:58] LABS: Glucose,Whole Blood 135 mg/dL (70-110)
[2024-05-17] MEDS: CAFFEINE-SODIUM BENZOATE 500 MG in SODIUM CHLORIDE 0.9% 100 ML IVPB ONE (07:42)
--- NOTE | 2024-05-17 10:21 | P.PN ---
Subjective Progress Note Date: 05/17/24 Principal diagnosis: Cyst of lumbar facet joint Lumbar disc herniation with radiculopathy Spondylolisthesis at L2-L3 level Patient was seen at bedside this morning sitting up in chair. Patient says he is eager to work with therapy this morning. Patient says he is having pain mo stly in the low back with minimal radiation to his buttocks. Patient denies any other locations of pain. Patient says the oral medication does help when he is resting. Patient says the pain does increase when changing positions. Patient denies any other issues at this time. Patient denies chest pain, fever, shortness of breath, nausea, vomiting, change in vision, loss of bowel/bladder control. Objective - Vital Signs Vital signs: Vital Signs Temp 97.6 F 05/17/24 08:00 Pulse 69 05/17/24 08:00 Resp 18 05/17/24 08:00 BP 137/61 05/17/24 08:00 Pulse Ox 97 05/17/24 08:00 FiO2 Intake & Output 05/16/24 05/17/24 05/17/24 18:59 06:59 18:59 Output Total 550 300 Balance -550 -300 Output: Urine 550 300 Other: Voiding Method Indwelling Catheter Indwelling Catheter - Exam Dressing is present on her lumbar spine. Dressing taken down. [place] are well aligned and intact. Negative for any active drainage. New dressing placed over incision. surgical dressing present over flank. Negative for any active drainage. Sensation is equal, symmetric, bilaterally intact throughout the upper and lower extremities. Patient has some generalized tenderness palpation directly over incisions. Nontender to palpation throughout rest of exam. Patient has full range of motion throughout bilateral upper extremities on exam. There is limited range of motion of bilateral hips and flexion/extension secondary to referred pain and stiffness in the low back. Patient has full range motion throughout bilateral knees and ankles on exam. 5/5 in all major motor groups in bilateral upper extremities. 4+/5 in all major motor groups in bilateral lower extremities. Radial pulses intact, 2+. Cap refill under 3 seconds in digits of upper extremities. Negative Homans. Negative [place] 's bilaterally. No clonus bilaterally - Labs CBC & Chem 7: 05/16/24 07:38 05/16/24 07:38 Labs: Abnormal Lab Results - Last 24 Hours (Table) 05/16/24 05/16/24 05/16/24 Range/Units 07:38 07:38 12:05 RBC 3.40 L (4.40-5.60) X 10*6/uL Hgb 10.7 L (13.0-17.0) g/dL Hct 34.4 L (39.6-50.0) % MCV 101.2 H (80.0-97.0) FL MCHC 31.1 L (32.0-37.0) g/dL Lymphocytes # 0.72 L (0.90-5.00) X 10*3/uL Chloride 112 H (96-109) mmol/L BUN 38.7 H (9.0-27.0) mg/dL Creatinine 2.2 H (0.6-1.5) mg/dL Est GFR (CKD-EPI) 30 L (>=60) Glucose 151 H (70-110) mg/dL POC Glucose (mg/dL) 212 H (70-110) mg/dL Calcium 8.3 L (8.7-10.3) mg/dL 05/16/24 05/16/24 05/16/24 Range/Units 15:08 16:42 21:17 RBC (4.40-5.60) X 10*6/uL Hgb (13.0-17.0) g/dL Hct (39.6-50.0) % MCV (80.0-97.0) FL MCHC (32.0-37.0) g/dL Lymphocytes # (0.90-5.00) X 10*3/uL Chloride (96-109) mmol/L BUN (9.0-27.0) mg/dL Creatinine (0.6-1.5) mg/dL Est GFR (CKD-EPI) (>=60) Glucose (70-110) mg/dL POC Glucose (mg/dL) 265 H 229 H 220 H (70-110) mg/dL Calcium (8.7-10.3) mg/dL 05/17/24 Range/Units 05:54 RBC (4.40-5.60) X 10*6/uL Hgb (13.0-17.0) g/dL Hct (39.6-50.0) % MCV (80.0-97.0) FL MCHC (32.0-37.0) g/dL Lymphocytes # (0.90-5.00) X 10*3/uL Chloride (96-109) mmol/L BUN (9.0-27.0) mg/dL Creatinine (0.6-1.5) mg/dL Est GFR (CKD-EPI) (>=60) Glucose (70-110) mg/dL POC Glucose (mg/dL) 135 H (70-110) mg/dL Calcium (8.7-10.3) mg/dL Assessment and Plan Assessment: 1. Cyst of lumbar facet joint; Lumbar disc herniation with radiculopathy; Spondylolisthesis at L2-L3 level Plan: 1. Cyst of lumbar facet joint; Lumbar disc herniation with radiculopathy; Spondylolisthesis at L2-L3 level - surgery performed , 05/15/2024L2-L3 posterolateral interbody fusion. Patient stable bedside this morning. Plan to work with PT/OT daily. Pain medication as needed. Weightbearing as tolerated with walker and assistance as needed. It is okay to remove Garcia today at bedside. We will continue to follow patient during stay in hospital. Plan to assess dressing daily. Plan for discharge within the next couple days. 2. Appreciate medical management 3. Pain management - [place]; Tylenol; Flexeril; gabapentin 4. GI prophylaxis - Senna 5. DVT prophylaxis - mechanical 6. PT/OT - weightbearing as toelrated w/walker and assistance as needed 7. Encourage incentive spirometer use 8. Discharge planning - Plan for discharge within the next couple days. Time with Patient: Less than 30
[2024-05-17 11:35] LABS: Glucose,Whole Blood 222 mg/dL (70-110)
--- NOTE | 2024-05-17 12:53 | P.PN ---
Subjective Progress Note Date: 05/17/24 Patient is a 78-year-old male with a known history of hypertension, diabetes type 2 insulin-dependent, hyperlipidemia, osteoarthritis, history of melanoma s/p surgical removal, history of back surgery 2 years ago and prior history of smoking was admitted to the hospital for elective surgery due to lumbar disc herniation with radiculopathy and spondylolisthesis at L2-L3 level. Patient is status post L2-L3 lateral interbody fusion, insertion of biomechanical device and posterior lateral stabilization fusion. Use of [email or web address] navigation for screw placement. Postoperatively blood pressure went up to 171/63 pulse is 84 respiration 16 pulse ox 99% on 2 L oxygen via nasal cannula. Currently patient is drowsy due to anesthesia and pain medications. Denies any complaints of chest pain or shortness of breath. No nausea vomiting or abdominal pain. Blood sugar 190 05/16. Patient seen and examined. Still having a lot of back pain. 05/17. Patient seen examined. Patient continues to be on and off confused. Advise judicious use of pain medications REVIEW OF SYSTEMS: CONSTITUTIONAL: No fever, no malaise,. CARDIOVASCULAR: No chest pain, no palpitations, no syncope. PULMONARY: No shortness of breath, no cough, GASTROINTESTINAL: No diarrhea, no nausea, no vomiting, no abdominal pain. NEUROLOGICAL: No headaches, no weakness, PHYSICAL EXAMINATION: GENERAL: The patient is alert, mental status waxes and wanes, not in any acute distress. Well developed, well nourished. HEENT: Pupils are round and equally reacting to light. EOMI. No scleral icterus. No conjunctival pallor. Normocephalic, atraumatic. No pharyngeal erythema. No thyromegaly. CARDIOVASCULAR: S1 and S2 present. No murmurs, rubs, or gallops. PULMONARY: Chest is clear to auscultation, no wheezing or crackles. ABDOMEN: Soft, nontender, nondistended, normoactive bowel sounds. No palpable organomegaly. MUSCULOSKELETAL: No joint swelling or deformity. EXTREMITIES: No cyanosis, clubbing, or pedal edema. NEUROLOGICAL: Gross neurological examination did not reveal any focal deficits. SKIN: No rashes. Lumbar area surgical incision seen Assessment and plan Status post status post L2-L3 lateral interbody fusion, insertion of biomechanical device and posterior lateral stabilization fusion. Uncontrolled hypertension Diabetes type 2 insulin-dependent Osteoarthritis Prior history of upper back surgery Hyperlipidemia History of smoking History of skin cancer removal/melanoma Prior history of left nephrectomy in 2010 Monitor vital signs Monitor CBC Monitor CMP Monitor blood sugar levels, continue current regimen Continue Toprol and Lipitor Continue pain management per orthopedics Continue DVT prophylaxis per orthopedics PT and OT following Orthopedic following Labs and medication were reviewed.. Continue same treatment. Continue with symptomatic treatment. Resume home medication. Monitor labs and vitals. DVT and GI prophylaxis. Further recommendations as per clinical course of the patient Dictation was produced using [employer] dictation software. please excuse any grammatical, word or spelling errors. Objective - Vital Signs Vital signs: Vital Signs Temp 97.6 F 05/17/24 08:00 Pulse 69 05/17/24 08:00 Resp 18 05/17/24 08:00 BP 137/61 05/17/24 08:00 Pulse Ox 94 L 05/17/24 09:27 FiO2 Intake & Output 05/16/24 05/17/24 05/17/24 18:59 06:59 18:59 Intake Total 240 Output Total 550 300 Balance -550 -300 240 Intake: Oral 240 Output: Urine 550 300 Other: Voiding Method Indwelling Catheter Indwelling Catheter - Labs CBC & Chem 7: 05/16/24 07:38 05/16/24 07:38 Labs: Abnormal Lab Results - Last 24 Hours (Table) 05/16/24 05/16/24 05/16/24 Range/Units 15:08 16:42 21:17 POC Glucose (mg/dL) 265 H 229 H 220 H (70-110) mg/dL 05/17/24 05/17/24 Range/Units 05:54 11:33 POC Glucose (mg/dL) 135 H 222 H (70-110) mg/dL
[2024-05-17 16:37] LABS: Glucose,Whole Blood 190 mg/dL (70-110)
[2024-05-17 20:43] LABS: Glucose,Whole Blood 203 mg/dL (70-110)
[2024-05-18 05:55] LABS: Glucose,Whole Blood 66 mg/dL (70-110)
[2024-05-18 06:15] LABS: Glucose,Whole Blood 88 mg/dL (70-110)
--- NOTE | 2024-05-18 08:08 | P.PN ---
Subjective Progress Note Date: 05/18/24 Principal diagnosis: POD 3 L2-3 Lateral with Posteriolateral fusion Pt s/e. Nursing at bedside. He is up in his chair eating breakfast. He looks much better today. Pain controlled. No issues overnight. Denies f/c/sob/cp. No perineal numbness/tingling. Has had BM and is urinating appropriately. States pain in back, but getting better. Nursing states he gets up with assist but does need a decent amount of help to get out of bed and up. Once up he is fairly independent. Objective - Vital Signs Vital signs: Vital Signs Temp 98.7 F 05/18/24 01:02 Pulse 74 05/18/24 01:02 Resp 18 05/18/24 01:02 BP 127/52 05/18/24 01:02 Pulse Ox 94 L 05/18/24 01:02 FiO2 Intake & Output 05/17/24 05/18/24 05/18/24 18:59 06:59 18:59 Intake Total 480 Output Total 400 500 Balance 80 -500 Intake: Oral 480 Output: Urine 400 500 Other: Voiding Method Indwelling Catheter # Voids 1 - Exam Physical Exam: -Patient is alert and oriented 3 appears well-nourished well-hydrated is in no acute distress. They do not appear septic. -There is TTP moderate around the incisions on the back. Side incision no TTP [-Incision is CDI, no EEE, no drainage] -Upper extremities show [5] out of 5 strength in all major muscle groups. -Lower extremities with 4+ out of 5 strength in all major muscle groups No focal deficits. Deconditioining. -There is [FROM] that is [painless] of the b/l UE and LE in all major joints. -Neg straight SLR -They are intact to light touch sensation in C5 to T1 and L2 to S1 nerve distribution. -DTR [2]/4 all upper and lower extremities -Patient has palpable distal pulses all 4 ext -Compartments are soft and compressible. -Patient shows a negative Senthil's [-Neg Hoffmans b/l] [-Neg Clonus b/l] [-Neg babinski b/l] Cranial nerves II through XII are grossly intact. - Constitutional General appearance: Present: average body habitus, cooperative - EENT Eyes: Present: EOMI, PERRLA - Gastrointestinal General gastrointestinal: Present: soft - Neurologic Neurologic: Present: CNII-XII intact - Musculoskeletal Musculoskeletal: Present: gait normal - Psychiatric Psychiatric: Present: A&O x's 3, appropriate affect - Allied health notes Allied health notes reviewed: PT - Labs CBC & Chem 7: 05/16/24 07:38 05/16/24 07:38 Labs: Abnormal Lab Results - Last 24 Hours (Table) 05/17/24 05/17/24 05/17/24 Range/Units 11:33 16:35 20:41 POC Glucose (mg/dL) 222 H 190 H 203 H (70-110) mg/dL 05/18/24 Range/Units 05:52 POC Glucose (mg/dL) 66 L (70-110) mg/dL Assessment and Plan (1) Cyst of lumbar facet joint Current Visit: Yes Status: Acute Priority: High Code(s): M71.38 - OTHER BURSAL CYST, OTHER SITE SNOMED Code(s): 700240853 (2) Lumbar disc herniation with radiculopathy Current Visit: Yes Status: Acute Priority: High Code(s): M51.16 - INTERVERTEBRAL DISC DISORDERS W RADICULOPATHY, LUMBAR REGION SNOMED Code(s): 566758408 (3) Spondylolisthesis at L2-L3 level Current Visit: Yes Status: Acute Priority: High Code(s): M43.16 - SPONDYLOLISTHESIS, LUMBAR REGION SNOMED Code(s): 464826728391129 (4) Fusion of lumbar spine Current Visit: Yes Status: Acute Code(s): M43.26 - FUSION OF SPINE, LUMBAR REGION SNOMED Code(s): 358576706 Plan: -Appreciate animal nutrition consultant and team management. -Activity: Ambulate QID, OOB all meals, up and about, limit lifting bending twisting to less than 5 lbs. Use walker or cane if needed for stability. -Daily PT/OT, increase ambulation strength and balance. -No brace needed -Ice to back -Pain control: [Adequate at this time] -Meds: [reviewed] -GI ppx: senna, Miralax -DVT PPX: [OK to restart Heparin tonight] -Hygiene: Shower today. Maintain dressing clean and dry. Meticulous cleaning after BMs away from incision site -Encourage IS 10x/hr -Dispo: Home with [facility]HC either Sunday or Sunday depending on pts condition. If he progresses and can do things on his own then home. If not then he may need rehab.
[2024-05-18] MEDS: CAFFEINE-SODIUM BENZOATE 500 MG in SODIUM CHLORIDE 0.9% 1,000 ML IVPB SCH (08:45)
[2024-05-18] MEDS: ACETAMINOPHEN TAB 500 MG TAB PO PRN (08:50)
[2024-05-18 11:59] LABS: Glucose,Whole Blood 188 mg/dL (70-110)
--- NOTE | 2024-05-18 13:02 | P.PN ---
Subjective Progress Note Date: 05/18/24 Patient is a 78-year-old male with a known history of hypertension, diabetes type 2 insulin-dependent, hyperlipidemia, osteoarthritis, history of melanoma s/p surgical removal, history of back surgery 2 years ago and prior history of smoking was admitted to the hospital for elective surgery due to lumbar disc herniation with radiculopathy and spondylolisthesis at L2-L3 level. Patient is status post L2-L3 lateral interbody fusion, insertion of biomechanical device and posterior lateral stabilization fusion. Use of [employer] navigation for screw placement. Postoperatively blood pressure went up to 171/63 pulse is 84 respiration 16 pulse ox 99% on 2 L oxygen via nasal cannula. Currently patient is drowsy due to anesthesia and pain medications. Denies any complaints of chest pain or shortness of breath. No nausea vomiting or abdominal pain. Blood sugar 190 05/16. Patient seen and examined. Still having a lot of back pain. 05/17. Patient seen examined. Patient continues to be on and off confused. Advise judicious use of pain medications 05/18. Patient seen and examined. Sitting upright in the chair. States pain has improved. Has swelling of lower extremities. REVIEW OF SYSTEMS: CONSTITUTIONAL: No fever, no malaise,. CARDIOVASCULAR: No chest pain, no palpitations, no syncope. PULMONARY: No shortness of breath, no cough, GASTROINTESTINAL: No diarrhea, no nausea, no vomiting, no abdominal pain. NEUROLOGICAL: No headaches, no weakness, PHYSICAL EXAMINATION: GENERAL: The patient is alert, mental status waxes and wanes, not in any acute distress. Well developed, well nourished. HEENT: Pupils are round and equally reacting to light. EOMI. No scleral icterus. No conjunctival pallor. Normocephalic, atraumatic. No pharyngeal erythema. No thyromegaly. CARDIOVASCULAR: S1 and S2 present. No murmurs, rubs, or gallops. PULMONARY: Chest is clear to auscultation, no wheezing or crackles. ABDOMEN: Soft, nontender, nondistended, normoactive bowel sounds. No palpable organomegaly. MUSCULOSKELETAL: No joint swelling or deformity. EXTREMITIES: No cyanosis, 1+ pitting edema lower extremities bilaterally NEUROLOGICAL: Gross neurological examination did not reveal any focal deficits. SKIN: No rashes. Lumbar area surgical incision seen Assessment and plan Status post status post L2-L3 lateral interbody fusion, insertion of biomechanical device and posterior lateral stabilization fusion. Uncontrolled hypertension Diabetes type 2 insulin-dependent Osteoarthritis Prior history of upper back surgery Hyperlipidemia History of smoking History of skin cancer removal/melanoma Prior history of left nephrectomy in 2010 Monitor vital signs Monitor CBC Monitor CMP Monitor blood sugar levels, continue current regimen Continue Toprol and Lipitor Continue pain management per orthopedics Continue DVT prophylaxis per orthopedics PT and OT following Orthopedic following Labs and medication were reviewed.. Continue same treatment. Continue with symptomatic treatment. Resume home medication. Monitor labs and vitals. DVT and GI prophylaxis. Further recommendations as per clinical course of the patient Dictation was produced using [employer] dictation software. please excuse any grammatical, word or spelling errors. Objective - Vital Signs Vital signs: Vital Signs Temp 98.3 F 05/18/24 07:59 Pulse 68 05/18/24 07:59 Resp 16 05/18/24 07:59 BP 154/57 05/18/24 07:59 Pulse Ox 97 05/18/24 07:59 FiO2 Intake & Output 05/17/24 05/18/24 05/18/24 18:59 06:59 18:59 Intake Total 480 Output Total 400 500 Balance 80 -500 Intake: Oral 480 Output: Urine 400 500 Other: Voiding Method Indwelling Catheter # Voids 1 - Labs CBC & Chem 7: 05/16/24 07:38 05/16/24 07:38 Labs: Abnormal Lab Results - Last 24 Hours (Table) 05/17/24 05/17/24 05/18/24 Range/Units 16:35 20:41 05:52 POC Glucose (mg/dL) 190 H 203 H 66 L (70-110) mg/dL 05/18/24 Range/Units 11:57 POC Glucose (mg/dL) 188 H (70-110) mg/dL
[2024-05-18 17:00] LABS: Glucose,Whole Blood 180 mg/dL (70-110)
[2024-05-18] MEDS: HYDROcodone/APAP 5-325MG 1 EACH TAB PO PRN (17:40)
[2024-05-18 20:19] LABS: Glucose,Whole Blood 227 mg/dL (70-110)
[2024-05-18] MEDS: hydrALAZINE HCL 50 MG TAB PO SCH (20:42)
[2024-05-19 06:04] LABS: Glucose,Whole Blood 84 mg/dL (70-110)
[2024-05-19 08:22] LABS: Basophils # (A) 0.04 X 10*3/uL (0.00-0.10); Basophils % (A) 0.4 %; Eosinophils % (A) 2.2 %; HGB 10.1 g/dL (13.0-17.0); Lymphocytes # (A) 0.93 X 10*3/uL (0.90-5.00); Lymphocytes % (A) 10.4 %; MCHC 32.6 g/dL (32.0-37.0); MCV 98.1 FL (80.0-97.0); Mean Platelet Volume 11.1 FL (9.5-12.2); Monocytes # (A) 0.76 X 10*3/uL (0.20-1.00); Monocytes % (A) 8.5 %; NRBC Per 100 WBC 0 X 10*3/uL (0.00-0.01); Neutrophils % (A) 78.2 %; Platelet Count 194 X 10*3/uL (140-440); RBC 3.16 X 10*6/uL (4.40-5.60); RDW 14.2 % (11.5-14.5); WBC 8.96 X 10*3/uL (4.50-10.00)
[2024-05-19 08:50] LABS: ALT 19 U/L (10-49); AST 37 U/L (14-35); Alkaline Phosphatase 107 U/L (41-126); BUN/Creat Ratio 20.32 Ratio (12.00-20.00); Blood Urea Nitrogen 44.7 mg/dL (9.0-27.0); Calcium 8.1 mg/dL (8.7-10.3); Carbon Dioxide 22.9 mmol/L (21.6-31.8); Chloride 110 mmol/L (96-109); Glucose 82 mg/dL (70-110); Potassium 4.5 mmol/L (3.5-5.5); Sodium 143 mmol/L (135-145); Total Bilirubin 1.3 mg/dL (0.3-1.2)
[2024-05-19] MEDS ORDERED: NON FORMULARY DRUG (Fish Oil/Dha/Epa [Fish Oil 1,200 Mg Fish Oil] 1 EACH Capsule) PO SCH (09:00)
--- NOTE | 2024-05-19 09:03 | P.PN ---
Subjective Progress Note Date: 05/19/24 Principal diagnosis: 1. 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 L2-3 facet cyst 3. L2-3 instability 4. Diffuse idiopathic skeletal hyperostosis Patient seen and examined this morning. Patient is resting comfortably in bed. Patient does report that he has been ambulatory within the room. He states he does have increased pain with activity. Medications have been adjusted. Informed patient that physical therapy will begin to work with him today and that he needs to be up in the chair for all meals. Discussed with him that he will have pain due to the surgery but that it will get better each day and with increased activity as tolerated. Surgical incision to the lumbar spine is well- approximated with nina intact. New surgical dressing has been applied. There has been an increase in patient's BUN and creatinine levels. Toradol has been discontinued. Continue to encourage patient to be up and about today and u se incentive spirometer 10 times an hour while awake. Objective - Vital Signs Vital signs: Vital Signs Temp 97.6 F 05/19/24 07:56 Pulse 98 05/19/24 07:56 Resp 18 05/19/24 07:56 BP 194/71 05/19/24 07:56 Pulse Ox 91 L 05/19/24 07:56 FiO2 Intake & Output 05/18/24 05/19/24 05/19/24 18:59 06:59 18:59 Other: # Voids 2 - Exam Physical Examination General: The patient is awake and alert, in no acute distress Skin: Skin is warm and dry with no obvious rashes or lesions. Surgical incision is well-approximated with nina intact. No active drainage. New surgical dressing has been applied. Eye: Pupils are equal, round and reactive to light, extra-ocular movements are intact; there is normal conjunctiva bilaterally. Neck: The neck is supple, there is no tenderness and ROM intact. Cardiovascular: There is a regular rate and rhythm. No murmur, rub or gallop is appreciated. Respiratory: Lungs are clear to auscultation, respirations are non-labored, breath sounds are equal. Gastrointestinal: Soft, non-distended, non-tender abdomen. Back: There is no tenderness to palpation in the midline, paralumbar, parathoracic or buttocks region. There is no obvious deformity . Musculoskeletal: ROM limited secondary to pain and stiffness from surgical procedure. Muscle strength in all major muscle groups of bilateral upper extremities 5/5, bilateral lower extremities 4/5. Neurological: CN 2-12 intact. There are no obvious motor or sensory deficits. Movement and coordination equal and intact. Sensory exam to light touch intact C5-T1 and intact from L2-S1. Reflexes 2/4 in bilateral upper and lower extremi ties. Negative Hoffmans, babinski, and clonus signs. Psychiatric: Cooperative, appropriate mood & affect, normal judgment. - Labs CBC & Chem 7: 05/19/24 04:11 05/19/24 04:11 Labs: Abnormal Lab Results - Last 24 Hours (Table) 05/18/24 05/18/24 05/18/24 Range/Units 11:57 16:47 20:18 RBC (4.40-5.60) X 10*6/uL Hgb (13.0-17.0) g/dL Hct (39.6-50.0) % MCV (80.0-97.0) FL POC Glucose (mg/dL) 188 H 180 H 227 H (70-110) mg/dL 05/19/24 Range/Units 04:11 RBC 3.16 L (4.40-5.60) X 10*6/uL Hgb 10.1 L (13.0-17.0) g/dL Hct 31.0 L (39.6-50.0) % MCV 98.1 H (80.0-97.0) FL POC Glucose (mg/dL) (70-110) mg/dL Assessment and Plan Assessment: Postop day 4: L2-L3 posterolateral interbody fusion 1. 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 L2-3 facet cyst 3. L2-3 instability 4. Diffuse idiopathic skeletal hyperostosis Plan: -Appreciate environmental consultant and team management. -Activity: Ambulate QID, OOB all meals, up and about, limit lifting bending twisting to less than 5 lbs. Use walker or cane if needed for stability. -Daily PT/OT, increase ambulation strength and balance. -Brace when up and about, not needed in bed or chair -Pain control: Adequate at this time -Meds: reviewed -GI ppx: senna, Miralax -DVT PPX: Heparin -Hygiene: Shower today. Maintain dressing clean and dry. Meticulous cleaning after BMs away from the incision site -Encourage IS 10x/hr -Dispo: Anticipate discharge home tomorrow with homecare vs [facility] *I reviewed and discussed this case with my attending Dr. Salomon, whom has reviewed this chart and films and is in agreement with assessment and plan of care as outlined above. I have personally seen and examined the patient, performed the documentation and the assessment and plan as written. Number of minutes spent on the visit: 20m.
[2024-05-19] MEDS: HEPARIN SODIUM,PORCINE 5,000 UNIT/ML 1 ML VIAL SQ SCH (09:24)
[2024-05-19] MEDS: SENNOSIDES-DOCUSATE SODIUM 1 EACH TAB PO SCH (09:24)
[2024-05-19] MEDS: CYCLOBENZAPRINE 10 MG TAB PO PRN (11:28)
[2024-05-19 11:52] LABS: Glucose,Whole Blood 90 mg/dL (70-110)
[2024-05-19] MEDS: HYDROcodone/APAP 7.5-325MG 1 EACH TAB PO PRN (16:51)
[2024-05-19 16:55] LABS: Glucose,Whole Blood 113 mg/dL (70-110)
[2024-05-19] MEDS: MAGNESIUM HYDROXIDE 2,400 MG/30 ML CUP PO PRN (19:55)
[2024-05-19 21:30] LABS: Glucose,Whole Blood 218 mg/dL (70-110)
--- NOTE | 2024-05-19 21:58 | P.PN ---
Subjective Patient is a 78-year-old male with a known history of hypertension, diabetes type 2 insulin-dependent, hyperlipidemia, osteoarthritis, history of melanoma s/p surgical removal, history of back surgery 2 years ago and prior history of smoking was admitted to the hospital for elective surgery due to lumbar disc herniation with radiculopathy and spondylolisthesis at L2-L3 level. Patient is status post L2-L3 lateral interbody fusion, insertion of b iomechanical device and posterior lateral stabilization fusion. Use of [employer] navigation for screw placement. Postoperatively blood pressure went up to 171/63 pulse is 84 respiration 16 pulse ox 99% on 2 L oxygen via nasal cannula. Currently patient is drowsy due to anesthesia and pain medications. Denies any complaints of chest pain or shortness of breath. No nausea vomiting or abdominal pain. Blood sugar 190 05/16. Patient seen and examined. Still having a lot of back pain. 05/17. Patient seen examined. Patient continues to be on and off confused. Advise judicious use of pain medications 05/18. Patient seen and examined. Sitting upright in the chair. States pain has improved. Has swelling of lower extremities. 05/19/24 Patient sitting in bed looks comfortable Denies any new complaint No chest pain or dyspnea Objective - Vital Signs Vital signs: Vital Signs Temp 97.6 F 05/19/24 07:56 Pulse 98 05/19/24 07:56 Resp 18 05/19/24 07:56 BP 194/71 05/19/24 07:56 Pulse Ox 91 L 05/19/24 07:56 FiO2 Intake & Output 05/18/24 05/19/24 05/19/24 18:59 06:59 18:59 Other: # Voids 2 - Exam GENERAL: The patient is alert and oriented x3, not in any acute distress. Well developed, well nourished. HEENT: Pupils are round and equally reacting to light. EOMI. No scleral icterus. No conjunctival pallor. Normocephalic, atraumatic. No pharyngeal erythema. No thyromegaly. CARDIOVASCULAR: S1 and S2 present. No murmurs, rubs, or gallops. PULMONARY: Chest is clear to auscultation, no wheezing , no crackles. ABDOMEN: Soft, nontender, nondistended, normoactive bowel sounds. No palpable organomegaly. MUSCULOSKELETAL: No joint swelling or deformity. EXTREMITIES: No cyanosis, clubbing, or pedal edema. NEUROLOGICAL: Gross neurological examination did not reveal any focal deficits. SKIN: No rashes. no petechiae. - Labs CBC & Chem 7: 05/19/24 04:11 05/19/24 04:11 Labs: Abnormal Lab Results - Last 24 Hours (Table) 05/18/24 05/18/24 05/19/24 Range/Units 16:47 20:18 04:11 RBC 3.16 L (4.40-5.60) X 10*6/uL Hgb 10.1 L (13.0-17.0) g/dL Hct 31.0 L (39.6-50.0) % MCV 98.1 H (80.0-97.0) FL Chloride (96-109) mmol/L BUN (9.0-27.0) mg/dL Creatinine (0.6-1.5) mg/dL Est GFR (CKD-EPI) (>=60) BUN/Creatinine Ratio (12.00-20.00) Ratio POC Glucose (mg/dL) 180 H 227 H (70-110) mg/dL Calcium (8.7-10.3) mg/dL Total Bilirubin (0.3-1.2) mg/dL AST (14-35) U/L Total Protein (6.2-8.2) g/dL Albumin (3.8-4.9) g/dL Albumin/Globulin Ratio (1.60-3.17) Ratio 05/19/24 Range/Units 04:11 RBC (4.40-5.60) X 10*6/uL Hgb (13.0-17.0) g/dL Hct (39.6-50.0) % MCV (80.0-97.0) FL Chloride 110 H (96-109) mmol/L BUN 44.7 H (9.0-27.0) mg/dL Creatinine 2.2 H (0.6-1.5) mg/dL Est GFR (CKD-EPI) 30 L (>=60) BUN/Creatinine Ratio 20.32 H (12.00-20.00) Ratio POC Glucose (mg/dL) (70-110) mg/dL Calcium 8.1 L (8.7-10.3) mg/dL Total Bilirubin 1.3 H (0.3-1.2) mg/dL AST 37 H (14-35) U/L Total Protein 5.0 L (6.2-8.2) g/dL Albumin 3.0 L (3.8-4.9) g/dL Albumin/Globulin Ratio 1.50 L (1.60-3.17) Ratio
[2024-05-19 23:04] VITALS: RESP 19
[2024-05-20] MEDS: HYDROcodone/APAP 10-325MG 1 EACH TAB PO PRN (02:49)
[2024-05-20 06:06] LABS: Glucose,Whole Blood 116 mg/dL (70-110)
[2024-05-20 07:54] VITALS: BP 151/69; PULSE 71; TEMP 97.6
--- NOTE | 2024-05-20 08:05 | P.PN ---
Subjective Progress Note Date: 05/20/24 Principal diagnosis: 1. 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 L2-3 facet cyst 3. L2-3 instability 4. Diffuse idiopathic skeletal hyperostosis Patient seen and examined this morning. Patient is sitting up in chair at bedside. Patient does report that he has been ambulatory within the room. He states he worked with PT yesterday and ambulated in hallways and was able to do most activity without assist utilizing walker. Patient does report his pain is controlled on current regimen. Surgical incision to the lumbar spine, dressing is CDI. Patient is cleared from an Orthopedic standpoint for discharge home with homecare. Discharge instructions have been discussed. Objective - Vital Signs Vital signs: Vital Signs Temp 97.6 F 05/20/24 07:13 Pulse 71 05/20/24 07:13 Resp 19 05/20/24 07:13 BP 151/69 05/20/24 07:13 Pulse Ox 94 L 05/20/24 07:13 FiO2 Intake & Output 05/19/24 05/20/24 05/20/24 18:59 06:59 18:59 Other: # Voids 4 2 - Exam Physical Examination General: The patient is awake and alert, in no acute distress Skin: Skin is warm and dry with no obvious rashes or lesions. Surgical incision to the lumbar spine, dressing CDI. Eye: Pupils are equal, round and reactive to light, extra-ocular movements are intact; there is normal conjunctiva bilaterally. Neck: The neck is supple, there is no tenderness and ROM intact. Cardiovascular: There is a regular rate and rhythm. No murmur, rub or gallop is appreciated. Respiratory: Lungs are clear to auscultation, respirations are non-labored, breath sounds are equal. Gastrointestinal: Soft, non-distended, non-tender abdomen. Back: There is no tenderness to palpation in the midline, paralumbar, parathoracic or buttocks region. There is no obvious deformity . Musculoskeletal: ROM limited secondary to pain and stiffness from surgical procedure. Muscle strength in all major muscle groups of bilateral upper extremities 5/5, bilateral lower extremities 4/5. Neurological: CN 2-12 intact. There are no obvious motor or sensory deficits. Movement and coordination equal and intact. Sensory exam to light touch intact C5-T1 and intact from L2-S1. Reflexes 2/4 in bilateral upper and lower extremities. Negative Hoffmans, babinski, and clonus signs. Psychiatric: Cooperative, appropriate mood & affect, normal judgment. - Labs CBC & Chem 7: 05/19/24 04:11 05/19/24 04:11 Labs: Abnormal Lab Results - Last 24 Hours (Table) 05/19/24 05/19/24 05/19/24 Range/Units 04:11 04:11 16:54 RBC 3.16 L (4.40-5.60) X 10*6/uL Hgb 10.1 L (13.0-17.0) g/dL Hct 31.0 L (39.6-50.0) % MCV 98.1 H (80.0-97.0) FL Chloride 110 H (96-109) mmol/L BUN 44.7 H (9.0-27.0) mg/dL Creatinine 2.2 H (0.6-1.5) mg/dL Est GFR (CKD-EPI) 30 L (>=60) BUN/Creatinine Ratio 20.32 H (12.00-20.00) Ratio POC Glucose (mg/dL) 113 H (70-110) mg/dL Calcium 8.1 L (8.7-10.3) mg/dL Total Bilirubin 1.3 H (0.3-1.2) mg/dL AST 37 H (14-35) U/L Total Protein 5.0 L (6.2-8.2) g/dL Albumin 3.0 L (3.8-4.9) g/dL Albumin/Globulin Ratio 1.50 L (1.60-3.17) Ratio 05/19/24 05/20/24 Range/Units 21:28 06:05 RBC (4.40-5.60) X 10*6/uL Hgb (13.0-17.0) g/dL Hct (39.6-50.0) % MCV (80.0-97.0) FL Chloride (96-109) mmol/L BUN (9.0-27.0) mg/dL Creatinine (0.6-1.5) mg/dL Est GFR (CKD-EPI) (>=60) BUN/Creatinine Ratio (12.00-20.00) Ratio POC Glucose (mg/dL) 218 H 116 H (70-110) mg/dL Calcium (8.7-10.3) mg/dL Total Bilirubin (0.3-1.2) mg/dL AST (14-35) U/L Total Protein (6.2-8.2) g/dL Albumin (3.8-4.9) g/dL Albumin/Globulin Ratio (1.60-3.17) Ratio Assessment and Plan Assessment: Postop day 5: L2-L3 posterolateral interbody fusion 1. 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 L2-3 facet cyst 3. L2-3 instability 4. Diffuse idiopathic skeletal hyperostosis Plan: -Appreciate clinical application consultant and team management. -Activity: Ambulate QID, OOB all meals, up and about, limit lifting bending twisting to less than 5 lbs. Use walker or cane if needed for stability. -Daily PT/OT, increase ambulation strength and balance. -Brace when up and about, not needed in bed or chair -Pain control: Adequate at this time -Meds: reviewed -GI ppx: senna, Miralax -DVT PPX: Heparin -Hygiene: Shower today. Maintain dressing clean and dry. Meticulous cleaning after BMs away from the incision site -Encourage IS 10x/hr -Dispo: Anticipate discharge home today with homecare *I reviewed and discussed this case with my attending Dr. Salomon, whom has reviewed this chart and films and is in agreement with assessment and plan of care as outlined above. I have personally seen and examined the patient, performed the documentation and the assessment and plan as written. Number of minutes spent on the visit: 20m.
--- NOTE | 2024-05-20 08:08 | P.DS ---
Providers Date of admission: 05/15/24 05:34 Expected date of discharge: 05/20/24 Attending physician: Yakov Salomon DO Consults: 05/15/24 11:17 Consult Physician Routine Consulting Provider: Kami Clifford Reason/Comments: medical management s/p L2-L3 PLIF Do you want consulting provider notified?: Yes Primary care physician: Ruben [facility] Course: Hospital Course: The patient was evaluated preoperatively and found to have the diagnosis of Lumbar spondylosis with stenosis They underwent appropriate preoperative care and were willing to undergo the intended procedure. They underwent a successful L2-L3 posterolateral interbody fusion, were recovered appropriately and sent to the floor. While on the floor they worked with physical therapy, occupational therapy and nursing to enhance their recovery experience. Their pain was well controlled through their stay and they were started on appropriate medications, DVT ppx modalities, activity and dietary needs. Daily labs were monitored closely, and transfusions were only used when necessary. Medicine as well as other consulting services have made their input and have helped with our team approach and multidisciplinary care. PT milestones have been met and passed and they have made the recommendation of home with homecare for this patient and treating providers agree with this care path. The patient will be discharged home with appropriate medications, instructions and follow-up information and in stable condition. Patient Condition at Discharge: Good Plan - Discharge Summary Discharge Rx Participant: No New Discharge Prescriptions: New Cyclobenzaprine [Flexeril] 10 mg PO TID PRN #40 tab PRN Reason: Muscle Spasm Sennosides/Docusate Sodium [Senna Plus 8.6-50 mg Tablet] 1 each PO DAILY PRN #20 tab PRN Reason: Constipation cefaDROXiL [Duricef] 500 mg PO Q12HR #10 cap HYDROcodone/APAP 10-325MG [[place] 10-325] 1 tab PO Q4-6H PRN #40 tab PRN Reason: Pain No Action allopurinoL [Zyloprim] 100 mg PO BID Pioglitazone [Actos] 30 mg PO QAM Magnesium Oxide [Mag-Ox] 500 mg PO QAM glipiZIDE XL [Glucotrol XL] 5 mg PO QAM Turmeric Root Extract [Turmeric] 1,000 mg PO QAM Insulin Glargine,Hum.rec.anlog [Lantus Solostar Pen] 50 unit SQ HS HYDROcodone/APAP 5-325MG [[place] 5-325] 1 tab PO BID PRN PRN Reason: Pain Atorvastatin [Lipitor] 20 mg PO QAM Zinc 50 mg PO QAM Cholecalciferol [Vitamin D3 (25 Mcg = 1000 Iu)] 50 mcg PO QAM Fish Oil/Dha/Epa [Fish Oil 1,200 mg Fish Oil] 1 cap PO QAM hydrALAZINE HCL [Apresoline] 100 mg PO BID Acetaminophen Tab [Tylenol] 650 mg PO Q6HR PRN tab PRN Reason: Mild Pain Or Fever > 100.5 Metoprolol Succinate (ER) [Toprol XL] 50 mg PO QAM Ascorbic Acid [Vitamin C] 1,000 mg PO QAM Folic Acid(Unknown Dose) 400 mg PO QAM Discharge Medication List Atorvastatin [Lipitor] 20 mg PO QAM 01/05/22 [History] Cholecalciferol [Vitamin D3 (25 Mcg = 1000 Iu)] 50 mcg PO QAM 01/05/22 [History] Fish Oil/Dha/Epa [Fish Oil 1,200 mg Fish Oil] 1 cap PO QAM 01/05/22 [History] HYDROcodone/APAP 5-325MG [[place] 5-325] 1 tab PO BID PRN 01/05/22 [History] Magnesium Oxide [Mag-Ox] 500 mg PO QAM 01/05/22 [History] Pioglitazone [Actos] 30 mg PO QAM 01/05/22 [History] Zinc 50 mg PO QAM 01/05/22 [History] allopurinoL [Zyloprim] 100 mg PO BID 01/05/22 [History] Insulin Glargine,Hum.rec.anlog [Lantus Solostar Pen] 50 unit SQ HS 11/26/22 [History] Turmeric Root Extract [Turmeric] 1,000 mg PO QAM 11/26/22 [History] glipiZIDE XL [Glucotrol XL] 5 mg PO QAM 11/26/22 [History] hydrALAZINE HCL [Apresoline] 100 mg PO BID 11/26/22 [History] Acetaminophen Tab [Tylenol] 650 mg PO Q6HR PRN tab 11/30/22 [Rx] Ascorbic Acid [Vitamin C] 1,000 mg PO QAM 05/13/24 [History] Folic Acid(Unknown Dose) 400 mg PO QAM 05/13/24 [History] Metoprolol Succinate (ER) [Toprol XL] 50 mg PO QAM 05/13/24 [History] Cyclobenzaprine [Flexeril] 10 mg PO TID PRN #40 tab 05/19/24 [Rx] HYDROcodone/APAP 10-325MG [[place] 10-325] 1 tab PO Q4-6H PRN #40 tab 05/19/24 [Rx] Sennosides/Docusate Sodium [Senna Plus 8.6-50 mg Tablet] 1 each PO DAILY PRN #20 tab 05/19/24 [Rx] cefaDROXiL [Duricef] 500 mg PO Q12HR #10 cap 05/19/24 [Rx] Follow up Appointment(s)/Referral(s): Ruben Henry [Primary Care Provider] - 1 Week Yakov Salomon DO [Doctor of Osteopathic Medicine] - 2 Weeks [facility] Vis[facility] Nurse, [NON-STAFF] - 1 Week ([facility] home[facility] will call you to arrange a visit) Activity/Diet/Wound Care/Special Instructions: Spine Discharge and Recovery Instructions Date of Surgery: 05/15/2024 Diagnosis: L2-L3 spondylosis with spondylolisthesis Procedure: L2-3 lateral with posterior fusion Medications: List All medication refills should be obtained through your primary care doctor or your clinic spine surgeon. Please discuss prescription refills at your follow up appointment. Do not call the hospital for medication refills. Activity: [Encourage ambulation with assist of walker] [OOB 6-8x daily] [PT/OT daily work on balance, strength and mobility] [Up in chair with all meals, OOB all meals] [Shower daily] Brace: Wear LSO brace when up and about at all times. Do not wear while sleeping or showering. May take breaks from brace while sitting or laying and resting. Dressing: Leave your dressing in place for a total of 3 days post operatively. Then you may remove your dressing and leave open to air. Keep the area clean and if not able to keep area clean, then cover with sterile gauze and tape. Showering: You may shower 3 days after your procedure allowing soap and water to run over incision. Do not scrub. Do not soak. Blot dry. Follow up: Please confirm a follow up appointment with your surgeon 2 weeks post operatively. Please make an appointment to follow up with your PCP in 1-2 weeks after surgery for evaluation 3 phase, 3-week plan POST OP WEEKS 1-3 1. Lifting/carrying/pushing/pulling limited to less than 5 pounds. 2. Do not sit for longer than 15 minutes at one time. Get up and walk around. Prolonged sitting is NOT advised. If you lay down, see if you can tolerate laying down on you front (belly side) 3. Walk for periods of 15 minutes = 1 mile but no longer; do it multiple times times each day. 4.Ice your low back after activity. POST OP WEEKS 3-6 1. Lifting limited to less than 20 pounds. 2. Do not sit for longer than 30 minutes at a time. Frequently change positions. Use a sit-to stand workstation or take frequent breaks from sitting if you have returned to work. 3. Walk for 30 minutes each day. If possible, do these three or more times a day POST OP WEEKS 6+ At your 6-week appointment we will give you a physical therapy referral to focus on a core stabilization and strengthening program. You should also work on leg & buttock strengthening, hamstring & quadriceps stretching, and continue a low impact aerobic activity program such as swimming, walking, or riding a stationary bicycle. During the initial 6 weeks after your surgery, you are at the highest risk of re-injuring your spine. You should generally avoid BLTs (bending, lifting and twisting combination motions) and follow the above guidelines to reduce the chance of reinjury. You can anticipate post op appointments in our office at approximately 3 weeks and 6 weeks after your surgery. INCISION CARE: If your incision is not draining you do NOT need to cover it with a dressing. Keep your incision clean, dry and intact. In most cases, we apply skin glue, nina or sutures to the incision at the time of surgery. This will be like a crust or have the appearance of a scab and will fall off in time on its own. The stitches or nina need to be removed at 3 weeks post op appointment. You may begin to shower 3 days after surgery (this allows the glue to doran well). However, please avoid scrubbing the incision site or peeling off any of the skin glue. This will ensure optimal healing of your incision. Also, during this time avoid soaking the incision area in water - this includes swimming pools, hot tubs or baths. No ointments, lotions or oils on the incision until your surgeon allows. Leave nina, sutures or glue in place. Neurological dysfunction that comes on suddenly can also be a sign of a stroke. Below some common symptoms of a stroke are listed: B - balance difficulty such as sudden onset walking or leaning to one side - NEW E - eye problem such as sudden double vision or trouble seeing on one side - NEW F - Facial weakness or numbness on one side - NEW A - Arm or leg weakness or numbness on one side - NEW S - Slurred speech or difficulty with word finding - NEW T - Time is BRAIN! Call 911 as soon as you recognize these symptoms Diet: Consume a regular diet rich in vegetables and lean protein such as chicken or fish. You should consume in a ratio of approximately 20% fats|40% carbo hydrates|40%protein. Vegetables, sweet potatoes, brown rice or quinoa are examples of good carbohydrates. Chips, white bread, cookies and sweets/sugar are examples of bad carbohydrates. Limit your bad carbs, go wild with good carbs. "Life's Simple 7" Guidelines as per [employer] Heart Association These will help you reclaim your life after surgery and patternmaker helper in your recovery, keeping in mind your restrictions. (1) Get Active. Physical activity can help people lose weight, control high blood pressure and cholesterol, feel emotionally better, and sleep better. (2) Control Cholesterol. Avoid a diet high in saturated fat, trans fat, & cholesterol. Limit whole milk & cream, ice cream, butter, egg yolks, processed meats (like sausage and hot dogs), and fatty meats. Choose healthy foods that are low in saturated fat, trans fat and cholesterol which include: Fruits and vegetables, fiber rich grain products (like whole grain pasta and brown rice), lean meat such as chicken, fish, nuts, seeds, and legumes. (3) Eat Better. Eat small portions. Shop at the grocery with a list and do not stray from it. Tips for a healthy diet include: Limit sodium intake to less than 1500mg daily, avoid prepackaged, processed, and fast foods, choose a diet rich in fruits, vegetables, and whole grain, high fiber foods, and limit saturated & cholesterol in your diet. (4) Manage Blood Pressure. If you have high blood pressure, you should have a cuff at home so that you can check your blood pressure regularly. Be sure you have a good cuff. An arm one is generally better than a wrist one. Bring the cuff to a doctor's appointment to validate that the measurements that your cuff are taking are accurate. Take your blood pressure twice daily when you are sitting down and relaxing. Record the numbers in a log and bring this log with you to your doctors' appointments. (5) Lose Weight if your BMI is above 25. A healthy BMI is between 19-25. To calculate Your BMI, you may use a Standard BMI Calculator on the NIH BMI website: <www.nhlbi.nih.gov/guidelines/obesity/BMI/bmicalc.htm>. Weigh oneself daily. If you are overweight, set a goal to lose weight. A pound a week loss if needed is a good target. (6) Reduce Blood Sugar. Limit foods and liquids with "added sugars." (Added sugars include sucrose, fructose, glucose, maltose, dextrose, high fructose corn syrup, corn syrup, concentrated fruit juice and honey). (7) Stop Smoking. If you smoke, quitting smoking is one of the best things that you can do for your health. Smoking increases your risk of heart attack, stroke, and peripheral vascular disease, which is a build-up of plaque in your arteries. Please discard all the cigarettes and lighters in your house. Have a plan for what you will do when you have the urge to smoke. Direct and second- hand smoke shortens your life as well as the lives of your family, friends and others around you. For your health and the health of those around you, please consider quitting! Proper Bending Body Mechanics: Maintain a wide stance with one foot slightly in front of the other. Keep your back straight. Bend utilizing the strength in your hips and knees. Do not bend at the waist. Maintain the lifted object at your waist-level close to your body. Avoid lifting weight that causes immediately pain or pain anywhere in the body afterwards. Smoking/Nicotine If there was ever one thing that you could do to increase your overall health, decrease your risk of cardiovascular problems by about 39% the second you make the choice, it is to STOP SMOKING. Your body's most instant gratification is the second you stop smoking. We have all heard the studies, read the articles but it is true, smoking is extremely bad for your overall health, and moreover it is detrimental to your bone health. Nicotine, IN ANY FORM, kills bone cells, prevents your body from healing fractures, and significantly prolongs healing after surgery. In spine surgery specifically, it increases your risk of not healing your bones to create a fusion and increases your risk of having a revision surgery due to this up to 60%. I know it is hard. I know it feels impossible. But there are ways. Take control of your life. We are here to help you through it. And when you are ready, ask us and we can direct you to help if you desire. Use the START Plan to Quit Smoking (please visit the Helpguide.org website listed below for more information): S = Set a quit date. Choose a date within the next 2 weeks, so you have enough time to prepare without losing your motivation to quit. If you mainly smoke at work, quit on the weekend, so you have a few days to adjust to the change. T = Tell family, friends, and co-workers that you plan to quit. Let your friends and family in on your plan to quit smoking and tell them you need their support and encouragement to stop. Look for a quit evens who wants to stop smoking as well. You can help each other get through the rough times. A = Anticipate and plan for the challenges you'll face while quitting. Most people who begin smoking again do so within the first 3 months. You can help yourself make it through by preparing ahead for common challenges, such as nicotine withdrawal and cigarette cravings. R = Remove cigarettes and other tobacco products from your home, car, and work. Throw away all your cigarettes (no emergency pack!), lighters, ashtrays, and matches. Wash your clothes and freshen up anything that smells like smoke. Shampoo your car, clean your drapes and carpet, and steam your furniture. T = Talk to your doctor about getting help to quit. Your doctor can prescribe medication to help with withdrawal and suggest other alternatives. If you can't see a doctor, you can get many products over the counter at your local pharmacy or grocery store, including the nicotine patch, nicotine lozenges, and nicotine gum. Resources for Quitting Smoking: <https://www.[place].gov/documents/[facility]/Quit_Tobacco_Resources_for_patients_313 480_7.pdf> Supplementation: Take recommended dosages of Vitamin D and Calcium to help fortify your bones and help them to heal. See your health maintenance packet for dosages and recommended levels. DVT/VTE prophylaxis: You will be given compression stockings from the hospital. Wear these daily for the first two weeks after surgery. You may take them off at night. You may be prescribed a medication to help thin your blood. Take this as directed. If you are not prescribed this medication, early and frequent ambulation has been shown to be the best prophylaxis to deep vein thrombosis and sequelae related to this event. Discharge Disposition: HOME WITH HOME HEALTH SERVICES
--- NOTE | 2024-05-20 11:42 | P.PN ---
Subjective Patient is a 78-year-old male with a known history of hypertension, diabetes type 2 insulin-dependent, hyperlipidemia, osteoarthritis, history of melanoma s/p surgical removal, history of back surgery 2 years ago and prior history of smoking was admitted to the hospital for elective surgery due to lumbar disc herniation with radiculopathy and spondylolisthesis at L2-L3 level. Patient is status post L2-L3 lateral interbody fusion, insertion of b iomechanical device and posterior lateral stabilization fusion. Use of [employer] navigation for screw placement. Postoperatively blood pressure went up to 171/63 pulse is 84 respiration 16 pulse ox 99% on 2 L oxygen via nasal cannula. Currently patient is drowsy due to anesthesia and pain medications. Denies any complaints of chest pain or shortness of breath. No nausea vomiting or abdominal pain. Blood sugar 190 05/16. Patient seen and examined. Still having a lot of back pain. 05/17. Patient seen examined. Patient continues to be on and off confused. Advise judicious use of pain medications 05/18. Patient seen and examined. Sitting upright in the chair. States pain has improved. Has swelling of lower extremities. 05/19/24 Patient sitting in bed looks comfortable Denies any new complaint No chest pain or dyspnea 05/20/2024 Patient generally is doing well, he is awake and alert sitting in chair No chest pain or dyspnea or new complaint His back surgery site with dressing in place, he has some pain in the groin more on the left side with no rash or other abnormality it happened and started after surgery most likely it is referred pain from surgery. It is mild pain with no loss of function. No other urinary complaints Patient is hemodynamically stable Labs reviewed Creatinine from yesterday is 2.2 which is at baseline, patient was counseled to follow-up with irrigation district manager Dr. Rodríguez in 2 weeks after discharge and he agrees Patient also instructed to follow-up with Dr. Henry PCP in 1 week after discharge and he agrees Objective - Vital Signs Vital signs: Vital Signs Temp 97.6 F 05/20/24 07:13 Pulse 71 05/20/24 08:15 Resp 19 05/20/24 08:15 BP 151/69 05/20/24 07:13 Pulse Ox 94 L 05/20/24 07:13 FiO2 Intake & Output 05/19/24 05/20/24 05/20/24 18:59 06:59 18:59 Other: Voiding Method Toilet # Voids 4 2 - Exam GENERAL: The patient is alert and oriented x3, not in any acute distress. Well developed, well nourished. HEENT: Pupils are round and equally reacting to light. EOMI. No scleral icterus. No conjunctival pallor. Normocephalic, atraumatic. No pharyngeal erythema. No thyromegaly. CARDIOVASCULAR: S1 and S2 present. No murmurs, rubs, or gallops. PULMONARY: Chest is clear to auscultation, no wheezing , no crackles. ABDOMEN: Soft, nontender, nondistended, normoactive bowel sounds. No palpable organomegaly. MUSCULOSKELETAL: No joint swelling or deformity. EXTREMITIES: No cyanosis, clubbing, or pedal edema. NEUROLOGICAL: Gross neurological examination did not reveal any focal deficits. SKIN: No rashes. no petechiae. - Labs CBC & Chem 7: 05/19/24 04:11 05/19/24 04:11 Labs: Abnormal Lab Results - Last 24 Hours (Table) 05/19/24 05/19/24 05/20/24 Range/Units 16:54 21:28 06:05 POC Glucose (mg/dL) 113 H 218 H 116 H (70-110) mg/dL Assessment and Plan Assessment: Status post status post L2-L3 lateral interbody fusion, insertion of biomechanical device and posterior lateral stabilization fusion. Uncontrolled hypertension Diabetes type 2 insulin-dependent Osteoarthritis Prior history of upper back surgery Hyperlipidemia History of smoking History of skin cancer removal/melanoma Prior history of left nephrectomy in 2009 Plan: Patient generally is doing well He is looking medically stable Labs imaging and medication were reviewed Continue with current management Pain management as primary team Recommend GI and DVT prophylaxis per primary team Medically he is stable Patient was instructed to follow-up with PCP Dr. Henry and irrigation district manager Dr. Rodríguez as above, he agrees
[2024-05-20 11:44] LABS: Glucose,Whole Blood 83 mg/dL (70-110)
--- NOTE | 2024-05-22 19:40 | CDI ---
Documentation Clarification Form Date: 05/22/2024 07:22:51 PM From: Janett Teresa Phone: Admit Date: 05/15/2024 05:34:00 AM Patient Name: Mor Perez Visit Number: [id number] Discharge Date: 05/20/2024 01:45:00 PM ATTENTION: The Clinical Documentation Specialists (CDI) and [facility] Coding Staff appreciate your assistance in clarifying documentation. Please respond to the clarification below the line at the bottom and electronically sign. The CDI & [facility] Coding staff will review the response and follow-up if needed. Please note: Queries are made part of the Legal Health Record. If you have any questions, please contact the author of this message via ITS. Dr. Cedric Chi Your patient has an abnormal lab value: [id number]. Please clarify if there is an additional diagnosis and/or clinical significance related to this value. History/Risk Factors: 78yo M, Cystof lumbar facet joint, Lumbarherniationwithradiculopathy& stenosis, IDDMII, HLD, OA, SpondylolisthesisL2-L3, HTN, Hx melanoma Clinical indicators: POCGlucose: 05/15 132 05/16 132-203 05/17 135- 265 05/18 66-222 05/19 180- 227 05/20 113-218 Treatment: Continue with insulin sliding scale along Lantus/glargine. Titrate dose as needed. Oral hypoglycemics on hold. Home DM Medications:Pioglitazone [Actos] 30 mg PO QAM; glipizide XL [Glucotrol XL] 5 mg PO QAM; Insulin Glargine, Hum.rec.anlog 50 unit SQ HS 11/26/2305/18/24 [Lantus Solostar Pen] Is there an additional diagnosis and/or clinical significance related to the above lab result/information? [ x] Diabetes Mellitus with hyperglycemia [ ] No additional diagnosis/Not clinically significant [ ] Other, please specify [ ] Unable to determine (Template Last Revised: December 2020) MTDD
== END 2024-05-20 13:45 | disposition home health service (06) | DRG 454 ==
LOC: 2ORMAIN 05:34 → 4SSUR 11:14
PROVIDERS: ADMIT Orthopaedic Surgery; ATTEND Orthopaedic Surgery
PROC: 0SG0071 Fusion of Lumbar Vertebral Joint with Autologous Tissue Substitute, Posterior Approach, Posterior Column, Open Approach (ICD-10-PCS; 2024-05-15)
PROC: 8E0WXBZ Computer Assisted Procedure of Trunk Region (ICD-10-PCS; 2024-05-15)
PROC: 0SG00AJ Fusion of Lumbar Vertebral Joint with Interbody Fusion Device, Posterior Approach, Anterior Column, Open Approach (ICD-10-PCS; principal; 2024-05-15 07:30)
DX: M51.16 Intervertebral disc disorders with radiculopathy, lumbar region (principal); R44.3 Hallucinations, unspecified; E11.65 Type 2 diabetes mellitus with hyperglycemia; Z79.4 Long term (current) use of insulin; I10 Essential (primary) hypertension; E78.5 Hyperlipidemia, unspecified; M43.16 Spondylolisthesis, lumbar region; M53.86 Other specified dorsopathies, lumbar region; R26.2 Difficulty in walking, not elsewhere classified; G47.8 Other sleep disorders; M53.2X6 Spinal instabilities, lumbar region; M48.061 Spinal stenosis, lumbar region without neurogenic claudication; M25.78 Osteophyte, vertebrae; Z96.643 Presence of artificial hip joint, bilateral; Z87.891 Personal history of nicotine dependence; Z90.5 Acquired absence of kidney; Z86.718 Personal history of other venous thrombosis and embolism; Z85.828 Personal history of other malignant neoplasm of skin; Z85.820 Personal history of malignant melanoma of skin; Z79.84 Long term (current) use of oral hypoglycemic drugs; Z79.899 Other long term (current) drug therapy; Z88.5 Allergy status to narcotic agent
CPT/HCPCS: 72100; 72131; 80048; 80053; 85025

== ENCOUNTER → 2024-12-17 | Outpatient (CLI) | payer MEDICARE | END | disposition home or self-care (01) | LOC: LABWHC1 08:43 | PROVIDERS: ATTEND Family Medicine | DX: E11.3292 Type 2 diabetes mellitus with mild nonproliferative diabetic retinopathy without macular edema, left eye (principal); Z79.4 Long term (current) use of insulin | CPT/HCPCS: 36415; 83036 ==

== ENCOUNTER → 2024-12-22 | Outpatient (CLI) | payer MEDICARE ==
--- NOTE | 2024-12-22 13:04 | NM ---
INDICATION: Patient age:Male; 79 years old; Reason for study: T84.84XA pain due to orthopedic prosthesis; PHH. 1. COMPARISON: Right hip radiograph 12/17/2024. Lumbar spine radiograph 08/27/2024, CT lumbar spine PROCEDURE: A 3 phase bone scan limited to the pelvis was obtained following the IV administration of 24.4 mCi of [id number]. FINDINGS: The three phase bone scan demonstrates no focal increased blood flow. Angiographic blood po ol images show no focal increased radiotracer uptake. Delayed images demonstrate increased focal rad iotracer uptake along the right hip greater trochanter. Additional increased focal uptake identified within the mid lumbar spine. This is outside of posterior fusion. Additional focal radiotracer uptake identified within the distal tip of the left 12th rib. Mild radiotracer uptake identified within the right knee related to degenerative changes. IMPRESSION: 1. No definitive nuclear medicine evidence for infection. 2. Radiotracer uptake along the greater trochanter of the right femur on delayed imaging suggesting d egenerative process or nonfusion. 3. Focal radiotracer uptake at the mid lumbar spine related to lumbar fusion changes. 4. Focal radiotracer uptake along the distal aspect of the left 12th rib. Correlate for fracture. [facility], , 12/22/2024 1:02 PM
== END | disposition home or self-care (01) ==
LOC: RADNMMAIN 07:20
PROVIDERS: ATTEND Orthopaedic Surgery
DX: S22.32XA Fracture of one rib, left side, initial encounter for closed fracture (principal); T84.84XA Pain due to internal orthopedic prosthetic devices, implants and grafts, initial encounter; X58.XXXA Exposure to other specified factors, initial encounter
CPT/HCPCS: 78315; A9503

== ENCOUNTER → 2025-04-06 | Outpatient (CLI) | payer MEDICARE ==
[2025-04-06 12:38] VITALS: BP 160/70; PULSE 71; RESP 17
--- NOTE | 2025-04-06 16:11 | P.PAINPG ---
Objective - Vital Signs Vital signs: Vital Signs Temp Pulse 71 04/06/25 12:29 Resp 17 04/06/25 12:29 BP 160/70 04/06/25 12:29 Pulse Ox 95 04/06/25 12:29 FiO2 PQRS Measure Charge Sheet Mode of Arrival: Ambulatory Comment: HISTORY OF PRESENT ILLNESS: A 79 yr old male as a referral from Dr Salomon presents today w severe and chronic LBP > 1 yr secondary to L2-L3 LIF w CAGE, L Sacroiliitis for evaluation. Pt states pain level is provoked at 6 /10 in intensity, constant, localized in the lumbosacral spine, predominantly axial, sharp in character w occasional shooting pain towards the buttocks and L groin. Pain is provoked by sitting for periods > 20 min. Pain is alleviated by physician guided home stretches daily since Summer 2023, medications, topical, use of a wheelchair for ambulatory assistance, repositioning and rest . Pt is frail, wheelchair bound and can not attend formal PT sessions. Oswestry axial pain score at 26. PMH: OA, Melanoma, NIDDM II, Hyperlipidemia, HTN PSH: L2-L3 LIF w CAGE (2023), Joint Replacement, Tonsillectomy, BL Hip Replacement, L Nephrectomy (2009), Hernia Repair SH: Former tobacco user, Rare ETOH use, No illicit drug use FH: Sis- Pancreatic CA. Sis- Breast CA All: See list Medications include Tyl, BioFreeze REVIEW OF ORGAN SYSTEMS: CONSTITUTIONAL: No fevers or chills. No recent weight loss. NEUROLOGICAL: + numbness and tingling along the distal extremities. No seizure disorders or headaches. MUSCULOSKELETAL: + pain PSYCHIATRIC: Denies current depression or suicidal tho ughts. Physical Examinations : Constitutional : Cooperative , not in acute distress . Neurologic : Cranial nerve II to XII intact. No focal neurological deficits. Psychiatric : alert & oriented x 3. Matching mood & appropriate affect. Judgment & insight intact. Musculoskeletal : Cervical Spine Motor strength in the deltoid and biceps: Normal right side. Normal Left side Motor strength biceps and the wrist extensors: Normal right side . Normal left side Motor strength in the triceps muscle: Normal right side. Normal left side Deep tendon reflexes: Normal at the biceps. Normal at Brachioradialis. Normal at triceps Vertebral body tenderness to deep palpation over Cervical facet loading test: positive bilaterally Spurling test: positive bilaterally Neck distraction test: positive bilaterally Orlando sign: positive bilaterally Lumbar spine Motor strength lower extremities ,thigh and legs 5/5 Right side , 5/5 Left side Deep tendon reflexes : Normal Knee Jerk. Normal Ankle Jerk Vertebral body tenderness over Escalante Test positive Lumbar facet Loading Test: positive Right / positive Left Range of motion of the lumbar spine Flexion 30 degrees, extension 10 degrees Straight Leg Raise test: Left/ Right positive at degrees Margarette test: positive right / positive left. Severe tenderness over the Sacroiliac joint on the Right / Left sides Gaenslen test: positive bilaterally Seated flexion test: positive bilaterally. Sacral spine : Severe tenderness over the Sacroiliac joint: right side / left side Range of motion: Flexion of the lumbar spine <60 degrees Range of motion: Extension of the lumbar spine <20 degrees Gaenslen's Test positive on L Margarette test: positive right side / left side Thigh Thrust Test L positive Sacral Thrust Test Imaging: MRI non contrast of the lumbar spine from reviewed Assessment/ Plan : L2-L3 LIF w CAGE, L Sacroiliitis Recommendation of L SI #1. Risks, benefits of procedure discussed and patient verbalized understanding. All questions answered. I have spent greater than 30 minutes on patient care today. Dr Webb was available by phone for the evaluation of this patient. The time was used to review the medical records including relevant urine studies and Prescription his tory (MAPs), review of the available imaging, evaluation and examination of the patient, coordination of care with the medical staff and if applicable referring physicians, as well as creation of the medical record - Pain Location Lower Back Non-Pharmacological Interventions: Heat Pharmacological Interventions: Topical Medication PQRS Narrative: Blood Pressure 160/70 Pain Intensity [Lower Back] 6 Scale Used Numeric (1 - 10) Hx Alcohol Use (MH) No Home Medications: Ambulatory Orders Atorvastatin [Lipitor] 20 mg PO QAM 01/05/22 Cholecalciferol [Vitamin D3 (25 Mcg = 1000 Iu)] 50 mcg PO QAM 01/05/22 Fish Oil/Dha/Epa [Fish Oil 1,200 mg Fish Oil] 1 cap PO QAM 01/05/22 HYDROcodone/APAP 5-325MG [[place] 5-325] 1 tab PO BID PRN 01/05/22 Magnesium Oxide [Mag-Ox] 500 mg PO QAM 01/05/22 Pioglitazone [Actos] 30 mg PO QAM 01/05/22 Zinc 50 mg PO QAM 01/05/22 allopurinoL [Zyloprim] 100 mg PO BID 01/05/22 Insulin Glargine,Hum.rec.anlog [Lantus Solostar Pen] 50 unit SQ HS 11/26/22 Turmeric Root Extract [Turmeric] 1,000 mg PO QAM 11/26/22 hydrALAZINE HCL [Apresoline] 100 mg PO BID 11/26/22 Acetaminophen Tab [Tylenol] 650 mg PO Q6HR PRN tab 11/30/22 Ascorbic Acid [Vitamin C] 1,000 mg PO QAM 05/13/24 Folic Acid(Unknown Dose) 400 mg PO QAM 05/13/24 Metoprolol Succinate (ER) [Toprol XL] 50 mg PO QAM 05/13/24 Cyclobenzaprine [Flexeril] 10 mg PO TID PRN #40 tab 05/19/24 HYDROcodone/APAP 10-325MG [[place] 10-325] 1 tab PO Q4-6H PRN #40 tab 05/19/24 Sennosides/Docusate Sodium [Senna Plus 8.6-50 mg Tablet] 1 each PO DAILY PRN #20 tab 05/19/24 cefaDROXiL [Duricef] 500 mg PO Q12HR #10 cap 05/19/24 Magnesium Hydroxide [Milk of Magnesia] 2,400 mg PO DAILY PRN ml 05/20/24 Controlled Substance Measures - Controlled Substance Measures Is patient prescribed a controlled substance at discharge?: No
== END ==
LOC: PNWHC3 12:19
PROVIDERS: ATTEND Specialist
DX: M46.1 Sacroiliitis, not elsewhere classified (principal); Z88.5 Allergy status to narcotic agent; Z98.890 Other specified postprocedural states
CPT/HCPCS: 99202

== ENCOUNTER → 2025-04-30 | Outpatient (CLI) | payer MEDICARE ==
[2025-04-30 08:30] VITALS: BP 170/70; PULSE 69; RESP 18
--- NOTE | 2025-05-04 14:22 | P.PAINPG ---
PQRS Measure Charge Sheet Comment: HISTORY OF PRESENT ILLNESS: A 79 yr old male w at side presents today w severe and chronic LBP > 1 yr secondary to L2-L3 LIF w CAGE, L Sacroiliitis for evaluation s/p L SI #1. Pt states he experienced 0% pain relief x 2 wks s/p procedure. Pt states pain level is provoked at 6 /10 in intensity, constant, localized in the lumbosacral spine, predominantly axial, sharp in character w occasional shooting pain towards the buttocks and L groin. Pain is provoked by sitting for periods > 20 min. Pain is alleviated by physician guided home stretches daily since Summer 2023, medications, topical, use of a wheelchair for ambulatory assistance, repositioning and rest . Pt is frail, wheelchair bound and can not attend formal PT sessions. Oswestry axial pain score at 26. Interventional procedures include L2-L3 LIF w CAGE (2023), Joint Replacement, BL Hip Replacement, L SI x1 (04/19) Medications include Tyl, BioFreeze REVIEW OF ORGAN SYSTEMS: CONSTITUTIONAL: No fevers or chills. No recent weight loss. NEUROLOGICAL: + numbness and tingling along the distal extremities. No seizure disorders or headaches. MUSCULOSKELETAL: + pain PSYCHIATRIC: Denies current depression or suicidal thoughts. Physical Examinations : Constitutional : Cooperative , not in acute distress . Neurologic : Cranial nerve II to XII intact. No focal neurological deficits. Psychiatric : alert & oriented x 3. Matching mood & appropriate affect. Judgment & insight intact. Musculoskeletal : Cervical Spine Motor strength in the deltoid and bicep s: Normal right side. Normal Left side Motor strength biceps and the wrist extensors: Normal right side . Normal left side Motor strength in the triceps muscle: Normal right side. Normal left side Deep tendon reflexes: Normal at the biceps. Normal at Brachioradialis. Normal at triceps Vertebral body tenderness to deep palpation over Cervical facet loading test: positive bilaterally Spurling test: positive bilaterally Neck distraction test: positive bilaterally Orlando sign: positive bilaterally Lumbar spine Motor strength lower extremities ,thigh and legs 5/5 Right side , 5/5 Left side Deep tendon reflexes : Normal Knee Jerk. Normal Ankle Jerk Vertebral body tenderness over L5 Escalante Test positive L L4-L5/ L5-S1 Lumbar facet Loading Test: positive Right / positive Left Range of motion of the lumbar spine Flexion 30 degrees, extension 10 degrees Straight Leg Raise test: Left/ Right positive at degrees Margarette test: positive right / positive left. Severe tenderness over the Sacroiliac joint on the Right / Left sides Gaenslen test: positive bilaterally Seated flexion test: positive bilaterally. Sacral spine : Severe tenderness over the Sacroiliac joint: right side / left side Range of motion: Flexion of the lumbar spine <60 degrees Range of motion: Extension of the lumbar spine <20 degrees Gaenslen's Test positive on L Margarette test: positive right side / left side Thigh Thrust Test L positive Sacral Thrust Test Imaging: MRI non contrast of the lumbar spine from reviewed Assessment/ Plan : L2-L3 LIF w CAGE, L Sacroiliitis Recommendation of L TFESI L4-L5/ L5-S1 #1. Risks, benefits of procedure discussed and patient verbalized understanding. All questions answered. I have spent greater than 30 minutes on patient care today. Dr Webb was jaydon ilable by phone for the evaluation of this patient. The time was used to review the medical records including relevant urine studies and Prescription history (MAPs), review of the available imaging, evaluation and examination of the patient, coordination of care with the medical staff and if applicable referring physicians, as well as creation of the medical record - Pain Location Lower Back Non-Pharmacological Interventions: Ice Pharmacological Interventions: Medication PQRS Narrative: Hx Alcohol Use (MH) No Home Medications: Ambulatory Orders Atorvastatin [Lipitor] 20 mg PO HS 01/05/22 Fish Oil/Dha/Epa [Fish Oil 1,200 mg Fish Oil] 1 cap PO QAM 01/05/22 HYDROcodone/APAP 5-325MG [Boy[place] 5-325] 1 tab PO BID PRN 01/05/22 Magnesium Oxide [Mag-Ox] 400 mg PO QAM 01/05/22 Pioglitazone [Actos] 30 mg PO QAM 01/05/22 Zinc 50 mg PO QAM 01/05/22 allopurinoL [Zyloprim] 100 mg PO BID 01/05/22 Insulin Glargine,Hum.rec.anlog [Lantus Solostar Pen] 50 unit SQ HS 11/26/22 Turmeric Root Extract [Turmeric] 400 mg PO QAM 11/26/22 hydrALAZINE HCL [Apresoline] 50 mg PO TID 11/26/22 Ascorbic Acid [Vitamin C] 1,000 mg PO QAM 05/13/24 Folic Acid 400 mg PO QAM #0 05/13/24 Metoprolol Succinate (ER) [Toprol XL] 50 mg PO QAM 05/13/24 Sennosides/Docusate Sodium [Senna Plus 8.6-50 mg Tablet] 1 each PO DAILY PRN #20 tab 05/19/24 Acetaminophen Tab [Tylenol] 500 - 1,000 mg PO Q6HR PRN 04/14/25 Ergocalciferol [Vitamin D2 (1250 Mcg = 35522 Iu)] 1,250 mcg PO WEEKLY 04/14/25 Famotidine [Pepcid] 20 mg PO QAM 04/14/25 Insulin Aspart [NovoLOG Flexpen] 0 units SQ TID-W/MEALS 04/14/25 glipiZIDE [Glucotrol] 5 mg PO AC-BRKFST 04/14/25 lisinopriL [Zestril] 2.5 mg PO QAM 04/14/25 diazePAM [Valium] 10 mg PO DAILY 1 Days #1 tab 04/30/25 Controlled Substance Measures - Controlled Substance Measures Is patient prescribed a controlled substance at discharge?: Yes When asked, does pt state using other controlled substances?: Yes If prescribed controlled substance>3 days was MAPS reviewed?: Prescribed <3 Days
== END ==
LOC: PNWHC3 08:14
PROVIDERS: ATTEND Specialist
DX: M46.1 Sacroiliitis, not elsewhere classified (principal); Z98.1 Arthrodesis status; Z88.5 Allergy status to narcotic agent
CPT/HCPCS: 99212

== ENCOUNTER 2025-05-26 10:12 | Day surgery (SDC) | payer MEDICARE ==
[~2025-05-26 10:12] MED LIST changes: +LACTATED RINGERS 1,000 ML IV SCH; -TRANEXAMIC 1,000 MG/100ML-NACL 1,000 MG in SALINE 1 100ML.BAG IVPB PRN
[2025-05-26 10:34] VITALS: TEMP 97.9
[2025-05-26 10:40] LABS: Glucose,Whole Blood 70 mg/dL (70-110)
[2025-05-26] MEDS ORDERED: DEXAMETHASONE SOD PHOSPHATE 10 MG/ML 1 ML VIAL ONE (11:35)
[2025-05-26] MEDS ORDERED: IOPAMIDOL M300 15ML VIAL ONE (11:35)
--- NOTE | 2025-05-26 11:59 | P.PCN ---
Description of Procedure: PREOPERATIVE DIAGNOSIS: 1-Lumbar radiculopathy . 2-lumbar degenerative disc disease. 3-lumbar spondylosis with lumbar facet arthropathy without myelopathy POSTOPERATIVE DIAGNOSIS: 1-lumbar radiculopathy. 2-lumbar degenerative disc disease. 3-lumbar spondylosis with facet arthropathy without myelopathy PROCEDURE 1. Transforaminal epidural steroid injection under fluoroscopic guidance at LEFT L4-5, [id number]. (Fluoroscopy images stored on file in the radiology Department ) 2. Lumbar epidurogram . ANESTHESIA: Local with 1% lidocaine 5 ml. subcutaneously. Continuous pulse ox, EKG, blood pressure and verbal communication was maintained with the patient. EBL: Minimal PROCEDURE INDICATION: The patient with low back pain and radiculopathy symptoms unresponsive to conservative treatment. The patient was seen and identified in the preoperative area. Risks, benefits, complications, and alternatives were discussed with the patient. The patient agreed to proceed with the procedure and signed the consent. IV was started, and vital signs were stable. PROCEDURE DESCRIPTION / TECHNIQUE: After getting consent, patient was taken to the OR and time out was completed. The patient was placed in the prone position on procedure table and a pillow was placed under the abdomen to reduce lumbar lordosis. The lumbosacral area was prepped and draped in the usual sterile fashion. Critical pause was taken. After injecting 5 mL of plain 1% lidocaine subcutaneously, under oblique view of the fluoroscope, a 22-gauge spinal needle was introduced under the tunnel view of the fluoroscope on the LEFT L4-5 side and the needle was advanced so that the tip of the needle was at the posterior inferior quadrant of the intervertebral foramen at the lateral view of the fluoroscope and in the lateral third of the facet column in the AP view of the fluoroscope. Negative CSF, negative blood, negative paresthesia. After needle position confirmation by AP and cross table lateral view, 3 mL of Isovue-M 200 contrast was injected under continuous fluoroscope. No contrast was noted in the intrathecal or intravascular space. The epidurogram was noted. Again after repeated negative aspiration 2.5 mL solution was injected which consists 1 mL of normal saline mixed with 1.5 mL of 15 mg dexamethasone. Needle was removed . Same procedure was repeated at the LEFT L5-S1 side , using contrast under continuous fluoroscopy and using same amount of dexamethasone. At the end of the procedure, skin was cleansed, and bandages were applied. DISPOSITION / PLANS: No complication. The patient tolerated the procedure well. The patient was placed in a supine position and transferred to the recovery area in a stable condition for observation. There was no evidence of lower extremity motor or sensory deficit after the procedure. Patient was discharged from the recovery room after meeting discharge criteria. Home discharge instructions were given to the patient by the staff. The patient was reexamined prior to discharge.
[2025-05-26 12:05] VITALS: RESP 16
--- NOTE | 2025-05-26 12:13 | FL ---
EXAMINATION TYPE: FL guided pain mgmt statistic Intraoperative/procedural fluoroscopic services were provided. CLINICAL INDICATION:Male, 79 years old with history of TRANSFORAMINAL; , [facility] FINDINGS: Fluoroscopic images demonstrating lumbar transforaminal injection. No radiographic evidence for compl ication. Total fluoroscopy time is 58.4 seconds. DAP: 0.03428 mGym2 Please see the operative/procedural note for further details. [facility], , 05/26/2025 12:11 PM
[2025-05-26 12:18] LABS: Glucose,Whole Blood 83 mg/dL (70-110)
[2025-05-26 12:23] VITALS: BP 171/75; PULSE 77
== END 2025-05-26 12:31 | disposition home or self-care (01) ==
LOC: ORPAIN 10:12
PROVIDERS: ATTEND Pain Medicine Interventional Pain Medicine
DX: M47.26 Other spondylosis with radiculopathy, lumbar region (principal); M51.16 Intervertebral disc disorders with radiculopathy, lumbar region; Z88.5 Allergy status to narcotic agent; Z88.8 Allergy status to other drugs, medicaments and biological substances
CPT/HCPCS: 64483; 64484; J1100; Q9967

== ENCOUNTER → 2025-06-04 | Outpatient (CLI) | payer MEDICARE ==
--- NOTE | 2025-06-04 16:15 | XR ---
EXAMINATION TYPE: XR Hip Complete LT DATE OF EXAM: 06/04/2025 3:51 PM COMPARISON: 04/25/2018 CLINICAL INDICATION: Male, 79 years old with history of M47.816 SPONDYLOSIS; PHH, pain TECHNIQUE: XR Hip Complete LT; Frontal and lateral views FINDINGS: Post arthroplasty changes, hardware is intact, alignment is appropriate. No evidence of fra cture. No evidence of any acute osseous pathology or joint dislocation. IMPRESSION: Hip arthroplasty with hardware intact and in appropriate alignment. No acute fracture. [facility], , 06/04/2025 4:13 PM
--- NOTE | 2025-06-04 16:19 | XR ---
EXAMINATION TYPE: XR sacroiliac joint comp BILAT, CT pelvis wo con DATE OF EXAM: 06/04/2025 3:51 PM COMPARISON: None CLINICAL INDICATION: Male, 79 years old with history of M47.816 SPONDYLOSIS; PHH, pain TECHNIQUE: The sacroiliac joints were examined in a frontal and oblique projections. Axial CT imaging of the pelvis without contrast. Sagittal and coronal reformats were submitted for re view. Contrast used: (none if empty) Oral contrast used: (none if empty) CT DLP: 489 mGycm, Automated exposure control for dose reduction was used. FINDINGS: Dorsal bony fusion of the sacroiliac joints bilaterally with osteophyte formation. There is multilevel degeneration changes of the spine. Postsurgical changes of the spine are present. No arnaldo dence of fracture. Bilateral hip arthroplasty with streak artifact limited evaluation of the pelvis. Arthroplasties appe ar intact. The appendix is normal. No acute intra-abdominal process. The urinary bladder is distended. Left fat- containing inguinal hernia. IMPRESSION: 1. Partial ankylosis of the sacroiliac joints. 2. Moderate degeneration of the sacroiliac joints. 3. Mild to moderate degeneration changes of the spine. 4. . 5. Bilateral hip arthroplasties which appear intact. 6. No evidence for acute intra-abdominal process. 7. Left fat-containing inguinal hernia. [facility], , 06/04/2025 4:17 PM
== END | disposition home or self-care (01) ==
LOC: RADCTMAIN 14:53
PROVIDERS: ATTEND Orthopaedic Surgery
DX: M25.512 Pain in left shoulder (principal); M47.816 Spondylosis without myelopathy or radiculopathy, lumbar region; K40.90 Unilateral inguinal hernia, without obstruction or gangrene, not specified as recurrent; M53.3 Sacrococcygeal disorders, not elsewhere classified; Z96.642 Presence of left artificial hip joint
CPT/HCPCS: 72192; 72202; 73502